=== PATIENT | female | born 1970 | race Caucasian/White ===

== ENCOUNTER 2017-01-02 14:27 | Inpatient (IN) ==
--- NOTE | 2017-01-02 15:25 | Emergency Department Note ---
Disposition Referrals: NO,PCP [Primary Care Provider] - Forms: ED Satisfaction Letter Head Injury HPI - General Chief complaint: ED Dizziness Stated complaint: Dizzy / Hands Shaking and Cramping Time Seen by Provider: 01/02/17 15:09 Source: patient, family Limitations: no limitations Nursing Notes Reviewed: Yes Vital Signs Reviewed: Yes - History of Present Illness Pt Subjective Complaint: head injury, fall Onset (ago): hour(s) (1) Mechanism of Injury: fall from height (6 ft.) Loss of Consciousness: no Location of injury: parietal Pain Severity: moderate Quality: dull Radiation: none Other Injuries: none Associated symptoms: Reports: denies other symptoms - Related Data Home Medications Medication Instructions Recorded Confirmed Albuterol Sulfate [Proair 2 puff IH PRN PRN 10/19/15 10/27/16 Respiclick] Atorvastatin [Lipitor] 10 mg PO HS 10/19/15 10/27/16 FLUoxetine HCl [Prozac] 20 mg PO DAILY 10/19/15 10/27/16 Omeprazole [PriLOSEC] 20 mg PO DAILY 10/19/15 10/27/16 Ergocalciferol (VITAMIN D2) 50,000 unit PO QWEEK 02/26/16 10/27/16 [Vitamin D2 (50,000 UNIT)] Gabapentin [Neurontin] 600 mg PO TID 02/26/16 10/27/16 Spironolactone [Aldactone] 50 mg PO DAILY 02/26/16 10/27/16 Allergies/Adverse reactions: Allergies Allergy/AdvReac Type Severity Reaction Status Date / Time Sulfa (Sulfonamide Allergy Hives Verified 10/19/15 18:15 Antibiotics) iron AdvReac Hives Verified 10/27/16 07:20 All systems ED: reviewed and negative except as stated. 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 SERVICES MANAGER history: Reports: no HUMAN SERVICES MANAGER history - Social History Smoking Status: Current some day smoker Smokeless Tobacco Status: No Alcohol use: Reports: none Drug use: Reports: none Physical Exam - General Limitations: no limitations General appearance: alert, in no apparent distress - Head Head exam: other (Some tenderness superior aspect of her occiput no hematoma or abrasion) - Eye Eye exam: Present: normal appearance, PERRL, EOMI - Expanded Eye Exam Pupils: Left: reactive - ENT ENT exam: normal exam, normal oropharynx, mucous membranes moist - Expanded ENT Exam External ear exam: Present: normal external inspection Mouth exam: Present: normal external inspection Teeth exam: Present: normal inspection Throat exam: Present: normal inspection - Neck Neck exam: Present: normal inspection, full ROM, trachea midline - Chest Chest inspection: Present: normal inspection, symmetric chest wall rise - Respiratory Respiratory exam: Present: normal lung sounds bilaterally - Cardiovascular Cardiovascular exam: Present: regular rate, normal rhythm, normal heart sounds - Abdominal Exam Abdominal exam: Present: soft, Non-Tender. Absent: tenderness, distention, guarding, rebound, rigidity - Extremities Exam Extremities exam: Present: normal inspection, full ROM. Absent: tenderness, pedal edema - Expanded Upper Extremity Exam Shoulder exam: Present: normal inspection, full ROM Arm exam: Present: normal inspection, full ROM Elbow exam: Present: normal inspection, full ROM Forearm/Wrist exam: Present: normal inspection, full ROM Hand exam: Present: normal inspection, full ROM Vascular exam: Normal: capillary refill, radial pulse - Expanded Lower Extremity Exam Hip/Pelvis exam: Present: normal inspection, full ROM Upper leg exam: Present: normal inspection, full ROM Knee exam: Present: normal inspection, full ROM Lower leg exam: Present: normal inspection, full ROM Ankle exam: Present: normal inspection, full ROM Foot/toe exam: Present: normal inspection, full ROM Neurovascular/Tendon exam: Absent: motor deficit, sensory deficit, tendon deficit - Back Exam Back exam: Present: normal inspection, full ROM. Absent: tenderness - Neurological Exam Neurological exam: Present: alert, oriented X3 - Expanded Neurological Exam Patient oriented to: Present: person, place, time Cerebellar function: normal gait (Walked back without any assistance) Coma Scale Eye Opening: Spontaneous Coma Scale Motor Response: Obeys Commands Coma Scale Verbal Response: Oriented Coma Scale Total: 15 - Psychiatric Psychiatric exam: Present: normal affect, normal mood - Skin Skin exam: Present: warm, dry, intact, normal color Course Vital Signs Temperature 97.7 F 01/02/17 14:40 Pulse Rate 71 01/02/17 14:40 Respiratory Rate 14 01/02/17 14:40 Blood Pressure 90/57 01/02/17 14:40 O2 Sat by Pulse Oximetry 92 01/02/17 14:40 Temperature 97.7 F 01/02/17 14:40 Pulse Rate 71 01/02/17 14:40 Respiratory Rate 14 01/02/17 14:40 Blood Pressure 90/57 01/02/17 14:40 O2 Sat by Pulse Oximetry 92 01/02/17 14:40 Oxygen Delivery Oxygen Delivery Room Air Head Injury - Differential Diagnosis Differential Diagnosis: Likely: concussion without loss of consciousness, epidural hematoma, closed head injury, subarachnoid hematoma, postconcussion sydrome, subdural hematoma - Medical Records Medical records reviewed: Yes I reviewed the patient's medical records. - Radiology Data Radiology results reviewed: Yes I reviewed the patient's radiology results.
[2017-01-02] MEDS ORDERED: 0.9 % Sodium Chloride 1,000 ML IVC ONE (15:32)
--- NOTE | 2017-01-02 16:03 | Emergency Department Note ---
Disposition Clinical Impression: Acute on chronic kidney failure, Dehydration, Hyperkalemia Urinary tract infection Qualifiers: Urinary tract infection type: acute cystitis Hematuria presence: with hematuria Qualified Code(s): N30.01 - Acute cystitis with hematuria Disposition: Admitted As Inpatient Condition: Critical Referrals: NO,PCP [Non-Partnered Physician] - Forms: ED Satisfaction Letter Dizziness HPI - General Chief Complaint: ED Dizziness Stated Complaint: Dizzy / Hands Shaking and Cramping Time Seen by Provider: 01/02/17 15:09 Source: patient, family Limitations: no limitations Nursing Notes Reviewed: Yes Vital Signs Reviewed: Yes - History of Present Illness Pt Subjective Complaint: dizziness, lightheadedness, weakness Onset (ago): week(s) (2) Timing: gradual onset Description: lightheadedness, difficulty walking History of similar episodes: No History of trauma: No Severity: moderate Associated symptoms: Reports: weakness, other (cramping in her hands) - Related Data Home Medications Medication Instructions Recorded Confirmed Albuterol Sulfate [Proair 2 puff IH PRN PRN 10/19/15 10/27/16 Respiclick] Atorvastatin [Lipitor] 10 mg PO HS 10/19/15 10/27/16 FLUoxetine HCl [Prozac] 20 mg PO DAILY 10/19/15 10/27/16 Omeprazole [PriLOSEC] 20 mg PO DAILY 10/19/15 10/27/16 Ergocalciferol (VITAMIN D2) 50,000 unit PO QWEEK 02/26/16 10/27/16 [Vitamin D2 (50,000 UNIT)] Gabapentin [Neurontin] 600 mg PO TID 02/26/16 10/27/16 Spironolactone [Aldactone] 50 mg PO DAILY 02/26/16 10/27/16 Allergies Allergy/AdvReac Type Severity Reaction Status Date / Time Sulfa (Sulfonamide Allergy Hives Verified 10/19/15 18:15 Antibiotics) iron AdvReac Hives Verified 10/27/16 07:20 All systems ED: reviewed and negative except as stated. 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 - Social History Smoking Status: Current some day smoker Smokeless Tobacco Status: No Alcohol use: Reports: none Drug use: Reports: none Physical Exam - General Limitations: no limitations General appearance: alert, in no apparent distress - Head Head exam: atraumatic, normocephalic, normal inspection - Eye Eye exam: Present: normal appearance, PERRL, EOMI - Expanded Eye Exam Pupils: Left: reactive - ENT ENT exam: normal exam, normal oropharynx, mucous membranes moist - Expanded ENT Exam External ear exam: Present: normal external inspection Mouth exam: Present: normal external inspection Teeth exam: Present: normal inspection Throat exam: Present: normal inspection - Neck Neck exam: Present: normal inspection, full ROM, trachea midline - Chest Chest inspection: Present: normal inspection, symmetric chest wall rise - Respiratory Respiratory exam: Present: normal lung sounds bilaterally - Cardiovascular Cardiovascular exam: Present: regular rate, normal rhythm, normal heart sounds - Abdominal Exam Abdominal exam: Present: soft, Non-Tender. Absent: tenderness, distention, guarding, rebound, rigidity - Extremities Exam Extremities exam: Present: normal inspection, full ROM. Absent: tenderness, pedal edema - Expanded Upper Extremity Exam Shoulder exam: Present: normal inspection, full ROM Arm exam: Present: normal inspection, full ROM Elbow exam: Present: normal inspection, full ROM Forearm/Wrist exam: Present: normal inspection, full ROM Hand exam: Present: normal inspection, full ROM Vascular exam: Normal: capillary refill, radial pulse - Expanded Lower Extremity Exam Hip/Pelvis exam: Present: normal inspection, full ROM Upper leg exam: Present: normal inspection, full ROM Knee exam: Present: normal inspection, full ROM Lower leg exam: Present: normal inspection, full ROM Ankle exam: Present: normal inspection, full ROM Foot/toe exam: Present: normal inspection, full ROM Neurovascular/Tendon exam: Absent: motor deficit, sensory deficit, tendon deficit - Back Exam Back exam: Present: normal inspection, full ROM. Absent: tenderness - Neurological Exam Neurological exam: Present: alert, oriented X3 - Expanded Neurological Exam Patient oriented to: Present: person, place, time Coma Scale Eye Opening: Spontaneous Coma Scale Motor Response: Obeys Commands Coma Scale Verbal Response: Oriented Coma Scale Total: 15 - Psychiatric Psychiatric exam: Present: normal affect, normal mood - Skin Skin exam: Present: warm, dry, intact, normal color Course - Consultations Consultation #1: Department better recommends 1 L of fluid and then maintenance rate repeat BMP at 3 hours if still elevated potassium repeat kayexelate, no emergent dialysis at this time ( Time: 18:11 Vital Signs Temperature 97.7 F 01/02/17 14:40 Pulse Rate 71 01/02/17 14:40 Respiratory Rate 14 01/02/17 14:40 Blood Pressure 90/57 01/02/17 14:40 O2 Sat by Pulse Oximetry 92 01/02/17 14:40 Temperature 97.7 F 01/02/17 14:40 Pulse Rate 82 01/02/17 17:25 Respiratory Rate 18 01/02/17 17:25 Blood Pressure 94/43 01/02/17 17:25 O2 Sat by Pulse Oximetry 99 01/02/17 17:25 Oxygen Delivery Oxygen Delivery Room Air Dizziness - Differential Diagnosis Likely: adverse reaction to drug, orthostatic hypotension, other occult medical condition - Medical Records Medical records reviewed: Yes I reviewed the patient's medical records. - Lab Data Lab results reviewed: Yes I reviewed the patient's lab results. Result diagrams: 01/02/17 15:55 01/02/17 15:55 Lab Results 01/02/17 01/02/17 01/02/17 Range/Units 15:55 15:55 15:55 WBC 20.4 H (4.3-11.1) K/mcL RBC 4.88 (3.82-4.97) M/mcL Hgb 11.5 (11.5-15.4) g/dL Hct 43.0 (35.3-44.9) % MCV 88.1 (83.0-100.0) fL MCH 23.6 L (28.0-33.3) pg MCHC 26.7 L (31.6-35.5) g/dL RDW 20.5 H (11.5-14.5) % Plt Count 292 (140-400) K/mcL MPV 11.0 (9.4-12.4) fL Immature Gran % 0.7 (0-4) % Seg Neutrophils % 85.6 % Lymphocytes % 6.6 % Monocytes % 6.6 % Eosinophils % 0.2 % Basophils % 0.3 % Neutrophils # 17.5 H (1.6-8.9) K/mcL Lymphocytes # 1.4 (0.6-4.6) K/mcL Monocytes # 1.4 H (0.0-1.3) K/mcL Eosinophils # 0.0 (0.0-0.6) K/mcL Basophils # 0.1 (0.0-0.2) K/mcL Nucleated RBCs/100 WBC 0.6 H (0) /100 WBC Platelet Estimate Normal (Normal) Polychromasia 1+ A (Not Present) Anisocytosis 1+ A (Not Present) PT 11.9 (9.4-12.1) Seconds INR 1.1 Sodium 136 (136-145) mEq/L Potassium 6.0 H (3.5-4.5) mEq/L Chloride 99 (98-109) mEq/L Carbon Dioxide 21 (19-29) mEq/L BUN 114 H (7-20) mg/dL Creatinine 8.06 H (0.57-1.11) mg/dL Est GFR ( Amer) 6 L (> 60) Est GFR (Non-Af Amer) 5 L (> 60) BUN/Creatinine Ratio 14 (6-26) Glucose 96 (70-99) mg/dL Calculated Osmolality 318 H (280-300) Lactic Acid (0.5-2.2) mmol/L Calcium 8.4 L (8.6-10.8) mg/dL Total Bilirubin 0.6 (0.2-1.2) mg/dL AST 27 (5-34) Units/L ALT 15 (0-55) Units/L Alkaline Phosphatase 115 (38-126) Units/L Serum Total Protein 7.0 (6.0-8.3) g/dL Albumin 3.3 L (3.5-5.0) g/dL Globulin 3.7 H (2.4-3.5) g/dL Albumin/Globulin Ratio 0.9 L (1.1-2.2) Urine Color (Yellow) Urine Clarity (Clear) Urine pH (5.0-8.0) pH Units Ur Specific [place] (1.010-1.025) Urine Protein (Neg-Trace) mg/dL Urine Glucose (UA) (Normal) mg/dL Urine Ketones (Negative) mg/dL Urine Blood (Negative) Urine Nitrite (Negative) Urine Bilirubin (Negative) Urine Urobilinogen (Normal) mg/dL Ur Leukocyte Esterase (Negative) Urine Microscopic RBC (0-3) per hpf Urine Microscopic WBC (0-3) per hpf Ur Squamous Epith Cells (None-Few) per lpf Urine Bacteria (None-Few) per hpf Hyaline Casts (None-Few) per lpf Ur Culture Indicated? (NO) 01/02/17 01/02/17 Range/Units 16:03 17:42 WBC (4.3-11.1) K/mcL RBC (3.82-4.97) M/mcL Hgb (11.5-15.4) g/dL Hct (35.3-44.9) % MCV (83.0-100.0) fL MCH (28.0-33.3) pg MCHC (31.6-35.5) g/dL RDW (11.5-14.5) % Plt Count (140-400) K/mcL MPV (9.4-12.4) fL Immature Gran % (0-4) % Seg Neutrophils % % Lymphocytes % % Monocytes % % Eosinophils % % Basophils % % Neutrophils # (1.6-8.9) K/mcL Lymphocytes # (0.6-4.6) K/mcL Monocytes # (0.0-1.3) K/mcL Eosinophils # (0.0-0.6) K/mcL Basophils # (0.0-0.2) K/mcL Nucleated RBCs/100 WBC (0) /100 WBC Platelet Estimate (Normal) Polychromasia (Not Present) Anisocytosis (Not Present) PT (9.4-12.1) Seconds INR Sodium (136-145) mEq/L Potassium (3.5-4.5) mEq/L Chloride (98-109) mEq/L Carbon Dioxide (19-29) mEq/L BUN (7-20) mg/dL Creatinine (0.57-1.11) mg/dL Est GFR ( Amer) (> 60) Est GFR (Non-Af Amer) (> 60) BUN/Creatinine Ratio (6-26) Glucose (70-99) mg/dL Calculated Osmolality (280-300) Lactic Acid 1.5 (0.5-2.2) mmol/L Calcium (8.6-10.8) mg/dL Total Bilirubin (0.2-1.2) mg/dL AST (5-34) Units/L ALT (0-55) Units/L Alkaline Phosphatase (38-126) Units/L Serum Total Protein (6.0-8.3) g/dL Albumin (3.5-5.0) g/dL Globulin (2.4-3.5) g/dL Albumin/Globulin Ratio (1.1-2.2) Urine Color Yellow (Yellow) Urine Clarity Turbid A (Clear) Urine pH 6.5 (5.0-8.0) pH Units Ur Specific [place] 1.016 (1.010-1.025) Urine Protein >=300 H (Neg-Trace) mg/dL Urine Glucose (UA) Normal (Normal) mg/dL Urine Ketones Negative (Negative) mg/dL Urine Blood Large H (Negative) Urine Nitrite Negative (Negative) Urine Bilirubin Negative (Negative) Urine Urobilinogen Normal (Normal) mg/dL Ur Leukocyte Esterase Large H (Negative) Urine Microscopic RBC TNTC H (0-3) per hpf Urine Microscopic WBC TNTC H (0-3) per hpf Ur Squamous Epith Cells Many H (None-Few) per lpf Urine Bacteria Many H (None-Few) per hpf Hyaline Casts None Seen (None-Few) per lpf Ur Culture Indicated? YES A (NO) - EKG Data EKG attestation: Yes I reviewed and interpreted this EKG. Critical Care Time Critical Care Time: Yes Total Critical Care Time: 40 Attestation: Critical care performed: Time is exclusive of separately billable procedures. Time includes: direct patient care, patient reassessment, coordination of patient care, interpretation of data (laboratory data, radiology data, and respiratory data), review of patient's medical records, medical consultation and documentation of patient care. Procedures included in critical care time: Procedures excluded from critical care time:
[2017-01-02 16:06] LABS: Basophils % 0.3 %; Hemoglobin 11.5 g/dL (11.5-15.4); Monocytes % 6.6 %
[2017-01-02 16:08] LABS: Basophils # 0.1 K/mcL (0.0-0.2); Eosinophils % 0.2 %; Immature Granulocytes % 0.7 % (0-4); Lymphocytes # 1.4 K/mcL (0.6-4.6); Lymphocytes % 6.6 %; Mean Corpuscular HGB Conc 26.7 g/dL (31.6-35.5); Mean Corpuscular Hemoglobin 23.6 pg (28.0-33.3); Mean Corpuscular Volume 88.1 fL (83.0-100.0); Monocytes # 1.4 K/mcL (0.0-1.3); Neutrophils # 17.5 K/mcL (1.6-8.9); Nucleated Red Blood Cells 0.6 /100 WBC (0); Platelet Count 292 K/mcL (140-400); Red Blood Count 4.88 M/mcL (3.82-4.97); Red Cell Distribution Width 20.5 % (11.5-14.5); Segmented Neutrophils % 85.6 %
[2017-01-02 16:10] LABS: Bilirubin,Urine Negative (Negative); Blood,Urine Large (Negative); Clarity,Urine Turbid (Clear); Color,Urine Yellow (Yellow); Glucose,Urine (UA) Normal (Normal); Ketones,Urine Negative (Negative); Leukocyte Esterase,Urine Large (Negative); Nitrite,Urine Negative (Negative); PH,Urine 6.5 pH Units (5.0-8.0); Protein,Urine >=300 mg/dL (Neg-Trace); Specific Gravity,Urine 1.016 (1.010-1.025); Urobilinogen,Urine Normal (Normal)
[2017-01-02 16:12] LABS: INR 1.1; Prothrombin Time 11.9 Seconds (9.4-12.1)
[2017-01-02 16:12] LABS: Bacteria,Urine Many per hpf (None-Few); Hyaline Casts,Urine None Seen per lpf (None-Few); Squamous Epithelial Cell,Urine Many per lpf (None-Few); WBC,Urine TNTC per hpf (0-3)
[2017-01-02 16:20] LABS: Albumin 3.3 g/dL (3.5-5.0); Albumin/Globulin Ratio 0.9 (1.1-2.2); Bilirubin,Total 0.6 mg/dL (0.2-1.2); Calcium 8.4 mg/dL (8.6-10.8); Globulin 3.7 g/dL (2.4-3.5)
[2017-01-02 16:21] LABS: RBC,Urine TNTC per hpf (0-3)
[2017-01-02 16:31] LABS: Platelet Estimate Normal (Normal)
[2017-01-02 16:32] LABS: Anisocytosis 1+ (Not Present); Polychromasia 1+ (Not Present)
[2017-01-02] MEDS ORDERED: *HR* Dextrose 50 % in Water (Syg) 50 ML SYRINGE IVP ONE (16:35)
[2017-01-02] MEDS ORDERED: Albuterol 2.5 MG/3 ML NEBULIZER IH ONE (16:35)
[2017-01-02] MEDS ORDERED: Sodium Bicarbonate 50 MEQ/50 ML VIAL IVP ONE (16:35)
[2017-01-02] MEDS ORDERED: Calcium Gluconate 1,000 MG in D5% in Water 100 ML IVPB ONE (16:45)
[2017-01-02 22:02] LABS: Calcium 8.2 mg/dL (8.6-10.8)
[2017-01-02 22:05] LABS: Potassium 4.8 mEq/L (3.5-4.5)
[2017-01-02] MEDS ORDERED: Naloxone 0.4 MG/ML INJ IVP PRN (22:16)
[2017-01-02] MEDS: 0.9 % Sodium Chloride 1,000 ML IVC SCH (22:20)
[2017-01-02] MEDS ORDERED: Albuterol 2.5 MG/3 ML NEBULIZER IH PRN (22:48)
--- NOTE | 2017-01-02 23:07 | Internal Med History&Physical ---
<Pily Abdalla - Last Filed: 01/02/17 23:54> Date of Encounter: 01/02/17 Time of Encounter: 22:00 Assessment and Plan (1) Hyperkalemia Current visit: No Status: Acute 1 patient presented with potassium of 6. She was given kayexalate albuterol calcium gluconate IV, IV fluids and recheck potassium 4.8 and continue to monitor potassium 2 continuous cardiac monitoring 3 continue with IV fluids overnight 4 consult nephrology 5 Hold spironolactone (2) Sepsis Current visit: Yes Status: Acute 1 patient presented with WBC 20 patient was hypotensive, elevated creatinine urinary source and possible pneumonia. Blood cultures urine cultures obtained. Patient given IV fluids to continue with IV fluid overnight 2 started on Rocephin we will add Zithromax-for respiratory coverage 3 monitor intake and output 4 maintain MAP greater than 60 Qualifiers: Sepsis type: sepsis due to unspecified organism Qualified Code(s): A41.9 - Sepsis, unspecified organism (3) Acute on chronic renal failure Current visit: Yes Status: Acute 1 creatinine 8.06. Baseline 2-3. Suspect prerenal rt sepsis Patient is being followed by Dr Arias nephrology- developing fistula for possible dialysis in the next 6 mos per patient report. We will continue with IV fluids nad continue to monitor creatinine 2 . Avoid nephrotoxins renal dose antibiotics 3 we will hold spirolactone, decrease Neurontin 4 monitor intake and output daily weights (4) HTN (hypertension) Current visit: No Status: Chronic 1 presently hypotensive we will continue with IV fluids. We will hold antihypertensives for now and resume once back to baseline Qualifiers: Hypertension type: essential hypertension Qualified Code(s): I10 - Essential (primary) hypertension (5) Urinary tract infection Current visit: Yes Status: Acute 1 WBC 20 afebrile urinalysis with large leuk esterase blood bacteria. Urine culture obtained blood cultures obtained. Started on Rocephin we will just a sensitivity Qualifiers: Urinary tract infection type: acute cystitis Hematuria presence: with hematuria Qualified Code(s): N30.01 - Acute cystitis with hematuria (6) DVT prophylaxis Current visit: Yes Status: Acute Heparin subcutaneous Internal Medicine - H&P: HPI Chief complaint: Shaky hands dizziness Admitted From: Emergency Dept Plans for Post Hospital Care: Home History of present illness: Ms. Saucedo is a 46 year old female past medical history of hypertension EKG stage IV COPD hyperlipidemia BAILEY. According to patient for the past 2 weeks she has been experiencing tremors and spasms in her hands bilaterally also hands are swollen painful to touch left more than right. She also has been experiencing some dizziness lightheadedness. She has recently been treated for an upper respiratory infection received antibiotic. She denies any fevers chills nausea vomiting diarrhea abdominal pain. She presented to the ER with the above complaints. According to ER records lab work was obtained and revealed patient had hyperkalemia of 6 creatinine was 8.06 CBC revealed daily C 20.4 hemoglobin 11.5 lactate was 1.5 urinalysis indicative of UTI with large amount of leuk esterase blood, bacteria. Chest x-ray revealed possible infiltrate vital signs upon arrival patient was hypertensive name D6 systolic afebrile 97.7 pulse was 71 and SPO2 is 92% placed on oxygen improved to 99%. Dr. Mccain in the ER did speak with who agreed with Mr. to oxalate IV fluids calcium albuterol continue with IV fluids maintenance and recheck potassium later on this evening. He would see patient as consult. Blood cultures were obtained patient was given IV Rocephin Patient has been admitted for further workup and evaluation presently the patient denies any chest pain shortness of breath she denies any past urinary symptoms or vaginal discharge. She denies any cough or sputum production . She continues to complain of hand pain. Left hand is slightly swollen and there is redness/ warmth around first and second metacarpal phalangeal joints. She is hemodynamically stable this time I reviewed this case with Dr. Mensah who agrees with plan Past Med Surg Social Fam HX - Past Medical History Medical history: COPD, diabetes, hyperlipidemia, hypertension, kidney stones, renal disease, other Psychiatric history: anxiety, depression - Past Surgical History Surgical History: orthopedic, other, other - Social History Smoking Status: Current some day smoker Packs per day: 1 Smokeless Tobacco Status: No Alcohol use: none Drug use: none - Family History Mother Age: 67 Living Status: Still Living Hx Family Cardiac Disorders: Yes Hx Family Neurologic Disorders: Yes (Stoke) Father Living Status: Age at : 60 Cause of : Stomach cancer Hx Family Cancer: Yes (Stomach) Internal Medicine - H&P: Meds Albuterol Sulfate [Proair Respiclick] 2 puff IH PRN PRN 10/19/15 [History] Atorvastatin [Lipitor] 10 mg PO HS 10/19/15 [History] FLUoxetine HCl [Prozac] 20 mg PO DAILY 10/19/15 [History] Omeprazole [PriLOSEC] 20 mg PO DAILY 10/19/15 [History] Ergocalciferol (VITAMIN D2) [Vitamin D2 (50,000 UNIT)] 50,000 unit PO QWEEK 10/12 [History] Gabapentin [Neurontin] 600 mg PO TID 02/26/16 [History] Spironolactone [Aldactone] 50 mg PO DAILY 02/26/16 [History] Allergies Sulfa (Sulfonamide Antibiotics) Allergy (Verified 10/19/15 18:15) Hives iron Adverse Reaction (Verified 10/27/16 07:20) Hives All Systems PM: A 10-system review of systems was performed and is negative for pertinent findings except as documented above in the HPI. - Constitutional Constitutional: no chills, no fever(s), no night sweats - EENT Eyes: no change in vision, no discharge, no pain, no photophobia - Cardiovascular Cardiovascular ROS IM: no chest pain, no diaphoresis, no dyspnea, no lightheadedness, no palpitations, no syncope - Respiratory Respiratory: wheezing, chest congestion - Gastrointestinal Gastrointestinal: no abdominal pain, no diarrhea, no hematemesis, no hematochezia, no melena, no nausea, no vomiting - Genitourinary Genitourinary: no change in urinary stream, no dysuria, no flank pain, no hematuria - Musculoskeletal Musculoskeletal ROS IM: joint swelling - Integumentary Integumentary IM: erythema - Neurological Neurological ROS: no confusion, no convulsions, no focal weakness, no numbness, no tingling, no tremor(s) - Constitutional Vitals: Temp Pulse Resp BP Pulse Ox 98.6 F 78 20 109/62 91 01/02/17 20:35 01/02/17 20:35 01/02/17 20:35 01/02/17 20:35 01/02/17 20:35 General appearance: Present: A&O X 3, morbidly obese, answers questions appropriately - Head Head exam: Present: atraumatic, normocephalic - Respiratory Respiratory exam: Present: decreased breath sounds, wheezes. Absent: accessory muscle use, rales, rhonchi Additional comments: Faint expiratory wheeze - Cardiovascular Cardiovascular exam: Present: RRR, +S1, +S2. Absent: diastolic murmur, gallop, rubs, systolic murmur - GI/Abdominal GI/Abdominal exam: Present: normal bowel sounds, soft, no peritoneal signs. Absent: distended, tenderness - Expanded Upper Extremities Exam Hand wrist exam: Present: erythema, swelling, tenderness - Neurological Exam Neurological exam: Present: CN II-XII intact, oriented X3, no focal deficits. Absent: pronater drift, facial droop, speech deficit - Skin Skin exam: Present: dry, intact Internal Med - H&P Results - Labs CBC & Chem 7: 01/02/17 15:55 01/02/17 21:29 Labs: BMP 01/02/17 21:29 Sodium 137 Potassium 4.8 H D Chloride 99 Carbon Dioxide 22 BUN 111 H Creatinine 8.41 H Glucose 114 H Calcium 8.2 L - Diagnostic Studies Other Images Additional comments: Chest X-Ray 01/02/17 16:33 IMPRESSION: Right basilar airspace opacities compatible atelectasis versus infiltrates. D/ / Landen Ojeda MD / Landen Ojeda MD Interpreting Provider: Landen Ojeda MD <Hari Mensah - Last Filed: 01/03/17 01:15> Date of Encounter: 01/03/17 - Constitutional Vitals: Temp Pulse Resp BP Pulse Ox 98.2 F 74 17 110/65 93 01/02/17 23:12 01/02/17 23:12 01/02/17 23:12 01/02/17 23:12 01/02/17 23:12 General appearance: Present: A&O X 3, morbidly obese, no acute distress - Respiratory Respiratory exam: Present: decreased breath sounds, rales (faint crackles both bases, right > left), wheezes - Cardiovascular Cardiovascular exam: Present: distant heart sounds, RRR, +S1, +S2 - GI/Abdominal GI/Abdominal exam: Present: soft. Absent: tenderness Additional comments: obese - Back Exam Back exam: Present: normal inspection. Absent: CVA tenderness (L), CVA tenderness (R) - Skin Skin exam: Present: dry, warm. Absent: rash Internal Med - H&P Results - Labs CBC & Chem 7: 01/02/17 15:55 01/02/17 21:29 Labs: BMP 01/02/17 21:29 Sodium 137 Potassium 4.8 H D Chloride 99 Carbon Dioxide 22 BUN 111 H Creatinine 8.41 H Glucose 114 H Calcium 8.2 L - EKG Data -: EKG Interpreted by Myself EKG shows normal: sinus rhythm - EKG Data EKG comments: 01/03/17 00:58 [facility] - Diagnostic Studies Other Images Status: image reviewed by me (I suspect RLL infiltrate) - Attending Attestation I discussed the patient [place], PMH, ROS, lab data, and exam findings with Pily Abdalla CNP. I then assessed patient independently as well. Patient looks intravascularly dry on my exam. She admits to cough and fevers. She also has a UTI. BP better now, and she is not tachycardic. I agree that she is septic, likely from urine and pneumonia source. She also had pain and swelling in her left hand. I agree with Pily that this may be gout. She is ordering uric acid level. She may need rheumatology consult as well. I agree with the antibiotic choices. I would not place her on Vancomycin just yet given her renal function and stabilized BP. If she decompensates, however, I would have a low threshold to initiate Vancomycin. Other than my comments above and noted exam findings, I agree with Pily's assessment and plan.
[2017-01-02 23:26] LABS: Uric Acid 14.9 mg/dL (2.6-6.0)
[2017-01-02] MEDS: Ipratropium/Albuterol Neb 3 ML IH SCH (23:30)
[2017-01-03] MEDS: Azithromycin 500 MG in D5% in Water 250 ML IVPB SCH (00:06)
[2017-01-03] MEDS: Ipratropium/Albuterol Neb 3 ML IH SCH (04:37)
[2017-01-03] MEDS: 0.9 % Sodium Chloride 1,000 ML IVC SCH (06:06)
[2017-01-03] MEDS: *HR* Heparin 5,000 UNIT/ML VIAL SQ SCH ×2 (06:06→17:50)
[2017-01-03 07:37] LABS: Basophils % 0.2 %; Eosinophils # 0.1 K/mcL (0.0-0.6); Eosinophils % 0.3 %; Hematocrit 44.9 % (35.3-44.9); Hemoglobin 11.7 g/dL (11.5-15.4); Immature Granulocytes % 0.6 % (0-4); Lymphocytes % 5.9 %; Mean Corpuscular HGB Conc 26.1 g/dL (31.6-35.5); Mean Corpuscular Hemoglobin 23.1 pg (28.0-33.3); Mean Corpuscular Volume 88.7 fL (83.0-100.0); Mean Platelet Volume 11.7 fL (9.4-12.4); Monocytes # 1.1 K/mcL (0.0-1.3); Monocytes % 6.2 %; Neutrophils # 14.9 K/mcL (1.6-8.9); Nucleated Red Blood Cells 0.3 /100 WBC (0); Platelet Count 238 K/mcL (140-400); Red Blood Count 5.06 M/mcL (3.82-4.97); Red Cell Distribution Width 20.7 % (11.5-14.5); Segmented Neutrophils % 86.8 %
[2017-01-03 07:50] LABS: Calcium 8.4 mg/dL (8.6-10.8); Magnesium 2.3 mg/dL (1.6-2.6); Phosphorous 12.1 mg/dL (2.3-4.7); Potassium 4.7 mEq/L (3.5-4.5)
[2017-01-03 08:08] LABS: Platelet Estimate Normal (Normal); Polychromasia 1+ (Not Present)
[2017-01-03 08:09] LABS: Anisocytosis 1+ (Not Present)
[2017-01-03 08:10] LABS: Hypochromasia Present (Not Present)
--- NOTE | 2017-01-03 09:34 | Internal Med Progress Note ---
Date of Encounter: 01/03/17 Time of Encounter: 09:32 - Assessment and plan (1) Hyperkalemia Current Visit: Yes Status: Acute Assessment and plan: due to worsening renal failure; improved with medical management for now; continue Telemetry and monitor electrolytes closely; Nephrology has been consulted, will f/up; (2) Urinary tract infection Current Visit: Yes Status: Acute Assessment and plan: Urinalysis suggestive of UTI; continue IV antibiotics and f/up urine culture results; Qualifiers: Urinary tract infection type: acute cystitis Hematuria presence: with hematuria Qualified Code(s): N30.01 - Acute cystitis with hematuria (3) CAP (community acquired pneumonia) Current Visit: Yes Status: Acute Assessment and plan: Patient presents with leukocytosis, hypoxia and chest XRay shows bibasilar infiltrates; continue IV antibiotics- Rocephin and Zithromax along with supplemental O2 and supportive care; f/up blood cultures and send sputum culture if possible; (4) Sepsis Current Visit: Yes Status: Acute Assessment and plan: likely due to Pneumonia and UTI; plan as above; serum lactate noted to be normal ; Qualifiers: Sepsis type: sepsis due to unspecified organism Qualified Code(s): A41.9 - Sepsis, unspecified organism (5) Acute on chronic kidney failure Current Visit: Yes Status: Acute Assessment and plan: worsening renal failure with metabolic acidosis and hyperkalemia; Nephrology has been consulted, patient has left arm AVF, may be initiated on HD; (6) Acute respiratory failure Current Visit: Yes Status: Acute Assessment and plan: likely due to volume overload and Pneumonia; continue supplemental O2 and wean down FiO2 as tolerated; Qualifiers: Respiratory failure complication: hypoxia Qualified Code(s): J96.01 - Acute respiratory failure with hypoxia (7) Metabolic acidosis Current Visit: Yes Status: Acute (8) Obstructive sleep apnea Current Visit: Yes Status: Chronic (9) Morbid obesity with BMI of 50.0-59.9, adult Current Visit: Yes Status: Chronic (10) HTN (hypertension) Current Visit: Yes Status: Chronic Qualifiers: Hypertension type: essential hypertension Qualified Code(s): I10 - Essential (primary) hypertension (11) CKD (chronic kidney disease), stage IV Current Visit: Yes Status: Chronic - Subjective Interval history: Reports severe pain and swelling in both hands, worse in left hand, unable to flex her fingers and make a fist. Also reports dizziness, generalized weakness and malaise. Reports recently finishing a course of antibiotics for upper respiratory infection and groin abscess that self resolved according to her. - Constitutional Vitals: Temp Pulse Resp BP Pulse Ox 97.6 F 69 18 86/47 96 01/03/17 07:34 01/03/17 07:34 01/03/17 07:34 01/03/17 07:34 01/03/17 07:34 General appearance: Present: A&O X 3, morbidly obese, answers questions appropriately - Respiratory Respiratory exam: Present: CTAB. Absent: accessory muscle use, rales, rhonchi, wheezes - Cardiovascular Cardiovascular exam: Present: RRR, +S1, +S2. Absent: diastolic murmur, gallop, rubs, systolic murmur - GI/Abdominal GI/Abdominal exam: Present: normal bowel sounds, soft (Very obese), no peritoneal signs. Absent: distended, tenderness - Extremities Exam Extremities exam: Present: full ROM (Restricted finger flexion in left hand), pedal edema, warm, radial pulses palpable and symetrical. Absent: calf tenderness, cyanotic Additional comments: Diffuse edema off left dorsal hand and fingers, palmar tenderness - Neurological Exam Neurological exam: Present: CN II-XII intact, oriented X3, no focal deficits. Absent: pronater drift, facial droop, speech deficit Internal Medicine: Result - Labs CBC & Chem 7: 01/07/17 06:10 01/07/17 16:08 Labs: Short CBC 01/03/17 Range/Units 06:34 WBC 17.2 H (4.3-11.1) K/mcL Hgb 11.7 (11.5-15.4) g/dL Hct 44.9 (35.3-44.9) % Plt Count 238 (140-400) K/mcL Neutrophils # 14.9 H (1.6-8.9) K/mcL BMP 01/03/17 06:34 Sodium 136 Potassium 4.7 H Chloride 97 L Carbon Dioxide 18 L BUN 123 H Creatinine 8.74 H Glucose 97 Calcium 8.4 L - ABG Interpretation ABG results: PT/INR, D-dimer PT 11.9 Seconds (9.4-12.1) 01/02/17 15:55 Consult Discharge Plan - Plan Referrals: Steven Ly MD [Primary Care Provider] - 01/12/17 2:40 pm (Please follow up as schedule....)
[2017-01-03] MEDS: Acetaminophen 325 MG TABLET PO PRN (10:15)
[2017-01-03] MEDS: Gabapentin 100 MG CAPSULE PO SCH ×3 (10:16→20:23)
[2017-01-03] MEDS: FLUoxetine 20 MG CAPSULE PO SCH (10:16)
--- NOTE | 2017-01-03 12:09 | Nephrology Consult Note ---
Date of Encounter: 01/03/17 Time of Encounter: 09:25 Assessment and Plan (1) Acute on chronic renal failure Current Visit: Yes Status: Acute JOEY on CKD stage IV with hyperkalemia. Suspect prerenal but her SCr continues to worsen despite IVF. Fortunately her degree of hyperkalemia has improved, so I will hold off on starting HD today (Wednesday). However, iIf her renal function remains so poor tomorrow and continues to fail to respond to IVF, then I would recommend starting HD. AV access: the left midarm AVF is almost too deep and has a weak thrill and bruit, so it may not be sufficient enough for dialysis. If so, then she may need a Permacth for dialysis. Follow a renal protective/support strategy. Avoid NSAIDs, Bactrim, other nephrotoxins as able. Strict I/Os and daily weights. Thank you for consulting the [facility]. (2) Dehydration Current Visit: Yes Status: Acute (3) Hyperkalemia Current Visit: Yes Status: Acute (4) Metabolic acidosis Current Visit: Yes Status: Acute (5) Morbid obesity with BMI of 50.0-59.9, adult Current Visit: Yes Status: Acute (6) Urinary tract infection Current Visit: Yes Status: Acute Qualifiers: Urinary tract infection type: acute cystitis Hematuria presence: with hematuria Qualified Code(s): N30.01 - Acute cystitis with hematuria (7) CKD (chronic kidney disease), stage IV Current Visit: No Status: Chronic (8) HTN (hypertension) Current Visit: No Status: Chronic Qualifiers: Hypertension type: essential hypertension Qualified Code(s): I10 - Essential (primary) hypertension History of Present Illness - Reason for Consult Consult date: 01/03/17 Acute Kidney Injury, Chronic Kidney Disease, hyperkalemia Requesting physician: Shaina Friedman - Chief Complaint JOEY on CKD stage IV - History of Present Illness 46 y/o morbidly obese and pleasant Caucasion female with a pmh of HTN, CKD stage IV (followed by me in the clinic) who presented with dizziness and was found to have JOEY with hyperkalemia. She was given IVF overnight and Kayexalate and though her SCr did not improve, the hyperkalemia did. She denied NSAIDs, N/ V or changes in appetite (i.e., no uremic symptoms), but did affirm chronic IBS- diarrhea predominant. No CP, ShOB, abd pain. Was found to have a UTI as well. Recent left hand swelling/pain. She did not report any anticedant injury, scratch, gardening, fish tank cleaning. 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 She is right handed. No pain in her finger tips and no palor of the finger nail beds. She said that she lives about 20 miles to [place], [place], and about 30 miles to [place], [place]. If she were to need chronic HD, she said that she would rather drive to [place], [place]. No FHx of ESRD reported. Past Med Surg Social Fam HX - Past Medical History Medical history: COPD, diabetes, hyperlipidemia, hypertension, kidney stones, renal disease, other Psychiatric history: anxiety, depression - Past Surgical History Surgical History: orthopedic, other, other - Social History Smoking Status: Current some day smoker Packs per day: 1 Smokeless Tobacco Status: No Alcohol use: none Drug use: none - Family History Mother Age: 67 Living Status: Still Living Hx Family Cardiac Disorders: Yes Hx Family Neurologic Disorders: Yes (Stoke) Father Living Status: Age at : 60 Cause of : Stomach cancer Hx Family Cancer: Yes (Stomach) Medications and Allergies RX: Albuterol Sulfate [Proair Respiclick] 2 puff IH Q4H PRN 10/19/15 [History] RX: Atorvastatin [Lipitor] 10 mg PO HS 10/19/15 [History] RX: FLUoxetine HCl [Prozac] 20 mg PO QAM 10/19/15 [History] RX: Omeprazole [PriLOSEC] 20 mg PO DAILY 10/19/15 [History] RX: Ergocalciferol (VITAMIN D2) [Vitamin D2 (50,000 UNIT)] 50,000 unit PO FR 10/12 [History] Fluticasone/Vilanterol [Breo Ellipta 100-25 Mcg INH] 1 each IH DAILY 01/03/17 [ History] Gabapentin [Neurontin] 300 mg PO TID 01/03/17 [History] Potassium Chloride [Klor-Con] 20 meq PO DAILY 01/03/17 [History] Allergies Sulfa (Sulfonamide Antibiotics) Allergy (Verified 10/19/15 18:15) Hives iron Adverse Reaction (Verified 10/27/16 07:20) Hives Review of Systems All Systems: reviewed and no additional remarkable complaints except as stated Exam - Vital Signs Vital signs: Initial Vital Signs Temp Pulse Resp BP Pulse Ox 97.7 F 71 14 90/57 92 01/02/17 14:40 01/02/17 14:40 01/02/17 14:40 01/02/17 14:40 01/02/17 14:40 Vital Signs - Last 8 Hours Temp Pulse Resp BP Pulse Ox 01/03/17 11:28 97.9 F 67 17 105/66 94 01/03/17 07:34 97.6 F 69 18 86/47 96 Intake and Output 01/02/17 01/03/17 01/03/17 23:59 07:59 15:59 Intake Total 1200 / 1200 360 / 360 Output Total 150 / 150 Balance 1050 / 1050 360 / 360 Intake: IV Fluids 1000 / 1000 0.9 % Sodium Chloride 1, 1000 / 1000 000 ML @ 150 mls/hr IVC . Q6H40M [facility] Rx#:[id number] Oral 200 / 200 360 / 360 Output: Catheter 150 / 150 Other: Meal Breakfast Percent of Meal Consumed 100% Weight 155.922 kg Blood Glucose* 119 119 Patient Weight 01/03/17 23:59 Weight 155.922 kg - General Appearance General appearance: well-developed, well-nourished, appears started age, obese EENT: ATNC, PERRL, mucous membranes moist Respiratory: rales Cardiology: edema (trace ankle edema), regular rate, regular rhythm, normal S1, normal S2 - Dialysis Access Dialysis Vascular Access: Arteriovenous Fistula (Left mid arm AVF with deep thrill and tight bruit) thrill: Yes bruit: Yes Gastrointestinal: normoactive bowel sounds, no tenderness, no guarding, no organomegaly Integumentary: rash (left hand but her finger tips were not cyanotic or pale. ) , warm and dry, chronic venous stasis Neurologic: no focal deficit, no asterixis, alert and oriented x3 Musculoskeletal: no deformities, no erythema, no cyanosis Psychiatric: mood/affect appropriate, cooperative Results - Lab Results 01/03/17 06:34 01/03/17 06:34 Most recent lab results Calcium 8.4 mg/dL (8.6-10.8) L 04/09/17 06:34 Phosphorus 12.1 mg/dL (2.3-4.7) H 01/03/17 06:34 Magnesium 2.3 mg/dL (1.6-2.6) 01/03/17 06:34 I reviewed the above autogenerated date. I reviewed medical records, labs, imaging, vitals and the patient. Consult Discharge Plan - Plan Referrals: Setven Ly MD [Primary Care Provider] -
[2017-01-04 04:54] LABS: Nucleated Red Blood Cells 0.4 /100 WBC (0)
[2017-01-04 04:56] LABS: Basophils # 0.1 K/mcL (0.0-0.2); Basophils % 0.3 %; Eosinophils # 0.1 K/mcL (0.0-0.6); Eosinophils % 0.5 %; Hematocrit 38.6 % (35.3-44.9); Hemoglobin 10.4 g/dL (11.5-15.4); Immature Granulocytes % 0.6 % (0-4); Lymphocytes # 0.9 K/mcL (0.6-4.6); Lymphocytes % 4.7 %; Mean Corpuscular HGB Conc 26.9 g/dL (31.6-35.5); Mean Corpuscular Hemoglobin 23.6 pg (28.0-33.3); Mean Corpuscular Volume 87.5 fL (83.0-100.0); Mean Platelet Volume 11.3 fL (9.4-12.4); Monocytes # 1.4 K/mcL (0.0-1.3); Monocytes % 7.2 %; Platelet Count 240 K/mcL (140-400); Red Blood Count 4.41 M/mcL (3.82-4.97); Red Cell Distribution Width 20.1 % (11.5-14.5); Segmented Neutrophils % 86.7 %
[2017-01-04 05:13] LABS: Calcium 7.9 mg/dL (8.6-10.8); Phosphorous 13.7 mg/dL (2.3-4.7); Potassium 5.6 mEq/L (3.5-4.5); Uric Acid 14.1 mg/dL (2.6-6.0)
[2017-01-04 05:34] LABS: Neutrophils # 16.5 K/mcL (1.6-8.9)
[2017-01-04] MEDS: *HR* Heparin 5,000 UNIT/ML VIAL SQ SCH ×2 (05:35→18:09)
[2017-01-04 05:36] LABS: Anisocytosis 1+ (Not Present); Platelet Estimate Normal (Normal); Poikilocytosis 1+ (Not Present); Polychromasia 1+ (Not Present)
[2017-01-04] MEDS: Azithromycin 500 MG in D5% in Water 250 ML IVPB SCH (05:58)
[2017-01-04] MEDS: Acetaminophen 325 MG TABLET PO PRN ×2 (09:00→14:24)
[2017-01-04] MEDS: Gabapentin 100 MG CAPSULE PO SCH (09:00)
[2017-01-04] MEDS: FLUoxetine 20 MG CAPSULE PO SCH (09:01)
--- NOTE | 2017-01-04 09:17 | Electrocardiograph Report ---
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
[2017-01-04] MEDS ORDERED: 0.9 % Sodium Chloride 250 ML IVC PRN (09:35)
[2017-01-04] MEDS ORDERED: 0.9 % Sodium Chloride 1,000 ML PRIME SCH (09:45)
--- NOTE | 2017-01-04 11:00 | Internal Med Progress Note ---
Date of Encounter: 01/04/17 Time of Encounter: 10:58 - Assessment and plan (1) Hyperkalemia Current Visit: Yes Status: Acute Assessment and plan: initially responded to medical management but noted to be increasing today; case d/w Nephrology and patient planned for initiation of HD today; will plan for further doses of Kayexalate if no HD today; high risk for complications; continue Telemetry monitoring; (2) Urinary tract infection Current Visit: Yes Status: Ruled-out Assessment and plan: UA was suspected UTI but urine culture shows no growth; f/up final results, on IV antibiotics for possible Pneumonia; Qualifiers: Urinary tract infection type: acute cystitis Hematuria presence: with hematuria Qualified Code(s): N30.01 - Acute cystitis with hematuria (3) CAP (community acquired pneumonia) Current Visit: Yes Status: Acute Assessment and plan: Imaging suggestive of Pneumonia; patient is noted to have worsening leukocytosis with persistent hypoxemia and elevated CK of uncertain significance , some of these changes may be due to volume overload from underlying renal failure. Will change antibiotics to IV Zosyn and Zithromax to broaden coverage; blood cultures so far negative, f/up final results; supportive care and supplemental O2; (4) Sepsis Current Visit: Yes Status: Acute Assessment and plan: due to suspected Pneumonia; plan as above; Qualifiers: Sepsis type: sepsis due to unspecified organism Qualified Code(s): A41.9 - Sepsis, unspecified organism (5) Acute on chronic kidney failure Current Visit: Yes Status: Acute Assessment and plan: worsening renal failure with metabolic acidosis, recurrent hyperkalemia, anemia ; Nephrology on board and case discussed in detail with ; left arm AVF may not be mature enough for HD; plan for placement of temporary HD catheter via IR today, to be followed by HD session; (6) Acute respiratory failure Current Visit: Yes Status: Acute Qualifiers: Respiratory failure complication: hypoxia Qualified Code(s): J96.01 - Acute respiratory failure with hypoxia (7) Metabolic acidosis Current Visit: Yes Status: Acute (8) Obstructive sleep apnea Current Visit: Yes Status: Chronic (9) Morbid obesity with BMI of 50.0-59.9, adult Current Visit: Yes Status: Chronic (10) HTN (hypertension) Current Visit: Yes Status: Chronic Qualifiers: Hypertension type: essential hypertension Qualified Code(s): I10 - Essential (primary) hypertension (11) CKD (chronic kidney disease), stage IV Current Visit: Yes Status: Chronic - Subjective Interval history: Noted to be somewhat drowsy today but still answers appropriately. Complains of numbness in both her legs after sitting for some time and requests for frequent changes in position. Improving left hand swelling and pain. Improving cough and shortness of breath, no chest pain. - Constitutional Vitals: Temp Pulse Resp BP Pulse Ox 97.8 F 65 16 92/50 94 01/04/17 08:27 01/04/17 08:27 01/04/17 08:27 01/04/17 08:27 01/04/17 09:08 General appearance: Present: A&O X 3, morbidly obese, answers questions appropriately - Respiratory Respiratory exam: Present: decreased breath sounds (At bilateral bases). Absent : accessory muscle use, rales, rhonchi, wheezes - Cardiovascular Cardiovascular exam: Present: RRR, +S1, +S2. Absent: diastolic murmur, gallop, rubs, systolic murmur - GI/Abdominal GI/Abdominal exam: Present: normal bowel sounds, soft (Very obese), no peritoneal signs. Absent: distended, tenderness - Extremities Exam Extremities exam: Present: full ROM, pedal edema, warm, radial pulses palpable and symetrical. Absent: calf tenderness, cyanotic Additional comments: Left upper extremity-significantly improved edema, improving tenderness over dorsal and palmar hand Left arm AV fistula in place, bruits/thrill not well palpable - Neurological Exam Neurological exam: Present: CN II-XII intact, oriented X3, no focal deficits. Absent: pronater drift, facial droop, speech deficit Internal Medicine: Result - Labs CBC & Chem 7: 01/10/17 04:20 01/10/17 04:20 Labs: Short CBC 01/04/17 Range/Units 04:40 WBC 19.0 H (4.3-11.1) K/mcL Hgb 10.4 L (11.5-15.4) g/dL Hct 38.6 (35.3-44.9) % Plt Count 240 (140-400) K/mcL Neutrophils # 16.5 H (1.6-8.9) K/mcL BMP 01/04/17 04:40 Sodium 133 L Potassium 5.6 H Chloride 96 L Carbon Dioxide 20 BUN 119 H Creatinine 10.56 H Glucose 134 H Calcium 7.9 L - ABG Interpretation ABG results: PT/INR, D-dimer PT 11.9 Seconds (9.4-12.1) 01/02/17 15:55 Consult Discharge Plan - Plan Referrals: Steven Ly MD [Primary Care Provider] - 01/12/17 2:40 pm (Please follow up as schedule....)
[2017-01-04 11:45] LABS: INR 1.1; Prothrombin Time 11.7 Seconds (9.4-12.1)
[2017-01-04 11:47] LABS: Activated Partial Thrombo Time 29.5 Seconds (26.0-36.0)
[2017-01-04] MEDS: Piperacillin/Tazobactam 3.375 GM in D5% in Water (Mini-Bag+) 100 ML IVPB SCH (11:50)
[2017-01-04] MEDS ORDERED: *HR* Heparin 5,000 UNIT/ML VIAL ONE (12:40)
--- NOTE | 2017-01-04 12:43 | IR Procedure Note ---
Date of procedure: 01/04/17 Consent Obtained: Verbal consent, Written consent Timeout: Correct patient and procedure verified, Correct site verified, Time out performed, Skin prep completed Local anesthetic: Lidocaine 1% Indications: ESRD Procedure Performed: temp HDC Site/Technique: KITTY Estimated blood loss (cc): 2 Complications: None; Tolerated procedure well Post Procedure Treatment Plan: CXR
[2017-01-04 14:28] LABS: Hepatitis A Antibody IgM Nonreactive (Nonreactive); Hepatitis B Core IgM Nonreactive (Nonreactive); Hepatitis B Surface Antibody 0.42 mIU/mL; Hepatitis B Surface Antigen Nonreactive (Nonreactive); Hepatitis C Virus Antibody Nonreactive (Nonreactive)
--- NOTE | 2017-01-04 17:05 | Nephrology Progress Note ---
Date of Encounter: 01/04/17 Time of Encounter: 16:57 - Assessment and Plan (1) Acute on chronic renal failure Current Visit: Yes Status: Acute Patient with CKD Stage 4 and acute worsening of her renal function. She has progressed to needing renal replacement therapy. 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 She was not initially tolerating, but seem to settle down prior to me leaving the dialysis unit. She will need a fistulogram and tunneled catheter prior to discharge. (2) Hyperkalemia Current Visit: Yes Status: Acute Dialysis today. (3) Metabolic acidosis Current Visit: Yes Status: Acute Dialysis today. (4) Morbid obesity with BMI of 50.0-59.9, adult Current Visit: Yes Status: Acute (5) Leukocytosis Current Visit: Yes Status: Acute Unclear etiology. Possible UTI vs pneumonia vs. other. With her pain in her buttocks this area may need to be imaged if unable to confirm source in other areas. Subjective Principal diagnosis: JOEY/CKD Interval history: Patient was seen this am. She was sitting in a chair complaining that her toes were numb. Dr. Friedman was in at the same time and we discussed her case. Nursing assistance was requested. Later I was called to the dialysis unit secondary to hypotension and abnormal behavior while on dialysis The patient was complaining of pain in her coccyx area. Her blood pressure came up slightly with fluid and palpation of her painful area. She was eventually able to lay in a comfortable position. Objective - Vital Signs Vital signs: Vital Signs Temp Pulse Resp BP Pulse Ox 01/04/17 16:25 95/45 01/04/17 16:10 96/36 01/04/17 15:55 94/43 01/04/17 15:40 92/43 01/04/17 15:25 90/49 01/04/17 15:10 98.8 F 18 98/51 01/04/17 11:10 97.7 F 65 18 93/61 97 01/04/17 09:08 94 01/04/17 08:27 97.8 F 65 16 92/50 94 01/04/17 04:06 97.8 F 67 18 93/57 91 01/03/17 23:57 97.8 F 67 18 95/52 93 01/03/17 20:46 97.8 F 72 20 96/61 93 Intake and Output 01/04/17 01/04/17 01/04/17 07:59 15:59 23:59 Intake Total 0 / 0 840 / 840 0 / 0 Output Total 0 / 0 0 / 0 Balance 0 / 0 840 / 840 0 / 0 Intake: Oral 0 / 0 240 / 240 0 / 0 Intake, Rinseback and 600 / 600 Flushes Output: Urine 0 / 0 0 / 0 Other: Meal Breakfast Percent of Meal Consumed 100% Hemodialysis Net Fluid 229 306 Removed (mL) - General Appearance General appearance: Present: well-developed, well-nourished EENT: Present: ATNC Neck: Present: no JVD Respiratory: Present: clear Cardiology: Present: regular rate Dialysis Vascular Access: Arteriovenous Fistula Additional Comments: left antecubital scar from operation for AV fistula. No thrill or bruit appreciated. There was a pulsation near the arterial side, but no appreciable pulsations on the venous side. Gastrointestinal: Present: obese Additional Comments: evaluation in the area she stated was painful revealed no erythema. She complained of pain in the area with palpation, but no nodules or fluctuating areas were appreciated. - Lab 01/05/17 04:26 01/05/17 04:26 Most recent lab results Calcium 7.9 mg/dL (8.6-10.8) L 01/04/17 04:40 Phosphorus 13.7 mg/dL (2.3-4.7) H 01/04/17 04:40 Magnesium 2.3 mg/dL (1.6-2.6) 01/03/17 06:34 Consult Discharge Plan - Plan Referrals: Steven Ly MD [Primary Care Provider] - 01/12/17 2:40 pm (Please follow up as schedule....)
--- NOTE | 2017-01-04 18:52 | Electrocardiograph Report ---
[place] [id number] Test Date: 2017-01-04 Pat Name: Odalys Saucedo Department: 112 Room: 2A16 Gender: F Telecommunications Facility Examiner: SANTOS : 1970 Requested By: Meg Friedman Order Number: [id number] Reading MD: Michael Vieyra MD Measurements Intervals [place] Rate: 99 P: 145 CT: 139 QRS: 146 QRSD: 92 T: -22 QT: 322 QTc: 378 Interpretive Statements SINUS RHYTHM Electronically Signed On 01-04-2017 18:51:10 EDT by Michael Vieyra MD
[2017-01-05] MEDS: Acetaminophen 325 MG TABLET PO PRN ×4 (00:53→23:03)
[2017-01-05] MEDS: Piperacillin/Tazobactam 3.375 GM in D5% in Water (Mini-Bag+) 100 ML IVPB SCH ×3 (01:01→23:03)
[2017-01-05] MEDS: Azithromycin 500 MG in D5% in Water 250 ML IVPB SCH ×2 (01:04→23:05)
[2017-01-05] MEDS: *HR* Heparin 5,000 UNIT/ML VIAL SQ SCH ×2 (04:35→18:04)
[2017-01-05 04:42] LABS: Basophils % 0.2 %; Eosinophils % 0.3 %; Hemoglobin 9.3 g/dL (11.5-15.4); Immature Granulocytes % 0.7 % (0-4); Nucleated Red Blood Cells 0.3 /100 WBC (0)
[2017-01-05 04:43] LABS: Eosinophils # 0.1 K/mcL (0.0-0.6); Hematocrit 34.5 % (35.3-44.9); Lymphocytes # 0.7 K/mcL (0.6-4.6); Lymphocytes % 3.1 %; Mean Corpuscular Hemoglobin 22.9 pg (28.0-33.3); Mean Platelet Volume 11.3 fL (9.4-12.4); Monocytes # 1.3 K/mcL (0.0-1.3); Monocytes % 6.2 %; Platelet Count 208 K/mcL (140-400); Red Blood Count 4.06 M/mcL (3.82-4.97); Red Cell Distribution Width 19.9 % (11.5-14.5); Segmented Neutrophils % 89.5 %
[2017-01-05 04:45] LABS: Neutrophils # 19.2 K/mcL (1.6-8.9)
[2017-01-05 05:08] LABS: Calcium 7.9 mg/dL (8.6-10.8)
[2017-01-05 05:26] LABS: Anisocytosis 1+ (Not Present); Macrocytosis Present (Not Present); Microcytosis Present (Not Present); Polychromasia 1+ (Not Present)
[2017-01-05 05:28] LABS: Hypochromasia Present (Not Present); Platelet Estimate Normal (Normal)
[2017-01-05] MEDS ORDERED: *HR* Heparin 10,000 UNIT/10 ML VIAL IV PRN (07:47)
[2017-01-05] MEDS ORDERED: 0.9 % Sodium Chloride 250 ML IVC PRN (07:47)
[2017-01-05] MEDS ORDERED: 0.9 % Sodium Chloride 1,000 ML PRIME SCH (08:00)
[2017-01-05] MEDS ORDERED: Heparin 1,000 UNITS/500 mL NS 500 ML ONE (08:20)
[2017-01-05] MEDS ORDERED: 0.9 % Sodium Chloride 500 ML ONE (08:20)
[2017-01-05] MEDS ORDERED: 0.9 % Sodium Chloride 2,000 ML ONE (08:38)
--- NOTE | 2017-01-05 09:39 | IR Procedure Note ---
Date of procedure: 01/05/17 Consent Obtained: Written consent Timeout: Correct patient and procedure verified, Correct site verified, Time out performed, Skin prep completed Indications: non functioning AV fistula Procedure Performed: fistulogram Site/Technique: left arm, 4F dilator Results/Findings: occluded fistula Estimated blood loss (cc): 2 Complications: None; Tolerated procedure well Post Procedure Treatment Plan: dc to floor
--- NOTE | 2017-01-05 09:59 | Nephrology Progress Note ---
Date of Encounter: 01/05/17 Time of Encounter: 09:57 - Assessment and Plan (1) Acute on chronic kidney failure Current Visit: Yes Status: Acute Fistulogram shows access no longer usable Plan for day #2 HD today, and if tolerates well, HD day #3 tomorrow Patient lives in [facility]-will consult manager social media to start making outpatient HD chair arrangements. Once infection clears will need permacath before discharge Started on renal diet and fluid restriction of 1.5 liters/day Avoid nephrotoxins if possible (2) Leukocytosis Current Visit: Yes Status: Acute WBC up to 21.4 from 19.0 yesterday C/o pain in tailbone/lower back area yesterday. Did not complain of any pain today but was upset and feeling overwhelmed at time of my exam. If etiology of leukocytosis is not found may need to CT lower back/buttocks if patient continues to c/o pain in this area. per primary team Qualifiers: Leukocytosis type: unspecified Qualified Code(s): D72.829 - Elevated white blood cell count, unspecified (3) Morbid obesity with BMI of 50.0-59.9, adult Current Visit: Yes Status: Acute per primary team On diabetic and now renal diet with fluid restriction Subjective Principal diagnosis: JOEY/CKD Interval history: Patient seen and examined. Just returned from fistulogram. Very sad and tearful, asks why all this is happening to her. Objective - Vital Signs Vital signs: Vital Signs Temp Pulse Resp BP Pulse Ox 01/05/17 09:12 71 24 108/59 92 01/05/17 09:08 69 15 85/63 97 01/05/17 04:00 98.0 F 74 18 103/57 93 01/05/17 00:08 98.4 F 73 18 95/57 93 01/04/17 20:34 98.6 F 72 17 95/51 92 01/04/17 20:30 22 95 01/04/17 17:10 98.3 F 22 103/85 01/04/17 16:55 95/43 01/04/17 16:40 96/37 01/04/17 16:25 88/39 01/04/17 16:10 96/36 01/04/17 15:55 94/43 01/04/17 15:40 92/43 01/04/17 15:25 90/49 01/04/17 15:10 98.8 F 18 98/51 01/04/17 11:10 97.7 F 65 18 93/61 97 Intake and Output 01/04/17 01/05/17 01/05/17 23:59 07:59 15:59 Intake Total 350 / 350 250 / 250 30 / 30 Output Total 0 / 0 Balance 350 / 350 250 / 250 30 / 30 Intake: IV Fluids 350 / 350 250 / 250 Zithromax 500 mg In 250 / 250 250 / 250 Dextrose 5% 250 ML @ 252 mls/hr IVPB Q24H ISABEL Rx#: [id number] Zosyn 3.375 GM In 100 / 100 Dextrose 5% (Minibag+) 100 ML 100 ML @ 25 mls/hr IVPB Q12H ISABEL Rx#: [id number] Oral 0 / 0 30 / 30 Output: Urine 0 / 0 Total Dialysis Output 0 / 0 Other: Meal Breakfast Percent of Meal Consumed 90% Weight 159.75 kg Hemodialysis Net Fluid 0 Removed (mL) Patient Weight 01/05/17 23:59 Weight 159.75 kg EENT: Present: ATNC, mucous membranes moist, hearing intact, vision intact Neck: Present: supple Cardiology: Present: edema Dialysis Vascular Access: Arteriovenous Fistula thrill: No bruit: No Gastrointestinal: Present: no tenderness, no guarding, obese Integumentary: Present: warm and dry Neurologic: Present: alert and oriented x3 Psychiatric: Present: depressed - Lab 01/05/17 04:26 01/05/17 04:26 Most recent lab results Calcium 7.9 mg/dL (8.6-10.8) L 01/05/17 04:26 Phosphorus 13.7 mg/dL (2.3-4.7) H 01/04/17 04:40 Magnesium 2.3 mg/dL (1.6-2.6) 01/03/17 06:34 Consult Discharge Plan - Plan Referrals: Steven Ly MD [Primary Care Provider] - 01/12/17 2:40 pm (Please follow up as schedule....)
[2017-01-05] MEDS: FLUoxetine 20 MG CAPSULE PO SCH (10:04)
--- NOTE | 2017-01-05 10:46 | Internal Med Progress Note ---
<AdánSwathi Quintanilla Felice - Last Filed: 01/05/17 17:24> Date of Encounter: 01/05/17 Time of Encounter: 10:44 - Assessment and plan (1) Sepsis Current Visit: Yes Status: Acute Assessment and plan: Patient had WBC 20.4 and hypotension upon admission Lactic acid 0.8 CXR demonstrated Right basilar airspace disease Patient is currently treated for suspected PNA with Zithromax and Zosyn Currently, patient is normotensive and afebrile Blood and urine cultures negative Plan: CT chest/abdomen/pelvis to identify source of infection Start vancomycin Qualifiers: Sepsis type: sepsis due to unspecified organism Qualified Code(s): A41.9 - Sepsis, unspecified organism (2) Acute on chronic renal failure Current Visit: Yes Status: Acute Assessment and plan: Cr 9.96 today, up from 3.0 at baseline Fistulogram demonstrates non-functioning fistula Right neck with right IJ in place Plan for HD#3 today Patient being followed by nephrology (3) Hyperkalemia Current Visit: No Status: Acute Assessment and plan: Plan as above (4) Hyperparathyroidism Current Visit: Yes Status: Acute (5) UTI (urinary tract infection) Current Visit: No Status: Acute Assessment and plan: Initial urine cultures negative Repeat UA and urine culture given urine appearance Suspect this may be source of leukocytosis CT abdomen/pelvis, pending Qualifiers: Urinary tract infection type: acute cystitis Hematuria presence: with hematuria Qualified Code(s): N30.01 - Acute cystitis with hematuria (6) Metabolic acidosis Current Visit: Yes Status: Acute (7) Acute respiratory failure Current Visit: Yes Status: Acute Assessment and plan: Increased need for O2 supplementation since admission Continue O2 supplementation, nebulizers, Zosyn (day#2), Zithromax (day#4) Concern for pneumonia given patient's history of recent URI and hypoxemia and worsening leukocytosis Will expand abx to include Vancomycin, dosed per pharmacy CT chest, pending Qualifiers: Respiratory failure complication: hypoxia Qualified Code(s): J96.01 - Acute respiratory failure with hypoxia (8) CAP (community acquired pneumonia) Current Visit: Yes Status: Acute Assessment and plan: Plan as above (9) Obstructive sleep apnea Current Visit: Yes Status: Acute Assessment and plan: CPAP ordered (10) Diabetes Current Visit: No Status: Acute Qualifiers: Diabetes mellitus type: type 2 Diabetes mellitus complication status: with kidney complications Diabetes mellitus complication detail: with chronic kidney disease Chronic kidney disease stage: stage 4 (severe) Qualified Code (s): E11.22 - Type 2 diabetes mellitus with diabetic chronic kidney disease; N18.4 - Chronic kidney disease, stage 4 (severe) (11) CKD (chronic kidney disease), stage IV Current Visit: No Status: Chronic (12) Morbid obesity with BMI of 50.0-59.9, adult Current Visit: Yes Status: Acute (13) DVT prophylaxis Current Visit: Yes Status: Acute - Time Spent With Patient 25 - 35 minutes (30 minutes including time with patient and coordinating care) - Subjective Interval history: Patient agitated during patient interview. Currently, patient is requiring 5L 02, which is increased from 2L upon admission. Patient does not use home oxygen. She admits continued smoking. Patient admits recent URI treated with antibiotics by her PCP. Admits cough productive of green sputum, abdominal pain , diarrhea, foul-smelling urine, fatigue. Denies fever, chills, diaphoresis, chest pain, pain upon inspiration, nausea, vomiting, frequency of urination, dysuria, hematuria, muscle aches, joint pain. Patient is very lethargic and continues to fall asleep during interview/exam. Patient states that she has not slept in 2 days. - Constitutional Vitals: Temp Pulse Resp BP Pulse Ox 98.0 F 71 24 108/59 92 01/05/17 04:00 01/05/17 09:12 01/05/17 09:12 01/05/17 09:12 01/05/17 10:09 General appearance: Present: A&O X 3, morbidly obese, answers questions appropriately (however, continues to fall asleep during exam) - Head Head exam: Present: atraumatic, normocephalic - Eye Eye exam: Present: PERRL, conjuntiva pink, sclera anicteric Pupils: Present: PERRL Additional comments: Exophthalmos bilaterally - Neck Neck exam general surgery: Present: supple, trachea midline. Absent: lymphadenopathy Additional comments: Central line to right neck - Respiratory Respiratory exam: Present: decreased breath sounds, wheezes (expiratory wheezing ). Absent: accessory muscle use, rales, rhonchi - Cardiovascular Cardiovascular exam: Present: RRR, +S2, systolic murmur. Absent: diastolic murmur, gallop, JVD, rubs - GI/Abdominal GI/Abdominal exam: Present: firm (morbidly obese abdomen), hyperactive bowel sounds, soft, tenderness (Diffuse TTP most prominent in RUQ and RLQ, possible positive tenderness to McBurney's point, negative psoas sign, negative obturator , negative Rovsing), no peritoneal signs. Absent: distended Additional comments: below pannus is an erythemtous dermatitis with white, foul-smelling discharge - Additional comments: Cao in place with brown/cloudy urine - Extremities Exam Extremities exam: Present: pedal edema (1+ pitting edema to bilateral lower extremities), warm, radial pulses palpable and symetrical. Absent: calf tenderness, cyanotic Additional comments: Fistula to left arm - Back Exam Back exam: Present: CVA tenderness (L). Absent: CVA tenderness (R) - Neurological Exam Neurological exam: Present: CN II-XII intact, oriented X3, no focal deficits. Absent: pronater drift, facial droop, speech deficit - Skin Skin exam: Present: dry, intact, rash (below pannus with erythema and white, foul-smelling discharge) Internal Medicine: Result - Labs CBC & Chem 7: 01/05/17 04:26 01/05/17 04:26 Labs: Short CBC 01/05/17 Range/Units 04:26 WBC 21.4 H (4.3-11.1) K/mcL Hgb 9.3 L (11.5-15.4) g/dL Hct 34.5 L (35.3-44.9) % Plt Count 208 (140-400) K/mcL Neutrophils # 19.2 H (1.6-8.9) K/mcL BMP 01/05/17 04:26 Sodium 133 L Potassium 5.0 H Chloride 97 L Carbon Dioxide 17 L BUN 116 H Creatinine 9.96 H Glucose 118 H Calcium 7.9 L Cardiac Enzymes 01/04/17 01/05/17 Range/Units 19:19 04:26 Troponin I 1.14 H* 1.13 H* (0-0.03) ng/mL - ABG Interpretation ABG results: PT/INR, D-dimer PT 11.7 Seconds (9.4-12.1) 01/04/17 11:18 - EKG Interpretation EKG Interpreted by Myself: Yes (anterior and lateral leads with consecutive T wave inversions) EKG shows normal: sinus rhythm Rate: normal - Impressions Impressions Guidance Ultrasound 01/04/17 00:00 IMPRESSION: Ultrasound-guided placement of a right internal jugular temporary dialysis catheter. RECOMMENDATIONS: Chest x-ray for position pending. D/ / 01/04/2017 15:58:17 Prashant Pinedo MD / nasir Interpreting Provider: Prashant Pinedo MD Insertion Non-Tunneled Catheter 01/04/17 00:00 IMPRESSION: Ultrasound-guided placement of a right internal jugular temporary dialysis catheter. RECOMMENDATIONS: Chest x-ray for position pending. D/ / 01/04/2017 15:58:17 Prashant Pinedo MD / nasir Interpreting Provider: Prashant Pinedo MD Chest X-Ray 01/04/17 12:28 IMPRESSION: Right IJ central venous catheter tip projects over the course of the superior vena cava. Worsening right basilar airspace disease. D/ / 01/04/2017 13:53:15 Leandro Chou MD / nasir Interpreting Provider: Leandro Chou MD Consult Discharge Plan - Plan Referrals: Steven Ly MD [Primary Care Provider] - 01/12/17 2:40 pm (Please follow up as schedule....) <Juan Mcnamara - Last Filed: 01/06/17 08:12> Date of Encounter: 01/06/17 - Constitutional Vitals: Temp Pulse Resp BP Pulse Ox 97.5 F L 74 18 98/45 96 01/06/17 07:04 01/06/17 07:04 01/06/17 07:04 01/06/17 07:04 01/06/17 07:04 Internal Medicine: Result - Labs CBC & Chem 7: 01/05/17 04:26 01/05/17 04:26 - ABG Interpretation ABG results: PT/INR, D-dimer PT 11.7 Seconds (9.4-12.1) 01/04/17 11:18 - Impressions Impressions AV Shunt Angiogram 01/05/17 00:00 IMPRESSION: Thrombosed arteriovenous fistula just beyond the brachiocephalic anastomosis. D/ : / 01/05/2017 15:36:02 My Castillo MD / sophia Interpreting Provider: My Castillo MD Guidance Ultrasound 01/05/17 00:00 IMPRESSION: Thrombosed arteriovenous fistula just beyond the brachiocephalic anastomosis. D/ : / 01/05/2017 15:36:02 My Castillo MD / sophia Interpreting Provider: My Castillo MD Abdomen/Pelvis CT 01/05/17 12:30 IMPRESSION: 1. Trace right pleural effusion. Minimal linear atelectasis in the posterior right lower lobe. 2. 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 3. No cause for patient's leukocytosis identified. D/ / 01/05/2017 14:22:24 iGorgi Inman MD / francisca Interpreting Provider: Giorgi Inman MD Chest CT 01/05/17 12:30 IMPRESSION: 1. Trace right pleural effusion. Minimal linear atelectasis in the posterior right lower lobe. 2. 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 3. No cause for patient's leukocytosis identified. D/ / 01/05/2017 14:22:24 Giorgi Inman MD / francisca Interpreting Provider: Giorgi Inman MD - Attending Attestation I examined this patient and my medical decision-making was reviewed with the REMOTE ENCODING OPERATIONS SUPERVISOR/PA/Advanced Practice Nurse/Resident Physician. I agree with the documented findings, disposition and treatment plan as described except to the extent set forth below. Broad spectrum antibiotics. CT reviewed.
[2017-01-05 12:45] LABS: Hemoglobin A1C 6.5 %
[2017-01-05] MEDS ORDERED: Vancomycin 1,500 MG in D5% in Water 250 ML IVPB ONE (13:30)
[2017-01-05] MEDS: Hydrocortisone Acetate 25 MG RECTAL SUPPOSITORY RC PRN (18:50)
--- NOTE | 2017-01-05 18:50 | Electrocardiograph Report ---
[place] [id number] Test Date: 2017-01-04 Pat Name: Odalys Saucedo Department: 112 Room: 2A16 Gender: F [employer] Operator: : 1970 Requested By: Meg Friedman Order Number: [id number] Reading MD: Brianda Castorena Measurements Intervals [place] Rate: 71 P: 29 ME: 171 QRS: 24 QRSD: 111 T: 211 QT: 399 QTc: 422 Interpretive Statements SINUS RHYTHM MODERATE INTRAVENTRICULAR CONDUCTION DELAY ST DEVIATION AND MODERATE T-WAVE ABNORMALITY, CONSIDER ANTEROLATERAL ISCHEMIA ST DEVIATION AND MODERATE T-WAVE ABNORMALITY, CONSIDER INFERIOR ISCHEMIA Electronically Signed On 01-05-2017 18:48:47 EDT by Brianda Castorena
[2017-01-06] MEDS: *HR* Heparin 5,000 UNIT/ML VIAL SQ SCH ×2 (07:18→18:29)
[2017-01-06] MEDS: Acetaminophen 325 MG TABLET PO PRN ×3 (07:19→22:21)
[2017-01-06] MEDS ORDERED: Vancomycin 1,500 MG in D5% in Water 250 ML IVPB ONE (08:00)
[2017-01-06 08:19] LABS: Basophils % 0.3 %; Mean Corpuscular HGB Conc 27.1 g/dL (31.6-35.5)
[2017-01-06 08:21] LABS: Eosinophils # 0.1 K/mcL (0.0-0.6); Eosinophils % 0.9 %; Hematocrit 33.9 % (35.3-44.9); Hemoglobin 9.2 g/dL (11.5-15.4); Immature Granulocytes % 0.5 % (0-4); Lymphocytes # 0.7 K/mcL (0.6-4.6); Lymphocytes % 4.9 %; Mean Corpuscular Hemoglobin 23.4 pg (28.0-33.3); Mean Platelet Volume 10.8 fL (9.4-12.4); Monocytes # 0.8 K/mcL (0.0-1.3); Monocytes % 5.6 %; Neutrophils # 12.1 K/mcL (1.6-8.9); Nucleated Red Blood Cells 0.3 /100 WBC (0); Platelet Count 183 K/mcL (140-400); Red Blood Count 3.94 M/mcL (3.82-4.97); Segmented Neutrophils % 87.8 %
[2017-01-06] MEDS: FLUoxetine 20 MG CAPSULE PO SCH (08:27)
[2017-01-06 08:32] LABS: Calcium 8.3 mg/dL (8.6-10.8); Potassium 4.2 mEq/L (3.5-4.5)
[2017-01-06 08:52] LABS: Anisocytosis 1+ (Not Present)
[2017-01-06 08:53] LABS: Basophilic Stippling 1+ (Not Present); Polychromasia 2+ (Not Present)
[2017-01-06 08:54] LABS: Platelet Estimate Normal (Normal)
--- NOTE | 2017-01-06 09:42 | Nephrology Progress Note ---
Date of Encounter: 01/06/17 Time of Encounter: 09:40 - Assessment and Plan (1) Acute on chronic renal failure Current Visit: Yes Status: Acute Patient with CKD Stage 4 and acute worsening of her renal function. She has progressed to needing renal replacement therapy. Temp line was placed and patient was started on [employer]. She is tolerating dialysis. Not certain if she is ESRD at this time. She remains dialysis dependent JOEY for now. Her left upper arm fistula is thrombosed and she will need surgical intervention. Social work has been consulted in case the patient requires outpatient dialysis. (2) Metabolic acidosis Current Visit: Yes Status: Acute Resolved with dialysis. (3) Morbid obesity with BMI of 50.0-59.9, adult Current Visit: Yes Status: Acute Outpatient management. (4) Leukocytosis Current Visit: Yes Status: Acute Etiology is not completely clear. Initial working diagnosis was UTI vs. pneumonia. Urine culture negative. CT chest without clear infiltrate. Patient responding to empiric antibiotics. CT chest abdomen and pelvis without clear source of infection. Qualifiers: Leukocytosis type: unspecified Qualified Code(s): D72.829 - Elevated white blood cell count, unspecified (5) Anemia Current Visit: No Status: Acute Hemoglobin is trending down. Will check vitamin b12 and folate. Patient with iron deficiency, but adverse reaction to iron. This will need to be clarified as the patient will need iron administration. Qualifiers: Anemia type: unspecified type Qualified Code(s): D64.9 - Anemia, unspecified (6) Hyperuricemia Current Visit: Yes Status: Acute will start allopurinol. (7) Hyperparathyroidism Current Visit: Yes Status: Acute Extremely elevated. will likely need sensipar. 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 (8) Hyperphosphatemia Current Visit: No Status: Acute Secondary to renal failure and hyperparathyroidism. (9) Elevated troponin Current Visit: No Status: Acute Elevated troponin with elevated CPK. Will check CKMB. I don't think the rhabdomyolysis is severe enough to cause the JOEY, but will follow. Recommend following troponin as it is higher than in the past. Consider and echocardiogram. Subjective Principal diagnosis: JOEY/CKD Interval history: Patient seen and evaluated. She is very lethargic, but arousable. She still complains of discomfort around her coccyx area. She claims she feels no different than upon admission. She falls asleep quickly and has to be awakened to answer questions. She denies chest pain or dyspnea. Objective - Vital Signs Vital signs: Vital Signs Temp Pulse Resp BP Pulse Ox 01/06/17 08:16 96 01/06/17 07:04 97.5 F L 74 18 98/45 96 01/06/17 04:25 97.8 F 69 18 136/62 96 01/06/17 00:26 97.6 F 71 19 105/65 98 01/05/17 20:13 98.0 F 81 18 116/71 90 01/05/17 18:13 98.3 F 18 121/51 01/05/17 17:35 121/51 01/05/17 17:30 103/63 01/05/17 17:15 109/61 01/05/17 17:00 100/61 01/05/17 16:45 105/55 01/05/17 16:30 99/57 01/05/17 16:15 110/57 01/05/17 16:00 109/49 01/05/17 15:45 103/56 01/05/17 15:30 94/59 01/05/17 15:15 95/49 01/05/17 15:00 98.3 F 20 92/46 01/05/17 12:01 97.4 F L 67 20 116/55 92 01/05/17 10:09 92 Intake and Output 01/05/17 01/06/17 01/06/17 23:59 07:59 15:59 Intake Total 0 / 0 Output Total 90 / 90 900 / 900 Balance -90 / -90 -900 / -900 Intake: Oral 0 / 0 Output: Urine 90 / 90 900 / 900 Total Dialysis Output 0 / 0 Other: Stool Size Moderate Moderate Stool Consistency soft soft Stool Color Brown Brown Bright Red Blood # Bowel Movements 1 Weight 159.7 kg Hemodialysis Net Fluid 600 Removed (mL) Patient Weight 01/06/17 23:59 Weight 159.7 kg - General Appearance General appearance: Present: well-developed, well-nourished, obese EENT: Present: ATNC Neck: Present: supple Respiratory: Present: clear (CTA anteriorly) Cardiology: Present: edema (1-2+ edema bilaterally), regular rate, regular rhythm Dialysis Vascular Access: Venous Catheter (nontunneled catheter Right IJ) Gastrointestinal: Present: tenderness (diffuse discomfort to mild palpation. No rash identified. There is some slight erythema on the inferior half of her abdomen with a few punctate areas with dried blood. ) Additional Comments: lethargic, but arousable. - Lab 01/06/17 08:10 01/06/17 08:10 Most recent lab results Calcium 8.3 mg/dL (8.6-10.8) L 01/06/17 08:10 Phosphorus 13.7 mg/dL (2.3-4.7) H 01/04/17 04:40 Magnesium 2.3 mg/dL (1.6-2.6) 01/03/17 06:34 Consult Discharge Plan - Plan Referrals: Steven Ly MD [Primary Care Provider] - 01/12/17 2:40 pm (Please follow up as schedule....)
[2017-01-06] MEDS ORDERED: 0.9 % Sodium Chloride 250 ML IVC PRN (10:30)
--- NOTE | 2017-01-06 12:17 | Internal Med Progress Note ---
<AdánSwathi Socorrofroy Viveros - Last Filed: 01/06/17 13:39> Date of Encounter: 01/06/17 Time of Encounter: 11:40 - Assessment and plan (1) Sepsis Current Visit: Yes Status: Acute Assessment and plan: 01/05/17 Patient had WBC 20.4 and hypotension upon admission Lactic acid 0.8 CXR demonstrated Right basilar airspace disease Patient is currently treated for suspected PNA with Zithromax and Zosyn Currently, patient is normotensive and afebrile Blood and urine cultures negative CT chest/abdomen/pelvis to identify source of infection Start vancomycin 01/06/17 WBC 13.8, trending down today Will continue Vancomycin (day#2) Suspect urine as source of infection CT abdomen with evidence of multiple nonobstructing bilateral renal calculi compatible with medullary nephrocalcinosis Final urine culture negative for growth Repeat urine culture, pending Qualifiers: Sepsis type: sepsis due to unspecified organism Qualified Code(s): A41.9 - Sepsis, unspecified organism (2) UTI (urinary tract infection) Current Visit: No Status: Acute Assessment and plan: Initial urine cultures negative Repeat UA and urine culture given urine appearance Suspect this may be source of leukocytosis CT abdomen/pelvis with evidence of renal calculi, which may provide opportunity for infection Repeat UA, pending Qualifiers: Urinary tract infection type: acute cystitis Hematuria presence: with hematuria Qualified Code(s): N30.01 - Acute cystitis with hematuria (3) Acute on chronic renal failure Current Visit: Yes Status: Acute Assessment and plan: 01/05/17 Cr 9.96 today, up from 3.0 at baseline Fistulogram demonstrates non-functioning fistula Right neck with right IJ in place Plan for HD#3 today Patient being followed by nephrology 01/06/17 Creatinine 8.14 today, improving on HD Tolerating dialysis well Antibiotics with renal dosing Continue to monitor (4) Hyperparathyroidism Current Visit: Yes Status: Acute Assessment and plan: Secondary to renal disease (5) Metabolic acidosis Current Visit: Yes Status: Resolved Assessment and plan: Resolved on dialysis (6) Acute respiratory failure Current Visit: Yes Status: Acute Assessment and plan: 01/05/17 Increased need for O2 supplementation since admission Continue O2 supplementation, nebulizers, Zosyn (day#2), Zithromax (day#4) Concern for pneumonia given patient's history of recent URI and hypoxemia and worsening leukocytosis Will expand abx to include Vancomycin, dosed per pharmacy CT chest, pending 01/06/17 Patient requiring O2 supplementation at 3L, improved from yesterday CT chest demonstrates no consolidation or pneumothorax Influenza negative Patient current smoker with COPD Continue O2 supplementation, scheduled nebs Qualifiers: Respiratory failure complication: hypoxia Qualified Code(s): J96.01 - Acute respiratory failure with hypoxia (7) Obstructive sleep apnea Current Visit: Yes Status: Acute Assessment and plan: CPAP ordered (8) Diabetes Current Visit: No Status: Acute Assessment and plan: Hb A1C 6.5 Patient not currently taking home diabetes medication Monitor morning fasting glucose Qualifiers: Diabetes mellitus type: type 2 Diabetes mellitus complication status: with kidney complications Diabetes mellitus complication detail: with chronic kidney disease Chronic kidney disease stage: stage 4 (severe) Qualified Code (s): E11.22 - Type 2 diabetes mellitus with diabetic chronic kidney disease; N18.4 - Chronic kidney disease, stage 4 (severe) (9) CKD (chronic kidney disease), stage IV Current Visit: No Status: Chronic (10) Morbid obesity with BMI of 50.0-59.9, adult Current Visit: Yes Status: Acute (11) DVT prophylaxis Current Visit: Yes Status: Acute Assessment and plan: Heparin SQ - Time Spent With Patient 25 - 35 minutes (30 minutes including time with patient and coordinating care) - Subjective Interval history: Patient sitting in chair at time of patient interview. Currently, patient states that she is having abdominal pain. Pain appears to be associate with sites of heparin injection. Patient admits to fatigue and weakness. I discussed at length with patient the need to quit smoking and loose weight. I mentioned that she would benefit from bariatric surgery to treat her multiple medical problems associated with morbid obesity. Patient verbalized understanding. . - Constitutional Vitals: Temp Pulse Resp BP Pulse Ox 97.6 F 67 17 94/52 96 01/06/17 11:13 01/06/17 11:13 01/06/17 11:13 01/06/17 11:13 01/06/17 11:13 General appearance: Present: A&O X 3, morbidly obese, answers questions appropriately (however, continues to fall asleep during exam) - Head Head exam: Present: atraumatic, normocephalic - Eye Eye exam: Present: PERRL, conjuntiva pink, sclera anicteric Pupils: Present: PERRL - Neck Neck exam general surgery: Present: supple, trachea midline. Absent: lymphadenopathy - Respiratory Respiratory exam: Present: decreased breath sounds, CTAB, prolonged expiratory phase. Absent: accessory muscle use, rales, rhonchi, wheezes - Cardiovascular Cardiovascular exam: Present: distant heart sounds, RRR, +S1, +S2. Absent: diastolic murmur, gallop, rubs, systolic murmur - GI/Abdominal GI/Abdominal exam: Present: normal bowel sounds, soft, tenderness (Tenderness to light palpation in all quadrants. Tenderness appears [id number] to exam), no peritoneal signs. Absent: distended - Extremities Exam Extremities exam: Present: pedal edema (1+ bilateral pitting edema to bilateral lower extremities), warm, radial pulses palpable and symetrical. Absent: calf tenderness, cyanotic - Neurological Exam Neurological exam: Present: CN II-XII intact, oriented X3, no focal deficits. Absent: pronater drift, facial droop, speech deficit - Skin Skin exam: Present: dry, intact Internal Medicine: Result - Labs CBC & Chem 7: 01/06/17 08:10 01/06/17 08:10 Labs: Short CBC 01/06/17 Range/Units 08:10 WBC 13.8 H (4.3-11.1) K/mcL Hgb 9.2 L (11.5-15.4) g/dL Hct 33.9 L (35.3-44.9) % Plt Count 183 (140-400) K/mcL Neutrophils # 12.1 H (1.6-8.9) K/mcL BMP 01/06/17 08:10 Sodium 134 L Potassium 4.2 Chloride 96 L Carbon Dioxide 24 BUN 79 H D Creatinine 8.14 H Glucose 105 H Calcium 8.3 L - ABG Interpretation ABG results: PT/INR, D-dimer PT 11.7 Seconds (9.4-12.1) 01/04/17 11:18 - Impressions Impressions AV Shunt Angiogram 01/05/17 00:00 IMPRESSION: Thrombosed arteriovenous fistula just beyond the brachiocephalic anastomosis. 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 D/ : / 01/05/2017 15:36:02 My Castillo MD / sophia Interpreting Provider: My Castillo MD Abdomen/Pelvis CT 01/05/17 12:30 IMPRESSION: 1. Trace right pleural effusion. Minimal linear atelectasis in the posterior right lower lobe. 2. 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 3. No cause for patient's leukocytosis identified. D/ / 01/05/2017 14:22:24 Giorgi Inman MD / francisca Interpreting Provider: Giorgi Inman MD Chest CT 01/05/17 12:30 IMPRESSION: 1. Trace right pleural effusion. Minimal linear atelectasis in the posterior right lower lobe. 2. 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 3. No cause for patient's leukocytosis identified. D/ / 01/05/2017 14:22:24 Giorgi Inman MD / francisca Interpreting Provider: Giorgi Inman MD Consult Discharge Plan - Plan Referrals: Steven Ly MD [Primary Care Provider] - 01/12/17 2:40 pm (Please follow up as schedule....) <Juan Mcnamara - Last Filed: 01/06/17 15:49> Date of Encounter: 01/06/17 - Constitutional Vitals: Temp Pulse Resp BP Pulse Ox 97.6 F 67 17 94/52 96 01/06/17 11:13 01/06/17 11:13 01/06/17 11:13 01/06/17 11:13 01/06/17 11:13 Internal Medicine: Result - Labs CBC & Chem 7: 01/06/17 08:10 01/06/17 08:10 Labs: Short CBC 01/06/17 Range/Units 08:10 WBC 13.8 H (4.3-11.1) K/mcL Hgb 9.2 L (11.5-15.4) g/dL Hct 33.9 L (35.3-44.9) % Plt Count 183 (140-400) K/mcL Neutrophils # 12.1 H (1.6-8.9) K/mcL BMP 01/06/17 08:10 Sodium 134 L Potassium 4.2 Chloride 96 L Carbon Dioxide 24 BUN 79 H D Creatinine 8.14 H Glucose 105 H Calcium 8.3 L - ABG Interpretation ABG results: PT/INR, D-dimer PT 11.7 Seconds (9.4-12.1) 01/04/17 11:18 - Impressions Impressions AV Shunt Angiogram 01/05/17 00:00 IMPRESSION: Thrombosed arteriovenous fistula just beyond the brachiocephalic anastomosis. D/ /05/2017 15:36:02 My Castillo MD / sophia Interpreting Provider: My Castillo MD Guidance Ultrasound 01/05/17 00:00 IMPRESSION: Thrombosed arteriovenous fistula just beyond the brachiocephalic anastomosis. D/ : / 01/05/2017 15:36:02 My Castillo MD / sophia Interpreting Provider: My Castillo MD - Attending Attestation I examined this patient and my medical decision-making was reviewed with the CHARGE AUTHORIZER/PA/Advanced Practice Nurse/Resident Physician. I agree with the documented findings, disposition and treatment plan as described except to the extent set forth below. Continue broad spectrum antibiotics. HD as per nephro. Stool testing for c diff. WBC downtrending.
[2017-01-06] MEDS: Albuterol 2.5 MG/3 ML NEBULIZER IH SCH ×5 (15:29→22:17)
[2017-01-06 16:23] LABS: Bilirubin,Urine Negative (Negative); Blood,Urine Moderate (Negative); Clarity,Urine Cloudy (Clear); Color,Urine Yellow (Yellow); Glucose,Urine (UA) Normal (Normal); Ketones,Urine Negative (Negative); Leukocyte Esterase,Urine Large (Negative); Nitrite,Urine Negative (Negative); PH,Urine 6.5 pH Units (5.0-8.0); Protein,Urine 100 mg/dL (Neg-Trace); Specific Gravity,Urine 1.013 (1.010-1.025); Urobilinogen,Urine Normal (Normal)
[2017-01-06 16:26] LABS: Bacteria,Urine None Seen per hpf (None-Few); Hyaline Casts,Urine None Seen per lpf (None-Few); RBC,Urine 15-30 per hpf (0-3); Squamous Epithelial Cell,Urine Many per lpf (None-Few); WBC,Urine TNTC per hpf (0-3)
[2017-01-06] MEDS: *HR* HYDROcodone/Acet 5/325 mg TABLET PO PRN (18:27)
[2017-01-06] MEDS: Piperacillin/Tazobactam 3.375 GM in D5% in Water (Mini-Bag+) 100 ML IVPB SCH ×2 (18:28→22:22)
[2017-01-06] MEDS: Azithromycin 500 MG in D5% in Water 250 ML IVPB SCH (22:21)
[2017-01-07] MEDS: Albuterol 2.5 MG/3 ML NEBULIZER IH SCH ×5 (00:15→10:18)
[2017-01-07] MEDS: *HR* HYDROcodone/Acet 5/325 mg TABLET PO PRN ×4 (01:24→19:49)
[2017-01-07] MEDS: Acetaminophen 325 MG TABLET PO PRN (04:43)
[2017-01-07] MEDS: Hydrocortisone Acetate 25 MG RECTAL SUPPOSITORY RC PRN (04:49)
[2017-01-07 06:17] LABS: Eosinophils % 2.2 %; Hemoglobin 8.7 g/dL (11.5-15.4)
[2017-01-07 06:19] LABS: Basophils # 0.1 K/mcL (0.0-0.2); Basophils % 0.4 %; Eosinophils # 0.3 K/mcL (0.0-0.6); Hematocrit 32.6 % (35.3-44.9); Immature Granulocytes % 0.7 % (0-4); Lymphocytes # 0.8 K/mcL (0.6-4.6); Lymphocytes % 6.6 %; Mean Corpuscular HGB Conc 26.7 g/dL (31.6-35.5); Mean Corpuscular Hemoglobin 22.8 pg (28.0-33.3); Mean Corpuscular Volume 85.6 fL (83.0-100.0); Mean Platelet Volume 10.3 fL (9.4-12.4); Monocytes # 1.2 K/mcL (0.0-1.3); Monocytes % 9.5 %; Nucleated Red Blood Cells 0.3 /100 WBC (0); Platelet Count 174 K/mcL (140-400); Red Blood Count 3.81 M/mcL (3.82-4.97); Segmented Neutrophils % 80.6 %
[2017-01-07 06:42] LABS: Neutrophils # 9.8 K/mcL (1.6-8.9)
[2017-01-07] MEDS: *HR* Heparin 5,000 UNIT/ML VIAL SQ SCH ×2 (06:52→17:14)
[2017-01-07 07:08] LABS: Anisocytosis 2+ (Not Present); Microcytosis Present (Not Present); Platelet Estimate Normal (Normal); Polychromasia 1+ (Not Present)
[2017-01-07 07:59] LABS: Folate 5.3 ng/mL (7.0-31.4)
[2017-01-07] MEDS: FLUoxetine 20 MG CAPSULE PO SCH (08:57)
--- NOTE | 2017-01-07 09:13 | Nephrology Progress Note ---
Date of Encounter: 01/07/17 Time of Encounter: 09:11 - Assessment and Plan (1) Acute on chronic kidney failure Current Visit: Yes Status: Acute 3 days of initial dialysis completed. Plan for HD tomorrow Not ESRD at this time but does remain dialysis dependent for JOEY Fistulogram shows access no longer usable; once white count is down will schedule for permacath placement. Waiting on chair at [facility] dialysis clinic Continue renal diet and fluid restriction of 1.5 liters/day Avoid nephrotoxins if possible (2) Leukocytosis Current Visit: Yes Status: Acute WBC down to 12.1 per primary team Qualifiers: Leukocytosis type: unspecified Qualified Code(s): D72.829 - Elevated white blood cell count, unspecified (3) Morbid obesity with BMI of 50.0-59.9, adult Current Visit: Yes Status: Acute per primary team (4) Hyperphosphatemia Current Visit: No Status: Acute Renvela started yesterday Continue renal diet Subjective Principal diagnosis: JOEY/CKD Interval history: Patient seen and examined. Stats she is feeling better today. Objective - Vital Signs Vital signs: Vital Signs Temp Pulse Resp BP Pulse Ox 01/07/17 06:39 97.4 F L 68 18 95/59 91 01/07/17 04:26 98.2 F 70 18 96/53 92 01/07/17 00:44 98.1 F 76 18 99/49 90 01/06/17 19:47 98.0 F 70 18 94/56 92 01/06/17 17:41 97.6 F 70 18 102/51 92 01/06/17 16:10 98.3 F 20 116/84 01/06/17 16:00 116/84 01/06/17 15:30 102/58 01/06/17 15:00 111/62 01/06/17 14:30 107/60 01/06/17 14:00 98.4 F 20 106/62 01/06/17 11:13 97.6 F 67 17 94/52 96 Intake and Output 01/06/17 01/07/17 01/07/17 23:59 07:59 15:59 Intake Total 100 / 100 Output Total 600 / 600 Balance -500 / -500 Intake: IV Fluids 100 / 100 Zosyn 3.375 GM In 100 / 100 Dextrose 5% (Minibag+) 100 ML 100 ML @ 25 mls/hr IVPB Q12H [facility] Rx#: [id number] Output: Urine 200 / 200 Total Dialysis Output 400 / 400 Other: Stool Size Small Small Stool Consistency liquid loose Stool Color Brown Brown Weight 159.69 kg Hemodialysis Net Fluid 400 Removed (mL) Patient Weight 01/07/17 23:59 Weight 159.69 kg - General Appearance General appearance: Present: obese EENT: Present: ATNC, mucous membranes moist, hearing intact, vision intact Neck: Present: supple Respiratory: Present: clear Cardiology: Present: edema, normal S1, normal S2 Dialysis Vascular Access: Arteriovenous Fistula thrill: No bruit: No Gastrointestinal: Present: no guarding, obese Integumentary: Present: ecchymotic (left arm) Neurologic: Present: alert and oriented x3 Psychiatric: Present: mood/affect appropriate, cooperative - Lab 01/07/17 06:10 01/07/17 04:27 Most recent lab results Calcium 8.0 mg/dL (8.6-10.8) L 01/07/17 04:27 Phosphorus 13.7 mg/dL (2.3-4.7) H 01/04/17 04:40 Magnesium 2.3 mg/dL (1.6-2.6) 01/03/17 06:34 Consult Discharge Plan - Plan Referrals: Steven Ly MD [Primary Care Provider] - 01/12/17 2:40 pm (Please follow up as schedule....)
[2017-01-07] MEDS ORDERED: Albuterol 2.5 MG/3 ML NEBULIZER IH PRN (10:38)
[2017-01-07 12:08] LABS: Protein/Creatinine Ratio,Urine 0.84 mg/mg (0-0.20)
[2017-01-07] MEDS: Folic Acid 1 MG TABLET PO SCH (12:56)
[2017-01-07] MEDS: Piperacillin/Tazobactam 3.375 GM in D5% in Water (Mini-Bag+) 100 ML IVPB SCH (13:04)
[2017-01-07] MEDS ORDERED: *HR* Morphine 2 MG/ML SYRINGE IVP ONE (13:26)
--- NOTE | 2017-01-07 13:51 | Internal Med Progress Note ---
<Swathi Mccain - Last Filed: 01/07/17 15:08> Date of Encounter: 01/07/17 Time of Encounter: 13:30 - Assessment and plan (1) Sepsis Current Visit: Yes Status: Acute Assessment and plan: 01/05/17 Patient had WBC 20.4 and hypotension upon admission Lactic acid 0.8 CXR demonstrated Right basilar airspace disease Patient is currently treated for suspected PNA with Zithromax and Zosyn Currently, patient is normotensive and afebrile Blood and urine cultures negative CT chest/abdomen/pelvis to identify source of infection Start vancomycin 01/06/17 WBC 13.8, trending down today Will continue Vancomycin (day#2) Suspect urine as source of infection CT abdomen with evidence of multiple nonobstructing bilateral renal calculi compatible with medullary nephrocalcinosis Final urine culture negative for growth Repeat urine culture, pending 01/07/17 WBC continues to trend down Despite negative urine cultures, I suspect that etiology is UTI Cultures may have been falsely negative due to antibiotic therapy Deescalate antibiotics today Discontinue Zosyn Continue Vanc (day#3) Start Rocephin (day#1) Qualifiers: Sepsis type: sepsis due to unspecified organism Qualified Code(s): A41.9 - Sepsis, unspecified organism (2) UTI (urinary tract infection) Current Visit: No Status: Acute Assessment and plan: Plan as above Qualifiers: Urinary tract infection type: acute cystitis Hematuria presence: with hematuria Qualified Code(s): N30.01 - Acute cystitis with hematuria (3) Acute on chronic renal failure Current Visit: Yes Status: Acute Assessment and plan: 01/05/17 Cr 9.96 today, up from 3.0 at baseline Fistulogram demonstrates non-functioning fistula Right neck with right IJ in place Plan for HD#3 today Patient being followed by nephrology 01/06/17 Creatinine 8.14 today, improving on HD Tolerating dialysis well Antibiotics with renal dosing Continue to monitor 01/07/17 Cr improving today at 6.48 Tolerating dialysis well Antibiotics with renal dosing Continue to monitor (4) Hyperparathyroidism Current Visit: Yes Status: Acute Assessment and plan: Secondary to renal disease (5) Metabolic acidosis Current Visit: Yes Status: Resolved Assessment and plan: Resolved on dialysis (6) Acute respiratory failure Current Visit: Yes Status: Acute Assessment and plan: 01/05/17 Increased need for O2 supplementation since admission Continue O2 supplementation, nebulizers, Zosyn (day#2), Zithromax (day#4) Concern for pneumonia given patient's history of recent URI and hypoxemia and worsening leukocytosis Will expand abx to include Vancomycin, dosed per pharmacy CT chest, pending 01/06/17 Patient requiring O2 supplementation at 3L, improved from yesterday CT chest demonstrates no consolidation or pneumothorax Influenza negative Patient current smoker with COPD Continue O2 supplementation, scheduled nebs 01/07/17 Patient continues to require O2 supplementation Will attempt to qualify for home O2 Patient with chronic respiratory secondary to COPD and continued smoking Continue O2 supplementation, nebs Qualifiers: Respiratory failure complication: hypoxia Qualified Code(s): J96.01 - Acute respiratory failure with hypoxia (7) Obstructive sleep apnea Current Visit: Yes Status: Acute Assessment and plan: CPAP ordered (8) Diabetes Current Visit: No Status: Acute Assessment and plan: Hb A1C 6.5 Patient not currently taking home diabetes medication Monitor morning fasting glucose Qualifiers: Diabetes mellitus type: type 2 Diabetes mellitus complication status: with kidney complications Diabetes mellitus complication detail: with chronic kidney disease Chronic kidney disease stage: stage 5, not on chronic dialysis Qualified Code(s): E11.22 - Type 2 diabetes mellitus with diabetic chronic kidney disease; N18.5 - Chronic kidney disease, stage 5 (9) CKD (chronic kidney disease), stage IV Current Visit: No Status: Chronic (10) Morbid obesity with BMI of 50.0-59.9, adult Current Visit: Yes Status: Acute (11) DVT prophylaxis Current Visit: Yes Status: Acute Assessment and plan: Heparin SQ - Time Spent With Patient 25 - 35 minutes (25 minutes including time with patient and coordinating care) - Subjective Interval history: Patient sitting on edge of bed at time of patient interview. She is very tearful today and states that her right hand is cramping. She describes this as feeling as though her hand is drawing. She also complains of weakness to the right hand. - Constitutional Vitals: Temp Pulse Resp BP Pulse Ox 98.5 F 65 18 115/60 96 01/07/17 11:36 01/07/17 11:36 01/07/17 11:36 01/07/17 11:36 01/07/17 11:36 General appearance: Present: A&O X 3, morbidly obese, answers questions appropriately (however, continues to fall asleep during exam) - Head Head exam: Present: atraumatic, normocephalic - Eye Eye exam: Present: PERRL, conjuntiva pink, sclera anicteric Pupils: Present: PERRL - Neck Neck exam general surgery: Present: full ROM, trachea midline - Respiratory Respiratory exam: Present: decreased breath sounds, CTAB, prolonged expiratory phase. Absent: accessory muscle use, rales, rhonchi, wheezes - Cardiovascular Cardiovascular exam: Present: RRR, +S1, +S2. Absent: diastolic murmur, gallop, rubs, systolic murmur - GI/Abdominal GI/Abdominal exam: Present: normal bowel sounds, soft, tenderness (to pannus at location of heparin injection sites), no peritoneal signs. Absent: distended Additional comments: ecchymosis to abdomen at sites of heparin injection unable to appreciate spleen or liver upon palpation - Extremities Exam Extremities exam: Present: pedal edema (@+ pitting edema to bilateral lower extremities, worsened from yesterday), warm, radial pulses palpable and symetrical. Absent: calf tenderness, cyanotic Additional comments: Right hand with strength 2/5 Left hand 5/5 strength Erythema to feet and lower legs with waxy appearance of skin; patient states this is chronic - Neurological Exam Neurological exam: Present: CN II-XII intact, oriented X3, no focal deficits. Absent: pronater drift, facial droop, speech deficit - Skin Skin exam: Present: dry Additional comments: area of erythema and induration to left inner thigh beneath pannus is a diffuse area of erythema with yellow crust Internal Medicine: Result - Labs CBC & Chem 7: 01/07/17 06:10 01/07/17 04:27 Labs: Short CBC 01/07/17 Range/Units 06:10 WBC 12.1 H (4.3-11.1) K/mcL Hgb 8.7 L (11.5-15.4) g/dL Hct 32.6 L (35.3-44.9) % Plt Count 174 (140-400) K/mcL Neutrophils # 9.8 H (1.6-8.9) K/mcL BMP 01/07/17 04:27 Sodium 135 L Potassium 4.0 Chloride 97 L Carbon Dioxide 22 BUN 55 H D Creatinine 6.48 H Glucose 79 Calcium 8.0 L Cardiac Enzymes 01/07/17 Range/Units 04:27 Troponin I 1.10 H* (0-0.03) ng/mL Urine 01/06/17 Range/Units 15:46 Urine Color Yellow (Yellow) Urine Clarity Cloudy A (Clear) Urine pH 6.5 (5.0-8.0) pH Units Ur Specific [place] 1.013 (1.010-1.025) Urine Protein 100 H (Neg-Trace) mg/dL Urine Glucose (UA) Normal (Normal) mg/dL - ABG Interpretation ABG results: PT/INR, D-dimer PT 11.7 Seconds (9.4-12.1) 01/04/17 11:18 - Impressions Impressions Chest X-Ray 01/04/17 12:28 IMPRESSION: Right IJ central venous catheter tip projects over the course of the superior vena cava. Worsening right basilar airspace disease. D/ 01/04/2017 13:53:15 [facility] Inter[facility]ting Provider: Leandro Chou MD Abdomen/Pelvis CT 01/05/17 12:30 IMPRESSION: 1. Trace right pleural effusion. Minimal linear atelectasis in the posterior right lower lobe. 2. 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 3. No cause for patient's leukocytosis identified. D/ / 01/05/2017 14:22:24 Giorgi Inman MD / [facility] Interpreting Provider: Giorgi Inman MD Chest CT 01/05/17 12:30 IMPRESSION: 1. Trace right pleural effusion. Minimal linear atelectasis in the posterior right lower lobe. 2. 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 3. No cause for patient's leukocytosis identified. D/ / 01/05/2017 14:22:24 Giorgi Inman MD / [facility] Interpreting Provider: Giorgi Inman MD Consult Discharge Plan - Plan Referrals: Steven Ly MD [Primary Care Provider] - 01/12/17 2:40 pm (Please follow up as schedule....) <Juan Mcnamara - Last Filed: 01/07/17 18:13> Date of Encounter: 01/07/17 - Constitutional Vitals: Temp Pulse Resp BP Pulse Ox 98.1 F 66 18 121/71 96 01/07/17 16:00 01/07/17 16:00 01/07/17 16:00 01/07/17 16:00 01/07/17 16:00 Internal Medicine: Result - Labs CBC & Chem 7: 01/07/17 06:10 01/07/17 16:08 Labs: Short CBC 01/07/17 Range/Units 06:10 WBC 12.1 H (4.3-11.1) K/mcL Hgb 8.7 L (11.5-15.4) g/dL Hct 32.6 L (35.3-44.9) % Plt Count 174 (140-400) K/mcL Neutrophils # 9.8 H (1.6-8.9) K/mcL BMP 01/07/17 01/07/17 04:27 16:08 Sodium 135 L Potassium 4.0 4.0 Chloride 97 L Carbon Dioxide 22 BUN 55 H D Creatinine 6.48 H Glucose 79 Calcium 8.0 L Cardiac Enzymes 01/07/17 Range/Units 04:27 Troponin I 1.10 H* (0-0.03) ng/mL - ABG Interpretation ABG results: PT/INR, D-dimer PT 11.7 Seconds (9.4-12.1) 01/04/17 11:18 - Impressions Impressions Chest X-Ray 01/04/17 12:28 IMPRESSION: Right IJ central venous catheter tip projects over the course of the superior vena cava. Worsening right basilar airspace disease. D/ / 01/04/2017 13:53:15 Leandro Chou MD / [facility] Interpreting Provider: Leandro Chou MD Abdomen/Pelvis CT 01/05/17 12:30 IMPRESSION: 1. Trace right pleural effusion. Minimal linear atelectasis in the posterior right lower lobe. 2. 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 3. No cause for patient's leukocytosis identified. D/ / 01/05/2017 14:22:24 Giorgi Inman MD / [facility] Interpreting Provider: Giorgi Inman MD Chest CT 01/05/17 12:30 IMPRESSION: 1. Trace right pleural effusion. Minimal linear atelectasis in the posterior right lower lobe. 2. 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 3. No cause for patient's leukocytosis identified. D/ / 01/05/2017 14:22:24 Giorgi Inman MD / [facility] Interpreting Provider: Giorgi Inman MD - Attending Attestation I examined this patient and my medical decision-making was reviewed with the PERSONAL COUNSELOR/PA/Advanced Practice Nurse/Resident Physician. I agree with the documented findings, disposition and treatment plan as described except to the extent set forth below. Agree with Dr. Mccain. Patient clinically improving. Had an abscess prior to admission. History of MRSA infection. Will continue with vanco, d/c zosyn and give rocephin for now. Continue monitoring. D/W nephro.
[2017-01-07] MEDS ORDERED: Aminoglycoside Consult 1 EACH MC ONE (14:09)
[2017-01-07 16:51] LABS: Magnesium 1.7 mg/dL (1.6-2.6)
[2017-01-07 16:53] LABS: Ionized Calcium 1.05 mmol/L (1.15-1.35)
[2017-01-07] MEDS ORDERED: Cefepime HCl 1,000 MG in D5% in Water (Mini-Bag+) 100 ML IVPB SCH (18:00)
[2017-01-08] MEDS: *HR* Heparin 5,000 UNIT/ML VIAL SQ SCH ×2 (05:33→17:02)
[2017-01-08] MEDS: *HR* HYDROcodone/Acet 5/325 mg TABLET PO PRN ×3 (05:33→20:14)
[2017-01-08 06:04] LABS: Basophils % 0.4 %; Immature Granulocytes % 0.5 % (0-4); Nucleated Red Blood Cells 0.2 /100 WBC (0)
[2017-01-08 06:06] LABS: Basophils # 0.1 K/mcL (0.0-0.2); Eosinophils # 0.3 K/mcL (0.0-0.6); Eosinophils % 2.4 %; Hematocrit 32.7 % (35.3-44.9); Hemoglobin 8.8 g/dL (11.5-15.4); Lymphocytes # 0.7 K/mcL (0.6-4.6); Lymphocytes % 5.7 %; Mean Corpuscular HGB Conc 26.9 g/dL (31.6-35.5); Mean Corpuscular Hemoglobin 23.5 pg (28.0-33.3); Mean Corpuscular Volume 87.2 fL (83.0-100.0); Mean Platelet Volume 10.6 fL (9.4-12.4); Monocytes % 8.4 %; Neutrophils # 10.3 K/mcL (1.6-8.9); Platelet Count 177 K/mcL (140-400); Red Blood Count 3.75 M/mcL (3.82-4.97); Red Cell Distribution Width 20.3 % (11.5-14.5); Segmented Neutrophils % 82.6 %
[2017-01-08] MEDS ORDERED: 0.9 % Sodium Chloride 250 ML IVC PRN (06:10)
[2017-01-08] MEDS ORDERED: *HR* Heparin 10,000 UNIT/10 ML VIAL IV PRN (06:10)
[2017-01-08 06:14] LABS: Calcium 8.1 mg/dL (8.6-10.8); Potassium 3.9 mEq/L (3.5-4.5)
[2017-01-08] MEDS ORDERED: 0.9 % Sodium Chloride 1,000 ML PRIME SCH (06:15)
[2017-01-08 06:34] LABS: Hypochromasia Present (Not Present); Monocytes # 1.1 K/mcL (0.0-1.3); Platelet Estimate Normal (Normal)
[2017-01-08] MEDS ORDERED: 0.9 % Sodium Chloride 1,000 ML ONE (06:43)
[2017-01-08] MEDS: Folic Acid 1 MG TABLET PO SCH (07:40)
[2017-01-08] MEDS: FLUoxetine 20 MG CAPSULE PO SCH (07:40)
[2017-01-08] MEDS: Acetaminophen 325 MG TABLET PO PRN (09:03)
--- NOTE | 2017-01-08 10:23 | Nephrology Progress Note ---
Date of Encounter: 01/08/17 Time of Encounter: 10:20 - Assessment and Plan (1) Acute on chronic renal failure Current Visit: Yes Status: Acute Patient with CKD Stage 4 and acute worsening of her renal function. She has progressed to needing renal replacement therapy. Temp line was placed and patient was started on [employer]. She is tolerating dialysis. Not certain if she is ESRD at this time. She remains dialysis dependent JOEY for now. Her left upper arm fistula is thrombosed and she will need surgical intervention. Social work has been consulted in case the patient requires outpatient dialysis. (2) Metabolic acidosis Current Visit: Yes Status: Acute Resolved with dialysis. (3) Morbid obesity with BMI of 50.0-59.9, adult Current Visit: Yes Status: Chronic Outpatient management. (4) Leukocytosis Current Visit: Yes Status: Acute Etiology is not completely clear. Initial working diagnosis was UTI vs. pneumonia. Urine culture negative, but patient was on antibiotics so I could be a false negative urine culture. CT chest without clear infiltrate. Patient responding to empiric antibiotics. CT chest abdomen and pelvis without clear source of infection. Qualifiers: Leukocytosis type: unspecified Qualified Code(s): D72.829 - Elevated white blood cell count, unspecified (5) Anemia Current Visit: No Status: Acute Hemoglobin is trending down. Will check vitamin b12 and folate. Patient with iron deficiency, but adverse reaction to iron. This will need to be clarified as the patient will need iron administration. Qualifiers: Anemia type: unspecified type Qualified Code(s): D64.9 - Anemia, unspecified (6) Hyperuricemia Current Visit: Yes Status: Acute will start allopurinol. (7) Hyperparathyroidism Current Visit: Yes Status: Acute Extremely elevated. will likely need sensipar. 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 (8) Hyperphosphatemia Current Visit: No Status: Acute Secondary to renal failure and hyperparathyroidism. Patient on Renvela and renal diet. (9) Elevated troponin Current Visit: No Status: Acute Elevated troponin with elevated CPK. I don't think the rhabdomyolysis is severe enough to cause the JOEY, but will follow. Troponin is stable and patient is asymptomatic. Consider an echocardiogram. Subjective Principal diagnosis: JOEY/CKD Interval history: Patient seen and evaluated. She still complains of discomfort around her coccyx area. She reports that she is feeling better. She is tolerating dialysis. She was seen while on dialysis. ROS otherwise is stable or negative. Objective - Vital Signs Vital signs: Vital Signs Temp Pulse Resp BP Pulse Ox 01/08/17 06:45 97.8 F 72 16 100/58 90 01/08/17 04:29 98.6 F 75 18 100/47 92 01/08/17 00:55 98.4 F 75 18 89/50 94 01/07/17 16:00 98.1 F 66 18 121/71 96 01/07/17 11:36 98.5 F 65 18 115/60 96 Intake and Output 01/07/17 01/08/17 01/08/17 23:59 07:59 15:59 Intake Total 120 / 120 0 / 0 Output Total 450 / 450 Balance 120 / 120 -450 / -450 0 / 0 Intake: Oral 120 / 120 0 / 0 Output: Catheter 450 / 450 Other: Meal Dinner Breakfast Percent of Meal Consumed 100% 100% Stool Size Large Smear Moderate Stool Consistency loose soft Stool Color Brown Brown Brown Bright Red Blood Bright Red Blood Blood Tinged Blood Tinged # Bowel Movements 1 1 1 Weight 167.5 kg Patient Weight 01/08/17 23:59 Weight 167.5 kg - General Appearance General appearance: Present: well-developed, well-nourished, obese EENT: Present: ATNC Neck: Present: supple Respiratory: Present: clear Cardiology: Present: regular rate, regular rhythm Gastrointestinal: Present: normoactive bowel sounds, obese Integumentary: Present: warm and dry Neurologic: Present: alert and oriented x3 Musculoskeletal: Present: no cyanosis Psychiatric: Present: mood/affect appropriate - Lab 01/08/17 05:58 01/08/17 05:58 Most recent lab results Calcium 8.1 mg/dL (8.6-10.8) L 01/08/17 05:58 Phosphorus 13.7 mg/dL (2.3-4.7) H 01/04/17 04:40 Magnesium 1.7 mg/dL (1.6-2.6) 01/07/17 16:08 Urine Creatinine 94 mg/dL 01/07/17 10:52 Urine Total Protein 79 mg/dL (1-14) H 01/07/17 10:52 Consult Discharge Plan - Plan Referrals: Steven Ly MD [Primary Care Provider] - 01/12/17 2:40 pm (Please follow up as schedule....)
--- NOTE | 2017-01-08 15:36 | Internal Med Progress Note ---
<Lacho Mccainssdavid Viveros - Last Filed: 01/08/17 16:30> Date of Encounter: 01/08/17 Time of Encounter: 15:36 - Assessment and plan (1) Sepsis Current Visit: Yes Status: Acute Assessment and plan: 01/05/17 Patient had WBC 20.4 and hypotension upon admission Lactic acid 0.8 CXR demonstrated Right basilar airspace disease Patient is currently treated for suspected PNA with Zithromax and Zosyn Currently, patient is normotensive and afebrile Blood and urine cultures negative CT chest/abdomen/pelvis to identify source of infection Start vancomycin 01/06/17 WBC 13.8, trending down today Will continue Vancomycin (day#2) Suspect urine as source of infection CT abdomen with evidence of multiple nonobstructing bilateral renal calculi compatible with medullary nephrocalcinosis Final urine culture negative for growth Repeat urine culture, pending 01/07/17 WBC continues to trend down Despite negative urine cultures, I suspect that etiology is UTI Cultures may have been falsely negative due to antibiotic therapy Deescalate antibiotics today Discontinue Zosyn Continue Vanc (day#3) Start Rocephin (day#1) 01/08/17 WBC 12.5 today, plateau from 12.1 yesterday Patient afebrile and generally feeling better Continue Vanc (day#4) Start Rocephin (day#2) Qualifiers: Sepsis type: sepsis due to unspecified organism Qualified Code(s): A41.9 - Sepsis, unspecified organism (2) UTI (urinary tract infection) Current Visit: No Status: Acute Assessment and plan: Plan as above Qualifiers: Urinary tract infection type: acute cystitis Hematuria presence: with hematuria Qualified Code(s): N30.01 - Acute cystitis with hematuria (3) Acute on chronic renal failure Current Visit: Yes Status: Acute Assessment and plan: 01/05/17 Cr 9.96 today, up from 3.0 at baseline Fistulogram demonstrates non-functioning fistula Right neck with right IJ in place Plan for HD#3 today Patient being followed by nephrology 01/06/17 Creatinine 8.14 today, improving on HD Tolerating dialysis well Antibiotics with renal dosing Continue to monitor 01/07/17 Cr improving today at 6.48 Tolerating dialysis well Antibiotics with renal dosing Continue to monitor 01/08/17 HD today Tolerating dialysis well Plan to place a permanent dialysis catheter on 01/11/17 Continue abx with renal dosing (4) Hyperparathyroidism Current Visit: Yes Status: Acute Assessment and plan: Secondary to renal disease (5) Metabolic acidosis Current Visit: Yes Status: Acute Assessment and plan: Resolved on dialysis (6) Acute respiratory failure Current Visit: Yes Status: Acute Assessment and plan: 01/05/17 Increased need for O2 supplementation since admission Continue O2 supplementation, nebulizers, Zosyn (day#2), Zithromax (day#4) Concern for pneumonia given patient's history of recent URI and hypoxemia and worsening leukocytosis Will expand abx to include Vancomycin, dosed per pharmacy CT chest, pending 01/06/17 Patient requiring O2 supplementation at 3L, improved from yesterday CT chest demonstrates no consolidation or pneumothorax Influenza negative Patient current smoker with COPD Continue O2 supplementation, scheduled nebs 01/07/17 Patient continues to require O2 supplementation Will attempt to qualify for home O2 Patient with chronic respiratory secondary to COPD and continued smoking Continue O2 supplementation, nebs 01/08/17 Patient using 2L O2 Continue O2 supplementation Continue nebs Qualifiers: Respiratory failure complication: hypoxia Qualified Code(s): J96.01 - Acute respiratory failure with hypoxia (7) Iron deficiency anemia Current Visit: Yes Status: Acute Assessment and plan: Low iron and low % saturation Normal Transferrin and ferritin She appears to have mixed anemia due to iron deficiency and folate deficiency We will attempt to find a way to replace iron with her iron allergy Qualifiers: Iron deficiency anemia type: unspecified iron deficiency Qualified Code(s) : D50.9 - Iron deficiency anemia, unspecified (8) Folate deficiency Current Visit: Yes Status: Acute Assessment and plan: Repleted. Continue to monitor (9) Obstructive sleep apnea Current Visit: Yes Status: Chronic Assessment and plan: CPAP ordered (10) Diabetes Current Visit: No Status: Acute Assessment and plan: Hb A1C 6.5 Patient not currently taking home diabetes medication Monitor morning fasting glucose Qualifiers: Diabetes mellitus type: type 2 Diabetes mellitus complication status: with kidney complications Diabetes mellitus complication detail: with chronic kidney disease Qualified Code(s): E11.22 - Type 2 diabetes mellitus with diabetic chronic kidney disease; N18.5 - Chronic kidney disease, stage 5 (11) CKD (chronic kidney disease), stage IV Current Visit: Yes Status: Chronic (12) Morbid obesity with BMI of 50.0-59.9, adult Current Visit: Yes Status: Chronic (13) DVT prophylaxis Current Visit: Yes Status: Acute Assessment and plan: Heparin SQ - Subjective Interval history: Patient sitting in chair at time of patient interview. She is present with her who is at the bedside. She is upset that she will be in the hospital during , but I explained to her that we will need to place a dialysis catheter on Wednesday. She voices understanding. - Constitutional Vitals: Temp Pulse Resp BP Pulse Ox 97.8 F 71 16 91/56 92 01/08/17 14:52 01/08/17 14:52 01/08/17 14:52 01/08/17 14:52 01/08/17 14:52 General appearance: Present: A&O X 3, morbidly obese, answers questions appropriately - Head Head exam: Present: atraumatic, normocephalic - Eye Eye exam: Present: PERRL, conjuntiva pink, sclera anicteric Pupils: Present: PERRL - Neck Neck exam general surgery: Present: supple, trachea midline. Absent: lymphadenopathy - Respiratory Respiratory exam: Present: CTAB. Absent: accessory muscle use, rales, rhonchi, wheezes - Cardiovascular Cardiovascular exam: Present: RRR, +S2, systolic murmur. Absent: diastolic murmur, gallop, rubs - GI/Abdominal GI/Abdominal exam: Present: normal bowel sounds, soft, no peritoneal signs. Absent: distended, tenderness - Extremities Exam Extremities exam: Present: pedal edema (1+ edema to bilateral lower extremities with erythema and waxy scales), warm, radial pulses palpable and symetrical. Absent: calf tenderness, cyanotic - Neurological Exam Neurological exam: Present: CN II-XII intact, oriented X3, no focal deficits. Absent: facial droop, speech deficit - Skin Skin exam: Present: dry, intact Internal Medicine: Result - Labs CBC & Chem 7: 01/08/17 05:58 01/08/17 05:58 Labs: Short CBC 01/08/17 Range/Units 05:58 WBC 12.5 H (4.3-11.1) K/mcL Hgb 8.8 L (11.5-15.4) g/dL Hct 32.7 L (35.3-44.9) % Plt Count 177 (140-400) K/mcL Neutrophils # 10.3 H (1.6-8.9) K/mcL BMP 01/07/17 01/08/17 16:08 05:58 Sodium 134 L Potassium 4.0 3.9 Chloride 97 L Carbon Dioxide 25 BUN 64 H Creatinine 6.92 H Glucose 83 Calcium 8.1 L - ABG Interpretation ABG results: PT/INR, D-dimer PT 11.7 Seconds (9.4-12.1) 01/04/17 11:18 Consult Discharge Plan - Plan Referrals: Steven Ly MD [Primary Care Provider] - 01/12/17 2:40 pm (Please follow up as schedule....) <Juan Mcnamara - Last Filed: 01/08/17 17:52> Date of Encounter: 01/08/17 - Constitutional Vitals: Temp Pulse Resp BP Pulse Ox 97.8 F 71 16 91/56 92 01/08/17 14:52 01/08/17 14:52 01/08/17 14:52 01/08/17 14:52 01/08/17 14:52 Internal Medicine: Result - Labs CBC & Chem 7: 01/08/17 05:58 01/08/17 05:58 Labs: Short CBC 01/08/17 Range/Units 05:58 WBC 12.5 H (4.3-11.1) K/mcL Hgb 8.8 L (11.5-15.4) g/dL Hct 32.7 L (35.3-44.9) % Plt Count 177 (140-400) K/mcL Neutrophils # 10.3 H (1.6-8.9) K/mcL BMP 01/08/17 05:58 Sodium 134 L Potassium 3.9 Chloride 97 L Carbon Dioxide 25 BUN 64 H Creatinine 6.92 H Glucose 83 Calcium 8.1 L Cardiac Enzymes 01/06/17 Range/Units 11:05 CK-MB (CK-2) 12.8 H (0.0-5.0) ug/L - ABG Interpretation ABG results: PT/INR, D-dimer PT 11.7 Seconds (9.4-12.1) 01/04/17 11:18 - Attending Attestation I examined this patient and my medical decision-making was reviewed with the FINANCIAL AID COUNSELOR/PA/Advanced Practice Nurse/Resident Physician. I agree with the documented findings, disposition and treatment plan as described except to the extent set forth below. IV antibiotics. Continue HD.
[2017-01-08 17:42] LABS: CKMB Percent NOT DONE (0.0-5.0)
[2017-01-08] MEDS: Nystatin Cream 15 GM TUBE TP SCH (20:13)
[2017-01-08] MEDS: Clotrimazole/Betameth Dip CRM 45 APPL/45 GM TUBE TP SCH (20:14)
[2017-01-08] MEDS: Desitin (Zinc Oxide) 56 GM TUBE TP SCH (20:17)
[2017-01-09] MEDS: *HR* HYDROcodone/Acet 5/325 mg TABLET PO PRN ×3 (02:20→22:11)
[2017-01-09 03:17] LABS: Basophils % 0.4 %; Eosinophils # 0.3 K/mcL (0.0-0.6); Eosinophils % 2.7 %; Hematocrit 33.2 % (35.3-44.9); Hemoglobin 8.7 g/dL (11.5-15.4); Immature Granulocytes % 0.3 % (0-4); Lymphocytes # 0.7 K/mcL (0.6-4.6); Lymphocytes % 7.1 %; Mean Corpuscular HGB Conc 26.2 g/dL (31.6-35.5); Mean Corpuscular Volume 87.6 fL (83.0-100.0); Monocytes # 1.1 K/mcL (0.0-1.3); Monocytes % 10.8 %; Platelet Count 160 K/mcL (140-400); Red Blood Count 3.79 M/mcL (3.82-4.97); Red Cell Distribution Width 20.2 % (11.5-14.5); Segmented Neutrophils % 78.7 %
[2017-01-09 03:19] LABS: Neutrophils # 7.9 K/mcL (1.6-8.9)
[2017-01-09 03:28] LABS: Calcium 8.7 mg/dL (8.6-10.8); Potassium 3.8 mEq/L (3.5-4.5)
[2017-01-09 04:30] LABS: Hypochromasia Present (Not Present); Platelet Estimate Normal (Normal)
[2017-01-09 04:32] LABS: Basophilic Stippling 2+ (Not Present)
[2017-01-09 04:34] LABS: Polychromasia 1+ (Not Present)
[2017-01-09] MEDS: *HR* Heparin 5,000 UNIT/ML VIAL SQ SCH ×2 (05:04→16:54)
[2017-01-09] MEDS: Folic Acid 1 MG TABLET PO SCH (09:09)
[2017-01-09] MEDS: FLUoxetine 20 MG CAPSULE PO SCH (09:10)
[2017-01-09] MEDS: Desitin (Zinc Oxide) 56 GM TUBE TP SCH ×2 (09:12→22:43)
[2017-01-09] MEDS: Clotrimazole/Betameth Dip CRM 45 APPL/45 GM TUBE TP SCH ×2 (09:13→22:43)
[2017-01-09] MEDS: Nystatin Cream 15 GM TUBE TP SCH ×2 (09:13→22:43)
--- NOTE | 2017-01-09 09:38 | Nephrology Progress Note ---
Date of Encounter: 01/09/17 Time of Encounter: 09:36 - Assessment and Plan (1) Acute on chronic renal failure Current Visit: Yes Status: Acute Patient with CKD Stage 4 and acute worsening of her renal function. She has progressed to needing renal replacement therapy. Temp line was placed and patient was started on LINEN SORTER. She is tolerating dialysis. Not certain if she is ESRD at this time. She remains dialysis dependent JOEY for now. Her left upper arm fistula is thrombosed and she will need surgical intervention. Social work has been consulted in case the patient requires outpatient dialysis. Plan to order tunneled catheter on Wednesday. (2) Metabolic acidosis Current Visit: Yes Status: Acute Resolved with dialysis. (3) Morbid obesity with BMI of 50.0-59.9, adult Current Visit: Yes Status: Chronic Outpatient management. (4) Leukocytosis Current Visit: Yes Status: Acute Etiology is not completely clear. Initial working diagnosis was UTI vs. pneumonia. Urine culture negative, but patient was on antibiotics so I could be a false negative urine culture. CT chest without clear infiltrate. Patient responding to empiric antibiotics. CT chest abdomen and pelvis without clear source of infection. Qualifiers: Leukocytosis type: unspecified Qualified Code(s): D72.829 - Elevated white blood cell count, unspecified (5) Anemia Current Visit: No Status: Acute Monitor for bleeding. Patient with iron deficiency, but adverse reaction to iron. This will need to be clarified as the patient will need iron administration. Qualifiers: Anemia type: unspecified type Qualified Code(s): D64.9 - Anemia, unspecified (6) Hyperuricemia Current Visit: Yes Status: Acute On allopurinol. (7) Hyperparathyroidism Current Visit: Yes Status: Acute Extremely elevated. will likely need sensipar. 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 (8) Hyperphosphatemia Current Visit: No Status: Acute Secondary to renal failure and hyperparathyroidism. Patient on Renvela and renal diet. (9) Elevated troponin Current Visit: No Status: Acute Elevated troponin with elevated CPK. I don't think the rhabdomyolysis is severe enough to cause the JOEY, but will follow. Troponin is stable and patient is asymptomatic. Consider an echocardiogram. Subjective Principal diagnosis: JOEY/CKD Interval history: Patient seen and evaluated. She reports that she is feeling better. ROS otherwise is stable or negative. Objective - Vital Signs Vital signs: Vital Signs Temp Pulse Resp BP Pulse Ox 01/09/17 06:42 98.1 F 75 18 112/62 93 01/09/17 04:00 98.1 F 75 16 83/44 92 01/08/17 23:43 97.9 F 79 17 104/63 94 01/08/17 20:22 98.4 F 80 18 97/48 94 01/08/17 14:52 97.8 F 71 16 91/56 92 01/08/17 13:21 98.1 F 18 109/58 01/08/17 12:50 109/58 01/08/17 12:35 101/46 01/08/17 12:20 104/54 01/08/17 12:05 96/54 01/08/17 11:50 110/49 01/08/17 11:35 101/49 01/08/17 11:20 103/54 01/08/17 11:05 110/54 01/08/17 10:50 120/57 01/08/17 10:35 120/59 01/08/17 10:20 113/57 01/08/17 10:05 114/53 01/08/17 09:50 108/49 Intake and Output 01/08/17 01/09/17 01/09/17 23:59 07:59 15:59 Intake Total 120 / 120 Output Total 0 / 0 Balance 120 / 120 0 / 0 Intake: Oral 120 / 120 Output: Urine 0 / 0 Other: Meal Dinner Percent of Meal Consumed 85% Stool Size Small Stool Consistency soft Stool Color Brown # Bowel Movements 1 Weight 167.6 kg Patient Weight 01/09/17 23:59 Weight 167.6 kg - General Appearance General appearance: Present: well-developed, well-nourished, obese EENT: Present: ATNC Neck: Present: supple Respiratory: Present: clear Cardiology: Present: edema, regular rate, regular rhythm Dialysis Vascular Access: Venous Catheter Gastrointestinal: Present: normoactive bowel sounds, obese Integumentary: Present: warm and dry Neurologic: Present: alert and oriented x3 Psychiatric: Present: mood/affect appropriate - Lab 01/09/17 03:10 01/09/17 03:10 Most recent lab results Calcium 8.7 mg/dL (8.6-10.8) 01/09/17 03:10 Phosphorus 13.7 mg/dL (2.3-4.7) H 01/04/17 04:40 Magnesium 1.7 mg/dL (1.6-2.6) 01/07/17 16:08 Urine Creatinine 94 mg/dL 01/07/17 10:52 Urine Total Protein 79 mg/dL (1-14) H 01/07/17 10:52 Consult Discharge Plan - Plan Referrals: Steven Ly MD [Primary Care Provider] - 01/12/17 2:40 pm (Please follow up as schedule....)
[2017-01-09] MEDS ORDERED: Loperamide 1 MG/5 ML UDC PO PRN (10:30)
[2017-01-09] MEDS: Lactobacillus 1 EACH CAP.SPRINK PO SCH (10:34)
--- NOTE | 2017-01-09 13:28 | Internal Med Progress Note ---
<Mao Abdi - Last Filed: 01/09/17 13:23> Date of Encounter: 01/09/17 Time of Encounter: 09:20 - Assessment and plan (1) Sepsis Current Visit: Yes Status: Acute Assessment and plan: Source of infection unclear at this time. UA indicates a UTI. however no growth from culture but this may be to antibiotics. WBC have trended down and have normalized. Afebrile. Antibiotics have been deescalated Currently on Rocephin. Would consider a prolonged course for UTI / 07-10 as she had sepsis. she is having some diarrhea but Cdif was negative. (2) Acute on chronic renal failure Current Visit: Yes Status: Acute Assessment and plan: Nephrolgy following. Will need Tunneled dialysis cather prior to Discharge. No IR on weekends so she will be here at least until Wednesday. avoid nephrotoxins I appreciate Nephrologies input. (3) UTI (urinary tract infection) Current Visit: No Status: Acute Assessment and plan: Plan as above Qualifiers: Urinary tract infection type: acute cystitis Hematuria presence: with hematuria Qualified Code(s): N30.01 - Acute cystitis with hematuria (4) Diabetes Current Visit: No Status: Acute Assessment and plan: Hb A1C 6.5 AM Glucose at goal however we do not have her on coverage throughout the day. will add low dose sliding scale. Qualifiers: Diabetes mellitus type: type 2 Diabetes mellitus complication status: with kidney complications Diabetes mellitus complication detail: with chronic kidney disease Qualified Code(s): E11.22 - Type 2 diabetes mellitus with diabetic chronic kidney disease; N18.5 - Chronic kidney disease, stage 5 (5) Elevated troponin Current Visit: No Status: Acute Assessment and plan: In the setting of renal failure and sepsis. Currently asymptomatic. However would recommend outpatient stress testing in the near future to r/o CAD. (6) Anemia Current Visit: No Status: Acute Assessment and plan: likely from a combination of iron and folate deficiency. May consider further work up as outpatient for malabsorptive disorders. Qualifiers: Anemia type: unspecified type Qualified Code(s): D64.9 - Anemia, unspecified (7) Acute respiratory failure Current Visit: Yes Status: Acute Assessment and plan: likley from a combination of OHS, sepsis, volume overload, and smoking/ possible COPD continue O2 as needed. currently on 2L and comfortable. Qualifiers: Respiratory failure complication: hypoxia Qualified Code(s): J96.01 - Acute respiratory failure with hypoxia (8) Morbid obesity with BMI of 50.0-59.9, adult Current Visit: Yes Status: Chronic Assessment and plan: strongly advise weight loss. (9) Leukocytosis Current Visit: Yes Status: Acute Assessment and plan: resolved Qualifiers: Leukocytosis type: unspecified Qualified Code(s): D72.829 - Elevated white blood cell count, unspecified (10) Hyperparathyroidism Current Visit: Yes Status: Acute Assessment and plan: Secondary to renal disease (11) Folate deficiency Current Visit: Yes Status: Acute Assessment and plan: continue supplementation. (12) Dialysis AV fistula malfunction Current Visit: Yes Status: Acute Assessment and plan: will have tunneled dialysis catheter placed before discharge and will need outpatient follow up with vascular surgery. (13) Diarrhea Current Visit: Yes Status: Acute Assessment and plan: mild. C diff was negative. Likely from antibiotics. will add culturelle. Check GI panel. If negative can start loperamide. (14) DVT prophylaxis Current Visit: Yes Status: Acute Assessment and plan: Heparin SQ - Subjective Interval history: No major events overnight. Jess dose complain of diarrhea. She states that it is starting to make " her backside raw". She denies any blood or melena. She denies any other aches or pains. She has no further complaints or concerns at this time. - Constitutional Vitals: Temp Pulse Resp BP Pulse Ox 98.3 F 77 18 118/68 93 01/09/17 11:34 01/09/17 11:34 01/09/17 11:34 01/09/17 11:34 01/09/17 11:34 General appearance: Present: A&O X 3, morbidly obese, answers questions appropriately Exam: General: This breezes a very pleasant 46-year-old female who is morbidly obese. She is sitting in a chair in the room appears to be comfortable and in no acute distress at this time. HEENT: Head is normocephalic and atraumatic. Pupils are equally round and react to light and accommodation. There is normal external appearance of the ears nose and eyes. Dentition is intact mucous membranes are moist. Neck is supple without mass or thyromegaly no cervical lymphadenopathy noted. Neck exam is somewhat limited by a right IJ catheter that is clean and well dressed the right side of the neck. No supraclavicular lymphadenopathy noted. Heart: The heart has a regular rate and rhythm without murmurs rubs or gallops. She does have somewhat muffled heart tones however the exam is somewhat limited by her habitus. No JVD. No carotid bruits on the left I could not auscultate the right because of the catheter. Radial pulses are 2 out of 4 in synchronous all 4 limbs are warm to the touch. Lungs: She has normal effort of breathing and speaks in full sentences. Clear to auscultation bilaterally. Lung sounds are diminished throughout this is secondary to her habitus. Abdomen: Obese with a large pannus: Unable to visualize under this secondary to the patient being in a chair and unwilling to lie in bed at this time. No tenderness to palpation. Bowel sounds positive. Could not assess for organomegaly at this time. Musculoskeletal: Grossly normal for age no gross deformities noted. Extremities: There is no clubbing or cyanosis she does have a 1+ pitting edema up to the level of the thigh bilaterally. Integument: Could not see any rashes or lesions on her uncovered skin at this time. Psych: She is alert, well-groomed, pleasant, she cooperates with the history and physical other than getting out of a chair however she states that she just got in a chair Internal Medicine: Result - Labs CBC & Chem 7: 01/09/17 03:10 01/09/17 03:10 Labs: Short CBC 01/09/17 Range/Units 03:10 WBC 10.0 (4.3-11.1) K/mcL Hgb 8.7 L (11.5-15.4) g/dL Hct 33.2 L (35.3-44.9) % Plt Count 160 (140-400) K/mcL Neutrophils # 7.9 (1.6-8.9) K/mcL BMP 01/09/17 03:10 Sodium 139 Potassium 3.8 Chloride 102 Carbon Dioxide 28 BUN 40 H D Creatinine 5.55 H Glucose 88 Calcium 8.7 Cardiac Enzymes 01/06/17 Range/Units 11:05 CK-MB (CK-2) 12.8 H (0.0-5.0) ug/L - ABG Interpretation ABG results: PT/INR, D-dimer PT 11.7 Seconds (9.4-12.1) 01/04/17 11:18 Consult Discharge Plan - Plan Referrals: Steven Ly MD [Primary Care Provider] - 01/12/17 2:40 pm (Please follow up as schedule....) <Juan Mcnamara - Last Filed: 01/09/17 15:00> Date of Encounter: 01/09/17 - Constitutional Vitals: Temp Pulse Resp BP Pulse Ox 98.3 F 77 18 118/68 93 01/09/17 11:34 01/09/17 11:34 01/09/17 11:34 01/09/17 11:34 01/09/17 11:34 Internal Medicine: Result - Labs CBC & Chem 7: 01/09/17 03:10 01/09/17 03:10 Labs: Short CBC 01/09/17 Range/Units 03:10 WBC 10.0 (4.3-11.1) K/mcL Hgb 8.7 L (11.5-15.4) g/dL Hct 33.2 L (35.3-44.9) % Plt Count 160 (140-400) K/mcL Neutrophils # 7.9 (1.6-8.9) K/mcL BMP 01/09/17 03:10 Sodium 139 Potassium 3.8 Chloride 102 Carbon Dioxide 28 BUN 40 H D Creatinine 5.55 H Glucose 88 Calcium 8.7 Cardiac Enzymes 01/06/17 Range/Units 11:05 CK-MB (CK-2) 12.8 H (0.0-5.0) ug/L - ABG Interpretation ABG results: PT/INR, D-dimer PT 11.7 Seconds (9.4-12.1) 01/04/17 11:18 - Attending Attestation I examined this patient and my medical decision-making was reviewed with the WEBSITE PROGRAMMER/PA/Advanced Practice Nurse/Resident Physician. I agree with the documented findings, disposition and treatment plan as described except to the extent set forth below. IV rocephin, likely UTI. Nephro following. HD as per nephrology.
[2017-01-09] MEDS ORDERED: D5% in Water 1,000 ML IVC PRN (13:41)
[2017-01-09] MEDS ORDERED: Dextrose Gel 15 GM PO PRN ×2 (13:41)
[2017-01-09] MEDS ORDERED: *HR* Dextrose 50 % in Water (Syg) 50 ML SYRINGE IVP PRN (13:41)
[2017-01-09] MEDS: Insulin LISPRO 300 UNITS/3 ML VIAL SQ SCH (16:44)
[2017-01-10] MEDS: *HR* Heparin 5,000 UNIT/ML VIAL SQ SCH ×2 (04:08→17:04)
[2017-01-10] MEDS: *HR* HYDROcodone/Acet 5/325 mg TABLET PO PRN ×3 (04:09→22:26)
[2017-01-10 04:51] LABS: Red Cell Distribution Width 19.9 % (11.5-14.5)
[2017-01-10 04:52] LABS: Basophils % 0.3 %; Eosinophils # 0.3 K/mcL (0.0-0.6); Eosinophils % 3.1 %; Hemoglobin 8.5 g/dL (11.5-15.4); Immature Granulocytes % 0.3 % (0-4); Lymphocytes # 0.7 K/mcL (0.6-4.6); Mean Corpuscular HGB Conc 26.6 g/dL (31.6-35.5); Mean Corpuscular Hemoglobin 23.7 pg (28.0-33.3); Mean Corpuscular Volume 89.1 fL (83.0-100.0); Mean Platelet Volume 10.8 fL (9.4-12.4); Monocytes # 0.9 K/mcL (0.0-1.3); Monocytes % 9.5 %; Neutrophils # 7.2 K/mcL (1.6-8.9); Platelet Count 156 K/mcL (140-400); Red Blood Count 3.59 M/mcL (3.82-4.97); Segmented Neutrophils % 78.8 %
[2017-01-10 04:55] LABS: INR 1.1; Prothrombin Time 11.5 Seconds (9.4-12.1)
[2017-01-10 05:02] LABS: Phosphorous 7.8 mg/dL (2.3-4.7)
[2017-01-10 05:16] LABS: Anisocytosis 2+ (Not Present); Platelet Estimate Normal (Normal)
[2017-01-10 05:17] LABS: Basophilic Stippling 1+ (Not Present); Macrocytosis Present (Not Present); Microcytosis Present (Not Present)
[2017-01-10 05:18] LABS: Polychromasia 1+ (Not Present)
[2017-01-10 05:27] LABS: Calcium 8.5 mg/dL (8.6-10.8); Magnesium 1.6 mg/dL (1.6-2.6); Potassium 3.7 mEq/L (3.5-4.5)
[2017-01-10] MEDS: Insulin LISPRO 300 UNITS/3 ML VIAL SQ SCH ×3 (07:33→17:14)
[2017-01-10] MEDS: Folic Acid 1 MG TABLET PO SCH (08:19)
[2017-01-10] MEDS: Lactobacillus 1 EACH CAP.SPRINK PO SCH (08:20)
[2017-01-10] MEDS: FLUoxetine 20 MG CAPSULE PO SCH (08:20)
[2017-01-10] MEDS: Desitin (Zinc Oxide) 56 GM TUBE TP SCH ×2 (08:28→21:35)
[2017-01-10] MEDS: Nystatin Cream 15 GM TUBE TP SCH ×2 (08:28→21:35)
[2017-01-10] MEDS: Clotrimazole/Betameth Dip CRM 45 APPL/45 GM TUBE TP SCH ×2 (08:28→21:35)
--- NOTE | 2017-01-10 11:07 | Internal Med Progress Note ---
<Mao Abdi - Last Filed: 01/10/17 11:11> Date of Encounter: 01/10/17 Time of Encounter: 11:04 - Assessment and plan (1) Sepsis Current Visit: Yes Status: Acute Assessment and plan: Source of infection unclear at this time. UA indicates a UTI. however no growth from culture but this may be to antibiotics. WBC have trended down and have normalized. Afebrile. Antibiotics have been deescalated Currently on Rocephin. Would consider a prolonged course for UTI / 07-10 as she had sepsis. Patient is improving possible DC after Tunneled dialysis catheter. Qualifiers: Qualified Code(s): A41.9 - Sepsis, unspecified organism (2) Acute on chronic renal failure Current Visit: Yes Status: Acute Assessment and plan: Nephrolgy following. Will need Tunneled dialysis cather prior to Discharge. No IR on weekends so she will be here at least until Wednesday. avoid nephrotoxins I appreciate Nephrologies input. (3) UTI (urinary tract infection) Current Visit: No Status: Acute Assessment and plan: Plan as above Qualifiers: Urinary tract infection type: acute cystitis Hematuria presence: with hematuria Qualified Code(s): N30.01 - Acute cystitis with hematuria (4) Diabetes Current Visit: No Status: Acute Assessment and plan: Hb A1C 6.5 on sliding scale. Qualifiers: Diabetes mellitus type: type 2 Diabetes mellitus complication status: with kidney complications Diabetes mellitus complication detail: with chronic kidney disease Qualified Code(s): E11.22 - Type 2 diabetes mellitus with diabetic chronic kidney disease; N18.1 - Chronic kidney disease, stage 1; Z79.4 - skilled nursing (current) use of insulin (5) Elevated troponin Current Visit: No Status: Acute Assessment and plan: In the setting of renal failure and sepsis. Currently asymptomatic. However would recommend outpatient stress testing in the near future to r/o CAD. (6) Anemia Current Visit: No Status: Acute Assessment and plan: likely from a combination of iron and folate deficiency. May consider further work up as outpatient for malabsorptive disorders. stable Qualifiers: Anemia type: unspecified type Qualified Code(s): D64.9 - Anemia, unspecified (7) Acute respiratory failure Current Visit: Yes Status: Acute Assessment and plan: likely from a combination of OHS, sepsis, volume overload, and smoking/ possible COPD continue O2 as needed. currently on 2L and comfortable. attempt to wean Qualifiers: Respiratory failure complication: hypoxia Qualified Code(s): J96.01 - Acute respiratory failure with hypoxia (8) Morbid obesity with BMI of 50.0-59.9, adult Current Visit: Yes Status: Chronic Assessment and plan: strongly advise weight loss. (9) Leukocytosis Current Visit: Yes Status: Resolved Assessment and plan: resolved Qualifiers: Leukocytosis type: unspecified Qualified Code(s): D72.829 - Elevated white blood cell count, unspecified (10) Hyperparathyroidism Current Visit: Yes Status: Acute Assessment and plan: Secondary to renal disease (11) Folate deficiency Current Visit: Yes Status: Acute Assessment and plan: continue supplementation. (12) Dialysis AV fistula malfunction Current Visit: Yes Status: Acute Assessment and plan: will have tunneled dialysis catheter placed before discharge and will need outpatient follow up with vascular surgery. Qualifiers: Qualified Code(s): T82.590A - Other mechanical complication of surgically created arteriovenous fistula, initial encounter (13) Diarrhea Current Visit: Yes Status: Resolved Assessment and plan: resolved Qualifiers: Qualified Code(s): R19.7 - Diarrhea, unspecified (14) DVT prophylaxis Current Visit: Yes Status: Acute Assessment and plan: Heparin SQ - Subjective Interval history: No major events overnight. Patient states that she is feeling much better. Her diarrhea has resolved. She denies any dyspnea or cough. Denies any abdominal pain or discomfort. She has no further complaints or concerns at this time. - Constitutional Vitals: Temp Pulse Resp BP Pulse Ox 97.6 F 67 18 106/57 97 01/10/17 06:58 01/10/17 06:58 01/10/17 06:58 01/10/17 06:58 01/10/17 06:58 Exam: General: This is a morbidly obese 46-year-old female who is alert and orientated to person place time and situation. She is lying in bed appears to be comfortable and in no acute distress at this time. HEENT: Head is normocephalic and atraumatic. Pupils are equally round and react to light and accommodation. Normal external appearance of ears nose and eyes. She does have a right internal jugular central venous catheter that is clean and well dressed. This is a temporary hemodialysis catheter. Neck is supple without mass or thyromegaly. No cervical lymphadenopathy on the left. Exam is limited on the right catheter. Heart: Regular rate and rhythm without murmurs rubs or gallops. Lungs: Clear to auscultation bilaterally. Abdomen: Abdomen is obese with large pannus. Bowel sounds are positive in all quadrants. No tenderness to palpation. Musculoskeletal: Grossly normal for age no gross deformities noted. Extremities: There is no clubbing or cyanosis. She does have about 1+ pitting edema at the level of the thigh bilaterally. Integument: No Rashes or lesions are noted. Psych: Pleasant, alert, well-groomed, cooperates fully with both history and physical. Normal speech pattern. Internal Medicine: Result - Labs CBC & Chem 7: 01/10/17 04:20 01/10/17 04:20 Labs: Short CBC 01/10/17 Range/Units 04:20 WBC 9.1 (4.3-11.1) K/mcL Hgb 8.5 L (11.5-15.4) g/dL Hct 32.0 L (35.3-44.9) % Plt Count 156 (140-400) K/mcL Neutrophils # 7.2 (1.6-8.9) K/mcL BMP 01/10/17 04:20 Sodium 139 Potassium 3.7 Chloride 102 Carbon Dioxide 28 BUN 48 H Creatinine 6.33 H Glucose 78 Calcium 8.5 L - ABG Interpretation ABG results: PT/INR, D-dimer PT 11.5 Seconds (9.4-12.1) 01/10/17 04:20 Consult Discharge Plan - Plan Referrals: Steven Ly MD [Primary Care Provider] - 01/12/17 2:40 pm (Please follow up as schedule....) <Juan Mcnamara - Last Filed: 01/10/17 11:49> Date of Encounter: 01/10/17 - Constitutional Vitals: Temp Pulse Resp BP Pulse Ox 97.7 F 68 16 102/64 98 01/10/17 11:15 01/10/17 11:15 01/10/17 11:15 01/10/17 11:15 01/10/17 11:15 Internal Medicine: Result - Labs CBC & Chem 7: 01/10/17 04:20 01/10/17 04:20 Labs: Short CBC 01/10/17 Range/Units 04:20 WBC 9.1 (4.3-11.1) K/mcL Hgb 8.5 L (11.5-15.4) g/dL Hct 32.0 L (35.3-44.9) % Plt Count 156 (140-400) K/mcL Neutrophils # 7.2 (1.6-8.9) K/mcL BMP 01/10/17 04:20 Sodium 139 Potassium 3.7 Chloride 102 Carbon Dioxide 28 BUN 48 H Creatinine 6.33 H Glucose 78 Calcium 8.5 L - ABG Interpretation ABG results: PT/INR, D-dimer PT 11.5 Seconds (9.4-12.1) 01/10/17 04:20 - Attending Attestation I examined this patient and my medical decision-making was reviewed with the SORTING LIVESTOCK WORKER/PA/Advanced Practice Nurse/Resident Physician. I agree with the documented findings, disposition and treatment plan as described except to the extent set forth below. IV rocephin. IR for HD placement. Agree with DR. Abdi.
--- NOTE | 2017-01-10 12:01 | Nephrology Progress Note ---
Date of Encounter: 01/10/17 Time of Encounter: 11:59 - Assessment and Plan (1) Acute on chronic renal failure Current Visit: Yes Status: Acute Patient with CKD Stage 4 and acute worsening of her renal function. She has progressed to needing renal replacement therapy. Temp line was placed and patient was started on [employer]. She is tolerating dialysis. Not certain if she is ESRD at this time ( clinically it is likely). She remains dialysis dependent JOEY for now. Her left upper arm fistula is thrombosed and she will need surgical intervention. Social work has been consulted in case the patient requires outpatient dialysis. Plan to order tunneled catheter on Wednesday. (2) Morbid obesity with BMI of 50.0-59.9, adult Current Visit: Yes Status: Chronic Outpatient management. (3) Leukocytosis Current Visit: Yes Status: Resolved Etiology is not completely clear. Initial working diagnosis was UTI vs. pneumonia. Urine culture negative, but patient was on antibiotics so I could be a false negative urine culture. CT chest without clear infiltrate. Patient responding to empiric antibiotics. CT chest abdomen and pelvis without clear source of infection. Resolved. Qualifiers: Leukocytosis type: unspecified Qualified Code(s): D72.829 - Elevated white blood cell count, unspecified (4) Anemia Current Visit: No Status: Acute Monitor for bleeding. Patient with iron deficiency, but adverse reaction to iron. This will need to be clarified as the patient will need iron administration. Qualifiers: Anemia type: unspecified type Qualified Code(s): D64.9 - Anemia, unspecified (5) Hyperuricemia Current Visit: Yes Status: Acute On allopurinol. (6) Hyperparathyroidism Current Visit: Yes Status: Acute Extremely elevated. will likely need sensipar. 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 (7) Hyperphosphatemia Current Visit: No Status: Acute Secondary to renal failure and hyperparathyroidism. Patient on Renvela and renal diet. Phosphorus levels declining. (8) Elevated troponin Current Visit: No Status: Acute Elevated troponin with elevated CPK. I don't think the rhabdomyolysis is severe enough to cause the JOEY. CPK now normal. Troponin is stable and patient is asymptomatic. Consider an echocardiogram. Defer to primary team. Subjective Principal diagnosis: JOEY/CKD Interval history: Patient seen and evaluated. She reports that she is feeling better. She is eager to be discharge. She no longer complains of pain ROS otherwise is stable or negative. Objective - Vital Signs Vital signs: Vital Signs Temp Pulse Resp BP Pulse Ox 01/10/17 11:15 97.7 F 68 16 102/64 98 01/10/17 06:58 97.6 F 67 18 106/57 97 01/10/17 03:39 98.4 F 73 16 108/63 97 01/09/17 23:59 98.2 F 75 18 95/53 95 01/09/17 20:08 97.8 F 74 18 100/55 96 01/09/17 16:46 97.8 F 72 18 115/54 98 Intake and Output 01/09/17 01/10/17 01/10/17 23:59 07:59 15:59 Intake Total 0 / 0 Output Total 0 / 0 Balance 0 / 0 0 / 0 Intake: Oral 0 / 0 Output: Urine 0 / 0 Other: Stool Size Moderate Stool Consistency loose Stool Color Brown Bright Red Blood # Voids 1 # Bowel Movements 1 Weight 167.3 kg Blood Glucose* 110 83 96 Patient Weight 01/10/17 23:59 Weight 167.3 kg - General Appearance General appearance: Present: well-developed, well-nourished EENT: Present: ATNC Neck: Present: supple Respiratory: Present: clear Cardiology: Present: edema, regular rate, regular rhythm Gastrointestinal: Present: no tenderness Integumentary: Present: warm and dry Neurologic: Present: alert and oriented x3 Musculoskeletal: Present: no cyanosis Psychiatric: Present: mood/affect appropriate - Lab 01/10/17 04:20 01/10/17 04:20 Most recent lab results Calcium 8.5 mg/dL (8.6-10.8) L 01/10/17 04:20 Phosphorus 7.8 mg/dL (2.3-4.7) H 01/10/17 04:20 Magnesium 1.6 mg/dL (1.6-2.6) 01/10/17 04:20 Urine Creatinine 94 mg/dL 01/07/17 10:52 Urine Total Protein 79 mg/dL (1-14) H 01/07/17 10:52 Consult Discharge Plan - Plan Referrals: Steven Ly MD [Primary Care Provider] - 01/12/17 2:40 pm (Please follow up as schedule....)
[2017-01-11] MEDS: *HR* Heparin 5,000 UNIT/ML VIAL SQ SCH ×2 (04:50→17:01)
[2017-01-11 05:19] LABS: Hemoglobin 8.6 g/dL (11.5-15.4); Mean Corpuscular Volume 89.7 fL (83.0-100.0)
[2017-01-11 05:21] LABS: Basophils % 0.4 %; Eosinophils # 0.3 K/mcL (0.0-0.6); Eosinophils % 2.5 %; Hematocrit 33.1 % (35.3-44.9); Immature Granulocytes % 0.5 % (0-4); Lymphocytes # 0.9 K/mcL (0.6-4.6); Lymphocytes % 8.3 %; Mean Corpuscular Hemoglobin 23.3 pg (28.0-33.3); Mean Platelet Volume 9.9 fL (9.4-12.4); Monocytes # 0.8 K/mcL (0.0-1.3); Neutrophils # 8.2 K/mcL (1.6-8.9); Platelet Count 160 K/mcL (140-400); Red Blood Count 3.69 M/mcL (3.82-4.97); Red Cell Distribution Width 20.2 % (11.5-14.5); Segmented Neutrophils % 80.3 %
[2017-01-11 05:32] LABS: Calcium 8.3 mg/dL (8.6-10.8); Potassium 3.9 mEq/L (3.5-4.5)
[2017-01-11 05:38] LABS: Anisocytosis 2+ (Not Present); Hypochromasia Present (Not Present)
[2017-01-11 05:39] LABS: Platelet Estimate Normal (Normal)
[2017-01-11] MEDS: Insulin LISPRO 300 UNITS/3 ML VIAL SQ SCH ×3 (07:21→16:56)
[2017-01-11] MEDS: Desitin (Zinc Oxide) 56 GM TUBE TP SCH (07:56)
[2017-01-11] MEDS: Clotrimazole/Betameth Dip CRM 45 APPL/45 GM TUBE TP SCH (07:56)
[2017-01-11] MEDS: Nystatin Cream 15 GM TUBE TP SCH (07:56)
[2017-01-11] MEDS ORDERED: 0.9 % Sodium Chloride 250 ML IVC PRN (07:57)
[2017-01-11] MEDS ORDERED: *HR* Heparin 10,000 UNIT/10 ML VIAL IV PRN (07:57)
[2017-01-11] MEDS ORDERED: 0.9 % Sodium Chloride 2,000 ML ONE (08:33)
[2017-01-11] MEDS ORDERED: Heparin 1,000 UNITS/500 mL NS 500 ML ONE (08:39)
[2017-01-11] MEDS ORDERED: *HR* Midazolam HCl 2 MG/2 ML VIAL IV PRN (09:16)
[2017-01-11] MEDS ORDERED: *HR* FentaNYL (PF) 100 MCG/2 ML VIAL IV PRN (09:16)
[2017-01-11] MEDS ORDERED: 0.9 % Sodium Chloride 500 ML ONE (09:31)
[2017-01-11] MEDS ORDERED: *HR* Heparin 5,000 UNIT/ML VIAL ONE (09:51)
--- NOTE | 2017-01-11 09:55 | Pre-Sedation Evaluation ---
Pre-sedation evaluation - Pre-sedation checklist Date of procedure: 01/11/17 Procedure: permacath Recent Vitals: Last Vital Signs Temp 97.9 F 01/11/17 06:28 Pulse 72 01/11/17 09:47 Resp 15 01/11/17 09:47 BP 130/66 01/11/17 09:47 Pulse Ox 100 01/11/17 09:47 H&P (including ROS) documented in medical record: Yes Previous reaction to sedatives/anesthetics: No Dietary Status: NPO after Midnight Airway Assessment: Patient can open mouth completely, TMJ function normal, Micrognathia (under-bite, receding chin) absent, Neck with adequate range of motion Dentition: No loose teeth or bridges ASA Classification *see protocol: CLASS II-Mild systemic disease Plan of Care: Pt appropriate candidate for procedure/moderate/conscious sedation , Risks/benefits of procedure/sedation discussed w/ patient/family, If not NPO; Risk of intake outweiged by necessity to perform procedure
--- NOTE | 2017-01-11 09:55 | IR Procedure Note ---
Date of procedure: 01/11/17 Consent Obtained: Verbal consent, Written consent Timeout: Correct patient and procedure verified, Correct site verified, Time out performed, Skin prep completed Local anesthetic: Lidocaine 1% Indications: ESRD Procedure Performed: permcath placement; temp HDC removal Site/Technique: KITTY Estimated blood loss (cc): 2 Complications: None; Tolerated procedure well Post Procedure Treatment Plan: bedrest x 1h
[2017-01-11] MEDS: Folic Acid 1 MG TABLET PO SCH (10:21)
[2017-01-11] MEDS: FLUoxetine 20 MG CAPSULE PO SCH (10:21)
[2017-01-11] MEDS: Lactobacillus 1 EACH CAP.SPRINK PO SCH (10:21)
--- NOTE | 2017-01-11 13:24 | Nephrology Progress Note ---
<Raghu Francisco - Last Filed: 01/11/17 13:36> Date of Encounter: 01/11/17 Time of Encounter: 10:00 - Assessment and Plan (1) Acute on chronic renal failure Status: Acute Patient with CKD Stage 4 and acute worsening of her renal function. She has progressed to needing renal replacement therapy. Temp line was placed 01/04/17 and patient started HD. Tunneled HD catheter placed this morning. Currently patient remains HD dependent JOEY, unsure if ESRD yet. Social work has been consulted in case the patient requires outpatient dialysis. (2) Leukocytosis Status: Resolved Unclear etiology currently. Initial urinalysis suggested UTI, but urine culture was negative (possibly result of antibiotic administration). Currently on Rocephin, white blood cell count has trended downward and is normal currently without other systemic signs of infection. Continue management per primary team Qualifiers: Leukocytosis type: unspecified Qualified Code(s): D72.829 - Elevated white blood cell count, unspecified (3) Anemia Status: Acute Patient hemoglobin has been trending downward since beginning hospital admission. Likely there is some degree of dilation contributing, but likely results of chronic kidney disease and iron deficiency. Patient documented to have anaphylactic reaction to iron, currently unsure what iron she was reacting to (IV/what formula, oral?) Patient will likely need additional iron Patient should be started on erythropoietin, but would achieve greater benefit with the addition of iron Qualifiers: Anemia type: unspecified type Qualified Code(s): D64.9 - Anemia, unspecified (4) Hyperuricemia Status: Acute Patient receiving allopurinol currently (5) Hyperparathyroidism Status: Acute Serum PTH 1095.9, very elevated. Will reassess parathyroid function after initiation of HD and better control of phosphorus and vitamin D as achieved. (6) Hyperphosphatemia Status: Acute Secondary to renal failure and hyperparathyroidism. Patient on Renvela and renal diet, decrease inpatient phosphorus seen Plan to initiate HD (7) Elevated troponin Status: Acute Elevated troponin with elevated CPK. Initially elevated CPK unlikely cause of JOEY. Troponin is stable and patient is asymptomatic. Continue management per primary team Subjective Principal diagnosis: JOEY/CKD Interval history: Patient reports doing well today, when seen she is sitting in chair and eating breakfast comfortably. She recently had tunneled dialysis catheter placed and had no complaints this time. No complaints of nausea, shortness of breath, or weakness. Patient reports moderate fatigue from not being able to sleep well. Also reports mild pain from uncomfortable bed and chair. Objective - Vital Signs Vital signs: Vital Signs Temp Pulse Resp BP Pulse Ox 01/11/17 11:05 98.0 F 69 20 107/66 95 01/11/17 11:03 95 01/11/17 11:00 95 01/11/17 10:24 97.6 F 68 16 116/60 95 01/11/17 09:47 72 15 130/66 100 01/11/17 09:43 73 12 121/62 98 01/11/17 09:39 72 16 130/63 100 01/11/17 09:33 70 20 130/70 01/11/17 07:45 98 01/11/17 06:28 97.9 F 65 20 104/64 98 01/11/17 04:16 97.9 F 80 18 107/51 94 01/11/17 00:11 98.9 F 80 18 158/63 95 01/10/17 19:30 99.0 F 68 18 98/50 96 01/10/17 16:20 97.8 F 72 19 102/60 96 Intake and Output 01/10/17 01/11/17 01/11/17 23:59 07:59 15:59 Intake Total 170 / 170 Output Total 0 / 0 Balance 170 / 170 0 / 0 Intake: Oral 170 / 170 Output: Urine 0 / 0 Other: Meal Snack, ham sandwich, goldfish crackers. NPO Stool Consistency soft Stool Color Brown # Bowel Movements 1 Weight 165.561 kg Blood Glucose* 135 107 178 Patient Weight 01/11/17 23:59 Weight 165.561 kg - General Appearance General appearance: Present: well-developed, well-nourished, appears started age EENT: Present: ATNC, PERRL, mucous membranes moist, hearing intact Respiratory: Present: clear. Absent: wheezing, rales, rhonchi Cardiology: Present: no murmurs, no rub, no gallops, no edema, regular rate, regular rhythm, normal S1, normal S2 Dialysis Vascular Access: Venous Catheter Gastrointestinal: Present: normoactive bowel sounds, no tenderness Integumentary: Present: no rash, warm and dry Neurologic: Present: no focal deficit, alert and oriented x3, strength 5/5 Musculoskeletal: Present: no deformities, no erythema, no cyanosis, no clubbing Psychiatric: Present: mood/affect appropriate, cooperative Additional Comments: Somewhat tearful when discussing HD catheter - Lab 01/11/17 05:00 01/11/17 05:00 Most recent lab results Calcium 8.3 mg/dL (8.6-10.8) L 01/11/17 05:00 Phosphorus 7.8 mg/dL (2.3-4.7) H 01/10/17 04:20 Magnesium 1.6 mg/dL (1.6-2.6) 01/10/17 04:20 Urine Creatinine 94 mg/dL 01/07/17 10:52 Urine Total Protein 79 mg/dL (1-14) H 01/07/17 10:52 Consult Discharge Plan - Plan Instructions: Allopurinol (By mouth), Nystatin (On the skin), Folic Acid (By mouth), Sevelamer (By mouth), Cefdinir (By mouth), Probiotic (By mouth), Zinc Oxide (On the skin), Dehydration (DC), Chronic Kidney Disease (DC), Using Oxygen at Home (DC), Hyperkalemia (DC) Referrals: Steven Ly MD [Primary Care Provider] - 01/19/17 1:40 pm (Please follow up as schedule....) Prescriptions: Allopurinol [Zyloprim 100 MG] 100 mg PO DAILY #30 tablet Cefdinir [Omnicef] 300 mg PO Q48H #1 capsule Desitin (Zinc Oxide) [Desitin] 1 appl TP BID #1 tube Folic Acid 1 mg PO DAILY #30 tablet Lactobacillus [Culturelle] 2 each PO DAILY #30 cap.sprink Nystatin Cream [Mycostatin Cream] 1 appl TP BID #1 tube Oxygen 1 each .ROUTE AD #1 each Sevelamer [Renvela] 1,600 mg PO TIDWM #90 tablet <Giovanni Tobin - Last Filed: 01/21/17 16:05> Date of Encounter: 01/11/17 Objective - Lab 01/11/17 05:00 01/11/17 05:00 Most recent lab results Calcium 8.3 mg/dL (8.6-10.8) L 01/11/17 05:00 Phosphorus 7.8 mg/dL (2.3-4.7) H 01/10/17 04:20 Magnesium 1.6 mg/dL (1.6-2.6) 01/10/17 04:20 Urine Creatinine 94 mg/dL 01/07/17 10:52 Urine Total Protein 79 mg/dL (1-14) H 01/07/17 10:52 - Attending Attestation I examined this patient and my medical decision-making was reviewed with the ELECTRIC INSTALLER/PA/Advanced Practice Nurse/Resident Physician. I agree with the documented findings, disposition and treatment plan as described except to the extent set forth below. Pt seen and examined after permacth placement which according to patient was unremarkable. She is eager to go home byt became very tearful when informed cannot take showers with new permcath for infection control. Will educate more later. HD planned toady as SCr still very elevated above 7 with no signs of renal recovery. Discharge once outpatient HD chair assigned.
[2017-01-11] MEDS: *HR* HYDROcodone/Acet 5/325 mg TABLET PO PRN ×2 (13:25→19:55)
--- NOTE | 2017-01-11 15:03 | Discharge Summary ---
<Swathi Mccain Felice - Last Filed: 01/11/17 16:04> Date of Encounter: 01/11/17 Time of Encounter: 13:20 - Discharge Diagnosis (1) Sepsis Priority: Primary Status: Resolved Qualifiers: Sepsis type: sepsis due to unspecified organism Qualified Code(s): A41.9 - Sepsis, unspecified organism (2) UTI (urinary tract infection) Priority: Primary Status: Resolved Qualifiers: Urinary tract infection type: acute cystitis Hematuria presence: with hematuria Qualified Code(s): N30.01 - Acute cystitis with hematuria (3) Acute on chronic renal failure Priority: Primary Status: Chronic (4) Hyperparathyroidism Priority: Secondary Status: Chronic (5) Metabolic acidosis Priority: Secondary Status: Resolved (6) Acute respiratory failure Priority: Secondary Status: Resolved Qualifiers: Respiratory failure complication: hypoxia Qualified Code(s): J96.01 - Acute respiratory failure with hypoxia (7) Iron deficiency anemia Priority: Secondary Status: Chronic Qualifiers: Iron deficiency anemia type: unspecified iron deficiency Qualified Code(s) : D50.9 - Iron deficiency anemia, unspecified (8) Folate deficiency Priority: Secondary Status: Acute (9) Obstructive sleep apnea Priority: Secondary Status: Chronic (10) Diabetes Priority: Secondary Status: Chronic Comments: A1c 6.5. Will require follow up by PCP Qualifiers: Diabetes mellitus type: type 2 Diabetes mellitus complication status: with kidney complications Diabetes mellitus complication detail: with chronic kidney disease Chronic kidney disease stage: unspecified stage Qualified Code(s): E11.22 - Type 2 diabetes mellitus with diabetic chronic kidney disease (11) CKD (chronic kidney disease), stage IV Priority: Secondary Status: Chronic Comments: Patient was Stage IV at admission. However, currently Stage V requiring dialysis. I am unsure if she will require chronic dialysis. (12) Morbid obesity with BMI of 50.0-59.9, adult Priority: Secondary Status: Chronic (13) Yeast dermatitis Priority: Secondary Status: Acute (14) Skin ulcer of buttock, limited to breakdown of skin Priority: Secondary Status: Acute (15) DVT prophylaxis Priority: Secondary Status: Acute - Discharge Medications Prescriptions: Allopurinol [Zyloprim 100 MG] 100 mg PO DAILY #30 tablet Cefdinir [Omnicef] 300 mg PO Q48H #1 capsule Desitin (Zinc Oxide) [Desitin] 1 appl TP BID #1 tube Folic Acid 1 mg PO DAILY #30 tablet Lactobacillus [Culturelle] 2 each PO DAILY #30 cap.sprink Nystatin Cream [Mycostatin Cream] 1 appl TP BID #1 tube Oxygen 1 each .ROUTE AD #1 each Sevelamer [Renvela] 1,600 mg PO TIDWM #90 tablet Home Medications: Albuterol Sulfate [Proair Respiclick] 2 puff IH Q4H PRN 10/19/15 [History] Atorvastatin [Lipitor] 10 mg PO HS 10/19/15 [History] FLUoxetine HCl [Prozac] 20 mg PO QAM 10/19/15 [History] Omeprazole [PriLOSEC] 20 mg PO DAILY 10/19/15 [History] Ergocalciferol (VITAMIN D2) [Vitamin D2 (50,000 UNIT)] 50,000 unit PO FR [History] Fluticasone/Vilanterol [Breo Ellipta 100-25 Mcg INH] 1 each IH DAILY 01/03/17 [ History] Gabapentin [Neurontin] 300 mg PO TID 01/03/17 [History] Potassium Chloride [Klor-Con] 20 meq PO DAILY 01/03/17 [History] Allopurinol [Zyloprim 100 MG] 100 mg PO DAILY #30 tablet 01/11/17 [Rx] Cefdinir [Omnicef] 300 mg PO Q48H #1 capsule 01/11/17 [Rx] Desitin (Zinc Oxide) [Desitin] 1 appl TP BID #1 tube 01/11/17 [Rx] Ergocalciferol (VITAMIN D2) [Drisdol (50,000 Unit)] 50,000 unit PO QWEEK capsule 01/11/17 [Rx] Folic Acid 1 mg PO DAILY #30 tablet 01/11/17 [Rx] Lactobacillus [Culturelle] 2 each PO DAILY #30 cap.sprink 01/11/17 [Rx] Nystatin Cream [Mycostatin Cream] 1 appl TP BID #1 tube 01/11/17 [Rx] Oxygen 1 each .ROUTE AD #1 each 01/11/17 [Rx] Sevelamer [Renvela] 1,600 mg PO TIDWM #90 tablet 01/11/17 [Rx] Allergies/Adverse Reactions: Allergies Sulfa (Sulfonamide Antibiotics) Allergy (Verified 10/19/15 18:15) Hives iron Adverse Reaction (Verified 10/27/16 07:20) Hives Procedures/tests Complete & Pending: Procedures Performed prior 72 hours Category Date Time Status IR cvc insrt tunnel wo prt/electrical manufacturing technician [IR] Routine IR 01/11/17 Draft IR us guide needle place [IR] Routine IR 01/11/17 Draft Date of admission: 01/02/17 22:16 Primary care physician: Steven Ly MD Consults: 01/02/17 22:46 Consult to Nephrology [CONS] Routine Consulting Provider: Kidney [place]/MICHELET/BELGICA/JEFE Reason for Consult: JOEY/CKD- hyperkalemia Time Notified: 22:47 Call Completed: No 01/04/17 09:45 Consult to Dialysis [CONS] ONCE 01/04/17 10:45 Consult to Interventional Radiology [CONS] Routine Consulting Provider: Radiology Interventional Cols Reason for Consult: Patient needs a tunneled catheter and a left arm fistulogram. Plan for dialysis today. Call Completed: No 01/05/17 08:00 Consult to Dialysis [CONS] ONCE 01/05/17 10:03 Consult to Certified Legal Secretary Specialist [CONS] Routine Reason for SW Consult: Patient will need chair time; lives in [place] so will probably want to go to [facility]. 01/06/17 10:30 Consult to Dialysis [CONS] ONCE 01/07/17 10:30 Consult to Dialysis [CONS] ONCE 01/08/17 06:15 Consult to Dialysis [CONS] ONCE 01/08/17 16:31 Consult to Occupational Therapy [CONS] Routine Comment: Evaluate, develop and implement POC Consult to Physical Therapy [CONS] Routine Comment: Evaluate, develop and implement POC 01/10/17 12:03 Consult to Interventional Radiology [CONS] Routine Consulting Provider: Radiology Interventional Cols Reason for Consult: Patient has a temp catheter. She needs tunneled catheter for outpatient HD. Call Completed: No 01/11/17 08:00 Consult to Dialysis [CONS] ONCE Discharging clinician: Juan Mcnamara Anticipated date of discharge: 01/11/17 - Patient Status Disposition: Home, Self-Care Condition: Fair Functional capacity at discharge: uses cane/walker - Discharge Instructions Instructions: Allopurinol (By mouth), Nystatin (On the skin), Folic Acid (By mouth), Sevelamer (By mouth), Cefdinir (By mouth), Probiotic (By mouth), Zinc Oxide (On the skin), Dehydration (DC), Chronic Kidney Disease (DC), Using Oxygen at Home (DC), Hyperkalemia (DC) Follow Up With: Steven Ly MD [Primary Care Provider] - 01/12/17 2:40 pm (Please follow up as schedule....) - Diet and Activity Activity: as per physical therapy, increase activity as tolerated Diet: diabetic diet Hospital course: Ms. Saucedo is a 46 year old female with past medical history significant for HTN , HLD, CKD stage IV, COPD, BAILEY, morbid obesity who presented to the hospital with complaint of bilateral hand swelling, cramping, and spasms. Patient also admitted to dizziness and lightheadedness upon presentation. Prior to ED visit , she had been treated as an outpatient for URI with antibiotic. Upon presentation to hospital, patient was found to be hypotensive and hypoxemic. Laboratory studies revealed hyperkalemia (K+ of 4.8), Acute on chronic renal disease (Cr 8.41), uremia (uric acid 14.9), leukocytosis (WBC 20.4), and UA suggestive of UTI. Patient met Sepsis criteria. She treated with kayexalate, albuterol, calcium gluconate, and was dialyzed. Patient was started on rocephin and zithromax. Rocephin was continued for 9 days. On day 9, patient received omnicef 300mg q48 hours x 2 doses for a total of 12 days of antibiotic coverage. A permanent catheter was placed for dialysis. Patient is scheduled for dialysis [facility]. The patient was qualified for home O2. The patient was evaluated for home PT, for which she qualifies. The patient was treated for yeast dermatitis under her pannus with nystatin and desitin. She also was treated for skin breakdown on buttock with clotrimazole/betamethasone. She will benefit from continuing nystatin/desitin to both infra-pannus yeast dermatitis and skin breakdown of buttock. The patient was also found to have A1c 6.5, which will require follow up by PCP as I did not begin treatment with oral therapy. Patient was discovered to have iron-deficiency anemia, which she states is chronic. She has previously had anaphylaxis to oral iron tablets, but has tolerated IV iron without problem. She will require iron replacement per PCP following discharge. Patient also will require folate replacement for folate-deficiency. Patient will be discharged on home O2, home health, home PT. She is stable for discharge at this time and will follow up with her PCP on 01/12/17. Time spent discussing smoking cessation with patient: 3 to 10 minutes (5 minutes spent discussing smoking cessation with patient) - Time Spent with Patient Total time spent providing and/or coordinating discharge services: Greater than 30 minutes (40 minutes spent including time with patient and coordinating care) - Constitutional Vitals: Temp Pulse Resp BP Pulse Ox 98.0 F 69 20 107/66 95 01/11/17 11:05 01/11/17 11:05 01/11/17 11:05 01/11/17 11:05 01/11/17 11:05 General appearance: Present: A&O X 3, morbidly obese, answers questions appropriately - Head Head exam: Present: atraumatic, normocephalic - Eye Eye exam: Present: PERRL, sclera anicteric Pupils: Present: PERRL - Neck Neck exam general surgery: Present: supple, trachea midline. Absent: lymphadenopathy - Respiratory Respiratory exam: Present: decreased breath sounds (to bilateral lung bases), CTAB. Absent: accessory muscle use, rales, rhonchi, wheezes - Cardiovascular Cardiovascular exam: Present: RRR, +S2, systolic murmur (present to right sternal border). Absent: diastolic murmur, gallop, rubs - GI/Abdominal GI/Abdominal exam: Present: normal bowel sounds, soft, no peritoneal signs. Absent: distended, tenderness Additional comments: unable to appreciate internal organs due to morbid obesity - Extremities Exam Extremities exam: Present: pedal edema (2+ pitting edema to bilateral lower extremities; erythema present to bilateral lower extremities), warm, radial pulses palpable and symetrical. Absent: calf tenderness, cyanotic - Neurological Exam Neurological exam: Present: CN II-XII intact, oriented X3, no focal deficits. Absent: facial droop, speech deficit - Skin Skin exam: Present: dry, erythema (2+ with pitting edema to bilateral lower extremities), intact - Other Additional findings: Insertion Non-Tunneled Catheter 01/04/17 00:00 IMPRESSION: Ultrasound-guided placement of a right internal jugular temporary dialysis catheter. RECOMMENDATIONS: Chest x-ray for position pending. D/ / 01/04/2017 15:58:17 Prashant Pinedo MD / nasir Interpreting Provider: Prashant Pinedo MD Chest X-Ray 01/04/17 12:28 IMPRESSION: Right IJ central venous catheter tip projects over the course of the superior vena cava. Worsening right basilar airspace disease. 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 D/ : / 01/05/2017 15:36:02 My Castillo MD / sophia Interpreting Provider: My Castillo MD Abdomen/Pelvis CT 01/05/17 12:30 IMPRESSION: 1. Trace right pleural effusion. Minimal linear atelectasis in the posterior right lower lobe. 2. 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 3. No cause for patient's leukocytosis identified. D/ / 01/05/2017 14:22:24 Giorgi Inman MD / kmmelchor Interpreting Provider: Giorgi Inman MD Chest CT 01/05/17 12:30 IMPRESSION: 1. Trace right pleural effusion. Minimal linear atelectasis in the posterior right lower lobe. 2. 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 3. No cause for patient's leukocytosis identified. D/ / 01/05/2017 14:22:24 Giorgi Inman MD / kmmelchor Interpreting Provider: Giorgi Inman MD Guidance Needle Placement Ultrasound 01/11/17 00:00 IMPRESSION: Successful ultrasound and fluoroscopy guided right internal jugular tunneled dialysis catheter placement. Non tunneled right internal jugular dialysis catheter removed. D/ / 01/11/2017 14:59:21 Prashant Pinedo MD / sophia Interpreting Provider: Prashant Pinedo MD Insertion Tunneled Catheter 01/11/17 00:00 IMPRESSION: Successful ultrasound and fluoroscopy guided right internal jugular tunneled dialysis catheter placement. Non tunneled right internal jugular dialysis catheter removed. D/ / 01/11/2017 14:59:21 Prashant Pinedo MD / sophia Interpreting Provider: Prashant Pinedo MD <McnamaraJuan tai R - Last Filed: 01/12/17 07:53> Date of Encounter: 01/12/17 Procedures/tests Complete & Pending: Procedures Performed prior 72 hours Category Date Time Status IR cvc insrt tunnel wo prt/electrical manufacturing technician [IR] Routine IR 01/11/17 Draft IR us guide needle place [IR] Routine IR 01/11/17 Draft Date of admission: 01/02/17 22:16 Primary care physician: Steven Ly MD Consults: 01/02/17 22:46 Consult to Nephrology [CONS] Routine Consulting Provider: Kidney [place]/MICHELET/BELGICA/JEFE Reason for Consult: JOEY/CKD- hyperkalemia Time Notified: 22:47 Call Completed: No 01/04/17 09:45 Consult to Dialysis [CONS] ONCE 01/04/17 10:45 Consult to Interventional Radiology [CONS] Routine Consulting Provider: Radiology Interventional Cols Reason for Consult: Patient needs a tunneled catheter and a left arm fistulogram. Plan for dialysis today. Call Completed: No 01/05/17 08:00 Consult to Dialysis [CONS] ONCE 01/05/17 10:03 Consult to Certified Legal Secretary Specialist [CONS] Routine Reason for SW Consult: Patient will need chair time; lives in [place] so will probably want to go to [facility]. 01/06/17 10:30 Consult to Dialysis [CONS] ONCE 01/07/17 10:30 Consult to Dialysis [CONS] ONCE 01/08/17 06:15 Consult to Dialysis [CONS] ONCE 01/08/17 16:31 Consult to Occupational Therapy [CONS] Routine Comment: Evaluate, develop and implement POC Consult to Physical Therapy [CONS] Routine Comment: Evaluate, develop and implement POC 01/10/17 12:03 Consult to Interventional Radiology [CONS] Routine Consulting Provider: Radiology Interventional Cols Reason for Consult: Patient has a temp catheter. She needs tunneled catheter for outpatient HD. Call Completed: No 01/11/17 08:00 Consult to Dialysis [CONS] ONCE Hospital course: Ms. Saucedo is a 46 year old female - Time Spent with Patient Total time spent providing and/or coordinating discharge services: - Constitutional Vitals: Temp Pulse Resp BP Pulse Ox 97.7 F 75 18 113/67 97 01/12/17 07:46 01/12/17 07:46 01/12/17 07:46 01/12/17 07:46 01/12/17 07:46 - Attending Attestation I examined this patient and my medical decision-making was reviewed with the SPARES SCHEDULER/PA/Advanced Practice Nurse/Resident Physician. I agree with the documented findings, disposition and treatment plan as described except to the extent set forth below. D/C today. HD as per nephro.
[2017-01-11] MEDS ORDERED: Cefdinir 300 MG CAPSULE PO SCH (16:00)
--- NOTE | 2017-01-11 17:12 | Physician Discharge Referral ---
Home Health/Hosp Referral Info Transfer to: Home Health Attending Provider: Juan Mcnamara MD Provider in Charge Post Discharge: PCP - Diagnosis (1) Sepsis Priority: Primary Status: Resolved (2) UTI (urinary tract infection) Priority: Primary Status: Resolved (3) Acute on chronic renal failure Priority: Primary Status: Chronic (4) Hyperparathyroidism Priority: Secondary Status: Chronic (5) Metabolic acidosis Priority: Secondary Status: Resolved (6) Acute respiratory failure Priority: Secondary Status: Resolved (7) Iron deficiency anemia Priority: Secondary Status: Chronic (8) Folate deficiency Priority: Secondary Status: Acute (9) Obstructive sleep apnea Priority: Secondary Status: Chronic (10) Diabetes Priority: Secondary Status: Chronic (11) CKD (chronic kidney disease), stage IV Priority: Primary Status: Chronic (12) Morbid obesity with BMI of 50.0-59.9, adult Priority: Secondary Status: Chronic (13) Yeast dermatitis Priority: Secondary Status: Acute (14) Skin ulcer of buttock, limited to breakdown of skin Priority: Secondary Status: Acute (15) DVT prophylaxis Priority: Secondary Status: Acute - Respiratory Orders Oxygen / L per min (2L/min titrate to O2 sat of 92%) Smoking Cessation: Smoking cessation has been advised. For more information, call the [place] Tobacco Quit Line at 5-847-CWVQ-NOW. - Diet/Nutrition Diet/Nutrition Orders: Renal - Activity Activity Orders: Ambulate - Services Needed Following services are medically necessary services: Nursing, Home Health Aide, Physical Therapy, Occupational Therapy - Transfer Medications Prescriptions: Allopurinol [Zyloprim 100 MG] 100 mg PO DAILY #30 tablet Cefdinir [Omnicef] 300 mg PO Q48H #1 capsule Desitin (Zinc Oxide) [Desitin] 1 appl TP BID #1 tube Folic Acid 1 mg PO DAILY #30 tablet Lactobacillus [Culturelle] 2 each PO DAILY #30 cap.sprink Nystatin Cream [Mycostatin Cream] 1 appl TP BID #1 tube Oxygen 1 each .ROUTE AD #1 each Sevelamer [Renvela] 1,600 mg PO TIDWM #90 tablet Home Medications: Albuterol Sulfate [Proair Respiclick] 2 puff IH Q4H PRN 10/19/15 [History] Atorvastatin [Lipitor] 10 mg PO HS 10/19/15 [History] FLUoxetine HCl [Prozac] 20 mg PO QAM 10/19/15 [History] Omeprazole [PriLOSEC] 20 mg PO DAILY 10/19/15 [History] Ergocalciferol (VITAMIN D2) [Vitamin D2 (50,000 UNIT)] 50,000 unit PO FR [History] Fluticasone/Vilanterol [Breo Ellipta 100-25 Mcg INH] 1 each IH DAILY 01/03/17 [ History] Gabapentin [Neurontin] 300 mg PO TID 01/03/17 [History] Potassium Chloride [Klor-Con] 20 meq PO DAILY 01/03/17 [History] Allopurinol [Zyloprim 100 MG] 100 mg PO DAILY #30 tablet 01/11/17 [Rx] Cefdinir [Omnicef] 300 mg PO Q48H #1 capsule 01/11/17 [Rx] Desitin (Zinc Oxide) [Desitin] 1 appl TP BID #1 tube 01/11/17 [Rx] Ergocalciferol (VITAMIN D2) [Drisdol (50,000 Unit)] 50,000 unit PO QWEEK capsule 01/11/17 [Rx] Folic Acid 1 mg PO DAILY #30 tablet 01/11/17 [Rx] Lactobacillus [Culturelle] 2 each PO DAILY #30 cap.sprink 01/11/17 [Rx] Nystatin Cream [Mycostatin Cream] 1 appl TP BID #1 tube 01/11/17 [Rx] Oxygen 1 each .ROUTE AD #1 each 01/11/17 [Rx] Sevelamer [Renvela] 1,600 mg PO TIDWM #90 tablet 01/11/17 [Rx] Allergies/Adverse Reactions: Allergies Sulfa (Sulfonamide Antibiotics) Allergy (Verified 10/19/15 18:15) Hives iron Adverse Reaction (Verified 10/27/16 07:20) Hives Certification: Further, I certify that my clinical findings support that this patient is homebound (i.e. absences from home require considerable and taxing effort and are for medical reasons or bahai services or infrequently or short duration when for other reasons) because: Homebound Reason: Leaving home requires considerable and taxing effort due to condition Attestation: My signature below is to certify that this patient is under my care and that I, or nurse practitioner, or a physician's laundry assistant working with me, has a face-to -face encounter with this patient.
[2017-01-12] MEDS: Nystatin Cream 15 GM TUBE TP SCH ×2 (00:18→07:54)
[2017-01-12] MEDS: Clotrimazole/Betameth Dip CRM 45 APPL/45 GM TUBE TP SCH ×2 (00:18→07:54)
[2017-01-12] MEDS: Desitin (Zinc Oxide) 56 GM TUBE TP SCH ×2 (00:18→07:51)
[2017-01-12] MEDS: *HR* HYDROcodone/Acet 5/325 mg TABLET PO PRN ×2 (00:46→07:54)
[2017-01-12] MEDS: *HR* Heparin 5,000 UNIT/ML VIAL SQ SCH (05:53)
[2017-01-12] MEDS: Insulin LISPRO 300 UNITS/3 ML VIAL SQ SCH (07:45)
[2017-01-12 07:48] VITALS: BP 113/67
[2017-01-12] MEDS: Folic Acid 1 MG TABLET PO SCH (07:48)
[2017-01-12] MEDS: Lactobacillus 1 EACH CAP.SPRINK PO SCH (07:48)
[2017-01-12] MEDS: FLUoxetine 20 MG CAPSULE PO SCH (07:48)
--- NOTE | 2017-01-12 10:01 | Internal Med Progress Note ---
Date of Encounter: 01/12/17 Time of Encounter: 09:57 - Assessment and plan (1) End stage renal disease on dialysis Status: Chronic Assessment and plan: Recently started on HD by temporary catheter continue same at discharge and follow up with nephrology (2) UTI (urinary tract infection) Status: Resolved Assessment and plan: Complete antibiotics Qualifiers: Urinary tract infection type: acute cystitis Hematuria presence: with hematuria Qualified Code(s): N30.01 - Acute cystitis with hematuria (3) HTN (hypertension) Status: Chronic Assessment and plan: Controlled Continue same meds Qualifiers: Hypertension type: essential hypertension Qualified Code(s): I10 - Essential (primary) hypertension (4) Hyperphosphatemia Status: Chronic (5) Sepsis Status: Resolved Assessment and plan: Resolved Secondary to pneumonia and UTI Complete antibiotics Qualifiers: Sepsis type: sepsis due to unspecified organism Qualified Code(s): A41.9 - Sepsis, unspecified organism (6) Acute respiratory failure Status: Resolved Assessment and plan: likely from a combination of OHS, sepsis, volume overload, and smoking/ possible COPD Continue O2 at home Qualifiers: Respiratory failure complication: hypoxia Qualified Code(s): J96.01 - Acute respiratory failure with hypoxia (7) Morbid obesity with BMI of 50.0-59.9, adult Status: Chronic Assessment and plan: strongly advise weight loss. (8) Folate deficiency Status: Acute Assessment and plan: continue supplementation. (9) Iron deficiency anemia Status: Chronic Assessment and plan: Low iron and low % saturation Normal Transferrin and ferritin She appears to have mixed anemia due to iron deficiency and folate deficiency Qualifiers: Iron deficiency anemia type: unspecified iron deficiency Qualified Code(s) : D50.9 - Iron deficiency anemia, unspecified (10) Yeast dermatitis Status: Acute (11) Skin ulcer of buttock, limited to breakdown of skin Status: Acute Assessment and plan: Continue dressing at home - Subjective Interval history: 46 Y/O F Seen at bedside, dressed and ready to go home She was admitted and managed for Sepsis secondary to UTI, JOEY on CKD, UTI, Chronic hyperparathyroidism, ROWAN, Folate deficiency, DM, ESRD, Morbid Obesity, yeast dermatitis She reports her symptoms have improved significantly She is s/p HD last night Vital signs are stable and patient is stable to be discharged home - Constitutional Vitals: Temp Pulse Resp BP Pulse Ox 97.7 F 75 18 113/67 97 01/12/17 07:46 01/12/17 07:46 01/12/17 07:46 01/12/17 07:46 01/12/17 07:46 General appearance: Present: A&O X 3, morbidly obese, pleasant, no acute distress, answers questions appropriately - Head Head exam: Present: atraumatic, normocephalic - Eye Additional comments: exophthalmos - Neck Neck exam general surgery: Present: supple, trachea midline. Absent: lymphadenopathy - Respiratory Respiratory exam: Present: CTAB. Absent: accessory muscle use, rales, rhonchi, wheezes - Cardiovascular Cardiovascular exam: Present: RRR, +S1, +S2. Absent: diastolic murmur, gallop, rubs, systolic murmur - GI/Abdominal GI/Abdominal exam: Present: normal bowel sounds, soft, no peritoneal signs. Absent: distended, tenderness - Extremities Exam Extremities exam: Present: pedal edema - Neurological Exam Neurological exam: Present: alert, CN II-XII intact, oriented X3, no focal deficits. 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 RECOMMENDATIONS: Chest x-ray for position pending. D/ / 01/04/2017 15:58:17 Prashant Pinedo MD / nasir Interpreting Provider: Prashant Pinedo MD Insertion Non-Tunneled Catheter 01/04/17 00:00 IMPRESSION: Ultrasound-guided placement of a right internal jugular temporary dialysis catheter. RECOMMENDATIONS: Chest x-ray for position pending. D/ / 01/04/2017 15:58:17 Prashant Pinedo MD / [email or web address] Interpreting Provider: Prashant Pinedo MD Guidance Needle Placement Ultrasound 01/11/17 00:00 IMPRESSION: Successful ultrasound and fluoroscopy guided right internal jugular tunneled dialysis catheter placement. Non tunneled right internal jugular dialysis catheter removed. D/ / 01/11/2017 14:59:21 Prashant Pinedo MD / sophia Interpreting Provider: Prashant Pinedo MD Insertion Tunneled Catheter 01/11/17 00:00 IMPRESSION: Successful ultrasound and fluoroscopy guided right internal jugular tunneled dialysis catheter placement. Non tunneled right internal jugular dialysis catheter removed. D/ / 01/11/2017 14:59:21 Prashant Pinedo MD / sophia Interpreting Provider: Prashant Pinedo MD Consult Discharge Plan - Plan Instructions: Allopurinol (By mouth), Nystatin (On the skin), Folic Acid (By mouth), Sevelamer (By mouth), Cefdinir (By mouth), Probiotic (By mouth), Zinc Oxide (On the skin), Dehydration (DC), Chronic Kidney Disease (DC), Using Oxygen at Home (DC), Hyperkalemia (DC) Referrals: Steven Ly MD [Primary Care Provider] - 01/19/17 1:40 pm (Please follow up as schedule....) Prescriptions: Allopurinol [Zyloprim 100 MG] 100 mg PO DAILY #30 tablet Cefdinir [Omnicef] 300 mg PO Q48H #1 capsule Desitin (Zinc Oxide) [Desitin] 1 appl TP BID #1 tube Folic Acid 1 mg PO DAILY #30 tablet Lactobacillus [Culturelle] 2 each PO DAILY #30 cap.sprink Nystatin Cream [Mycostatin Cream] 1 appl TP BID #1 tube Oxygen 1 each .ROUTE AD #1 each Sevelamer [Renvela] 1,600 mg PO TIDWM #90 tablet
== END 2017-01-12 10:08 | disposition home health service (06) | DRG 871 ==
LOC: EMEROO 14:27 → 2ANU 14:27 → SUATTDRO 22:16
PROVIDERS: ADMIT Nurse Practitioner Family; ATTEND Internal Medicine
PROC: IRPERMA (2017-01-11 13:00)

== ENCOUNTER 2017-10-16 15:03 | Inpatient (IN) ==
[2017-10-16 16:35] LABS: Basophils % 0.2 %; Eosinophils # 0.2 K/mcL (0.0-0.6); Eosinophils % 1.2 %; Hematocrit 48.2 % (35.3-44.9); Hemoglobin 15.4 g/dL (11.5-15.4); Immature Granulocytes % 0.4 % (0-4); Lymphocytes # 1.4 K/mcL (0.6-4.6); Lymphocytes % 10.1 %; Mean Corpuscular Hemoglobin 30.5 pg (28.0-33.3); Mean Corpuscular Volume 95.4 fL (83.0-100.0); Mean Platelet Volume 10.6 fL (9.4-12.4); Monocytes # 1.3 K/mcL (0.0-1.3); Monocytes % 9.1 %; Neutrophils # 10.9 K/mcL (1.6-8.9); Platelet Count 188 K/mcL (140-400); Red Blood Count 5.05 M/mcL (3.82-4.97); Red Cell Distribution Width 13.8 % (11.5-14.5)
[2017-10-16 16:53] LABS: Albumin 3.8 g/dL (3.5-5.7); Albumin/Globulin Ratio 1.2 (1.1-2.2); Bilirubin,Direct 0.1 mg/dL (0.0-0.2); Bilirubin,Indirect 0.6 mg/dL (0.0-1.2); Bilirubin,Total 0.7 mg/dL (0.3-1.0); Calcium 9.4 mg/dL (8.6-10.3); Globulin 3.3 g/dL (2.4-3.5); Potassium 3.3 mEq/L (3.5-5.1); Total Protein 7.1 g/dL (6.4-8.9)
--- NOTE | 2017-10-16 18:07 | Emergency Department Note ---
Disposition Clinical Impression: Small bowel obstruction Disposition: Admitted As Inpatient Condition: Fair Referrals: Steven Ly MD [Primary Care Provider] - Forms: ED Satisfaction Letter, Work/School Release Time of Disposition: 19:33 Abdominal Pain HPI - General Chief Complaint: ED Abdominal Pain Stated Complaint: abd pain Time Seen by Provider: 10/16/17 17:59 Source: patient Mode of arrival: wheelchair Limitations: no limitations Nursing Notes Reviewed: Yes Vital Signs Reviewed: Yes - History of Present Illness HPI Narrative: 47-year-old who comes in complaining of abdominal pain says that it hurts in her right upper quadrant also hurts diffusely. Saw her family doctor yesterday was concerned may be her gallbladder. Pt Subjective Complaint: abdominal pain Onset (ago): day(s) Consistency: intermittent Location: RUQ Pain Scale: 6 Migration to: no migration Improves with: bowel movement Worsens with: nothing Associated symptoms: Reports: diarrhea Treatments prior to arrival: none - Related Data Home Medications Medication Instructions Recorded Confirmed Albuterol Sulfate [Proair 2 puff IH Q4H PRN 10/19/15 01/03/17 Respiclick] Atorvastatin [Lipitor] 10 mg PO HS 10/19/15 01/03/17 FLUoxetine HCl [Prozac] 20 mg PO QAM 10/19/15 01/03/17 Omeprazole [PriLOSEC] 20 mg PO DAILY 10/19/15 01/03/17 Ergocalciferol (VITAMIN D2) 50,000 unit PO FR 02/26/16 01/03/17 [Vitamin D2 (50,000 UNIT)] Fluticasone/Vilanterol [Breo 1 each IH DAILY 01/03/17 01/03/17 Ellipta 100-25 Mcg INH] Gabapentin [Neurontin] 300 mg PO TID 01/03/17 01/03/17 Potassium Chloride [Klor-Con] 20 meq PO DAILY 01/03/17 01/03/17 Previous Rx's Medication Instructions Recorded Allopurinol [Zyloprim 100 MG] 100 mg PO DAILY #30 tablet 01/11/17 Cefdinir [Omnicef] 300 mg PO Q48H #1 capsule 01/11/17 Desitin (Zinc Oxide) [Desitin] 1 appl TP BID #1 tube 01/11/17 Ergocalciferol (VITAMIN D2) 50,000 unit PO QWEEK capsule 01/11/17 [Drisdol (50,000 Unit)] Folic Acid 1 mg PO DAILY #30 tablet 01/11/17 Lactobacillus [Culturelle] 2 each PO DAILY #30 cap.sprink 01/11/17 Nystatin Cream [Mycostatin Cream] 1 appl TP BID #1 tube 01/11/17 Oxygen 1 each .ROUTE AD #1 each 01/11/17 Sevelamer [Renvela] 1,600 mg PO TIDWM #90 tablet 01/11/17 Allergies Allergy/AdvReac Type Severity Reaction Status Date / Time Sulfa (Sulfonamide Allergy Hives Verified 10/16/17 15:10 Antibiotics) iron AdvReac Hives Verified 10/16/17 15:10 Constitutional: Denies: fever, chills, weakness, weight change Eyes: Denies: eye pain, eye discharge, vision change ENT ED: Denies: ear pain, throat pain, dental pain, hearing loss, epistaxis, congestion, dysphagia Cardiovascular: Denies: chest pain, palpitations, dyspnea on exertion, edema, syncope Respiratory: Denies: cough, dyspnea, wheezes, hemoptysis, stridor Gastrointestinal: Reports: abdominal pain. Denies: nausea, vomiting, diarrhea, constipation, hematemesis, melena, hematochezia Genitourinary: Denies: dysuria, frequency, hematuria, discharge Musculoskeletal: Denies: back pain, neck pain, arthralgia, myalgia Integumentary: Denies: rash, abrasion, lesions Neurological: Denies: headache, weakness, numbness, paresthesias, confusion, abnormal gait, vertigo Psychiatric: Denies: anxiety, depression, suicidal thoughts, homicidal thoughts , auditory hallucinations, visual hallucinations Endocrine: Denies: fatigue Hematological/Lymphatic: Denies: easy bleeding, easy bruising Allergic/Immunologic: Denies: facial swelling, urticaria Abdominal Pain PMH - Past Medical History Medical history: Reports: COPD, diabetes, hyperlipidemia, hypertension, kidney stones, renal disease, other Female Surgical History: Reports: other [employer] history: Reports: no [employer] history Psychiatric history: Reports: anxiety, depression - Social History Smoking status: Current some day smoker Alcohol use: Reports: none Drug use: Reports: none Physical Exam - General Limitations: no limitations General appearance: alert, in no apparent distress - Head Head exam: atraumatic, normocephalic, normal inspection - Eye Eye exam: Present: normal appearance, PERRL, EOMI - ENT ENT exam: normal exam, normal oropharynx, mucous membranes moist - Neck Neck exam: Present: normal inspection, full ROM, trachea midline - Chest Chest inspection: Present: normal inspection, symmetric chest wall rise - Respiratory Respiratory exam: Present: normal lung sounds bilaterally - Cardiovascular Cardiovascular exam: Present: regular rate, normal rhythm, normal heart sounds - Abdominal Exam Abdominal exam: Present: soft, tenderness. Absent: guarding Abdominal tenderness: Present: diffuse - Extremities Exam Extremities exam: Present: normal inspection, full ROM. Absent: tenderness, pedal edema - Expanded Lower Extremity Exam Neurovascular/Tendon exam: Absent: motor deficit, sensory deficit, tendon deficit Gait: observed and normal - Back Exam Back exam: Present: normal inspection, full ROM. Absent: tenderness - Neurological Exam Neurological exam: Present: alert, oriented X3 - Psychiatric Psychiatric exam: Present: normal affect, normal mood - Skin Skin exam: Present: warm, dry, intact, normal color Course - Reevaluation(s) Reevaluation #1: 47-year-old with abdominal pain. CT scan shows bowel obstruction. Time: 19:31 - Consultations Consultation #1: Stressed with Dr. Baum, NG tube admit to hospitalist with consult. Time: 19:31 Consultation #2: Discussed with , admit. Time: 20:57 Vital Signs Temperature 97.8 F 10/16/17 15:08 Pulse Rate 79 10/16/17 15:08 Respiratory Rate 20 10/16/17 15:08 Blood Pressure 147/73 10/16/17 15:08 O2 Sat by Pulse Oximetry 90 10/16/17 15:08 Temperature 97.8 F 10/16/17 15:08 Pulse Rate 71 10/16/17 19:50 Respiratory Rate 16 10/16/17 19:50 Blood Pressure 121/75 10/16/17 19:50 O2 Sat by Pulse Oximetry 93 10/16/17 19:50 Oxygen Delivery Oxygen Delivery Room Air Abdominal Pain - Lab Data Lab results reviewed: Yes I reviewed the patient's lab results. Result diagrams: 10/16/17 16:15 10/16/17 16:15 Lab Results 10/16/17 10/16/17 10/16/17 Range/Units 16:15 16:15 18:37 WBC 13.8 H (4.3-11.1) K/mcL RBC 5.05 H (3.82-4.97) M/mcL Hgb 15.4 (11.5-15.4) g/dL Hct 48.2 H (35.3-44.9) % MCV 95.4 (83.0-100.0) fL MCH 30.5 (28.0-33.3) pg MCHC 32.0 (31.6-35.5) g/dL RDW 13.8 (11.5-14.5) % Plt Count 188 (140-400) K/mcL MPV 10.6 (9.4-12.4) fL Immature Gran % 0.4 (0-4) % Seg Neutrophils % 79.0 % Lymphocytes % 10.1 % Monocytes % 9.1 % Eosinophils % 1.2 % Basophils % 0.2 % Neutrophils # 10.9 H (1.6-8.9) K/mcL Lymphocytes # 1.4 (0.6-4.6) K/mcL Monocytes # 1.3 (0.0-1.3) K/mcL Eosinophils # 0.2 (0.0-0.6) K/mcL Basophils # 0.0 (0.0-0.2) K/mcL Sodium 138 (136-145) mEq/L Potassium 3.3 L (3.5-5.1) mEq/L Chloride 99 (98-107) mEq/L Carbon Dioxide 30 H (23-29) mEq/L BUN 26 H (6-20) mg/dL Creatinine 3.45 H (0.60-1.20) mg/dL Est GFR ( Amer) 17 L (> 60) Est GFR (Non-Af Amer) 14 L (> 60) BUN/Creatinine Ratio 8 (6-26) Glucose 94 (70-105) mg/dL Calculated Osmolality 291 (280-300) Calcium 9.4 (8.6-10.3) mg/dL Total Bilirubin 0.7 (0.3-1.0) mg/dL Direct Bilirubin 0.1 (0.0-0.2) mg/dL Indirect Bilirubin 0.6 (0.0-1.2) mg/dL AST 17 (13-39) Units/L ALT 12 (7-52) Units/L Alkaline Phosphatase 110 H (34-104) Units/L Serum Total Protein 7.1 (6.4-8.9) g/dL Albumin 3.8 (3.5-5.7) g/dL Globulin 3.3 (2.4-3.5) g/dL Albumin/Globulin Ratio 1.2 (1.1-2.2) Lipase 11 (11-82) Units/L Urine Color Yellow (Yellow) Urine Clarity Clear (Clear) Urine pH 7.0 (5.0-8.0) pH Units Ur Specific Everly 1.010 (1.010-1.025) Urine Protein 30 H (Neg-Trace) mg/dL Urine Glucose (UA) Normal (Normal) mg/dL Urine Ketones Negative (Negative) mg/dL Urine Blood Negative (Negative) Urine Nitrite Negative (Negative) Urine Bilirubin Negative (Negative) Urine Urobilinogen Normal (Normal) mg/dL Ur Leukocyte Esterase Trace H (Negative) Urine Microscopic RBC 0-3 (0-3) per hpf Urine Microscopic WBC 15-30 H (0-3) per hpf Ur Squamous Epith Cells Many H (None-Few) per lpf Urine Bacteria None Seen (None-Few) per hpf Hyaline Casts None Seen (None-Few) per lpf Ur Culture Indicated? NO. (NO) - Radiology Data Radiology results reviewed: Yes I reviewed the patient's radiology results. Abdomen/Pelvis CT 10/16/17 18:05 IMPRESSION: 1. Mid small bowel obstruction, likely due to adhesions. The point of transition is not clearly visualized. Edematous changes within the mesentery with free fluid. No free intraperitoneal air. 2. Redemonstration of medullary nephrocalcinosis with bilateral nonobstructive calculi. No evidence of obstructive uropathy. 3. Laxity of the anterior abdominal wall musculature. Large fat containing ventral abdominal wall hernia. D/ / 10/16/2017 19:24:28 Steven Beasley MD / nasir Interpreting Provider: Steven Beasley MD
[2017-10-16 18:49] LABS: Bilirubin,Urine Negative (Negative); Blood,Urine Negative (Negative); Clarity,Urine Clear (Clear); Color,Urine Yellow (Yellow); Glucose,Urine (UA) Normal (Normal); Ketones,Urine Negative (Negative); Leukocyte Esterase,Urine Trace (Negative); Nitrite,Urine Negative (Negative); Protein,Urine 30 mg/dL (Neg-Trace); Urobilinogen,Urine Normal (Normal)
[2017-10-16 18:52] LABS: Bacteria,Urine None Seen per hpf (None-Few); Hyaline Casts,Urine None Seen per lpf (None-Few); RBC,Urine 0-3 per hpf (0-3); Squamous Epithelial Cell,Urine Many per lpf (None-Few); WBC,Urine 15-30 per hpf (0-3)
[2017-10-16] MEDS ORDERED: 0.9 % Sodium Chloride 1,000 ML IVC SCH (23:45)
[2017-10-17] MEDS: *HR* Morphine 2 MG/ML SYRINGE IVP PRN ×2 (00:11→23:12)
[2017-10-17] MEDS ORDERED: Naloxone 0.4 MG/ML INJ IVP PRN (03:29)
--- NOTE | 2017-10-17 03:39 | Internal Med History&Physical ---
Date of Encounter: 10/17/17 Time of Encounter: 02:30 Assessment and Plan (1) Small bowel obstruction Current visit: Yes Status: Acute 1. Continue NG tube to LIWS. 2. Consult surgery. 3. Will order AAS today to evaluate SBO. 4. npo for now. 5. Will hydrate with IVF and prescribe IV pain meds and anti-emetics PRN. (2) Dehydration Current visit: No Status: Acute 1. Will hydrate with IVF for now. 2. Monitor fluid balance and I/O. (3) End stage renal disease on dialysis Current visit: No Status: Chronic 1. Consult nephrology for ongoing dialysis needs. (4) DVT prophylaxis Current visit: Yes Status: Acute 1. Heparin SQ. Internal Medicine - H&P: HPI Chief complaint: abdominal pain Admitted From: Emergency Dept Plans for Post Hospital Care: Home History of present illness: Ms. Saucedo is a 47 year old female who presents to ER with about a 2 day history of intense abdominal pain, bloating, nausea, and vomiting. She was referred to the ER by her PCP for concerns of possible gallbladder disease. However, work up in the ER revealed a small bowel obstruction. She had an NG tube placed for decompression and was admitted to hospitalist service with consultation to Dr. Baum. Upon my assessment of the patient, she states she feels much better with the NG tube placement. She still has abdominal pain, but it is minimal. She has no further nausea or vomiting. She denies any diarrhea or bloody stools. She has never had a small bowel obstruction before. She denies any prior abdominal or pelvic surgery. She has had a colonoscopy about 10 years ago but none since then. Past Med Surg Social Fam HX - Past Medical History Medical history: COPD, coronary artery disease, diabetes, dialysis, hyperlipidemia, hypertension, kidney stones, renal disease Psychiatric history: anxiety, depression - Past Surgical History Surgical History: orthopedic, other - Social History Smoking Status: Current some day smoker Smokeless Tobacco Status: No Alcohol use: none Drug use: none Current living situation: Home Recent Out of Country Travel Within the Last 8 Weeks: No - Family History Mother Living Status: Still Living Hx Family Cardiac Disorders: Yes Hx Family Neurologic Disorders: Yes (Stoke) Father Living Status: Hx Family Cancer: Yes (Stomach) Internal Medicine - H&P: Meds Albuterol Sulfate [Proair Respiclick] 2 puff IH Q4H PRN 10/19/15 [History] Atorvastatin [Lipitor] 10 mg PO HS 10/19/15 [History] FLUoxetine HCl [Prozac] 20 mg PO QAM 10/19/15 [History] Omeprazole [PriLOSEC] 20 mg PO DAILY 10/19/15 [History] Ergocalciferol (VITAMIN D2) [Vitamin D2 (50,000 UNIT)] 50,000 unit PO FR [History] Fluticasone/Vilanterol [Breo Ellipta 100-25 Mcg INH] 1 each IH DAILY 01/03/17 [ History] Gabapentin [Neurontin] 300 mg PO TID 01/03/17 [History] Potassium Chloride [Klor-Con] 20 meq PO DAILY 01/03/17 [History] Allopurinol [Zyloprim 100 MG] 100 mg PO DAILY #30 tablet 01/11/17 [Rx] Cefdinir [Omnicef] 300 mg PO Q48H #1 capsule 01/11/17 [Rx] Desitin (Zinc Oxide) [Desitin] 1 appl TP BID #1 tube 01/11/17 [Rx] Ergocalciferol (VITAMIN D2) [Drisdol (50,000 Unit)] 50,000 unit PO QWEEK capsule 01/11/17 [Rx] Folic Acid 1 mg PO DAILY #30 tablet 01/11/17 [Rx] Lactobacillus [Culturelle] 2 each PO DAILY #30 cap.sprink 01/11/17 [Rx] Nystatin Cream [Mycostatin Cream] 1 appl TP BID #1 tube 01/11/17 [Rx] Oxygen 1 each .ROUTE AD #1 each 01/11/17 [Rx] Sevelamer [Renvela] 1,600 mg PO TIDWM #90 tablet 01/11/17 [Rx] 3 Allergy/AdvReac Type Severity Reaction Status Date / Time Sulfa (Sulfonamide Allergy Hives Verified 10/16/17 15:10 Antibiotics) iron AdvReac Hives Verified 10/16/17 15:10 - Constitutional Constitutional: no chills, no fever(s) - EENT Eyes: no blurry vision, no change in vision Ears: no ear pain, no tinnitus Nose, mouth and throat: no nasal congestion, no sinus pressure, no sore throat - Cardiovascular Cardiovascular ROS IM: no chest pain, no dyspnea, no dyspnea on exertion, no palpitations, no syncope - Respiratory Respiratory: no cough, no dyspnea, no hemoptysis, no dyspnea on exertion - Gastrointestinal Gastrointestinal: abdominal pain, bloating, nausea, vomiting, no diarrhea, no hematemesis, no hematochezia, no melena - Genitourinary Genitourinary: no dysuria, no flank pain, no hematuria - Musculoskeletal Musculoskeletal ROS IM: no back pain, no joint swelling, no limited range of motion - Integumentary Integumentary IM: no rash, no jaundice - Neurological Neurological ROS: no dizziness, no focal weakness, no frequent falls, no headache(s) - Psychiatric Psychiatric: no anxiety, no depression - Endocrine Endocrine IM: no polydipsia, no polyuria - Hematologic/Lymphatic Hematologic/Lymphatic: no easy bruising, no lymphadenopathy - Allergic/Immunologic Allergic/Immunologic: no wheezing, no GI upset with certain foods - Constitutional Vitals: Temp Pulse Resp BP Pulse Ox 97.8 F 78 16 129/75 92 10/16/17 15:08 10/16/17 21:39 10/16/17 22:31 10/16/17 22:31 10/16/17 21:40 General appearance: Present: cooperative, A&O X 3, pleasant, no acute distress - Head Head exam: Present: atraumatic, normal inspection - Eye Eye exam: Present: EOMI, PERRL. Absent: scleral icterus Pupils: Present: normal accommodation - ENT ENT exam: Present: mucous membranes dry, normal exam Additional comments: NG tube in place - Neck Neck exam general surgery: Present: full ROM, supple. Absent: tenderness, thyromegaly - Respiratory Respiratory exam: Present: CTAB. Absent: rales, respiratory distress, rhonchi, wheezes - Cardiovascular Cardiovascular exam: Present: RRR, +S1, +S2. Absent: diastolic murmur, systolic murmur - GI/Abdominal GI/Abdominal exam: Present: hypoactive bowel sounds, soft, tenderness (mild), no peritoneal signs. Absent: hepatomegaly, normal bowel sounds, splenomegaly - Extremities Exam Extremities exam: Present: full ROM, warm, radial pulses palpable and symmetrical. Absent: calf tenderness, pedal edema - Back Exam Back exam: Present: CVA tenderness (L), CVA tenderness (R) - Neurological Exam Neurological exam: Present: alert, CN II-XII intact, oriented X3, no focal deficits - Psychiatric Psychiatric exam: Present: normal affect, normal mood - Skin Skin exam: Present: dry, warm. Absent: rash Internal Med - H&P Results - Labs CBC & Chem 7: 10/16/17 16:15 10/16/17 16:15 - Diagnostic Studies CT scan - abdomen Status: image reviewed by me (SBO )
[2017-10-17] MEDS ORDERED: Tetracaine/Benzocaine/Butamben 200MG/SPRAY (100SPY/BOT) ONE (05:11)
[2017-10-17] MEDS: *HR* Heparin 5,000 UNIT/ML VIAL SQ SCH ×3 (05:29→21:21)
[2017-10-17] MEDS: 0.9 % Sodium Chloride w KCl 20 MEQ/1,000 ML MLS IVC SCH ×2 (05:33→14:14)
[2017-10-17 07:35] LABS: Albumin 3.7 g/dL (3.5-5.7); Albumin/Globulin Ratio 1.2 (1.1-2.2); Bilirubin,Total 0.6 mg/dL (0.3-1.0); Calcium 8.9 mg/dL (8.6-10.3); Magnesium 1.9 mg/dL (1.6-2.6); Potassium 3.2 mEq/L (3.5-5.1); Total Protein 6.7 g/dL (6.4-8.9)
[2017-10-17 07:37] LABS: Basophils % 0.4 %; Eosinophils # 0.2 K/mcL (0.0-0.6); Eosinophils % 1.4 %; Hematocrit 46.8 % (35.3-44.9); Hemoglobin 14.3 g/dL (11.5-15.4); Immature Granulocytes % 0.5 % (0-4); Lymphocytes % 9.4 %; Mean Corpuscular HGB Conc 30.6 g/dL (31.6-35.5); Mean Corpuscular Hemoglobin 29.7 pg (28.0-33.3); Mean Corpuscular Volume 97.3 fL (83.0-100.0); Mean Platelet Volume 10.7 fL (9.4-12.4); Monocytes # 1.2 K/mcL (0.0-1.3); Monocytes % 10.4 %; Neutrophils # 8.7 K/mcL (1.6-8.9); Platelet Count 173 K/mcL (140-400); Red Blood Count 4.81 M/mcL (3.82-4.97); Red Cell Distribution Width 13.6 % (11.5-14.5); Segmented Neutrophils % 77.9 %
--- NOTE | 2017-10-17 07:37 | General Surgery Consult Note ---
<Meli Glasgow - Last Filed: 10/17/17 16:36> Date of Encounter: 10/17/17 Time of Encounter: 07:35 Assessment and Plan (1) Small bowel obstruction Current Visit: Yes Status: Acute 47 y F with no past surgical history presenting with abdominal pain and obstipation, with CT findings concerning for SBO. Appears to be improving with gastric decompression with NG tube. -NPO while awaiting return of function - NG tube to LIWS - IV hydration - Replete electrolytes, per prn (2) Dehydration Current Visit: No Status: Acute Management per primary team. (3) End stage renal disease on dialysis Current Visit: No Status: Chronic Pt on dialysis on MWF. Nephrology on consult. (4) DVT prophylaxis Current Visit: Yes Status: Acute Management per primary team. History of Present Illness Consult date: 10/17/17 Requesting physician: Jimmy Armenta History of present illness: Ms. Saucedo is a 47 year old female with COPD and no surgical history who presents to ER with about a 5- day history of cramping abdominal pain. Associated symptoms: Nauseas and NBNB emesis. Anorexia following onset of abdominal pain. Pt initially had diarrhea and then endorsed obstipation. Denies hematochezia. CT Imaging concerning for a small bowel obstruction. She had an NG tube placed for decompression and was admitted to hospitalist service with consultation to Dr. Baum. Pt states abdominal pain has reduced from 10/10 on presentation to 1/10, following placement of NG tube. Passed gas, but no BM yet. She denies any prior abdominal or pelvic surgery. She has had a colonoscopy aprox. 10 years ago. Past Med Surg Social Fam HX - Past Medical History Medical history: COPD, coronary artery disease, diabetes, dialysis, hyperlipidemia, hypertension, kidney stones, renal disease Psychiatric history: anxiety, depression - Past Surgical History Surgical History: orthopedic, other - Social History Smoking Status: Current some day smoker Smokeless Tobacco Status: No Alcohol use: none Drug use: none - Family History Mother Living Status: Still Living Hx Family Cardiac Disorders: Yes Hx Family Neurologic Disorders: Yes (Stoke) Father Living Status: Hx Family Cancer: Yes (Stomach) Medications and Allergies Albuterol Sulfate [Proair Respiclick] 2 puff IH Q4H PRN 10/19/15 [History] Atorvastatin [Lipitor] 10 mg PO HS 10/19/15 [History] FLUoxetine HCl [Prozac] 20 mg PO QAM 10/19/15 [History] Omeprazole [PriLOSEC] 20 mg PO DAILY 10/19/15 [History] Fluticasone/Vilanterol [Breo Ellipta 100-25 Mcg INH] 1 puff IH DAILY 01/03/17 [ History] Gabapentin [Neurontin] 300 mg PO HS 01/03/17 [History] Oxygen 1 each .ROUTE AD #1 each 01/11/17 [Rx] Calcium Acetate [Phos-LO] 667 mg PO TIDWM 10/17/17 [History] Cinacalcet HCl [Sensipar] 60 mg PO DAILY 10/17/17 [History] Folic Acid/Vit Bcomp,C [Dialyvite Tablet] 1 tab PO DAILY 10/17/17 [History] 3 Allergy/AdvReac Type Severity Reaction Status Date / Time Sulfa (Sulfonamide Allergy Hives Verified 10/16/17 15:10 Antibiotics) iron AdvReac Hives Verified 10/16/17 15:10 Review of Systems All systems PM: As above in the HPI. General Surgery Exam Initial Vital Signs Temp Pulse Resp BP Pulse Ox 97.8 F 79 20 147/73 90 10/16/17 15:08 10/16/17 15:08 10/16/17 15:08 10/16/17 15:08 10/16/17 15:08 - General physical appearance no distress - Eyes normal ocular movement - ENT Other (NG tube in place during AM examination) - Respiratory normal expansion, normal respiratory effort (open mouthed breathing ) wheezing: bilateral (faint) - Cardiovascular Cardiovascular exam: Present: RRR - Abdomen Abdomen general surgery: Present: bowel sounds present, soft, non tender. Absent: surgical scars - Psychiatric Psychiatric general surgery: Present: appropriate, oriented to person, oriented to place, oriented to time, speech is normal Exam Initial Vital Signs Temp Pulse Resp BP Pulse Ox 97.8 F 79 20 147/73 90 10/16/17 15:08 10/16/17 15:08 10/16/17 15:08 10/16/17 15:08 10/16/17 15:08 Results - Labs 10/17/17 06:37 10/17/17 06:37 Abnormal lab results WBC 13.8 K/mcL (4.3-11.1) H 10/16/17 16:15 RBC 5.05 M/mcL (3.82-4.97) H 10/16/17 16:15 Hct 48.2 % (35.3-44.9) H 10/16/17 16:15 Neutrophils # 10.9 K/mcL (1.6-8.9) H 10/16/17 16:15 Potassium 3.2 mEq/L (3.5-5.1) L 10/17/17 06:37 Carbon Dioxide 31 mEq/L (23-29) H 10/17/17 06:37 BUN 29 mg/dL (6-20) H 10/17/17 06:37 Creatinine 3.82 mg/dL (0.60-1.20) H 10/17/17 06:37 Est GFR ( Amer) 15 (> 60) L 10/17/17 06:37 Est GFR (Non-Af Amer) 13 (> 60) L 10/17/17 06:37 Urine Protein 30 mg/dL (Neg-Trace) H 10/16/17 18:37 Ur Leukocyte Esterase Trace (Negative) H 10/16/17 18:37 Urine Microscopic WBC 15-30 per hpf (0-3) H 10/16/17 18:37 Ur Squamous Epith Cells Many per lpf (None-Few) H 10/16/17 18:37 Diabetes panel 10/17/17 Range/Units 06:37 Sodium 139 (136-145) mEq/L Potassium 3.2 L (3.5-5.1) mEq/L Chloride 101 (98-107) mEq/L Carbon Dioxide 31 H (23-29) mEq/L BUN 29 H (6-20) mg/dL Creatinine 3.82 H (0.60-1.20) mg/dL Glucose 87 (70-105) mg/dL Calcium 8.9 (8.6-10.3) mg/dL AST 18 (13-39) Units/L ALT 11 (7-52) Units/L Alkaline Phosphatase 101 (34-104) Units/L Albumin 3.7 (3.5-5.7) g/dL Calcium panel 10/17/17 Range/Units 06:37 Calcium 8.9 (8.6-10.3) mg/dL Albumin 3.7 (3.5-5.7) g/dL Pituitary panel 10/17/17 Range/Units 06:37 Sodium 139 (136-145) mEq/L Potassium 3.2 L (3.5-5.1) mEq/L Chloride 101 (98-107) mEq/L Carbon Dioxide 31 H (23-29) mEq/L BUN 29 H (6-20) mg/dL Creatinine 3.82 H (0.60-1.20) mg/dL Glucose 87 (70-105) mg/dL Calcium 8.9 (8.6-10.3) mg/dL Adrenal panel 10/17/17 Range/Units 06:37 Sodium 139 (136-145) mEq/L Potassium 3.2 L (3.5-5.1) mEq/L Chloride 101 (98-107) mEq/L Carbon Dioxide 31 H (23-29) mEq/L BUN 29 H (6-20) mg/dL Creatinine 3.82 H (0.60-1.20) mg/dL Glucose 87 (70-105) mg/dL Calcium 8.9 (8.6-10.3) mg/dL Total Bilirubin 0.6 (0.3-1.0) mg/dL AST 18 (13-39) Units/L ALT 11 (7-52) Units/L Alkaline Phosphatase 101 (34-104) Units/L Albumin 3.7 (3.5-5.7) g/dL All other labs normal. - Imaging Abdominal x-ray: report reviewed Additional studies: EXAMINATION: SUPINE VIEW(S) OF THE ABDOMEN 10/16/2017 10:27 pm COMPARISON: None. HISTORY: ORDERING SYSTEM PROVIDED HISTORY: s/p NG tube Bowel obstruction FINDINGS: An enteric tube is in place with the tip in the medial right upper quadrant. The proximal side hole is within the stomach. Dilated small bowel is partially visualized. XR/XR KUB IMPRESSION: The tip of the enteric tube is either in the distal stomach or proximal duodenum. D/ / Tre Rodrigez MD / Tre Rodrigez MD Interpreting Provider: Tre Rodrigez MD Consult Discharge Plan - Plan Referrals: Steven Ly MD [Primary Care Provider] - <Rocky Baum M - Last Filed: 10/18/17 07:15> Date of Encounter: 10/17/17 Review of Systems All systems PM: A 10-system review of systems was performed and is negative for pertinent findings except as documented above in the HPI. General Surgery Exam Initial Vital Signs Temp Pulse Resp BP Pulse Ox 97.8 F 79 20 147/73 90 10/16/17 15:08 10/16/17 15:08 10/16/17 15:08 10/16/17 15:08 10/16/17 15:08 Exam Initial Vital Signs Temp Pulse Resp BP Pulse Ox 97.8 F 79 20 147/73 90 10/16/17 15:08 10/16/17 15:08 10/16/17 15:08 10/16/17 15:08 10/16/17 15:08 Results - Labs 10/18/17 05:17 10/18/17 05:17 Abnormal lab results Hct 47.5 % (35.3-44.9) H 10/18/17 05:17 MCHC 30.5 g/dL (31.6-35.5) L 10/18/17 05:17 Potassium 3.1 mEq/L (3.5-5.1) L 10/18/17 05:17 Carbon Dioxide 30 mEq/L (23-29) H 10/18/17 05:17 BUN 37 mg/dL (6-20) H 10/18/17 05:17 Creatinine 3.96 mg/dL (0.60-1.20) H 10/18/17 05:17 Est GFR ( Amer) 15 (> 60) L 10/18/17 05:17 Est GFR (Non-Af Amer) 12 (> 60) L 10/18/17 05:17 POC Glucose 90 (58-89) H 10/18/17 00:28 Calculated Osmolality 303 (280-300) H 10/18/17 05:17 Urine Protein 30 mg/dL (Neg-Trace) H 10/16/17 18:37 Ur Leukocyte Esterase Trace (Negative) H 10/16/17 18:37 Urine Microscopic WBC 15-30 per hpf (0-3) H 10/16/17 18:37 Ur Squamous Epith Cells Many per lpf (None-Few) H 10/16/17 18:37 Diabetes panel 10/17/17 10/18/17 10/18/17 Range/Units 06:37 05:17 05:17 Sodium 139 142 (136-145) mEq/L Potassium 3.2 L 3.1 L (3.5-5.1) mEq/L Chloride 101 102 (98-107) mEq/L Carbon Dioxide 31 H 30 H (23-29) mEq/L BUN 29 H 37 H (6-20) mg/dL Creatinine 3.82 H 3.96 H (0.60-1.20) mg/dL Glucose 87 99 (70-105) mg/dL Hemoglobin A1c 4.8 ( - 5.6) % Calcium 8.9 9.3 (8.6-10.3) mg/dL AST 18 (13-39) Units/L ALT 11 (7-52) Units/L Alkaline Phosphatase 101 (34-104) Units/L Albumin 3.7 (3.5-5.7) g/dL Calcium panel 10/17/17 10/18/17 Range/Units 06:37 05:17 Calcium 8.9 9.3 (8.6-10.3) mg/dL Albumin 3.7 (3.5-5.7) g/dL Pituitary panel 10/17/17 10/18/17 Range/Units 06:37 05:17 Sodium 139 142 (136-145) mEq/L Potassium 3.2 L 3.1 L (3.5-5.1) mEq/L Chloride 101 102 (98-107) mEq/L Carbon Dioxide 31 H 30 H (23-29) mEq/L BUN 29 H 37 H (6-20) mg/dL Creatinine 3.82 H 3.96 H (0.60-1.20) mg/dL Glucose 87 99 (70-105) mg/dL Calcium 8.9 9.3 (8.6-10.3) mg/dL Adrenal panel 10/17/17 10/18/17 Range/Units 06:37 05:17 Sodium 139 142 (136-145) mEq/L Potassium 3.2 L 3.1 L (3.5-5.1) mEq/L Chloride 101 102 (98-107) mEq/L Carbon Dioxide 31 H 30 H (23-29) mEq/L BUN 29 H 37 H (6-20) mg/dL Creatinine 3.82 H 3.96 H (0.60-1.20) mg/dL Glucose 87 99 (70-105) mg/dL Calcium 8.9 9.3 (8.6-10.3) mg/dL Total Bilirubin 0.6 (0.3-1.0) mg/dL AST 18 (13-39) Units/L ALT 11 (7-52) Units/L Alkaline Phosphatase 101 (34-104) Units/L Albumin 3.7 (3.5-5.7) g/dL All other labs normal. - Attending Attestation I examined this patient and my medical decision-making was reviewed with the Resident Physician. I agree with the documented findings, disposition and treatment plan as described except to the extent set forth below. I reviewed the above assessment and evaluation with the resident and agree with the above plan. Patient has had a symptoms of some abdominal pain associated with nausea vomiting as well as diarrhea flatus. She currently states that she is no longer having any abdominal pain symptoms. She states that she has been having abdominal pain symptoms for approximately 3-4 days. The last episode of abdominal pain was yesterday evening. She currently denies any nausea. NG tube is to low intermittent wall suction with minimal output. She is positive for flatus and has positive bowel sounds. She has no abdominal pain on physical examination. I personally reviewed the CT scan images and report and it was a suggestion of a possible small bowel obstruction and may be partial in nature however I am not fully convinced that the patient has symptoms of a bowel obstruction. We will follow I's and O's overnight and if the NG tube output is minimal then consider removal and starting clears full liquids. Patient and she agrees to the above plan.
--- NOTE | 2017-10-17 11:00 | Event Note ---
Date of Encounter: 10/17/17 Time of Encounter: 10:59 Nephrology Chart Review ESRD on HD M/W/F. Last HD was on Wednesday and will plan for next HD tomorow ( Wednesday) with full consult to follow tomorrow. Thank you
[2017-10-17] MEDS ORDERED: Chloraseptic Spray 177 ML BOTTLE MM PRN (11:29)
--- NOTE | 2017-10-17 16:34 | Internal Med Progress Note ---
Date of Encounter: 10/17/17 Time of Encounter: 16:20 - Assessment and plan (1) Small bowel obstruction Current Visit: Yes Status: Acute Assessment and plan: Sudden onset mid upper abdominal pain on Wednesday, 4 days ago. Patient presented to the emergency department, CT showed mild SBO likely due to adhesions. Point of transition is not clearly visualized. Edematous changes noted within the mesentery with free fluid there is no free intraperitoneal air. There is laxity of the anterior abdominal wall musculature and a large fat -containing ventral abdominal wall hernia noted. Stable medullary nephrocalcinosis bilateral nonobstructive calculi. There is no evidence of obstructive uropathy. Abdomen is obese, difficult to ascertain if there are bowel sounds due to body habitus. Pain has improved since insertion of NG tube. Continue NG tube to low intermittent wall suction. Nothing by mouth Surgery has been consulted, Continue IV fluids (2) Diabetes Current Visit: Yes Status: Chronic Assessment and plan: Chronic. Patient is nothing by mouth, monitor blood sugars. Sliding scale insulin, Accu-Cheks every 2 hours while nothing by mouth. Hypoglycemia protocol ordered. A1c ordered for morning. Qualifiers: Diabetes mellitus type: type 2 Diabetes mellitus complication status: with kidney complications Diabetes mellitus complication detail: with chronic kidney disease Chronic kidney disease stage: unspecified stage Qualified Code(s): E11.22 - Type 2 diabetes mellitus with diabetic chronic kidney disease (3) Obstructive sleep apnea Current Visit: Yes Status: Chronic Assessment and plan: BiPAP. (4) Morbid obesity with BMI of 50.0-59.9, adult Current Visit: Yes Status: Chronic Assessment and plan: Chronic. Try to implement lifestyle modifications. (5) End stage renal disease on dialysis Current Visit: Yes Status: Chronic Assessment and plan: Dialysis Wednesday. Last dialysis [address] Shay has arranged for dialysis tomorrow. He will evaluate patient after she returns. I appreciate his consultation and recommendations. Renal function has slightly worsened since admission, however is significantly less than the patient's baseline creatinine of between 6 and 7 and GFR between 4 and 6. Continue to monitor labs Monitor vital signs Dialysis tomorrow (6) DVT prophylaxis Current Visit: Yes Status: Acute Assessment and plan: Heparin subcutaneous. - Time Spent With Patient less than 15 minutes - Subjective Interval history: Patient was seen and assessed in bed side at 1600. Nose there is at bedside. Patient reports onset of upper abdominal severe pain 3 days ago. She reports that the pain has subsided significantly and now her abdomen is just sore, there is no pain. He denies nausea, vomiting, or diarrhea since arrival. She denies need for continued pain medication. She denies headache, dizziness or neck pain. She has been evaluated by surgery, they will continue to follow. - Constitutional Vitals: Temp Pulse Resp BP Pulse Ox 98.4 F 69 17 129/79 94 10/17/17 16:09 10/17/17 16:09 10/17/17 16:09 10/17/17 16:10/17/17 16:09 General appearance: Present: cooperative, A&O X 3, morbidly obese, pleasant, no acute distress, answers questions appropriately - Head Head exam: Present: atraumatic, normal inspection, normocephalic - Eye Eye exam: Present: normal appearance, conjuntiva pink, sclera anicteric - Neck Neck exam general surgery: Present: supple, trachea midline. Absent: lymphadenopathy - Respiratory Respiratory exam: Present: CTAB. Absent: accessory muscle use, rales, respiratory distress, rhonchi, wheezes - Cardiovascular Cardiovascular exam: Present: RRR, +S1, +S2. Absent: diastolic murmur, gallop, rubs, systolic murmur - GI/Abdominal GI/Abdominal exam: Present: distended, normal bowel sounds, soft, no peritoneal signs. Absent: hepatomegaly, tenderness - Extremities Exam Extremities exam: Present: normal capillary refill, warm, radial pulses palpable and symmetrical. Absent: calf tenderness, cyanotic, pedal edema, tenderness - Neurological Exam Neurological exam: Present: CN II-XII intact, no focal deficits. Absent: facial droop, speech deficit - Skin Skin exam: Present: dry, intact, normal color, warm. Absent: rash Internal Medicine: Result - Labs CBC & Chem 7: 10/17/17 06:37 10/17/17 06:37 Labs: Short CBC 10/17/17 Range/Units 06:37 WBC 11.1 (4.3-11.1) K/mcL Hgb 14.3 (11.5-15.4) g/dL Hct 46.8 H (35.3-44.9) % Plt Count 173 (140-400) K/mcL Neutrophils # 8.7 (1.6-8.9) K/mcL BMP 10/17/17 06:37 Sodium 139 Potassium 3.2 L Chloride 101 Carbon Dioxide 31 H BUN 29 H Creatinine 3.82 H Glucose 87 Calcium 8.9 Liver Function 10/17/17 Range/Units 06:37 Total Bilirubin 0.6 (0.3-1.0) mg/dL AST 18 (13-39) Units/L ALT 11 (7-52) Units/L Alkaline Phosphatase 101 (34-104) Units/L Albumin 3.7 (3.5-5.7) g/dL Consult Discharge Plan - Plan Referrals: Steven Ly MD [Primary Care Provider] -
[2017-10-17] MEDS ORDERED: D5% in Water 1,000 ML IVC PRN (16:41)
[2017-10-17] MEDS ORDERED: Dextrose Gel 15 GM/37.5 ML TUBE PO PRN ×2 (16:41)
[2017-10-17] MEDS ORDERED: *HR* Dextrose 50 % in Water (Syg) 50 ML SYRINGE IVP PRN (16:41)
[2017-10-17] MEDS: D5% in 0.9% NACL w KCl 20 MEQ/1,000 ML MLS IVC SCH (22:22)
[2017-10-18] MEDS: *HR* Heparin 5,000 UNIT/ML VIAL SQ SCH ×3 (05:32→21:42)
[2017-10-18] MEDS: D5% in 0.9% NACL w KCl 20 MEQ/1,000 ML MLS IVC SCH ×3 (05:35→21:42)
[2017-10-18 05:52] LABS: Basophils % 0.3 %; Eosinophils # 0.2 K/mcL (0.0-0.6); Eosinophils % 1.4 %; Hematocrit 47.5 % (35.3-44.9); Hemoglobin 14.5 g/dL (11.5-15.4); Immature Granulocytes % 0.4 % (0-4); Lymphocytes # 0.8 K/mcL (0.6-4.6); Lymphocytes % 7.8 %; Mean Corpuscular HGB Conc 30.5 g/dL (31.6-35.5); Mean Corpuscular Hemoglobin 29.5 pg (28.0-33.3); Mean Corpuscular Volume 96.7 fL (83.0-100.0); Mean Platelet Volume 10.9 fL (9.4-12.4); Monocytes % 9.4 %; Neutrophils # 8.7 K/mcL (1.6-8.9); Platelet Count 171 K/mcL (140-400); Red Blood Count 4.91 M/mcL (3.82-4.97); Red Cell Distribution Width 13.5 % (11.5-14.5); Segmented Neutrophils % 80.7 %
[2017-10-18 05:54] LABS: Hemoglobin A1C 4.8 %
[2017-10-18 06:04] LABS: Calcium 9.3 mg/dL (8.6-10.3); Potassium 3.1 mEq/L (3.5-5.1)
[2017-10-18] MEDS ORDERED: 0.9 % Sodium Chloride 250 ML IVC PRN (07:02)
[2017-10-18 08:25] LABS: Hepatitis B Surface Antibody 0.43 mIU/mL; Hepatitis B Surface Antigen Nonreactive (Nonreactive)
--- NOTE | 2017-10-18 10:10 | General Surgery Progress Note ---
<Meli Glasgow - Last Filed: 10/18/17 11:42> Date of Encounter: 10/18/17 Time of Encounter: 10:09 - Assessment and Plan (1) Small bowel obstruction Current Visit: Yes Status: Acute 47 y F with no past surgical history presenting with abdominal pain and obstipation, with CT findings concerning for SBO. Appears to be improving with gastric decompression with NG tube. - NG tube to LIWS. -NPO while awaiting return of function -KUB ordered: NG tube appropriate placement - Replete electrolytes, per prn -Encourage ambulation TID with assistance, or as tolerated (2) Dehydration Current Visit: No Status: Acute Management per primary team. (3) End stage renal disease on dialysis Current Visit: Yes Status: Chronic Pt on dialysis on MWF. Nephrology on consult. (4) DVT prophylaxis Current Visit: Yes Status: Acute Management per primary team. Subjective Patient reports: feels better, pain is less, flatus, afebrile Narrative: No acute events overnight. Objective - General physical appearance no distress - Eyes normal ocular movement - ENT Other (NG tube in place ) - Respiratory normal expansion, normal respiratory effort, clear to auscultation - Cardiovascular Cardiovascular exam: Absent: irregular rhythm, murmurs Addtional Comments: +S1,S2. - Abdomen Abdomen: Present: bowel sounds present, soft, non tender - Psychiatric oriented to time, oriented to person, oriented to place, speech is normal - Labs 10/18/17 05:17 10/18/17 05:17 Consult Discharge Plan - Plan Referrals: Steven Ly MD [Primary Care Provider] - <Rocky Baum - Last Filed: 10/19/17 10:04> Date of Encounter: 10/18/17 Objective Vital Signs - Last 8 Hours Temp Pulse Resp BP Pulse Ox 10/19/17 07:20 97.9 F 67 16 120/78 95 10/19/17 03:47 98.3 F 66 16 123/77 94 Intake and Output 10/18/17 10/19/17 10/19/17 23:59 07:59 15:59 Intake Total 1000 / 1000 1000 / 1000 Output Total 600 / 600 1850 / 1850 300 / 300 Balance 400 / 400 -850 / -850 -300 / -300 Intake: IV Fluids 1000 / 1000 1000 / 1000 KCl 20mEq in D5-0.9 NaCl 20 meq 1000 / 1000 1000 / 1000 In 1,000 ml @ 125 mls/hr IVC . Q8H [facility] Rx#:[id number] Output: Urine 0 / 0 Gastric Tube Lavage Amount 1850 / 1850 300 / 300 Left Nare 1850 / 1850 300 / 300 Total Dialysis (HD) Output 600 / 600 Other: Meal NPO Blood Glucose* 88 90 87 Hemodialysis Net Fluid Removed 0 (mL) - Labs 10/19/17 04:32 10/19/17 04:32 Diabetes panel 10/19/17 Range/Units 04:32 Sodium 140 (136-145) mEq/L Potassium 3.5 (3.5-5.1) mEq/L Chloride 100 (98-107) mEq/L Carbon Dioxide 31 H (23-29) mEq/L BUN 19 (6-20) mg/dL Creatinine 2.91 H (0.60-1.20) mg/dL Glucose 111 H (70-105) mg/dL Calcium 9.3 (8.6-10.3) mg/dL Calcium panel 10/19/17 Range/Units 04:32 Calcium 9.3 (8.6-10.3) mg/dL Phosphorus 3.8 (2.7-4.5) mg/dL Pituitary panel 10/19/17 Range/Units 04:32 Sodium 140 (136-145) mEq/L Potassium 3.5 (3.5-5.1) mEq/L Chloride 100 (98-107) mEq/L Carbon Dioxide 31 H (23-29) mEq/L BUN 19 (6-20) mg/dL Creatinine 2.91 H (0.60-1.20) mg/dL Glucose 111 H (70-105) mg/dL Calcium 9.3 (8.6-10.3) mg/dL Adrenal panel 10/19/17 Range/Units 04:32 Sodium 140 (136-145) mEq/L Potassium 3.5 (3.5-5.1) mEq/L Chloride 100 (98-107) mEq/L Carbon Dioxide 31 H (23-29) mEq/L BUN 19 (6-20) mg/dL Creatinine 2.91 H (0.60-1.20) mg/dL Glucose 111 H (70-105) mg/dL Calcium 9.3 (8.6-10.3) mg/dL - Attending Attestation I examined this patient and my medical decision-making was reviewed with the Resident Physician. I agree with the documented findings, disposition and treatment plan as described except to the extent set forth below. I reviewed the above assessment and evaluation. Noted NGT output. Positive bowel sounds and flatus. No abdominal pain on exam. Will check abdominal xray for NGT placement and continue to follow NGT output.
--- NOTE | 2017-10-18 11:58 | Nephrology Consult Note ---
Date of Encounter: 10/18/17 Time of Encounter: 09:40 Assessment and Plan (1) End stage renal disease on dialysis Current Visit: Yes Status: Chronic HD today. Since she has the NGT, I agree with the IVF. She still makes urine and has no edema on exam Hypokalemia: most likely from NGT suction. Hx of anemia of CKD: will adjust for MARC and/or IV iron as needed HTN: will monitor while NPO. prn Hydralazine would be an acceptable option if needed Morbid obesity: chronic. I counseled her for >50% of the encounter on lifestyle modifications Hx of SHPT and hyperphosphatemia: NPO currently so no need for a phos binder at this time. Goal iPTH is generally <350 in the setting of ESRD Next HD after today will be Wednesday. If any renal questions, please feel free to contact me. Thank you for consulting the [facility] serve. (2) Hypokalemia Current Visit: Yes Status: Acute (3) Small bowel obstruction Current Visit: Yes Status: Acute (4) Morbid obesity with BMI of 50.0-59.9, adult Current Visit: Yes Status: Chronic History of Present Illness - Reason for Consult Consult date: 10/17/17 end stage renal disease Requesting physician: Modesto Reed - Chief Complaint ESRD - History of Present Illness Odalys Sauecdo is a very pleasant 47 y/o WF with a pmh of longstanding T2DM, morbid obesity, HTN, HLD and CKD that progressed to ESRD about 1 year ago who presented with abd pain and SBO. I am her primary forming department supervisor; she rounds at [facility] in [place], [place], thrice weekly and she completed her full treatment of HD last Wednesday. She said that her abd pain started worsening almost a week ago and was associated with most constipation. She did not affirm N/V, dysuria (she still makes lots of urine, she said), any worsening of peripheral edema. She went to her PCP's office, she said, but since the deep, dull pain in character, had continued to worsen over the weekend, she then went to the ER. She reported no new issues with dialysis of late and her Right forearm AVF has not had any problems with prolonged bleeding or infection, she affirmed. Past Med Surg Social Fam HX - Past Medical History Medical history: COPD, coronary artery disease, diabetes, dialysis, hyperlipidemia, hypertension, kidney stones, renal disease Psychiatric history: anxiety, depression - Past Surgical History Surgical History: orthopedic, other - Social History Smoking Status: Current some day smoker Smokeless Tobacco Status: No Alcohol use: none Drug use: none - Family History Mother Living Status: Still Living Hx Family Cardiac Disorders: Yes Hx Family Neurologic Disorders: Yes (Stoke) Father Living Status: Hx Family Cancer: Yes (Stomach) Medications and Allergies Albuterol Sulfate [Proair Respiclick] 2 puff IH Q4H PRN 10/19/15 [History] Atorvastatin [Lipitor] 10 mg PO HS 10/19/15 [History] FLUoxetine HCl [Prozac] 20 mg PO QAM 10/19/15 [History] Omeprazole [PriLOSEC] 20 mg PO DAILY 10/19/15 [History] Fluticasone/Vilanterol [Breo Ellipta 100-25 Mcg INH] 1 puff IH DAILY 01/03/17 [ History] Gabapentin [Neurontin] 300 mg PO HS 01/03/17 [History] Oxygen 1 each .ROUTE AD #1 each 01/11/17 [Rx] Calcium Acetate [Phos-LO] 667 mg PO TIDWM 10/17/17 [History] Cinacalcet HCl [Sensipar] 60 mg PO DAILY 10/17/17 [History] Folic Acid/Vit Bcomp,C [Dialyvite Tablet] 1 tab PO DAILY 10/17/17 [History] 3 Allergy/AdvReac Type Severity Reaction Status Date / Time Sulfa (Sulfonamide Allergy Hives Verified 10/16/17 15:10 Antibiotics) iron AdvReac Hives Verified 10/16/17 15:10 Review of Systems All Systems: reviewed and no additional remarkable complaints except as stated Exam - Vital Signs Vital signs: Initial Vital Signs Temp Pulse Resp BP Pulse Ox 97.8 F 79 20 147/73 90 10/16/17 15:08 10/16/17 15:08 10/16/17 15:08 10/16/17 15:08 10/16/17 15:08 Vital Signs - Last 8 Hours Temp Pulse Resp BP Pulse Ox 10/18/17 11:10 98.6 F 67 18 121/78 96 Intake and Output 10/17/17 10/18/17 10/18/17 23:59 07:59 15:59 Other: Meal NPO Blood Glucose* 99 - General Appearance General appearance: well-developed, well-nourished, obese EENT: ATNC, PERRL, mucous membranes moist Additional Comments: NGT in place with copious green fluids in the clear canister Neck: supple Respiratory: clear Cardiology: no edema, regular rate, regular rhythm, normal S1, normal S2 - Dialysis Access Dialysis Vascular Access: Arteriovenous Fistula (Right forearm) thrill: Yes bruit: Yes Gastrointestinal: normoactive bowel sounds, no tenderness, no guarding, obese Integumentary: no rash, warm and dry Neurologic: no focal deficit, no asterixis, alert and oriented x3 Musculoskeletal: no deformities, no erythema, no cyanosis Psychiatric: mood/affect appropriate, cooperative Results - Lab Results 10/19/17 04:32 10/19/17 04:32 Most recent lab results Calcium 9.3 mg/dL (8.6-10.3) 10/18/17 05:17 Magnesium 2.0 mg/dL (1.6-2.6) 10/18/17 05:17 I reviewed the progress notes, labs, meds, vials, imaging and records from her outpatient dialysis unit via the mobile [employer]. Consult Discharge Plan - Plan Referrals: Steven Ly MD [Primary Care Provider] -
[2017-10-18] MEDS: *HR* Morphine 2 MG/ML SYRINGE IVP PRN (17:46)
--- NOTE | 2017-10-18 18:05 | Internal Med Progress Note ---
Date of Encounter: 10/18/17 Time of Encounter: 18:00 - Assessment and plan (1) Small bowel obstruction Current Visit: Yes Status: Acute Assessment and plan: Abdomen is obese, soft, nontender with faint, hypoactive bowel sounds in the upper abdomen. She denies bowel movement. Pain has improved since insertion of NG tube. She denies need for continued pain medication. KUB was ordered and NG tube is in proper placement. Continue NG tube to low intermittent wall suction. Nothing by mouth Surgery is following. Continue IV fluids Continue to monitor labs. (2) Diabetes Current Visit: Yes Status: Chronic Assessment and plan: Chronic. Patient is nothing by mouth, monitor blood sugars. Sliding scale insulin, Accu-Cheks every 2 hours while nothing by mouth. Hypoglycemia protocol ordered. A1c 4.8. Qualifiers: Diabetes mellitus type: type 2 Diabetes mellitus complication status: with kidney complications Diabetes mellitus complication detail: with chronic kidney disease Chronic kidney disease stage: unspecified stage Qualified Code(s): E11.22 - Type 2 diabetes mellitus with diabetic chronic kidney disease (3) Obstructive sleep apnea Current Visit: Yes Status: Chronic Assessment and plan: Continue BiPAP. (4) Morbid obesity with BMI of 50.0-59.9, adult Current Visit: Yes Status: Chronic Assessment and plan: Chronic. Try to implement lifestyle modifications. (5) End stage renal disease on dialysis Current Visit: Yes Status: Chronic Assessment and plan: Dialysis today. Nephrology is consulted and following. I appreciate his consultation and recommendations. Renal function has slightly worsened since admission, however is significantly less than the patient's baseline creatinine of between 6 and 7 and GFR between 4 and 6. Continue to monitor labs Monitor vital signs Dialysis tomorrow Try to avoid nephrotoxins. (6) DVT prophylaxis Current Visit: Yes Status: Acute Assessment and plan: Heparin subcutaneous. - Time Spent With Patient less than 15 minutes - Subjective Interval history: Patient was seen and assessed at bed side at 1800 and dialysis. She denies pain or soreness today. She denies nausea, vomiting, or diarrhea since arrival. She denies need for continued pain medication. She denies headache, dizziness or neck pain. - Constitutional Vitals: Temp Pulse Resp BP Pulse Ox 97.4 F L 67 17 133/60 96 10/18/17 15:15 10/18/17 11:10 10/18/17 15:15 10/18/17 17:45 10/18/17 11:10 General appearance: Present: cooperative, A&O X 3, morbidly obese, pleasant, no acute distress, answers questions appropriately - Head Head exam: Present: atraumatic, normal inspection, normocephalic - Eye Eye exam: Present: conjuntiva pink, sclera anicteric - Neck Neck exam general surgery: Present: supple, trachea midline. Absent: lymphadenopathy, tenderness - Respiratory Respiratory exam: Present: CTAB. Absent: accessory muscle use, chest wall tenderness, rales, respiratory distress, rhonchi, wheezes - Cardiovascular Cardiovascular exam: Present: RRR, +S1, +S2. Absent: diastolic murmur, gallop, rubs, systolic murmur - GI/Abdominal GI/Abdominal exam: Present: hypoactive bowel sounds, soft. Absent: distended, hepatomegaly, tenderness - Extremities Exam Extremities exam: Present: normal capillary refill, warm, radial pulses palpable and symmetrical. Absent: calf tenderness, cyanotic, pedal edema, tenderness - Neurological Exam Neurological exam: Present: alert, oriented X3, no focal deficits. Absent: facial droop, speech deficit - Skin Skin exam: Present: dry, intact, normal color, warm. Absent: rash Internal Medicine: Result - Labs CBC & Chem 7: 10/18/17 05:17 10/18/17 05:17 - Impressions Impressions KUB X-Ray 10/18/17 10:21 IMPRESSION: Esophagogastric tube terminates over the expected location of the gastric antrum/ pylorus. D/ / Carlos Tejeda / Carlos Tejeda Interpreting Provider: Carlos Tejeda Consult Discharge Plan - Plan Referrals: Steven Ly MD [Primary Care Provider] -
[2017-10-18] MEDS ORDERED: 0.9 % Sodium Chloride 2,000 ML ONE (18:07)
[2017-10-19] MEDS: *HR* Morphine 2 MG/ML SYRINGE IVP PRN ×2 (02:36→15:22)
[2017-10-19 05:01] LABS: Hematocrit 47.1 % (35.3-44.9); Hemoglobin 14.6 g/dL (11.5-15.4); Mean Corpuscular Hemoglobin 29.9 pg (28.0-33.3); Mean Corpuscular Volume 96.5 fL (83.0-100.0); Mean Platelet Volume 10.8 fL (9.4-12.4); Platelet Count 158 K/mcL (140-400); Red Blood Count 4.88 M/mcL (3.82-4.97); Red Cell Distribution Width 13.4 % (11.5-14.5)
[2017-10-19 05:35] LABS: Calcium 9.3 mg/dL (8.6-10.3); Magnesium 1.9 mg/dL (1.6-2.6); Phosphorous 3.8 mg/dL (2.7-4.5); Potassium 3.5 mEq/L (3.5-5.1)
[2017-10-19] MEDS: *HR* Heparin 5,000 UNIT/ML VIAL SQ SCH ×3 (05:40→21:36)
[2017-10-19] MEDS: D5% in 0.9% NACL w KCl 20 MEQ/1,000 ML MLS IVC SCH (06:02)
[2017-10-19] MEDS: Ondansetron 4 MG/2 ML VIAL IVP PRN (10:19)
--- NOTE | 2017-10-19 10:25 | General Surgery Progress Note ---
<Brianda Hayes Kenny - Last Filed: 10/19/17 10:23> Date of Encounter: 10/19/17 Time of Encounter: 10:00 - Assessment and Plan (1) Small bowel obstruction Current Visit: Yes Status: Acute Continue with conservative measures: NPO with NG tube Clamp NG tube for small bowel follow through with gastrograffin IV fluids Supportive care Surgery will continue to follow and make recommendations (2) End stage renal disease on dialysis Current Visit: Yes Status: Chronic Management per hospitalist and nephrology Dialysis MWF (3) Morbid obesity with BMI of 50.0-59.9, adult Current Visit: Yes Status: Chronic (4) DVT prophylaxis Current Visit: Yes Status: Acute Heparin 5,000 units SQ twice daily for DVT prophylaxis Subjective Patient reports: no new complaints, feels better, flatus (small amount this morning), afebrile, other (Denies nausea/vomiting) Objective Vital Signs - Last 8 Hours Temp Pulse Resp BP Pulse Ox 10/19/17 07:20 97.9 F 67 16 120/78 95 10/19/17 03:47 98.3 F 66 16 123/77 94 Intake and Output 10/18/17 10/19/17 10/19/17 23:59 07:59 15:59 Intake Total 1000 / 1000 1000 / 1000 Output Total 600 / 600 1850 / 1850 300 / 300 Balance 400 / 400 -850 / -850 -300 / -300 Intake: IV Fluids 1000 / 1000 1000 / 1000 KCl 20mEq in D5-0.9 NaCl 20 meq 1000 / 1000 1000 / 1000 In 1,000 ml @ 125 mls/hr IVC . Q8H [facility] Rx#:[id number] Output: Urine 0 / 0 Gastric Tube Lavage Amount 1850 / 1850 300 / 300 Left Nare 1850 / 1850 300 / 300 Total Dialysis (HD) Output 600 / 600 Other: Meal NPO Blood Glucose* 88 90 87 Hemodialysis Net Fluid Removed 0 (mL) - General physical appearance well developed, well nourished, no distress, no pain - Eyes normal ocular movement - ENT normal mucosa, atraumatic, normocephalic - Neck Neck exam: trachea midline - Respiratory normal respiratory effort, clear to auscultation - Abdomen Abdomen: Present: soft, non tender, wound (NG tube to LIWS with bilious drainage noted) - Neurologic CN 2-12 grossly intact - Psychiatric oriented to time, oriented to person, oriented to place, speech is normal, memory intact - Labs 10/19/17 04:32 10/19/17 04:32 Diabetes panel 10/19/17 Range/Units 04:32 Sodium 140 (136-145) mEq/L Potassium 3.5 (3.5-5.1) mEq/L Chloride 100 (98-107) mEq/L Carbon Dioxide 31 H (23-29) mEq/L BUN 19 (6-20) mg/dL Creatinine 2.91 H (0.60-1.20) mg/dL Glucose 111 H (70-105) mg/dL Calcium 9.3 (8.6-10.3) mg/dL Calcium panel 10/19/17 Range/Units 04:32 Calcium 9.3 (8.6-10.3) mg/dL Phosphorus 3.8 (2.7-4.5) mg/dL Pituitary panel 10/19/17 Range/Units 04:32 Sodium 140 (136-145) mEq/L Potassium 3.5 (3.5-5.1) mEq/L Chloride 100 (98-107) mEq/L Carbon Dioxide 31 H (23-29) mEq/L BUN 19 (6-20) mg/dL Creatinine 2.91 H (0.60-1.20) mg/dL Glucose 111 H (70-105) mg/dL Calcium 9.3 (8.6-10.3) mg/dL Adrenal panel 10/19/17 Range/Units 04:32 Sodium 140 (136-145) mEq/L Potassium 3.5 (3.5-5.1) mEq/L Chloride 100 (98-107) mEq/L Carbon Dioxide 31 H (23-29) mEq/L BUN 19 (6-20) mg/dL Creatinine 2.91 H (0.60-1.20) mg/dL Glucose 111 H (70-105) mg/dL Calcium 9.3 (8.6-10.3) mg/dL Consult Discharge Plan - Plan Referrals: Steven Ly MD [Primary Care Provider] - - Attending Attestation For this encounter, I have reviewed the [employer] PA documentation, treatment plan, and medical decision making; and I have had face to face time with this patient. <Rocky Baum - Last Filed: 10/20/17 07:39> Date of Encounter: 10/19/17 Objective Vital Signs - Last 8 Hours Temp Pulse Resp BP Pulse Ox 10/20/17 03:23 97.7 F 70 16 118/77 93 Intake and Output 10/19/17 10/19/17 10/20/17 15:59 23:59 07:59 Output Total 300 / 300 Balance -300 / -300 Output: Gastric Tube Lavage Amount 300 / 300 Left Nare 300 / 300 Other: Meal NPO Blood Glucose* 90 121 - Labs 10/20/17 04:34 10/20/17 04:34 Diabetes panel 10/20/17 Range/Units 04:34 Sodium 139 (136-145) mEq/L Potassium 3.4 L (3.5-5.1) mEq/L Chloride 96 L (98-107) mEq/L Carbon Dioxide 32 H (23-29) mEq/L BUN 30 H (6-20) mg/dL Creatinine 4.66 H (0.60-1.20) mg/dL Glucose 105 (70-105) mg/dL Calcium 9.4 (8.6-10.3) mg/dL Calcium panel 10/20/17 Range/Units 04:34 Calcium 9.4 (8.6-10.3) mg/dL Pituitary panel 10/20/17 Range/Units 04:34 Sodium 139 (136-145) mEq/L Potassium 3.4 L (3.5-5.1) mEq/L Chloride 96 L (98-107) mEq/L Carbon Dioxide 32 H (23-29) mEq/L BUN 30 H (6-20) mg/dL Creatinine 4.66 H (0.60-1.20) mg/dL Glucose 105 (70-105) mg/dL Calcium 9.4 (8.6-10.3) mg/dL Adrenal panel 10/20/17 Range/Units 04:34 Sodium 139 (136-145) mEq/L Potassium 3.4 L (3.5-5.1) mEq/L Chloride 96 L (98-107) mEq/L Carbon Dioxide 32 H (23-29) mEq/L BUN 30 H (6-20) mg/dL Creatinine 4.66 H (0.60-1.20) mg/dL Glucose 105 (70-105) mg/dL Calcium 9.4 (8.6-10.3) mg/dL - Attending Attestation I reviewed the above assessment and evaluation. Small bowel follow-through showed mild dilation of the small bowel but fluid with to the colon without difficulty. NG tube has been removed and the patient admits to some mild abdominal pain symptoms. Positive flatus and she states she has been having watery stools following the small bowel follow-through. I think will be reasonable to continue to advance her diet and see how she tolerates.
--- NOTE | 2017-10-19 20:08 | Internal Med Progress Note ---
Date of Encounter: 10/19/17 Time of Encounter: 13:30 - Assessment and plan (1) Small bowel obstruction Current Visit: Yes Status: Acute Assessment and plan: presented with abdominal pain. ABD CT showed mid small bowel obstruction, likely due to adhesions, point of transition not clearly visualized. Initially managed with NG tube and NPO. Repeat KUB 10/19/17 mildly dilated small bowel loop without evidence of transition point or stricture, likely reflecting a partial small bowel obstruction. NG removed and clear liquids started per General Surgery. Monitor clinical progress. General Surgery following (2) CKD (chronic kidney disease), stage IV Current Visit: No Status: Chronic Assessment and plan: per hx. HD M/W/F. Nephrology following (3) Diabetes Current Visit: Yes Status: Chronic Assessment and plan: per hx. Hgb A1c 4.8%. Cont SSI. Monitor blood sugar and titrate PRN Qualifiers: Diabetes mellitus type: type 2 Diabetes mellitus complication status: with kidney complications Diabetes mellitus complication detail: with chronic kidney disease Chronic kidney disease stage: unspecified stage Qualified Code(s): E11.22 - Type 2 diabetes mellitus with diabetic chronic kidney disease (4) DVT prophylaxis Current Visit: No Status: Acute Assessment and plan: heparin - Constitutional Vitals: Temp Pulse Resp BP Pulse Ox 98.1 F 72 16 130/85 97 10/19/17 19:36 10/19/17 19:36 10/19/17 19:36 10/19/17 19:36 10/19/17 19:36 General appearance: Present: cooperative, A&O X 3, morbidly obese, pleasant, no acute distress, answers questions appropriately Internal Medicine: Result - Labs CBC & Chem 7: 10/19/17 04:32 10/19/17 04:32 Labs: Short CBC 10/19/17 Range/Units 04:32 WBC 8.7 (4.3-11.1) K/mcL Hgb 14.6 (11.5-15.4) g/dL Hct 47.1 H (35.3-44.9) % Plt Count 158 (140-400) K/mcL BMP 10/19/17 04:32 Sodium 140 Potassium 3.5 Chloride 100 Carbon Dioxide 31 H BUN 19 Creatinine 2.91 H Glucose 111 H Calcium 9.3 - Impressions Impressions Small Bowel X-Ray 10/19/17 10:10 IMPRESSION: Mildly dilated small bowel loop in the central abdomen without evidence of focal transition point or stricture. There is normal transit time to the terminal ileum. Findings likely reflect a partial small bowel obstruction. D/ / 10/19/2017 13:00:36 Leandro Chou MD / Geetha Hui Interpreting Provider: Leandro Chou MD Consult Discharge Plan - Plan Referrals: Steven Ly MD [Primary Care Provider] -
[2017-10-20] MEDS: *HR* Morphine 2 MG/ML SYRINGE IVP PRN ×4 (02:26→23:52)
[2017-10-20] MEDS: Ondansetron 4 MG/2 ML VIAL IVP PRN (04:37)
[2017-10-20] MEDS: *HR* Heparin 5,000 UNIT/ML VIAL SQ SCH ×3 (05:26→21:25)
[2017-10-20 05:42] LABS: Hematocrit 49.3 % (35.3-44.9); Hemoglobin 15.5 g/dL (11.5-15.4); Mean Corpuscular HGB Conc 31.4 g/dL (31.6-35.5); Mean Corpuscular Hemoglobin 30.3 pg (28.0-33.3); Mean Corpuscular Volume 96.3 fL (83.0-100.0); Mean Platelet Volume 11.1 fL (9.4-12.4); Platelet Count 187 K/mcL (140-400); Red Blood Count 5.12 M/mcL (3.82-4.97); Red Cell Distribution Width 13.5 % (11.5-14.5)
[2017-10-20 06:05] LABS: Calcium 9.4 mg/dL (8.6-10.3); Potassium 3.4 mEq/L (3.5-5.1)
[2017-10-20] MEDS ORDERED: 0.9 % Sodium Chloride 250 ML IVC PRN (06:54)
[2017-10-20] MEDS ORDERED: Acetaminophen IV 1,000 MG/100 ML INFUS..BTL IVPB ONE (08:18)
[2017-10-20] MEDS ORDERED: 0.9 % Sodium Chloride 2,000 ML ONE (09:29)
--- NOTE | 2017-10-20 10:46 | General Surgery Progress Note ---
<Brianda Hayes Kenny - Last Filed: 10/20/17 10:44> Date of Encounter: 10/20/17 Time of Encounter: 10:15 - Assessment and Plan (1) Small bowel obstruction Current Visit: Yes Status: Acute Continue with conservative measures: SBFT shows contrast into the colon in the appropriate amount of time NG tube removed and clear liquids started- patient is tolerating Diarrhea from gastrograffin Advance to full liquids and then to renal diet as tolerated Supportive care Surgery will sign off at this time. Please call with any further questions/ concerns. Thank you for allowing us to participate in the care of this patient. She may follow-up with the surgery office on an as-needed basis. (2) End stage renal disease on dialysis Current Visit: Yes Status: Chronic Management per hospitalist and nephrology Dialysis MWF (3) Morbid obesity with BMI of 50.0-59.9, adult Current Visit: Yes Status: Chronic (4) DVT prophylaxis Current Visit: Yes Status: Acute Heparin 5,000 units SQ three times daily for DVT prophylaxis Subjective Patient reports: no new complaints, feels better, tolerating liquids well, flatus, bowel movement, diarrhea, afebrile Objective Vital Signs - Last 8 Hours Temp Pulse Resp BP Pulse Ox 10/20/17 10:15 126/56 10/20/17 10:00 129/46 10/20/17 09:45 135/61 10/20/17 09:30 117/65 10/20/17 09:15 126/60 10/20/17 09:00 123/66 10/20/17 08:45 104/55 10/20/17 08:30 127/53 10/20/17 08:15 125/51 10/20/17 08:00 110/49 10/20/17 07:45 97.5 F L 15 128/61 10/20/17 03:23 97.7 F 70 16 118/77 93 Intake and Output 10/19/17 10/20/17 10/20/17 23:59 07:59 15:59 Intake Total 600 / 600 Balance 600 / 600 Intake: Oral 0 / 0 Intake, Rinseback and Flushes 600 / 600 Other: Blood Glucose* 121 Hemodialysis Net Fluid Removed 0 788 (mL) - General physical appearance well developed, well nourished, no distress, no pain, obese - Eyes normal ocular movement - ENT normal mucosa, atraumatic, normocephalic - Neck Neck exam: trachea midline - Respiratory normal respiratory effort, clear to auscultation - Cardiovascular Cardiovascular exam: Present: RRR - Abdomen Abdomen: Present: bowel sounds present, soft, non tender - Neurologic CN 2-12 grossly intact - Psychiatric oriented to time, oriented to person, oriented to place, speech is normal, memory intact - Labs 10/20/17 04:34 10/20/17 04:34 Diabetes panel 10/20/17 Range/Units 04:34 Sodium 139 (136-145) mEq/L Potassium 3.4 L (3.5-5.1) mEq/L Chloride 96 L (98-107) mEq/L Carbon Dioxide 32 H (23-29) mEq/L BUN 30 H (6-20) mg/dL Creatinine 4.66 H (0.60-1.20) mg/dL Glucose 105 (70-105) mg/dL Calcium 9.4 (8.6-10.3) mg/dL Calcium panel 10/20/17 Range/Units 04:34 Calcium 9.4 (8.6-10.3) mg/dL Pituitary panel 10/20/17 Range/Units 04:34 Sodium 139 (136-145) mEq/L Potassium 3.4 L (3.5-5.1) mEq/L Chloride 96 L (98-107) mEq/L Carbon Dioxide 32 H (23-29) mEq/L BUN 30 H (6-20) mg/dL Creatinine 4.66 H (0.60-1.20) mg/dL Glucose 105 (70-105) mg/dL Calcium 9.4 (8.6-10.3) mg/dL Adrenal panel 10/20/17 Range/Units 04:34 Sodium 139 (136-145) mEq/L Potassium 3.4 L (3.5-5.1) mEq/L Chloride 96 L (98-107) mEq/L Carbon Dioxide 32 H (23-29) mEq/L BUN 30 H (6-20) mg/dL Creatinine 4.66 H (0.60-1.20) mg/dL Glucose 105 (70-105) mg/dL Calcium 9.4 (8.6-10.3) mg/dL Consult Discharge Plan - Plan Referrals: Ly,Maximino, MD [Primary Care Provider] - - Attending Attestation For this encounter, I have reviewed the [employer] or PA documentation, treatment plan, and medical decision making; and I have had face to face time with this patient. <Rocky Baum - Last Filed: 10/21/17 07:34> Date of Encounter: 10/20/17 Objective Vital Signs - Last 8 Hours Temp Pulse Resp BP Pulse Ox 10/21/17 06:46 99.2 F 73 17 112/60 96 Intake and Output 10/20/17 10/20/17 10/21/17 15:59 23:59 07:59 Intake Total 460 / 460 Output Total 1100 / 1100 Balance -1100 / -1100 460 / 460 Intake: Oral 460 / 460 Output: Urine 0 / 0 Total Dialysis (HD) Output 1100 / 1100 Other: Meal Dinner Percent of Meal Consumed 100% Blood Glucose* 91 99 91 Hemodialysis Net Fluid Removed 500 (mL) - Labs 10/21/17 04:47 10/21/17 04:47 Diabetes panel 10/21/17 Range/Units 04:47 Sodium 138 (136-145) mEq/L Potassium 3.6 (3.5-5.1) mEq/L Chloride 100 (98-107) mEq/L Carbon Dioxide 30 H (23-29) mEq/L BUN 23 H (6-20) mg/dL Creatinine 4.31 H (0.60-1.20) mg/dL Glucose 94 (70-105) mg/dL Calcium 9.0 (8.6-10.3) mg/dL Calcium panel 10/21/17 Range/Units 04:47 Calcium 9.0 (8.6-10.3) mg/dL Pituitary panel 10/21/17 Range/Units 04:47 Sodium 138 (136-145) mEq/L Potassium 3.6 (3.5-5.1) mEq/L Chloride 100 (98-107) mEq/L Carbon Dioxide 30 H (23-29) mEq/L BUN 23 H (6-20) mg/dL Creatinine 4.31 H (0.60-1.20) mg/dL Glucose 94 (70-105) mg/dL Calcium 9.0 (8.6-10.3) mg/dL Adrenal panel 10/21/17 Range/Units 04:47 Sodium 138 (136-145) mEq/L Potassium 3.6 (3.5-5.1) mEq/L Chloride 100 (98-107) mEq/L Carbon Dioxide 30 H (23-29) mEq/L BUN 23 H (6-20) mg/dL Creatinine 4.31 H (0.60-1.20) mg/dL Glucose 94 (70-105) mg/dL Calcium 9.0 (8.6-10.3) mg/dL - Attending Attestation I reviewed the above and agree with the above plan.
--- NOTE | 2017-10-20 19:30 | Nephrology Progress Note ---
Date of Encounter: 10/20/17 Time of Encounter: 09:45 - Assessment and Plan (1) End stage renal disease on dialysis Current Visit: Yes Status: Chronic HD for today (Wednesday) was ordered and she was seen/examined while on dialysis. VSS and no dialysis complications were noted. She still makes urine, and so the IVF that she's been receiving are reasonably safe: she has no peripheral edema noted. I used a higher K+ bath in the dialysate to help correct her hypokalemia. Minimial fluid removal was arranged with dialysis. Doing well from a nephrology perspective Next dialysis will be planned for Wednesday. Please feel free to contact me with any renal questions. (2) Hypokalemia Current Visit: Yes Status: Acute See above (3) Small bowel obstruction Current Visit: Yes Status: Acute Improving. Appreciate Gen Surgery (4) Morbid obesity with BMI of 50.0-59.9, adult Current Visit: Yes Status: Chronic Chronic Subjective Principal diagnosis: ESRD Interval history: Pt was seen/examined earlier today while she was on HD. She did not affirm N/V and said that her Abd pain was improving. Her diet has recently been slowly advanced. She did not report any dialysis related complaints such as cramping or dizziness or bleeding. Objective - Vital Signs Vital signs: Vital Signs Temp Pulse Resp BP Pulse Ox 10/20/17 19:19 98 F 71 17 128/61 96 10/20/17 16:07 97.9 F 69 17 134/71 98 10/20/17 11:30 97.4 F L 16 130/56 10/20/17 11:15 127/66 10/20/17 11:00 138/69 10/20/17 10:45 135/65 10/20/17 10:30 116/44 10/20/17 10:15 126/56 10/20/17 10:00 129/46 10/20/17 09:45 135/61 10/20/17 09:30 117/65 10/20/17 09:15 126/60 10/20/17 09:00 123/66 10/20/17 08:45 104/55 10/20/17 08:30 127/53 10/20/17 08:15 125/51 10/20/17 08:00 110/49 10/20/17 07:45 97.5 F L 15 128/61 10/20/17 03:23 97.7 F 70 16 118/77 93 10/19/17 22:53 98.4 F 65 16 129/84 99 10/19/17 19:36 98.1 F 72 16 130/85 97 Intake and Output 10/20/17 10/20/17 10/20/17 07:59 15:59 23:59 Intake Total 600 / 600 Output Total 1100 / 1100 Balance 600 / 600 -1100 / -1100 Intake: Oral 0 / 0 Intake, Rinseback and Flushes 600 / 600 Output: Urine 0 / 0 Total Dialysis (HD) Output 1100 / 1100 Other: Blood Glucose* 91 88 Hemodialysis Net Fluid Removed 0 500 (mL) - General Appearance General appearance: Present: well-developed, well-nourished, appears started age , obese EENT: Present: ATNC, PERRL, mucous membranes moist Neck: Present: supple Respiratory: Present: clear Cardiology: Present: no edema, regular rate, regular rhythm, normal S1, normal S2 Dialysis Vascular Access: Arteriovenous Fistula (Right AVF) thrill: Yes bruit: Yes Gastrointestinal: Present: normoactive bowel sounds, no tenderness, no guarding , obese Integumentary: Present: no rash, warm and dry Neurologic: Present: no focal deficit, no asterixis, alert and oriented x3 Musculoskeletal: Present: no deformities, no erythema, no cyanosis, no clubbing Psychiatric: Present: mood/affect appropriate, cooperative - Lab 10/20/17 04:34 10/20/17 04:34 Most recent lab results Calcium 9.4 mg/dL (8.6-10.3) 10/20/17 04:34 Phosphorus 3.8 mg/dL (2.7-4.5) 10/19/17 04:32 Magnesium 1.9 mg/dL (1.6-2.6) 10/19/17 04:32 Consult Discharge Plan - Plan Referrals: Steven Ly MD [Primary Care Provider] -
[2017-10-20] MEDS: Acetaminophen 325 MG TABLET PO PRN (22:35)
[2017-10-21 05:18] LABS: Hematocrit 44.5 % (35.3-44.9); Mean Corpuscular HGB Conc 30.6 g/dL (31.6-35.5); Mean Corpuscular Hemoglobin 29.7 pg (28.0-33.3); Mean Corpuscular Volume 97.2 fL (83.0-100.0); Mean Platelet Volume 10.9 fL (9.4-12.4); Platelet Count 146 K/mcL (140-400); Red Blood Count 4.58 M/mcL (3.82-4.97); Red Cell Distribution Width 13.2 % (11.5-14.5)
[2017-10-21 05:30] LABS: Hemoglobin 13.6 g/dL (11.5-15.4)
[2017-10-21 05:57] LABS: Potassium 3.6 mEq/L (3.5-5.1)
[2017-10-21] MEDS: *HR* Heparin 5,000 UNIT/ML VIAL SQ SCH ×3 (05:57→21:14)
[2017-10-21] MEDS: Acetaminophen 325 MG TABLET PO PRN ×2 (14:23→21:19)
--- NOTE | 2017-10-21 15:38 | Internal Med Progress Note ---
Date of Encounter: 10/21/17 Time of Encounter: 11:00 - Assessment and plan (1) Small bowel obstruction Current Visit: Yes Status: Acute Assessment and plan: presented with abdominal pain. ABD CT showed mid small bowel obstruction, likely due to adhesions, point of transition not clearly visualized. Initially managed with NG tube and NPO. Repeat KUB 10/19/17 mildly dilated small bowel loop without evidence of transition point or stricture, likely reflecting a partial small bowel obstruction. NG removed and clear liquids started per General Surgery. Okay to advance diet per Gen. surgery. Increase to regular diet on 10/20 area anticipate discharge 10/21 if patient tolerating regular diet. General Surgery followed (2) CKD (chronic kidney disease), stage IV Current Visit: No Status: Chronic Assessment and plan: per hx. HD M/W/F. Nephrology following (3) Diabetes Current Visit: Yes Status: Chronic Assessment and plan: per hx. Hgb A1c 4.8%. Cont SSI. Monitor blood sugar and titrate PRN Qualifiers: Diabetes mellitus type: type 2 Diabetes mellitus complication status: with kidney complications Diabetes mellitus complication detail: with chronic kidney disease Chronic kidney disease stage: unspecified stage Qualified Code(s): E11.22 - Type 2 diabetes mellitus with diabetic chronic kidney disease (4) DVT prophylaxis Current Visit: No Status: Acute Assessment and plan: heparin - Subjective Interval history: Seen and examined at bedside. Patient says she feels better and tolerating full diet at this time. She would like to advance to regular diet. She has been ambulating. Still having loose stools. No abdominal pain. - Constitutional Vitals: Temp Pulse Resp BP Pulse Ox 98.8 F 67 16 120/81 94 10/21/17 10:00 10/21/17 10:10/21/17 10:00 10/21/17 10:10/21/17 10:00 General appearance: Present: cooperative, A&O X 3, morbidly obese, pleasant, no acute distress, answers questions appropriately - Head Head exam: Present: atraumatic, normocephalic - Eye Eye exam: Present: PERRL, conjuntiva pink, sclera anicteric Pupils: Present: PERRL - Neck Neck exam general surgery: Present: supple, trachea midline. Absent: lymphadenopathy - Respiratory Respiratory exam: Present: CTAB. Absent: accessory muscle use, rales, rhonchi, wheezes - Cardiovascular Cardiovascular exam: Present: RRR, +S1, +S2. Absent: diastolic murmur, gallop, rubs, systolic murmur - GI/Abdominal GI/Abdominal exam: Present: normal bowel sounds, soft, no peritoneal signs. Absent: distended, tenderness - Extremities Exam Extremities exam: Present: warm, radial pulses palpable and symmetrical. Absent : calf tenderness, cyanotic, pedal edema - Neurological Exam Neurological exam: Present: CN II-XII intact, oriented X3, no focal deficits. Absent: pronater drift, facial droop, speech deficit - Skin Skin exam: Present: dry, intact Internal Medicine: Result - Labs CBC & Chem 7: 10/21/17 04:47 10/21/17 04:47 Labs: Short CBC 10/21/17 Range/Units 04:47 WBC 10.1 (4.3-11.1) K/mcL Hgb 13.6 D (11.5-15.4) g/dL Hct 44.5 (35.3-44.9) % Plt Count 146 (140-400) K/mcL [facility] 10/21/17 04:47 Sodium 138 Potassium 3.6 Chloride 100 Carbon Dioxide 30 H BUN 23 H Creatinine 4.31 H Glucose 94 Calcium 9.0 Consult Discharge Plan - Plan Referrals: Steven Ly MD [Primary Care Provider] - 11/01/17 3:40 pm
[2017-10-21] MEDS: Gabapentin 300 MG CAPSULE PO SCH (21:14)
[2017-10-21] MEDS: Calcium Acetate 667 MG CAPSULE PO SCH (21:14)
[2017-10-21] MEDS: *HR* Morphine 2 MG/ML SYRINGE IVP PRN (23:33)
[2017-10-22 05:50] LABS: Hematocrit 44.8 % (35.3-44.9); Mean Corpuscular HGB Conc 31.3 g/dL (31.6-35.5); Mean Corpuscular Hemoglobin 30.2 pg (28.0-33.3); Mean Corpuscular Volume 96.8 fL (83.0-100.0); Mean Platelet Volume 10.9 fL (9.4-12.4); Platelet Count 150 K/mcL (140-400); Red Blood Count 4.63 M/mcL (3.82-4.97); Red Cell Distribution Width 13.3 % (11.5-14.5)
[2017-10-22 05:52] LABS: Calcium 9.1 mg/dL (8.6-10.3); Potassium 3.8 mEq/L (3.5-5.1)
[2017-10-22] MEDS: Acetaminophen 325 MG TABLET PO PRN ×2 (06:05→19:58)
[2017-10-22] MEDS: *HR* Heparin 5,000 UNIT/ML VIAL SQ SCH ×3 (06:07→22:53)
[2017-10-22] MEDS ORDERED: 0.9 % Sodium Chloride 250 ML IVC PRN (06:24)
[2017-10-22] MEDS: Multivit/Ca/Min/Fe/FA 1 TAB TABLET PO SCH (06:42)
[2017-10-22] MEDS: FLUoxetine 20 MG CAPSULE PO SCH (06:42)
[2017-10-22] MEDS: Calcium Acetate 667 MG CAPSULE PO SCH ×3 (09:01→17:43)
[2017-10-22] MEDS: *HR* Morphine 2 MG/ML SYRINGE IVP PRN (10:53)
--- NOTE | 2017-10-22 13:15 | Nephrology Progress Note ---
Date of Encounter: 10/22/17 Time of Encounter: 12:00 - Assessment and Plan (1) End stage renal disease on dialysis Current Visit: Yes Status: Chronic Continue HD with UF as tolerated Lytes WNL (2) Hypokalemia Current Visit: Yes Status: Acute Resolved (3) Small bowel obstruction Current Visit: Yes Status: Acute Resolving Subjective Principal diagnosis: ESRD Interval history: Interim events noted, pt seen and examined on HD reports feeling better with no abdominal discomfort. She reports she is now tolerating regular foods Objective - Vital Signs Vital signs: Vital Signs Temp Pulse Resp BP Pulse Ox 10/22/17 13:00 117/65 10/22/17 12:45 111/65 10/22/17 12:30 107/64 10/22/17 12:15 114/72 10/22/17 12:00 107/63 10/22/17 11:45 119/71 10/22/17 11:30 118/69 10/22/17 11:15 120/62 10/22/17 11:00 128/69 10/22/17 10:45 99/69 10/22/17 10:30 111/59 10/22/17 10:15 106/55 10/22/17 10:00 98.6 F 20 108/57 10/22/17 09:00 97 10/22/17 07:21 98.0 F 82 19 129/78 98 10/22/17 03:20 97.6 F 76 17 117/74 98 10/21/17 23:03 98.1 F 75 16 114/73 98 10/21/17 19:42 98.1 F 70 17 109/68 93 10/21/17 14:00 97.8 F 70 16 142/84 94 Intake and Output 10/21/17 10/22/17 10/22/17 23:59 07:59 15:59 Intake Total 200 / 200 Balance 200 / 200 Intake: Oral 200 / 200 Other: Weight 145.603 kg Blood Glucose* 112 102 Hemodialysis Net Fluid Removed 1490 (mL) Patient Weight 10/22/17 23:59 Weight 145.603 kg - General Appearance General appearance: Present: well-developed, well-nourished EENT: Present: ATNC, mucous membranes moist Neck: Present: no JVD, supple Respiratory: Present: clear (ant bilat) Cardiology: Present: no edema, normal S1, normal S2 Dialysis Vascular Access: Arteriovenous Fistula thrill: Yes bruit: Yes Gastrointestinal: Present: no tenderness, no guarding, obese Integumentary: Present: warm and dry Neurologic: Present: no focal deficit Musculoskeletal: Present: no deformities Psychiatric: Present: mood/affect appropriate, cooperative - Lab 10/22/17 05:21 10/22/17 05:21 Most recent lab results Calcium 9.1 mg/dL (8.6-10.3) 10/22/17 05:21 Phosphorus 3.8 mg/dL (2.7-4.5) 10/19/17 04:32 Magnesium 1.9 mg/dL (1.6-2.6) 10/19/17 04:32 Consult Discharge Plan - Plan Referrals: Steven Ly MD [Primary Care Provider] - 11/01/17 3:40 pm
--- NOTE | 2017-10-22 14:44 | Discharge Summary ---
Date of Encounter: 10/22/17 Time of Encounter: 09:30 - Discharge Diagnosis (1) Small bowel obstruction Priority: Primary Status: Acute Comments: presented with abdominal pain. ABD CT showed mid small bowel obstruction, likely due to adhesions, point of transition not clearly visualized. Initially managed with NG tube and NPO. Repeat KUB 10/19/17 mildly dilated small bowel loop without evidence of transition point or stricture, likely reflecting a partial small bowel obstruction. NG removed and diet advanced per general surgery recommendation. No abdominal pain and tolerating regular diet at time of discharge. Can follow up with general surgery on an as-needed basis. General Surgery followed (2) CKD (chronic kidney disease), stage IV Priority: Primary Status: Chronic Comments: per hx. HD M/W/. Resume hemodialysis schedule as previously scheduled. Follow- up with nephrology (3) Diabetes Priority: Primary Status: Chronic Comments: per hx. Diet controlled. Hgb A1c 4.8%. Qualifiers: Diabetes mellitus type: type 2 Diabetes mellitus complication status: with kidney complications Diabetes mellitus complication detail: with chronic kidney disease Chronic kidney disease stage: on chronic dialysis Qualified Code(s): E11.22 - Type 2 diabetes mellitus with diabetic chronic kidney disease ; N18.6 - End stage renal disease; N18.6 - End stage renal disease; N18.6 - End stage renal disease; N18.6 - End stage renal disease; Z99.2 - Dependence on renal dialysis; Z99.2 - Dependence on renal dialysis; Z99.2 - Dependence on renal dialysis; Z99.2 - Dependence on renal dialysis - Discharge Medications Home Medications: Albuterol Sulfate [Proair Respiclick] 2 puff IH Q4H PRN 10/19/15 [History] Atorvastatin [Lipitor] 10 mg PO HS 10/19/15 [History] FLUoxetine HCl [Prozac] 20 mg PO QAM 10/19/15 [History] Omeprazole [PriLOSEC] 20 mg PO DAILY 10/19/15 [History] Fluticasone/Vilanterol [Breo Ellipta 100-25 Mcg INH] 1 puff IH DAILY 01/03/17 [ History] Gabapentin [Neurontin] 300 mg PO HS 01/03/17 [History] Oxygen 1 each .ROUTE AD #1 each 01/11/17 [Rx] Calcium Acetate [Phos-LO] 667 mg PO TIDWM 10/17/17 [History] Cinacalcet HCl [Sensipar] 60 mg PO DAILY 10/17/17 [History] Folic Acid/Vit Bcomp,C [Dialyvite Tablet] 1 tab PO DAILY 10/17/17 [History] Allergies/Adverse Reactions: 3 Allergy/AdvReac Type Severity Reaction Status Date / Time Sulfa (Sulfonamide Allergy Hives Verified 10/16/17 15:10 Antibiotics) iron AdvReac Hives Verified 10/16/17 15:10 Date of admission: 10/18/17 09:45 Primary care physician: Steven Ly MD Consults: 10/20/17 07:00 Consult to Dialysis [CONS] ONCE 10/22/17 06:30 Consult to Dialysis [CONS] ONCE Discharging clinician: Kenia Schultz Anticipated date of discharge: 10/22/17 - Patient Status Disposition: Home, Self-Care Condition: Good Functional capacity at discharge: independent ambulation Overall status at discharge: patient is back to baseline - Discharge Instructions Instructions: Bowel Obstruction (DC), Ileus (DC) Follow Up With: Steven Ly MD [Primary Care Provider] - 11/01/17 3:40 pm - Diet and Activity Activity: increase activity as tolerated Diet: advance to your usual diet Interval History: Seen and examined at bedside, says she feels better on my exam and like to discharge home today if possible. She does report vaginal bleeding which is different from her menstrual cycle. Reports a cough, productive at times. Overall says she feels better. Tolerating regular diet, no abdominal pain. One loose stool this morning. Hospital course: Ms. Saucedo is a 47 year old female - Time Spent with Patient Total time spent providing and/or coordinating discharge services: - Constitutional Vitals: Temp Pulse Resp BP Pulse Ox 97.9 F 82 20 124/74 97 10/22/17 13:30 10/22/17 07:21 10/22/17 13:30 10/22/17 13:30 10/22/17 09:00 General appearance: Present: cooperative, A&O X 3, morbidly obese, pleasant, no acute distress, answers questions appropriately - Head Head exam: Present: atraumatic, normocephalic - Eye Eye exam: Present: PERRL, conjuntiva pink, sclera anicteric Pupils: Present: PERRL - Neck Neck exam general surgery: Present: supple, trachea midline. Absent: lymphadenopathy - Respiratory Respiratory exam: Present: CTAB. Absent: accessory muscle use, rales, rhonchi, wheezes - Cardiovascular Cardiovascular exam: Present: RRR, +S1, +S2. Absent: diastolic murmur, gallop, rubs, systolic murmur - GI/Abdominal GI/Abdominal exam: Present: normal bowel sounds, soft, no peritoneal signs. Absent: distended, tenderness - Extremities Exam Extremities exam: Present: warm, radial pulses palpable and symmetrical. Absent : calf tenderness, cyanotic, pedal edema - Neurological Exam Neurological exam: Present: CN II-XII intact, oriented X3, no focal deficits. Absent: pronater drift, facial droop, speech deficit - Skin Skin exam: Present: dry, intact
[2017-10-22 15:26] LABS: Basophils % 0.2 %; Eosinophils # 0.4 K/mcL (0.0-0.6); Eosinophils % 2.9 %; Hematocrit 42.6 % (35.3-44.9); Hemoglobin 13.2 g/dL (11.5-15.4); Immature Granulocytes % 0.4 % (0-4); Lymphocytes # 0.8 K/mcL (0.6-4.6); Lymphocytes % 6.9 %; Mean Corpuscular Hemoglobin 29.6 pg (28.0-33.3); Mean Corpuscular Volume 95.5 fL (83.0-100.0); Mean Platelet Volume 10.9 fL (9.4-12.4); Monocytes # 1.4 K/mcL (0.0-1.3); Monocytes % 11.4 %; Neutrophils # 9.5 K/mcL (1.6-8.9); Platelet Count 145 K/mcL (140-400); Red Blood Count 4.46 M/mcL (3.82-4.97); Red Cell Distribution Width 13.2 % (11.5-14.5); Segmented Neutrophils % 78.2 %
[2017-10-22] MEDS: Gabapentin 300 MG CAPSULE PO SCH (19:46)
[2017-10-23] MEDS: Acetaminophen 325 MG TABLET PO PRN (05:14)
[2017-10-23] MEDS: *HR* Heparin 5,000 UNIT/ML VIAL SQ SCH (05:19)
[2017-10-23 05:49] LABS: Hematocrit 41.4 % (35.3-44.9); Hemoglobin 13.2 g/dL (11.5-15.4); Mean Corpuscular HGB Conc 31.9 g/dL (31.6-35.5); Mean Corpuscular Hemoglobin 30.4 pg (28.0-33.3); Mean Corpuscular Volume 95.4 fL (83.0-100.0); Mean Platelet Volume 11.4 fL (9.4-12.4); Platelet Count 134 K/mcL (140-400); Red Blood Count 4.34 M/mcL (3.82-4.97); Red Cell Distribution Width 13.2 % (11.5-14.5)
[2017-10-23 06:14] LABS: Calcium 8.9 mg/dL (8.6-10.3); Potassium 3.7 mEq/L (3.5-5.1)
[2017-10-23 07:37] VITALS: BP 124/71
[2017-10-23] MEDS: Multivit/Ca/Min/Fe/FA 1 TAB TABLET PO SCH (10:02)
[2017-10-23] MEDS: Calcium Acetate 667 MG CAPSULE PO SCH ×2 (10:03→13:01)
[2017-10-23] MEDS: FLUoxetine 20 MG CAPSULE PO SCH (10:03)
--- NOTE | 2017-10-23 10:31 | Discharge Summary ---
Date of Encounter: 10/23/17 Time of Encounter: 09:00 - Discharge Diagnosis (1) Small bowel obstruction Priority: Primary Status: Resolved Comments: presented with abdominal pain. No prior hx abdominal or pelvic surgeries. ABD CT showed mid small bowel obstruction, likely due to adhesions, point of transition not clearly visualized. Repeat KUB 10/19/17 showed mildly dilated small bowel loop, concerning for partial small bowel obstruction. NG removed and diet advanced per general surgery recommendation. Managed conservatively with NG and NPO. Symptoms significantly improved and NG was removed, diet advanced. She was tolerating regular diet and without abdominal pain at time of discharge. Can follow up with general surgery on an as-needed basis. General Surgery followed (2) End stage renal disease on dialysis Priority: Secondary Status: Chronic Comments: per hx. HD M/W/F. resume previous dialysis schedule at discharge. Nephrology followed (3) Diabetes Priority: Secondary Status: Chronic Comments: per hx. Hgb A1c 4.8%. Cont SSI. 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 Lactic acid normal. Afebrile, no tachycardia, no hypotension. Possibly reactive. Recommend repeat CBC with PCP within one week Qualifiers: Leukocytosis type: unspecified Qualified Code(s): D72.829 - Elevated white blood cell count, unspecified - Discharge Medications Home Medications: Albuterol Sulfate [Proair Respiclick] 2 puff IH Q4H PRN 10/19/15 [History] Atorvastatin [Lipitor] 10 mg PO HS 10/19/15 [History] FLUoxetine HCl [Prozac] 20 mg PO QAM 10/19/15 [History] Omeprazole [PriLOSEC] 20 mg PO DAILY 10/19/15 [History] Fluticasone/Vilanterol [Breo Ellipta 100-25 Mcg INH] 1 puff IH DAILY 01/03/17 [ History] Gabapentin [Neurontin] 300 mg PO HS 01/03/17 [History] Oxygen 1 each .ROUTE AD #1 each 01/11/17 [Rx] Calcium Acetate [Phos-LO] 667 mg PO TIDWM 10/17/17 [History] Cinacalcet HCl [Sensipar] 60 mg PO DAILY 10/17/17 [History] Folic Acid/Vit Bcomp,C [Dialyvite Tablet] 1 tab PO DAILY 10/17/17 [History] Allergies/Adverse Reactions: 3 Allergy/AdvReac Type Severity Reaction Status Date / Time Sulfa (Sulfonamide Allergy Hives Verified 10/16/17 15:10 Antibiotics) iron AdvReac Hives Verified 10/16/17 15:10 Date of admission: 10/18/17 09:45 Primary care physician: Steven Ly MD Consults: 10/20/17 07:00 Consult to Dialysis [CONS] ONCE 10/22/17 06:30 Consult to Dialysis [CONS] ONCE Discharging clinician: Kenia Schultz Anticipated date of discharge: 10/23/17 - Patient Status Disposition: Home, Self-Care Condition: Good Functional capacity at discharge: uses cane/walker Overall status at discharge: patient is progressing back to baseline - Discharge Instructions Instructions: Bowel Obstruction (DC), Ileus (DC) Follow Up With: Steven Ly MD [Primary Care Provider] - 11/01/17 3:40 pm - Diet and Activity Activity: increase activity as tolerated Diet: advance to your usual diet Interval History: Seen and examined at bedside; sitting up in chair eating breakfast, says she feels better like to go home today. Still having loose stool but overall improved. No abdominal pain. She is tolerating regular diet. Hospital course: Ms. Saucedo is a 47 year old female - Time Spent with Patient Total time spent providing and/or coordinating discharge services: - Constitutional Vitals: Temp Pulse Resp BP Pulse Ox 97.6 F 69 16 124/71 95 10/23/17 07:36 10/23/17 07:36 10/23/17 07:36 10/23/17 07:36 10/23/17 07:36 General appearance: Present: cooperative, A&O X 3, morbidly obese, pleasant, no acute distress, answers questions appropriately - Head Head exam: Present: atraumatic, normocephalic - Eye Eye exam: Present: PERRL, conjuntiva pink, sclera anicteric Pupils: Present: PERRL - Neck Neck exam general surgery: Present: supple, trachea midline. Absent: lymphadenopathy - Respiratory Respiratory exam: Present: CTAB. Absent: accessory muscle use, rales, rhonchi, wheezes - Cardiovascular Cardiovascular exam: Present: RRR, +S1, +S2. Absent: diastolic murmur, gallop, rubs, systolic murmur - GI/Abdominal GI/Abdominal exam: Present: normal bowel sounds, soft, no peritoneal signs. Absent: distended, tenderness - Extremities Exam Extremities exam: Present: warm, radial pulses palpable and symmetrical. Absent : calf tenderness, cyanotic, pedal edema - Neurological Exam Neurological exam: Present: CN II-XII intact, oriented X3, no focal deficits. Absent: pronater drift, facial droop, speech deficit - Skin Skin exam: Present: dry, intact
== END 2017-10-23 13:20 | disposition home or self-care (01) | DRG 388 ==
LOC: 2SOUTHHOLD 15:03 → EMEROO 15:03 → 2SOUTHHOLD 22:33 → 3BNU 10-17 13:34
PROVIDERS: ADMIT Internal Medicine; ATTEND Hospitalist

== ENCOUNTER 2017-11-17 11:41 | Inpatient (IN) ==
[2017-11-17 12:39] LABS: Bilirubin,Urine Small (Negative); Blood,Urine Large (Negative); Clarity,Urine Cloudy (Clear); Color,Urine Yellow (Yellow); Glucose,Urine (UA) Normal (Normal); Ketones,Urine Negative (Negative); Leukocyte Esterase,Urine Small (Negative); Nitrite,Urine Negative (Negative); Protein,Urine 100 mg/dL (Neg-Trace); Specific Gravity,Urine 1.014 (1.010-1.025); Urobilinogen,Urine Normal (Normal)
[2017-11-17 12:40] LABS: Bacteria,Urine Moderate per hpf (None-Few); Hyaline Casts,Urine Few per lpf (None-Few); RBC,Urine 30-50 per hpf (0-3); Squamous Epithelial Cell,Urine Many per lpf (None-Few); WBC,Urine 50-100 per hpf (0-3)
[2017-11-17] MEDS ORDERED: Ondansetron 4 MG/2 ML VIAL IVP ONE (12:40)
[2017-11-17] MEDS ORDERED: 0.9 % Sodium Chloride 1,000 ML IVC ONE (12:40)
[2017-11-17] MEDS ORDERED: *HR* FentaNYL (PF) 100 MCG/2 ML VIAL IVP ONE ×2 (12:44→14:37)
--- NOTE | 2017-11-17 12:50 | Emergency Department Note ---
Disposition Clinical Impression: Enteritis, End stage renal disease Leukocytosis Qualifiers: Leukocytosis type: unspecified Qualified Code(s): D72.829 - Elevated white blood cell count, unspecified Disposition: Admitted As Inpatient Condition: Good Abdominal Pain HPI - General Chief Complaint: ED Abdominal Pain Stated Complaint: RLQ pain,V/D Time Seen by Provider: 11/17/17 12:09 Source: patient Mode of arrival: private vehicle Limitations: physical limitation Nursing Notes Reviewed: Yes Vital Signs Reviewed: Yes - History of Present Illness HPI Narrative: 47-year-old female history of morbid obesity, prior small bowel obstruction last month who presents to the ER with a chief complaint of right lower quadrant abdominal pain. Patient reports that she started having right lower quadrant abdominal pain roughly 4 days ago. States that yesterday she started having diarrhea. Believes it was a little blood in it earlier. Also states this morning she woke up with some bilious vomiting. No blood in her vomit. Reports her pain is mostly in the right mid abdomen all to the side of her umbilicus. She also states that she noticed a boil in her groin this morning. No prior history of abdominal procedures. States she has had to have an abscess drained close that area before. She denies any fevers. No dysuria or hematuria. No other complaints. Pt Subjective Complaint: abdominal pain Onset (ago): day(s) Consistency: intermittent Location: RLQ Pain Severity: moderate Pain Scale: 7 Quality: stabbing Radiation: none Migration to: no migration Improves with: nothing Worsens with: nothing Associated symptoms: Reports: nausea, vomiting, diarrhea. Denies: fever, dysuria, hematuria - Related Data Home Medications Medication Instructions Recorded Confirmed Albuterol Sulfate [Proair 2 puff IH Q4H PRN 10/19/15 11/17/17 Respiclick] Atorvastatin [Lipitor] 10 mg PO HS 10/19/15 11/17/17 FLUoxetine HCl [Prozac] 20 mg PO QAM 10/19/15 11/17/17 Omeprazole [PriLOSEC] 20 mg PO DAILY 10/19/15 11/17/17 Fluticasone/Vilanterol [Breo 1 puff IH DAILY 01/03/17 11/17/17 Ellipta 100-25 Mcg INH] Gabapentin [Neurontin] 300 mg PO HS 01/03/17 11/17/17 Calcium Acetate [Phos-LO] 667 mg PO TIDWM 10/17/17 11/17/17 Cinacalcet HCl [Sensipar] 60 mg PO DAILY 10/17/17 11/17/17 Folic Acid/Vit Bcomp,C [Dialyvite 1 tab PO DAILY 10/17/17 11/17/17 Tablet] Allergies Allergy/AdvReac Type Severity Reaction Status Date / Time Sulfa (Sulfonamide Allergy Hives Verified 10/16/17 15:10 Antibiotics) iron AdvReac Hives Verified 10/16/17 15:10 All systems ED: reviewed and negative except as stated. Constitutional: Denies: fever Cardiovascular: Denies: chest pain Respiratory: Reports: dyspnea (Chronic) Gastrointestinal: Reports: abdominal pain, nausea, vomiting, diarrhea Genitourinary: Denies: dysuria, hematuria Abdominal Pain PMH - Past Medical History Medical history: Reports: COPD, coronary artery disease, dialysis, hyperlipidemia, hypertension, kidney stones, renal disease Female Surgical History: Reports: orthopedic, other, Tonsillectomy NETWORK SUPPORT history: Reports: no NETWORK SUPPORT history Psychiatric history: Reports: anxiety, depression - Social History Smoking status: Never smoker Alcohol use: Reports: none Drug use: Reports: none Physical Exam - General Limitations: no limitations General appearance: alert, in no apparent distress - Head Head exam: atraumatic, normocephalic - Eye Eye exam: Present: normal appearance - ENT ENT exam: normal exam - Neck Neck exam: Present: normal inspection - Chest Chest inspection: Present: normal inspection, symmetric chest wall rise - Respiratory Respiratory exam: Present: normal lung sounds bilaterally - Cardiovascular Cardiovascular exam: Present: regular rate, normal rhythm, normal heart sounds - Abdominal Exam Abdominal exam: Present: soft, tenderness (Patient has mild abdominal pain adjacent to the umbilicus in the right midabdomen. No distention guarding or rigidity.). 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: Yes External Exam: Present: swelling (There is an area of induration over the left lateral labia majora without fluctuance.) - Extremities Exam Extremities exam: Present: normal inspection, full ROM - Expanded Upper Extremity Exam Shoulder exam: Present: normal inspection, full ROM Arm exam: Present: normal inspection, full ROM Elbow exam: Present: normal inspection, full ROM Forearm/Wrist exam: Present: normal inspection, full ROM Hand exam: Present: normal inspection, full ROM - Expanded Lower Extremity Exam Hip/Pelvis exam: Present: normal inspection, full ROM Upper leg exam: Present: normal inspection, full ROM Knee exam: Present: normal inspection, full ROM Lower leg exam: Present: normal inspection, full ROM Ankle exam: Present: normal inspection, full ROM Foot/toe exam: Present: normal inspection, full ROM - Skin Skin exam: Present: warm, dry Course Course Narrative: Patient seen and examined. Vital signs reviewed. Nonsurgical abdominal exam. Her pain is actually off to the side from her umbilicus on the right. She also has induration in the left labia without palpatory findings to suggest an abscess. We will get a CT scan of the abdomen and pelvis as well as labs, urinalysis. Patient given IV fluids, pain and nausea medications. - Reevaluation(s) Reevaluation #1: Reviewed CT scan with concern for possible ruptured appendicitis versus enteritis. I reviewed the scans personally. She does have a leukocytosis of 21 with a neutrophil predominance. Patient updated of findings and surgery has been paged. Patient given a dose of IV Zosyn. Time: 14:05 - Consultations Consultation #1: I spoke with the on-call surgeon Dr. Burrell. Discussed the patient's history, exam, imaging and labs today. Requested that he review the images as there was concern for acute appendicitis with the inability to exclude an abscess formation. He reviewed the imaging and recommended oral contrast for evaluation given concern for abscess. Reports that if it has been going on for 4 days she will likely need a drain placed prior to operative intervention and that this would not be an acute operative issue. Agrees with IV antibiotics, admission to the hospitalist and surgical consultation. Time: 14:25 Consultation #2: I spoke again with the on-call surgeon at the request of the hospitalist. Surgery reports that management is currently nonoperative and they will follow as a aviation consultant but will not be the primary provider. Vital Signs Temperature 99.2 F 11/17/17 12:01 Pulse Rate 90 11/17/17 12:01 Respiratory Rate 18 11/17/17 12:01 Blood Pressure 107/76 11/17/17 12:01 O2 Sat by Pulse Oximetry 97 11/17/17 12:01 Temperature 99.2 F 11/17/17 12:01 Pulse Rate 77 11/17/17 16:06 Respiratory Rate 16 11/17/17 16:06 Blood Pressure 121/90 11/17/17 16:06 O2 Sat by Pulse Oximetry 97 11/17/17 16:06 Oxygen Delivery Oxygen Delivery Room Air Abdominal Pain - MDM Narrative Medical decision making narrative: 47-year-old female history of end-stage renal disease on dialysis, morbid obesity, COPD who presents to the ER due to right lower quadrant abdominal pain for 4 days. She is well appearing and hemodynamically stable here. CT scan without contrast initially demonstrates acute appendicitis versus enteritis. Case was discussed with on-call surgeon who recommended repeat scan with oral contrast. The Immanuel continues to be appendicitis or enteritis. She is noted to have a leukocytosis here. Creatinine of 4.54 with normal potassium. She did miss dialysis today and I discussed with her clinical faculty who was also consulted. She is admitted to the hospitalist service given a dose of IV Zosyn. - Lab Data Lab results reviewed: Yes I reviewed the patient's lab results. Result diagrams: 11/17/17 13:09 11/17/17 13:09 Lab Results 11/17/17 11/17/17 11/17/17 Range/Units 12:22 12:22 13:09 WBC 21.2 H (4.3-11.1) K/mcL RBC 4.35 (3.82-4.97) M/mcL Hgb 13.2 (11.5-15.4) g/dL Hct 40.2 (35.3-44.9) % MCV 92.4 (83.0-100.0) fL MCH 30.3 (28.0-33.3) pg MCHC 32.8 (31.6-35.5) g/dL RDW 13.2 (11.5-14.5) % Plt Count 229 (140-400) K/mcL MPV 10.1 (9.4-12.4) fL Immature Gran % 0.6 (0-4) % Seg Neutrophils % 85.7 % Lymphocytes % 4.9 % Monocytes % 8.6 % Eosinophils % 0.1 % Basophils % 0.1 % Neutrophils # 18.2 H (1.6-8.9) K/mcL Lymphocytes # 1.0 (0.6-4.6) K/mcL Monocytes # 1.8 H (0.0-1.3) K/mcL Eosinophils # 0.0 (0.0-0.6) K/mcL Basophils # 0.0 (0.0-0.2) K/mcL PT (9.4-12.1) Seconds INR Sodium (136-145) mEq/L Potassium (3.5-5.1) mEq/L Chloride (98-107) mEq/L Carbon Dioxide (23-29) mEq/L BUN (6-20) mg/dL Creatinine (0.60-1.20) mg/dL Est GFR ( Amer) (> 60) Est GFR (Non-Af Amer) (> 60) BUN/Creatinine Ratio (6-26) Glucose (70-105) mg/dL Calculated Osmolality (280-300) Calcium (8.6-10.3) mg/dL Total Bilirubin (0.3-1.0) mg/dL Direct Bilirubin (0.0-0.2) mg/dL Indirect Bilirubin (0.0-1.2) mg/dL AST (13-39) Units/L ALT (7-52) Units/L Alkaline Phosphatase (34-104) Units/L Serum Total Protein (6.4-8.9) g/dL Albumin (3.5-5.7) g/dL Globulin (2.4-3.5) g/dL Albumin/Globulin Ratio (1.1-2.2) Lipase (11-82) Units/L Urine Color Yellow (Yellow) Urine Clarity Cloudy A (Clear) Urine pH 6.0 (5.0-8.0) pH Units Ur Specific [place] 1.014 (1.010-1.025) Urine Protein 100 H (Neg-Trace) mg/dL Urine Glucose (UA) Normal (Normal) mg/dL Urine Ketones Negative (Negative) mg/dL Urine Blood Large H (Negative) Urine Nitrite Negative (Negative) Urine Bilirubin Small H (Negative) Urine Urobilinogen Normal (Normal) mg/dL Ur Leukocyte Esterase Small H (Negative) Urine Microscopic RBC 30-50 H (0-3) per hpf Urine Microscopic WBC 50-100 H (0-3) per hpf Ur Squamous Epith Cells Many H (None-Few) per lpf Urine Bacteria Moderate H (None-Few) per hpf Hyaline Casts Few (None-Few) per lpf Ur Culture Indicated? NO. (NO) Urine Test Negative (Negative) 11/17/17 11/17/17 Range/Units 13:09 13:09 WBC (4.3-11.1) K/mcL RBC (3.82-4.97) M/mcL Hgb (11.5-15.4) g/dL Hct (35.3-44.9) % MCV (83.0-100.0) fL MCH (28.0-33.3) pg MCHC (31.6-35.5) g/dL RDW (11.5-14.5) % Plt Count (140-400) K/mcL MPV (9.4-12.4) fL Immature Gran % (0-4) % Seg Neutrophils % % Lymphocytes % % Monocytes % % Eosinophils % % Basophils % % Neutrophils # (1.6-8.9) K/mcL Lymphocytes # (0.6-4.6) K/mcL Monocytes # (0.0-1.3) K/mcL Eosinophils # (0.0-0.6) K/mcL Basophils # (0.0-0.2) K/mcL PT 13.7 H (9.4-12.1) Seconds INR 1.3 Sodium 135 L (136-145) mEq/L Potassium 3.3 L (3.5-5.1) mEq/L Chloride 97 L (98-107) mEq/L Carbon Dioxide 25 (23-29) mEq/L BUN 39 H (6-20) mg/dL Creatinine 4.54 H (0.60-1.20) mg/dL Est GFR ( Amer) 12 L (> 60) Est GFR (Non-Af Amer) 10 L (> 60) BUN/Creatinine Ratio 9 (6-26) Glucose 123 H (70-105) mg/dL Calculated Osmolality 291 (280-300) Calcium 9.8 (8.6-10.3) mg/dL Total Bilirubin 0.6 (0.3-1.0) mg/dL Direct Bilirubin 0.2 (0.0-0.2) mg/dL Indirect Bilirubin 0.4 (0.0-1.2) mg/dL AST 12 L (13-39) Units/L ALT 10 (7-52) Units/L Alkaline Phosphatase 111 H (34-104) Units/L Serum Total Protein 7.2 (6.4-8.9) g/dL Albumin 3.5 (3.5-5.7) g/dL Globulin 3.7 H (2.4-3.5) g/dL Albumin/Globulin Ratio 0.9 L (1.1-2.2) Lipase 7 L (11-82) Units/L Urine Color (Yellow) Urine Clarity (Clear) Urine pH (5.0-8.0) pH Units Ur Specific [place] (1.010-1.025) Urine Protein (Neg-Trace) mg/dL Urine Glucose (UA) (Normal) mg/dL Urine Ketones (Negative) mg/dL Urine Blood (Negative) Urine Nitrite (Negative) Urine Bilirubin (Negative) Urine Urobilinogen (Normal) mg/dL Ur Leukocyte Esterase (Negative) Urine Microscopic RBC (0-3) per hpf Urine Microscopic WBC (0-3) per hpf Ur Squamous Epith Cells (None-Few) per lpf Urine Bacteria (None-Few) per hpf Hyaline Casts (None-Few) per lpf Ur Culture Indicated? (NO) Urine Test (Negative) - Radiology Data Radiology results reviewed: Yes I reviewed the patient's radiology results. Abdomen/Pelvis CT 11/17/17 12:41 IMPRESSION: 1. Inflammatory changes right lower quadrant not present previously, suspicious for acute appendicitis or enteritis. I cannot exclude underlying abscess. Correlation with IV contrast-enhanced CT with oral contrast may be useful. 2. Apparent transition at this level of mildly dilated small bowel loops possibly reflecting partial small bowel obstruction. Correlation with IV contrast-enhanced CT with oral contrast may be useful. 3. Probable left uterine fibroid. This could be confirmed sonographically. 4. Midline ventral hernia lower anterior pelvis contains fat. 5. Unchanged appearance of the kidneys with bilateral nephrocalcinosis. No hydronephrosis. D/ / Edu Kraft / Edu Kraft Interpreting Provider: Edu Kraft - EKG Data EKG attestation: Yes I reviewed and interpreted this EKG. EKG results narrative: EKG demonstrates sinus rhythm with a rate of 83 bpm. Normal axis. Normal intervals. Normal R-wave progression. No gross ST elevations or depressions. No acute ischemic findings. S.[email or web address]. - S.Gisela Situation: Demographics, MOA Background: Presenting Complaint, Relevant PMH, Meds, & Allergies Assessment: Vital Signs, Course and respsone to treatment, Exam Concerns, Patient/Family Expectation, Pertinant Lab Results Recommendation: Barrier(s) to disposition, Recommendation based on pending studies, treatments, or consults [email or web address] Report Given to: Dr. Howell Attestation Statement - Attestation Attestation: I examined this patient and my medical decision-making was reviewed with the Resident Physician, Dr. Perez. I agree with the documented findings, disposition and treatment plan as described except to the extent set forth below. Patient is a 47-year-old morbidly obese white female with a history of end- stage renal disease on hemodialysis. Patient presents with gradually worsening right-sided abdominal pain for the past 4 days that been associated with bilious vomiting over the last 24 hours as well as one to 2 loose watery bowel movements. Patient denies any fevers or chills, and reports that she was just recently discharged from hospital approximately a week ago for a partial small bowel obstruction and which she required NG tube placement. Patient did not require surgery and has had no prior abdominal surgeries. Patient also mentions boil to her left labial area. I agree with the patient's physical exam findings as documented. Patient's hemodynamically stable on arrival and in no acute distress with a nonsurgical abdomen on assessment. Patient underwent lab evaluation and CT imaging without contrast secondary to her renal disease and was provided pain meds and antiemetics. Patient's labs show significant leukocytosis at 21 with a left shift, and CT scan was concerning for possible ruptured appendicitis with abscess formation versus enteritis. Serial abdominal exams remain unchanged and patient remains having a nonsurgical abdomen on assessment. We elected to contact the surgeon immediately to notify him of abnormal CT findings and if he would like to come and assess the patient versus admission to his service for surgical intervention. Dr. Petersen reviewed the CT scan and recommended repeat CT imaging with oral contrast. Patient remained hemodynamically stable in the emergency department with no significant increase in pain. Patient underwent oral contrast with subsequent bouts of diarrhea in the ED. Repeat imaging shows similar findings but radiologist now states that there is no presence of abscess. We again notified surgery who feels the patient's CT findings are nonsurgical in origin and recommend continue medical management and they will agree to consult on the patient. Patient was admitted to the hospitalist service. Nephrology was also consult it as patient missed dialysis today. Patient's abdominal exam remains unchanged, vital signs are stable. Patient remains nothing by mouth and received IV Zosyn for potential surgical issue. Patient will be admitted for further evaluation and management.
[2017-11-17 13:26] LABS: Basophils % 0.1 %; Eosinophils % 0.1 %; Hematocrit 40.2 % (35.3-44.9); Hemoglobin 13.2 g/dL (11.5-15.4); Immature Granulocytes % 0.6 % (0-4); Lymphocytes % 4.9 %; Mean Corpuscular HGB Conc 32.8 g/dL (31.6-35.5); Mean Corpuscular Hemoglobin 30.3 pg (28.0-33.3); Mean Corpuscular Volume 92.4 fL (83.0-100.0); Mean Platelet Volume 10.1 fL (9.4-12.4); Monocytes # 1.8 K/mcL (0.0-1.3); Monocytes % 8.6 %; Neutrophils # 18.2 K/mcL (1.6-8.9); Platelet Count 229 K/mcL (140-400); Red Blood Count 4.35 M/mcL (3.82-4.97); Red Cell Distribution Width 13.2 % (11.5-14.5); Segmented Neutrophils % 85.7 %
[2017-11-17] MEDS ORDERED: Piperacillin/Tazobactam 3.375 GM in Water for inj. (sterile) 20 ML IVP ONE (14:01)
[2017-11-17 14:26] LABS: Albumin 3.5 g/dL (3.5-5.7); Albumin/Globulin Ratio 0.9 (1.1-2.2); Bilirubin,Direct 0.2 mg/dL (0.0-0.2); Bilirubin,Indirect 0.4 mg/dL (0.0-1.2); Bilirubin,Total 0.6 mg/dL (0.3-1.0); Calcium 9.8 mg/dL (8.6-10.3); Globulin 3.7 g/dL (2.4-3.5); Potassium 3.3 mEq/L (3.5-5.1); Total Protein 7.2 g/dL (6.4-8.9)
[2017-11-17] MEDS ORDERED: *HR* FentaNYL (PF) 100 MCG/2 ML VIAL ONE (14:35)
[2017-11-17 14:46] LABS: INR 1.3; Prothrombin Time 13.7 Seconds (9.4-12.1)
--- NOTE | 2017-11-17 16:55 | General Surgery Consult Note ---
Date of Encounter: 11/17/17 Time of Encounter: 16:45 Assessment and Plan (1) Perforated appendicitis Current Visit: Yes Status: Acute NPO IV fluids IV antibiotics Repeat CT scan with PO contrast- ordered per ED Supportive care and pain control Serial abdominal exams Repeat am labs GI/DVT prophylaxis IS every 1 hour while awake (2) HTN (hypertension) Current Visit: No Status: Chronic Normotensive Management per medicine service Qualifiers: Hypertension type: unspecified Qualified Code(s): I10 - Essential (primary ) hypertension (3) Diabetes Current Visit: No Status: Chronic Management per medicine service Qualifiers: Diabetes mellitus type: type 2 Diabetes mellitus complication status: with kidney complications Diabetes mellitus complication detail: with chronic kidney disease Diabetes mellitus rn long term care insulin use: unspecified rn long term care insulin use status Chronic kidney disease stage: on chronic dialysis Qualified Code(s): E11.22 - Type 2 diabetes mellitus with diabetic chronic kidney disease; N18.6 - End stage renal disease; N18.6 - End stage renal disease ; N18.6 - End stage renal disease; N18.6 - End stage renal disease; Z99.2 - Dependence on renal dialysis; Z99.2 - Dependence on renal dialysis; Z99.2 - Dependence on renal dialysis; Z99.2 - Dependence on renal dialysis (4) Morbid obesity with BMI of 50.0-59.9, adult Current Visit: No Status: Chronic (5) End stage renal disease on dialysis Current Visit: No Status: Chronic Nephrology consulted- patient states that she will go for dialysis tomorrow 11/18 (6) DVT prophylaxis Current Visit: No Status: Acute Heparin SQ for DVT prophylaxis [facility] TID with assistance History of Present Illness Consult date: 11/18/17 Reason for consult: abdominal pain Requesting physician: Orlin Perez History of present illness: Ms. Saucedo is a 47 year old female who presented to the ED with complaints of a 4 day history of abdominal pain. She reports that the pain is located from the umbilicus into the RLQ. The pain waxes and waines and she cannot pinpoint any aggrevating or alleviating factors. She has never expereienced pain like this in the past. She admits to one episode of vomiting but denies any hematemesis of coffee ground emesis. She states that she has not had much of an appetite for the last 4 days. Admits to diarrhea and states that there may have been some blood mixed in her stool. Denies any constipation. Denies any fevers or chills. Denies any chest pains or shortness of breath. Denies any difficulty with urination. She does admit to having a "boil" located around her groin area. She has had a CT without contrast concerning for a perforated appendicitis. We have been asked to see and evaluate the patient for evaluation and recommendations. Past Med Surg Social Fam HX - Past Medical History Source: patient, old records reviewed Medical history: COPD, coronary artery disease, diabetes, dialysis, hyperlipidemia, hypertension, kidney stones, renal disease (ESRD on dialysis every MWF (Renal tubular acidosis)), other (Anemia, Vitamin D Deficiency, Morbid obesity) Psychiatric history: anxiety, depression - Past Surgical History Surgical History: orthopedic, other (anterior cervical decompression and fusion) , other (Tonsillectomy; drainage of groin infection) - Social History Smoking Status: Never smoker Smokeless Tobacco Status: No Alcohol use: none Drug use: none Current living situation: Home - Independent Activity Level: Independent ambulation - Family History Mother Living Status: Still Living Hx Family Cardiac Disorders: Yes (HTN) Hx Family Neurologic Disorders: Yes (Stoke) Father Living Status: Hx Family Cancer: Yes (Stomach) Hx Family Endocrine Disorder: Yes (Diabetes) Medications and Allergies Albuterol Sulfate [Proair Respiclick] 2 puff IH Q4H PRN 10/19/15 [History] Atorvastatin [Lipitor] 10 mg PO HS 10/19/15 [History] FLUoxetine HCl [Prozac] 20 mg PO QAM 10/19/15 [History] Omeprazole [PriLOSEC] 20 mg PO DAILY 10/19/15 [History] Fluticasone/Vilanterol [Breo Ellipta 100-25 Mcg INH] 1 puff IH DAILY 01/03/17 [ History] Gabapentin [Neurontin] 300 mg PO HS 01/03/17 [History] Calcium Acetate [Phos-LO] 667 mg PO TIDWM 10/17/17 [History] Cinacalcet HCl [Sensipar] 60 mg PO DAILY 10/17/17 [History] Folic Acid/Vit Bcomp,C [Dialyvite Tablet] 1 tab PO DAILY 10/17/17 [History] 3 Allergy/AdvReac Type Severity Reaction Status Date / Time Sulfa (Sulfonamide Allergy Hives Verified 10/16/17 15:10 Antibiotics) iron AdvReac Hives Verified 10/16/17 15:10 Review of Systems All systems PM: reviewed and no additional remarkable complaints except as stated (in the HPI) All systems PM: The remainder of the systems were reviewed and are negative General Surgery Exam Initial Vital Signs Temp Pulse Resp BP Pulse Ox 99.2 F 90 18 107/76 97 11/17/17 12:01 11/17/17 12:01 11/17/17 12:01 11/17/17 12:01 11/17/17 12:01 - General physical appearance well developed, well nourished, no distress, moderate pain - Eyes PERRL, normal ocular movement - ENT normal mucosa, atraumatic, normocephalic - Neck trachea midline - Respiratory normal respiratory effort, clear to auscultation - Cardiovascular Cardiovascular exam: Present: RRR - Abdomen Abdomen general surgery: Present: bowel sounds present, soft, tender Abdominal Tenderness: Present: RLQ - Integumentary Integumentary general surgery: Present: warm and dry - Neurologic Present: CN 2-12 grossly intact - Musculoskeletal Present: normal gait, normal posture - Psychiatric Psychiatric general surgery: Present: appropriate, oriented to person, oriented to place, oriented to time, speech is normal, memory intact Exam Initial Vital Signs Temp Pulse Resp BP Pulse Ox 99.2 F 90 18 107/76 97 11/17/17 12:01 11/17/17 12:01 11/17/17 12:01 11/17/17 12:01 11/17/17 12:01 Results - Labs 11/18/17 04:04 11/18/17 04:04 Abnormal lab results WBC 21.2 K/mcL (4.3-11.1) H 11/17/17 13:09 Neutrophils # 18.2 K/mcL (1.6-8.9) H 11/17/17 13:09 Monocytes # 1.8 K/mcL (0.0-1.3) H 11/17/17 13:09 PT 13.7 Seconds (9.4-12.1) H 11/17/17 13:09 Sodium 135 mEq/L (136-145) L 11/17/17 13:09 Potassium 3.3 mEq/L (3.5-5.1) L 11/17/17 13:09 Chloride 97 mEq/L (98-107) L 11/17/17 13:09 BUN 39 mg/dL (6-20) H 11/17/17 13:09 Creatinine 4.54 mg/dL (0.60-1.20) H 11/17/17 13:09 Est GFR ( Amer) 12 (> 60) L 11/17/17 13:09 Est GFR (Non-Af Amer) 10 (> 60) L 11/17/17 13:09 Glucose 123 mg/dL (70-105) H 11/17/17 13:09 AST 12 Units/L (13-39) L 11/17/17 13:09 Alkaline Phosphatase 111 Units/L (34-104) H 11/17/17 13:09 Globulin 3.7 g/dL (2.4-3.5) H 11/17/17 13:09 Albumin/Globulin Ratio 0.9 (1.1-2.2) L 11/17/17 13:09 Lipase 7 Units/L (11-82) L 11/17/17 13:09 Urine Clarity Cloudy (Clear) A 11/17/17 12:22 Urine Protein 100 mg/dL (Neg-Trace) H 11/17/17 12:22 Urine Blood Large (Negative) H 11/17/17 12:22 Urine Bilirubin Small (Negative) H 11/17/17 12:22 Ur Leukocyte Esterase Small (Negative) H 11/17/17 12:22 Urine Microscopic RBC 30-50 per hpf (0-3) H 11/17/17 12:22 Urine Microscopic WBC 50-100 per hpf (0-3) H 11/17/17 12:22 Ur Squamous Epith Cells Many per lpf (None-Few) H 11/17/17 12:22 Urine Bacteria Moderate per hpf (None-Few) H 11/17/17 12:22 Diabetes panel 11/17/17 Range/Units 13:09 Sodium 135 L (136-145) mEq/L Potassium 3.3 L (3.5-5.1) mEq/L Chloride 97 L (98-107) mEq/L Carbon Dioxide 25 (23-29) mEq/L BUN 39 H (6-20) mg/dL Creatinine 4.54 H (0.60-1.20) mg/dL Glucose 123 H (70-105) mg/dL Calcium 9.8 (8.6-10.3) mg/dL AST 12 L (13-39) Units/L ALT 10 (7-52) Units/L Alkaline Phosphatase 111 H (34-104) Units/L Albumin 3.5 (3.5-5.7) g/dL Calcium panel 11/17/17 Range/Units 13:09 Calcium 9.8 (8.6-10.3) mg/dL Albumin 3.5 (3.5-5.7) g/dL Pituitary panel 11/17/17 Range/Units 13:09 Sodium 135 L (136-145) mEq/L Potassium 3.3 L (3.5-5.1) mEq/L Chloride 97 L (98-107) mEq/L Carbon Dioxide 25 (23-29) mEq/L BUN 39 H (6-20) mg/dL Creatinine 4.54 H (0.60-1.20) mg/dL Glucose 123 H (70-105) mg/dL Calcium 9.8 (8.6-10.3) mg/dL Adrenal panel 11/17/17 Range/Units 13:09 Sodium 135 L (136-145) mEq/L Potassium 3.3 L (3.5-5.1) mEq/L Chloride 97 L (98-107) mEq/L Carbon Dioxide 25 (23-29) mEq/L BUN 39 H (6-20) mg/dL Creatinine 4.54 H (0.60-1.20) mg/dL Glucose 123 H (70-105) mg/dL Calcium 9.8 (8.6-10.3) mg/dL Total Bilirubin 0.6 (0.3-1.0) mg/dL AST 12 L (13-39) Units/L ALT 10 (7-52) Units/L Alkaline Phosphatase 111 H (34-104) Units/L Albumin 3.5 (3.5-5.7) g/dL All other labs normal. - Imaging CT scan - abdomen: report reviewed CT scan - pelvis: report reviewed Additional studies: Abdomen/Pelvis CT 11/17/17 15:50 IMPRESSION: 1. Inflammatory changes in the right lower quadrant better delineated with oral contrast enhancement, may be related to appendicitis or enteritis. No discrete abscess formation is evident. 2. Midline ventral pelvic hernia containing fat. 3. Bilateral nephrocalcinosis. 4. Other solid organs again appear unremarkable. 5. No ascites, loculated fluid collection or pneumoperitoneum evident. 6. Correlate with complete CT abdomen and pelvis dictation from 3.5 hours ago. D/ / Edu Kraft / Edu Kraft Interpreting Provider: Edu Kraft Consult Discharge Plan - Plan Referrals: Steven Ly MD [Primary Care Provider] - - Attending Attestation For this encounter, I have reviewed the RESIDENTIAL CONCIERGE or PA documentation, treatment plan, and medical decision making; and I have had face to face time with this patient.
--- NOTE | 2017-11-17 18:27 | Internal Med History&Physical ---
Date of Encounter: 11/17/17 Time of Encounter: 18:21 Assessment and Plan (1) Abdominal pain Current visit: Yes Status: Acute Differential includes appendicitis/SBO/enteritis/abscess. We will admit the patient to the hospitalist. Consult surgery. We will place on broad-spectrum antibiotics. Check stool studies. Serial abdominal examination. Nothing by mouth. Qualifiers: Abdominal location: right lower quadrant Qualified Code(s): R10.31 - Right lower quadrant pain (2) Diarrhea Current visit: No Status: Resolved Plan is as above. Possibly viral enteritis. We will check stool studies. May use Imodium if stool studies are negative Qualifiers: Diarrhea type: presumed infectious Qualified Code(s): R19.7 - Diarrhea, unspecified (3) End stage renal disease Current visit: Yes Status: Acute Consult nephrology to resume HD per schedule (4) UTI (urinary tract infection) Current visit: No Status: Resolved Follow up on cultures. Zosyn should cover. Qualifiers: Urinary tract infection type: acute cystitis Hematuria presence: with hematuria Qualified Code(s): N30.01 - Acute cystitis with hematuria (5) DVT prophylaxis Current visit: No Status: Acute heparin SQ Internal Medicine - H&P: HPI Chief complaint: Abdominal pain Admitted From: Home Plans for Post Hospital Care: Home History of present illness: Ms. Saucedo is a 47 year old female with PMH of ESRD on HD, previous SBO, morbid obesity, HLD who presents through the ED with complaints of right lower quadrant abdominal pain. This started about 4 days ago with radiation to the umbilicus.. She developed loose stools yesterday. She is not sure of those were bloody or not. This morning started having bilious vomiting. No blood in her vomit. This morning she noticed a boil in her right groin area. She reports that she has had to have an abscess drained close that area before. She denies any fever, chills, chest pain, shortness of breath, headache, urinary symptoms, or neurological symptoms. In the emergency department workup showed leukocytosis with left shift. Kidney function consistent with end-stage renal disease. Potassium 3.3. Initially underwent a CT abdomen and pelvis without contrast and there was question regarding possible appendicitis versus enteritis. An abscess could not be excluded. There was also a possible small bowel obstruction. Surgery were contacted and recommended a repeat CT with oral contrast which showed again inflammatory changes in the right lower quadrant that may be related to appendicitis or enteritis. Surgery recommended conservative management for now with an admission to the hospitalist service with a consultation to them. She does not need any acute surgical needs at the moment. Past Med Surg Social Fam HX - Past Medical History Medical history: COPD, coronary artery disease, dialysis, hyperlipidemia, hypertension, kidney stones, renal disease Psychiatric history: anxiety, depression - Past Surgical History Surgical History: orthopedic, other - Social History Smoking Status: Never smoker Smokeless Tobacco Status: No Alcohol use: none Drug use: none - Family History Mother Living Status: Still Living Hx Family Cardiac Disorders: Yes Hx Family Neurologic Disorders: Yes (Stoke) Father Living Status: Hx Family Cancer: Yes (Stomach) Internal Medicine - H&P: Meds Albuterol Sulfate [Proair Respiclick] 2 puff IH Q4H PRN 10/19/15 [History] Atorvastatin [Lipitor] 10 mg PO HS 10/19/15 [History] FLUoxetine HCl [Prozac] 20 mg PO QAM 10/19/15 [History] Omeprazole [PriLOSEC] 20 mg PO DAILY 10/19/15 [History] Fluticasone/Vilanterol [Breo Ellipta 100-25 Mcg INH] 1 puff IH DAILY 01/03/17 [ History] Gabapentin [Neurontin] 300 mg PO HS 01/03/17 [History] Calcium Acetate [Phos-LO] 667 mg PO TIDWM 10/17/17 [History] Cinacalcet HCl [Sensipar] 60 mg PO DAILY 10/17/17 [History] Folic Acid/Vit Bcomp,C [Dialyvite Tablet] 1 tab PO DAILY 10/17/17 [History] 3 Allergy/AdvReac Type Severity Reaction Status Date / Time Sulfa (Sulfonamide Allergy Hives Verified 10/16/17 15:10 Antibiotics) iron AdvReac Hives Verified 10/16/17 15:10 All Systems PM: A 10-system review of systems was performed and is negative for pertinent findings except as documented above in the HPI. Review of systems: All systems reviewed are negative except for what is mentioned above - Constitutional Vitals: Temp Pulse Resp BP Pulse Ox 99.2 F 77 16 121/90 97 11/17/17 12:01 11/17/17 16:06 11/17/17 16:06 11/17/17 16:06 11/17/17 16:06 Exam: GEN: NAD HEENT: AT, NC, No cyanosis, oral mucosa is moist, No JVD Lymphatics: No lymphadenoapthy Eyes: Extrocular muscles intact, anicteric CVS:RRR. S1, S2, No m/r/g RESP: CTAB ABD: Soft, obese, tenderness in right side of abdomen. ND, +BS EXT: No edema, No rashes, 2+ DP NEURO: Nonfocal, CN II-XII intact, No focal motor or sensory deficits Psych: Cooperative, Not anxious or depressed Internal Med - H&P Results - Labs CBC & Chem 7: 11/17/17 13:09 11/17/17 13:09 Labs: Short CBC 11/17/17 Range/Units 13:09 WBC 21.2 H (4.3-11.1) K/mcL Hgb 13.2 (11.5-15.4) g/dL Hct 40.2 (35.3-44.9) % Plt Count 229 (140-400) K/mcL Neutrophils # 18.2 H (1.6-8.9) K/mcL BMP 11/17/17 13:09 Sodium 135 L Potassium 3.3 L Chloride 97 L Carbon Dioxide 25 BUN 39 H Creatinine 4.54 H Glucose 123 H Calcium 9.8 Liver Function 11/17/17 Range/Units 13:09 Total Bilirubin 0.6 (0.3-1.0) mg/dL Direct Bilirubin 0.2 (0.0-0.2) mg/dL AST 12 L (13-39) Units/L ALT 10 (7-52) Units/L Alkaline Phosphatase 111 H (34-104) Units/L Albumin 3.5 (3.5-5.7) g/dL Urine 11/17/17 Range/Units 12:22 Urine Color Yellow (Yellow) Urine Clarity Cloudy A (Clear) Urine pH 6.0 (5.0-8.0) pH Units Ur Specific [place] 1.014 (1.010-1.025) Urine Protein 100 H (Neg-Trace) mg/dL Urine Glucose (UA) Normal (Normal) mg/dL - Impressions ITS Impressions Abdomen/Pelvis CT 11/17/17 12:41 IMPRESSION: 1. Inflammatory changes right lower quadrant not present previously, suspicious for acute appendicitis or enteritis. I cannot exclude underlying abscess. Correlation with IV contrast-enhanced CT with oral contrast may be useful. 2. Apparent transition at this level of mildly dilated small bowel loops possibly reflecting partial small bowel obstruction. Correlation with IV contrast-enhanced CT with oral contrast may be useful. 3. Probable left uterine fibroid. This could be confirmed sonographically. 4. Midline ventral hernia lower anterior pelvis contains fat. 5. Unchanged appearance of the kidneys with bilateral nephrocalcinosis. No hydronephrosis. D/ / Edu Kraft / Edu Kraft Interpreting Provider: Edu Kraft Abdomen/Pelvis CT 11/17/17 15:50 IMPRESSION: 1. Inflammatory changes in the right lower quadrant better delineated with oral contrast enhancement, may be related to appendicitis or enteritis. No discrete abscess formation is evident. 2. Midline ventral pelvic hernia containing fat. 3. Bilateral nephrocalcinosis. 4. Other solid organs again appear unremarkable. 5. No ascites, loculated fluid collection or pneumoperitoneum evident. 6. Correlate with complete CT abdomen and pelvis dictation from 3.5 hours ago. D/ / Edu Kraft / Edu Kraft Interpreting Provider: Edu Kraft
[2017-11-17] MEDS: Gabapentin 300 MG CAPSULE PO SCH (20:39)
[2017-11-17] MEDS: *HR* Heparin 5,000 UNIT/ML VIAL SQ SCH (20:39)
--- NOTE | 2017-11-17 21:17 | Nephrology Consult Note ---
Date of Encounter: 11/17/17 Time of Encounter: 16:00 Assessment and Plan (1) End stage renal disease Current Visit: Yes Status: Acute HD MWF Plan for HD on . No acute need for dialysis today. Renal dose medications. Renal diet. (2) Abdominal pain Current Visit: Yes Status: Acute Per CT scan appendicitis vs. enteritis. General surgery following. Qualifiers: Abdominal location: right lower quadrant Qualified Code(s): R10.31 - Right lower quadrant pain (3) Anemia Current Visit: No Status: Acute Hemoglobin normal. Monitor. Qualifiers: Anemia type: unspecified type Qualified Code(s): D64.9 - Anemia, unspecified (4) Morbid obesity Current Visit: Yes Status: Acute outpatient management. History of Present Illness - Reason for Consult Consult date: 11/17/17 end stage renal disease - Chief Complaint ESRD - History of Present Illness Ms. Saucedo is a 47 yo woman with a history of ESRD who presents secondary to abdominal pain. She receives dialysis MWF via a Right upper arm fistula and her last dialysis was the Wednesday prior to admission. She reports having nausea and abdominal pain that has been getting worse for the last 2-3 days. She has some chills and diarrhea, but denies sick contacts. Past Med Surg Social Fam HX - Past Medical History Medical history: COPD, coronary artery disease, dialysis, hyperlipidemia, hypertension, kidney stones, renal disease Psychiatric history: anxiety, depression - Past Surgical History Surgical History: orthopedic, other - Social History Smoking Status: Never smoker Smokeless Tobacco Status: No Alcohol use: none Drug use: none - Family History Mother Living Status: Still Living Hx Family Cardiac Disorders: Yes Hx Family Neurologic Disorders: Yes (Stoke) Father Living Status: Hx Family Cancer: Yes (Stomach) Medications and Allergies Albuterol Sulfate [Proair Respiclick] 2 puff IH Q4H PRN 10/19/15 [History] Atorvastatin [Lipitor] 10 mg PO HS 10/19/15 [History] FLUoxetine HCl [Prozac] 20 mg PO QAM 10/19/15 [History] Omeprazole [PriLOSEC] 20 mg PO DAILY 10/19/15 [History] Fluticasone/Vilanterol [Breo Ellipta 100-25 Mcg INH] 1 puff IH DAILY 01/03/17 [ History] Gabapentin [Neurontin] 300 mg PO HS 01/03/17 [History] Calcium Acetate [Phos-LO] 667 mg PO TIDWM 10/17/17 [History] Cinacalcet HCl [Sensipar] 60 mg PO DAILY 10/17/17 [History] Folic Acid/Vit Bcomp,C [Dialyvite Tablet] 1 tab PO DAILY 10/17/17 [History] 3 Allergy/AdvReac Type Severity Reaction Status Date / Time Sulfa (Sulfonamide Allergy Hives Verified 10/16/17 15:10 Antibiotics) iron AdvReac Hives Verified 10/16/17 15:10 Review of Systems All Systems: reviewed and no additional remarkable complaints except as stated ( as per the hpi.) Exam - Vital Signs Vital signs: Initial Vital Signs Temp Pulse Resp BP Pulse Ox 99.2 F 90 18 107/76 97 11/17/17 12:01 11/17/17 12:01 11/17/17 12:01 11/17/17 12:01 11/17/17 12:01 Vital Signs - Last 8 Hours Temp Pulse Resp BP Pulse Ox 11/17/17 19:27 98.9 F 85 20 93/57 95 11/17/17 19:06 18 118/73 Intake and Output 11/17/17 11/17/17 11/17/17 07:59 15:59 23:59 Other: Weight 143.517 kg Patient Weight 11/17/17 23:59 Weight 143.517 kg - General Appearance General appearance: well-developed, well-nourished, obese EENT: ATNC Neck: supple Respiratory: clear Cardiology: no edema, regular rate, regular rhythm - Dialysis Access Dialysis Vascular Access: Arteriovenous Fistula thrill: Yes bruit: Yes Gastrointestinal: obese Integumentary: warm and dry Neurologic: alert and oriented x3 Musculoskeletal: no cyanosis Psychiatric: mood/affect appropriate Results - Lab Results 11/17/17 13:09 11/17/17 13:09 Most recent lab results Calcium 9.8 mg/dL (8.6-10.3) 11/17/17 13:09 Consult Discharge Plan - Plan Referrals: Steven Ly MD [Primary Care Provider] -
[2017-11-17] MEDS: *HR* HYDROcodone/Acet 5/325 mg TABLET PO PRN (23:05)
[2017-11-18] MEDS ORDERED: Ondansetron 4 MG/2 ML VIAL IVP PRN (00:01)
[2017-11-18 04:38] LABS: Basophils # 0.1 K/mcL (0.0-0.2); Basophils % 0.3 %; Eosinophils # 0.1 K/mcL (0.0-0.6); Eosinophils % 0.3 %; Hematocrit 38.8 % (35.3-44.9); Hemoglobin 12.4 g/dL (11.5-15.4); Immature Granulocytes % 0.8 % (0-4); Lymphocytes # 1.4 K/mcL (0.6-4.6); Lymphocytes % 6.5 %; Mean Corpuscular Hemoglobin 30.1 pg (28.0-33.3); Mean Corpuscular Volume 94.2 fL (83.0-100.0); Mean Platelet Volume 10.3 fL (9.4-12.4); Monocytes # 1.9 K/mcL (0.0-1.3); Monocytes % 9.2 %; Neutrophils # 17.4 K/mcL (1.6-8.9); Platelet Count 228 K/mcL (140-400); Red Blood Count 4.12 M/mcL (3.82-4.97); Red Cell Distribution Width 13.5 % (11.5-14.5); Segmented Neutrophils % 82.9 %
[2017-11-18 04:42] LABS: Calcium 9.4 mg/dL (8.6-10.3); Potassium 3.4 mEq/L (3.5-5.1)
[2017-11-18] MEDS ORDERED: 0.9 % Sodium Chloride 250 ML IVC PRN (08:02)
[2017-11-18] MEDS: Calcium Acetate 667 MG CAPSULE PO SCH ×3 (08:19→17:09)
--- NOTE | 2017-11-18 08:23 | Internal Med Progress Note ---
Date of Encounter: 11/18/17 - Assessment and plan (1) Abdominal pain Current Visit: Yes Status: Acute Qualifiers: Abdominal location: right lower quadrant Qualified Code(s): R10.31 - Right lower quadrant pain (2) Diarrhea Current Visit: No Status: Acute Qualifiers: Diarrhea type: presumed infectious Qualified Code(s): R19.7 - Diarrhea, unspecified (3) DVT prophylaxis Current Visit: No Status: Acute (4) End stage renal disease on dialysis Current Visit: No Status: Chronic (5) Perforated appendicitis Current Visit: Yes Status: Acute (6) UTI (urinary tract infection) Current Visit: No Status: Resolved Qualifiers: Urinary tract infection type: acute cystitis Hematuria presence: with hematuria Qualified Code(s): N30.01 - Acute cystitis with hematuria - Constitutional Vitals: Temp Pulse Resp BP Pulse Ox 98.1 F 70 20 123/70 98 11/18/17 06:54 11/18/17 06:54 11/18/17 06:54 11/18/17 06:54 11/18/17 06:54 Internal Medicine: Result - Labs CBC & Chem 7: 11/18/17 04:04 11/18/17 04:04 Labs: Short CBC 11/18/17 Range/Units 04:04 WBC 21.0 H (4.3-11.1) K/mcL Hgb 12.4 (11.5-15.4) g/dL Hct 38.8 (35.3-44.9) % Plt Count 228 (140-400) K/mcL Neutrophils # 17.4 H (1.6-8.9) K/mcL BMP 11/18/17 04:04 Sodium 134 L Potassium 3.4 L Chloride 96 L Carbon Dioxide 26 BUN 48 H Creatinine 5.57 H Glucose 110 H Calcium 9.4 - ABG Interpretation ABG results: PT/INR, D-dimer PT 13.7 Seconds (9.4-12.1) H 11/17/17 13:09 Consult Discharge Plan - Plan Referrals: Steven Ly MD [Primary Care Provider] -
[2017-11-18] MEDS ORDERED: FOLIC ACID PO SCH (09:00)
[2017-11-18] MEDS ORDERED: (Fluticasone/Vilanterol [Breo Ellipta 100-25 Mcg Inh]) IH SCH (09:00)
[2017-11-18] MEDS ORDERED: Pantoprazole 40 MG VIAL IVP SCH (09:00)
[2017-11-18] MEDS ORDERED: VIT BCOMP C PO SCH (09:00)
[2017-11-18] MEDS: *HR* Heparin 5,000 UNIT/ML VIAL SQ SCH ×2 (09:01→20:00)
[2017-11-18] MEDS: FLUoxetine 20 MG CAPSULE PO SCH (09:01)
[2017-11-18] MEDS: Renal Vitamin 1 MG CAPSULE PO SCH (09:01)
--- NOTE | 2017-11-18 09:38 | Nephrology Progress Note ---
Date of Encounter: 11/18/17 Time of Encounter: 09:36 - Assessment and Plan (1) End stage renal disease on dialysis Current Visit: No Status: Chronic Plan for HD today since she did not receive her regular HD treatment yesterday Plan for HD again tomorrow Renal diet when diet advanced Avoid nephrotoxins if possible (2) Hypokalemia Current Visit: No Status: Acute K+ 3.4 Will monitor closely (3) Perforated appendicitis Current Visit: Yes Status: Acute per surgical team Subjective Principal diagnosis: ESRD on dialysis, perf appendicitis Interval history: Patient seen and examined. Lying in bed quietly. Objective - Vital Signs Vital signs: Vital Signs Temp Pulse Resp BP Pulse Ox 11/18/17 06:54 98.1 F 70 20 123/70 98 11/18/17 04:43 98.2 F 75 16 99/63 91 11/18/17 00:23 98.6 F 85 16 110/67 95 11/17/17 19:27 98.9 F 85 20 93/57 95 11/17/17 19:06 18 118/73 Intake and Output 11/17/17 11/18/17 11/18/17 23:59 07:59 15:59 Intake Total 840 / 840 30 / 30 Output Total 0 / 0 Balance 840 / 840 30 / 30 Intake: IV Fluids 600 / 600 Zosyn 3.375 GM In 0.9 % Sodium 100 / 100 Chloride 100 ML @ 25 mls/hr IVPB Q12H [facility] Rx#:[id number] Vancocin 2,000 MG In 0.9 % 500 / 500 Sodium Chloride 500 ML @ 250 mls/hr IVPB Q24H [facility] Rx#: [id number] Oral 240 / 240 30 / 30 Output: Urine 0 / 0 Other: Stool Consistency liquid Stool Color Brown # Bowel Movements 1 Weight 143.517 kg - General Appearance General appearance: Present: obese EENT: Present: ATNC, mucous membranes moist, hearing intact, vision intact Neck: Present: supple Respiratory: Present: clear Cardiology: Present: edema (mild BLL edema), normal S1, normal S2 Dialysis Vascular Access: Arteriovenous Fistula Gastrointestinal: Present: no tenderness, no guarding Integumentary: Present: warm and dry Neurologic: Present: alert and oriented x3 Psychiatric: Present: mood/affect appropriate, cooperative - Lab 11/18/17 04:04 11/18/17 04:04 Most recent lab results Calcium 9.4 mg/dL (8.6-10.3) 11/18/17 04:04 Consult Discharge Plan - Plan Referrals: Steven Ly MD [Primary Care Provider] -
--- NOTE | 2017-11-18 09:44 | General Surgery Progress Note ---
Date of Encounter: 11/18/17 Time of Encounter: 09:40 - Assessment and Plan (1) Perforated appendicitis Current Visit: Yes Status: Acute Repeat CT scan with by mouth contrast on 11/17/2017 demonstrating inflammatory changes in the right lower quadrant which may be related to appendicitis or enteritis. -Patient reports feeling better this morning. Abdominal exam with mild tenderness to the right lower quadrant. -We will begin her on a clear liquid diet. -Continue IV antibiotics (Zosyn), supportive care, and pain control. -Serial abdominal exams and morning labs. -GI and DVT prophylaxis (heparin). -Incentive spirometry every hour while awake. (2) End stage renal disease on dialysis Current Visit: No Status: Chronic Nephrology on board. (3) Diabetes Current Visit: No Status: Chronic Management per primary team. Qualifiers: Diabetes mellitus type: type 2 Diabetes mellitus complication status: with kidney complications Diabetes mellitus complication detail: with chronic kidney disease Diabetes mellitus custodial insulin use: unspecified custodial insulin use status Chronic kidney disease stage: on chronic dialysis Qualified Code(s): E11.22 - Type 2 diabetes mellitus with diabetic chronic kidney disease; N18.6 - End stage renal disease; N18.6 - End stage renal disease ; N18.6 - End stage renal disease; N18.6 - End stage renal disease; Z99.2 - Dependence on renal dialysis; Z99.2 - Dependence on renal dialysis; Z99.2 - Dependence on renal dialysis; Z99.2 - Dependence on renal dialysis (4) HTN (hypertension) Current Visit: No Status: Chronic Management per primary team. Qualifiers: Hypertension type: unspecified Qualified Code(s): I10 - Essential (primary ) hypertension Subjective Patient reports: no new complaints, feels better, pain is less, voiding w/o difficulty, flatus, bowel movement, afebrile Objective Vital Signs - Last 8 Hours Temp Pulse Resp BP Pulse Ox 11/18/17 06:54 98.1 F 70 20 123/70 98 11/18/17 04:43 98.2 F 75 16 99/63 91 Intake and Output 11/17/17 11/18/17 11/18/17 23:59 07:59 15:59 Intake Total 840 / 840 30 / 30 Output Total 0 / 0 Balance 840 / 840 30 / 30 Intake: IV Fluids 600 / 600 Zosyn 3.375 GM In 0.9 % Sodium 100 / 100 Chloride 100 ML @ 25 mls/hr IVPB Q12H [facility] Rx#:[id number] Vancocin 2,000 MG In 0.9 % 500 / 500 Sodium Chloride 500 ML @ 250 mls/hr IVPB Q24H [facility] Rx#: [id number] Oral 240 / 240 30 / 30 Output: Urine 0 / 0 Other: Stool Consistency liquid Stool Color Brown # Bowel Movements 1 Weight 143.517 kg - General physical appearance well developed, no distress - ENT no congestion - Respiratory normal expansion, normal respiratory effort, other (Diminished breath sounds bilateral bases.) - Cardiovascular Cardiovascular exam: Present: RRR, no murmurs/rubs/gallops - Abdomen Abdomen: Present: bowel sounds present, soft, tender (Tenderness in the right lower quadrant. Exam was made difficult due to patient's large pannus.). Absent: guarding, rebound, rigid - Neurologic CN 2-12 grossly intact - Musculoskeletal normal gait, normal posture - Psychiatric oriented to time, oriented to person, oriented to place, speech is normal, memory intact - Labs 11/18/17 04:04 11/18/17 04:04 Diabetes panel 11/18/17 Range/Units 04:04 Sodium 134 L (136-145) mEq/L Potassium 3.4 L (3.5-5.1) mEq/L Chloride 96 L (98-107) mEq/L Carbon Dioxide 26 (23-29) mEq/L BUN 48 H (6-20) mg/dL Creatinine 5.57 H (0.60-1.20) mg/dL Glucose 110 H (70-105) mg/dL Calcium 9.4 (8.6-10.3) mg/dL Calcium panel 11/18/17 Range/Units 04:04 Calcium 9.4 (8.6-10.3) mg/dL Pituitary panel 11/18/17 Range/Units 04:04 Sodium 134 L (136-145) mEq/L Potassium 3.4 L (3.5-5.1) mEq/L Chloride 96 L (98-107) mEq/L Carbon Dioxide 26 (23-29) mEq/L BUN 48 H (6-20) mg/dL Creatinine 5.57 H (0.60-1.20) mg/dL Glucose 110 H (70-105) mg/dL Calcium 9.4 (8.6-10.3) mg/dL Adrenal panel 11/18/17 Range/Units 04:04 Sodium 134 L (136-145) mEq/L Potassium 3.4 L (3.5-5.1) mEq/L Chloride 96 L (98-107) mEq/L Carbon Dioxide 26 (23-29) mEq/L BUN 48 H (6-20) mg/dL Creatinine 5.57 H (0.60-1.20) mg/dL Glucose 110 H (70-105) mg/dL Calcium 9.4 (8.6-10.3) mg/dL Consult Discharge Plan - Plan Referrals: Steven Ly MD [Primary Care Provider] -
[2017-11-18] MEDS: Budesonide/Formoterol 160/4.5 MDI IH SCH ×2 (10:04→23:01)
[2017-11-18] MEDS: *HR* HYDROcodone/Acet 5/325 mg TABLET PO PRN ×3 (10:52→23:05)
[2017-11-18] MEDS ORDERED: Aminoglycoside Consult 1 EACH MC ONE (11:53)
--- NOTE | 2017-11-18 13:34 | Internal Med Progress Note ---
Date of Encounter: 11/18/17 Time of Encounter: 13:32 - Assessment and plan (1) Perforated appendicitis Current Visit: Yes Status: Acute Assessment and plan: Management per surgery recommendations. On IV antibiotics. Stop vancomycin. Continue Zosyn. (2) Abdominal pain Current Visit: Yes Status: Acute Assessment and plan: Due to suspected perforated appendicitis. Improving. Continue supportive care with IV antibiotics. Antiemetics as needed. Patient has been nothing by mouth but being started on clears by surgery today.. Qualifiers: Abdominal location: right lower quadrant Qualified Code(s): R10.31 - Right lower quadrant pain (3) Diarrhea Current Visit: No Status: Resolved Assessment and plan: Appears to be improving. Stool studies ordered Qualifiers: Diarrhea type: presumed infectious Qualified Code(s): R19.7 - Diarrhea, unspecified (4) End stage renal disease on dialysis Current Visit: Yes Status: Chronic Assessment and plan: Nephrology following for dialysis management (5) UTI (urinary tract infection) Current Visit: Yes Status: Suspected Assessment and plan: Urinalysis shows multiple WBCs, red blood cells with small leukocyte esterase. Likely normal urine in this patient on hemodialysis. Cultures have not been sent. Receiving antibiotics for perforated appendicitis. Qualifiers: Urinary tract infection type: acute cystitis Hematuria presence: with hematuria Qualified Code(s): N30.01 - Acute cystitis with hematuria (6) DVT prophylaxis Current Visit: No Status: Acute Assessment and plan: Continue subcutaneous heparin - Subjective Interval history: Patient is getting dialyzed at this time. Doing well. Mild right lower quadrant abdominal pain. No nausea or vomiting. Has not had any fever overnight. - Constitutional Vitals: Temp Pulse Resp BP Pulse Ox 98.7 F 68 23 112/84 93 11/18/17 11:29 11/18/17 11:29 11/18/17 11:29 11/18/17 11:29 11/18/17 11:29 General appearance: Present: cooperative, mild distress, A&O X 3, morbidly obese , pleasant, answers questions appropriately - Respiratory Respiratory exam: Present: CTAB. Absent: accessory muscle use, rales, rhonchi, wheezes - Cardiovascular Cardiovascular exam: Present: RRR, +S1, +S2. Absent: diastolic murmur, gallop, rubs, systolic murmur - GI/Abdominal GI/Abdominal exam: Present: normal bowel sounds, soft, tenderness (Right lower quadrant), no peritoneal signs. Absent: distended - Extremities Exam Extremities exam: Present: warm, radial pulses palpable and symmetrical. Absent : calf tenderness, cyanotic, pedal edema - Neurological Exam Neurological exam: Present: CN II-XII intact, oriented X3, no focal deficits. Absent: pronater drift, facial droop, speech deficit Internal Medicine: Result - Labs CBC & Chem 7: 11/18/17 04:04 11/18/17 04:04 Labs: Short CBC 11/18/17 Range/Units 04:04 WBC 21.0 H (4.3-11.1) K/mcL Hgb 12.4 (11.5-15.4) g/dL Hct 38.8 (35.3-44.9) % Plt Count 228 (140-400) K/mcL Neutrophils # 17.4 H (1.6-8.9) K/mcL BMP 11/18/17 04:04 Sodium 134 L Potassium 3.4 L Chloride 96 L Carbon Dioxide 26 BUN 48 H Creatinine 5.57 H Glucose 110 H Calcium 9.4 - ABG Interpretation ABG results: PT/INR, D-dimer PT 13.7 Seconds (9.4-12.1) H 11/17/17 13:09 Consult Discharge Plan - Plan Referrals: Steven Ly MD [Primary Care Provider] -
[2017-11-18] MEDS ORDERED: 0.9 % Sodium Chloride 1,000 ML ONE (14:10)
--- NOTE | 2017-11-18 15:56 | Electrocardiograph Report ---
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
[2017-11-18 18:30] LABS: Adenovirus F 40/41 PCR Not detected (Not detect); Astrovirus PCR Not detected (Not detect); C.difficile Toxin A/B by PCR Not detected (Not detect); Campylobacter by PCR Not detected (Not detect); Cryptosporidium by PCR Not detected (Not detect); Cyclospora cayetanensis PCR Not detected (Not detect); E. coli O157 by PCR Not detected (Not detect); Entamoeba histolytica PCR Not detected (Not detect); Enteroaggregative E.coli(EAEC) Not detected (Not detect); Enteropathogenic E.coli(EPEC) Not detected (Not detect); Enterotoxigenic E.coli (ETEC) Not detected (Not detect); Giardia lamblia PCR Not detected (Not detect); Norovirus GI/GII PCR Not detected (Not detect); Plesiomonas shigelloides PCR Not detected (Not detect); Rotavirus A PCR Not detected (Not detect); Salmonella PCR Not detected (Not detect); Sapovirus PCR Not detected (Not detect); Shig/EnteroinvasiveE coli EIEC Not detected (Not detect); Shigalike tox-prod E coli STEC Not detected (Not detect); Vibrio PCR Not detected (Not detect); Vibrio cholerae PCR Not detected (Not detect); Yersinia enterocolitica PCR Not detected (Not detect)
[2017-11-18] MEDS: Gabapentin 300 MG CAPSULE PO SCH (20:00)
[2017-11-19 03:10] LABS: Basophils % 0.2 %; Eosinophils # 0.1 K/mcL (0.0-0.6); Eosinophils % 0.9 %; Hematocrit 35.5 % (35.3-44.9); Hemoglobin 11.4 g/dL (11.5-15.4); Immature Granulocytes % 0.8 % (0-4); Lymphocytes # 0.8 K/mcL (0.6-4.6); Mean Corpuscular HGB Conc 32.1 g/dL (31.6-35.5); Mean Corpuscular Hemoglobin 30.1 pg (28.0-33.3); Mean Corpuscular Volume 93.7 fL (83.0-100.0); Mean Platelet Volume 10.1 fL (9.4-12.4); Monocytes # 1.5 K/mcL (0.0-1.3); Monocytes % 9.3 %; Neutrophils # 13.7 K/mcL (1.6-8.9); Platelet Count 214 K/mcL (140-400); Red Blood Count 3.79 M/mcL (3.82-4.97); Red Cell Distribution Width 13.5 % (11.5-14.5); Segmented Neutrophils % 83.8 %
[2017-11-19 03:23] LABS: Calcium 9.1 mg/dL (8.6-10.3); Potassium 3.5 mEq/L (3.5-5.1)
[2017-11-19 04:27] LABS: Hepatitis B Surface Antibody 0.18 mIU/mL; Hepatitis B Surface Antigen Nonreactive (Nonreactive)
[2017-11-19] MEDS: *HR* HYDROcodone/Acet 5/325 mg TABLET PO PRN (04:48)
[2017-11-19] MEDS ORDERED: 0.9 % Sodium Chloride 2,000 ML ONE (07:19)
[2017-11-19] MEDS ORDERED: 0.9 % Sodium Chloride 250 ML IVC PRN (08:11)
[2017-11-19] MEDS: Calcium Acetate 667 MG CAPSULE PO SCH ×3 (08:14→12:19)
[2017-11-19] MEDS: Renal Vitamin 1 MG CAPSULE PO SCH (08:14)
[2017-11-19] MEDS: FLUoxetine 20 MG CAPSULE PO SCH (08:14)
[2017-11-19] MEDS ORDERED: 0.9 % Sodium Chloride 1,000 ML PRIME SCH (08:15)
[2017-11-19] MEDS: *HR* Heparin 5,000 UNIT/ML VIAL SQ SCH (08:27)
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
[2017-11-19] MEDS: Budesonide/Formoterol 160/4.5 MDI IH SCH (10:46)
--- NOTE | 2017-11-19 11:01 | Discharge Summary ---
Date of Encounter: 11/19/17 Time of Encounter: 10:15 - Discharge Diagnosis (1) Perforated appendicitis Priority: Primary Status: Acute (2) Abdominal pain Priority: Secondary Status: Acute Qualifiers: Abdominal location: right lower quadrant Qualified Code(s): R10.31 - Right lower quadrant pain (3) Diarrhea Priority: Secondary Status: Resolved Qualifiers: Diarrhea type: presumed infectious Qualified Code(s): R19.7 - Diarrhea, unspecified (4) End stage renal disease on dialysis Priority: Secondary Status: Chronic (5) UTI (urinary tract infection) Priority: Secondary Status: Suspected Qualifiers: Urinary tract infection type: acute cystitis Hematuria presence: with hematuria Qualified Code(s): N30.01 - Acute cystitis with hematuria (6) DVT prophylaxis Priority: Secondary Status: Acute Hospital course: Ms. Saucedo is a 47 year old female patient with history of incisional disease on hemodialysis who was hospitalized here after she presented to the ER with complaints of abdominal pain nausea vomiting and diarrhea. CT scan of the abdomen and pelvis showed presence of perforated appendicitis. Surgery was consulted. She was evaluated by surgery and recommended conservative medical management with IV antibiotics and symptomatic care along with serial abdominal exams. Repeat CT scan done with oral contrast did not show any perforated colon. Patient's symptoms have improved with IV antibiotics. She has received dialysis during his stay here. She is now tolerating diet and has been cleared for discharge per surgery. She will follow up with surgery in 2-3 weeks for planned laparoscopic appendectomy. Will complete antibiotic course with Augmentin per surgery recommendations. Discharge discussed with: patient, business information consultant - Time Spent with Patient Total time spent providing and/or coordinating discharge services: Less than 30 minutes (25 min) - Discharge Medications Prescriptions: Acetaminophen [8Hr Arthritis Pain Relief] 650 mg PO Q6H PRN #30 tablet.er PRN Reason: Pain Amoxicillin/Clavulanate [Augmentin] 875 mg PO BIDWM #24 tablet Lactobacillus Acidophilus [Acidophilus] 1 each PO BID #20 capsule Home Medications: Albuterol Sulfate [Proair Respiclick] 2 puff IH Q4H PRN 10/19/15 [History] Atorvastatin [Lipitor] 10 mg PO HS 10/19/15 [History] FLUoxetine HCl [Prozac] 20 mg PO QAM 10/19/15 [History] Omeprazole [PriLOSEC] 20 mg PO DAILY 10/19/15 [History] Fluticasone/Vilanterol [Breo Ellipta 100-25 Mcg INH] 1 puff IH DAILY 01/03/17 [ History] Gabapentin [Neurontin] 300 mg PO HS 01/03/17 [History] Calcium Acetate [Phos-LO] 667 mg PO TIDWM 10/17/17 [History] Cinacalcet HCl [Sensipar] 60 mg PO DAILY 10/17/17 [History] Folic Acid/Vit Bcomp,C [Dialyvite Tablet] 1 tab PO DAILY 10/17/17 [History] Acetaminophen [8Hr Arthritis Pain Relief] 650 mg PO Q6H PRN #30 tablet.er [Rx] Amoxicillin/Clavulanate [Augmentin] 875 mg PO BIDWM #24 tablet 11/19/17 [Rx] Lactobacillus Acidophilus [Acidophilus] 1 each PO BID #20 capsule 11/19/17 [Rx] Allergies/Adverse Reactions: 3 Allergy/AdvReac Type Severity Reaction Status Date / Time Sulfa (Sulfonamide Allergy Hives Verified 10/16/17 15:10 Antibiotics) iron AdvReac Hives Verified 10/16/17 15:10 Date of admission: 11/17/17 18:28 Primary care physician: Steven Ly MD Consults: 11/18/17 08:15 Consult to Dialysis [CONS] ONCE 11/19/17 08:15 Consult to Dialysis [CONS] ONCE Discharging clinician: Zaid Franco Anticipated date of discharge: 11/19/17 - Constitutional Vitals: Temp Pulse Resp BP Pulse Ox 98.2 F 68 16 104/58 98 11/19/17 07:15 11/19/17 07:15 11/19/17 07:15 11/19/17 07:15 11/19/17 07:15 General appearance: Present: cooperative, A&O X 3, morbidly obese, pleasant, no acute distress, answers questions appropriately - Respiratory Respiratory exam: Present: CTAB. Absent: accessory muscle use, rales, rhonchi, wheezes - Cardiovascular Cardiovascular exam: Present: RRR, +S1, +S2. Absent: diastolic murmur, gallop, rubs, systolic murmur - GI/Abdominal GI/Abdominal exam: Present: normal bowel sounds, soft, tenderness (mild RLQ), no peritoneal signs. Absent: distended - Extremities Exam Extremities exam: Present: warm, radial pulses palpable and symmetrical. Absent : calf tenderness, cyanotic, pedal edema - Neurological Exam Neurological exam: Present: CN II-XII intact, oriented X3, no focal deficits. Absent: facial droop, speech deficit - Patient Status Disposition: Home, Self-Care Condition: Good Functional capacity at discharge: independent ambulation Overall status at discharge: patient is progressing back to baseline - Discharge Instructions Instructions: Acetaminophen (By mouth), Amoxicillin/Clavulanate Potassium (By mouth), Probiotic (By mouth) Follow Up With: Nura Petersen DO [Partnered Physician] - 11/30/17 9:10 am (hospital follow-up) Steven Ly MD [Primary Care Provider] - 11/26/17 3:00 pm () Additional Instructions: Cardiac diet May advance activity as tolerated - Diet and Activity Activity: increase activity as tolerated Diet: low fat, low cholesterol, low salt diet
--- NOTE | 2017-11-19 12:15 | Nephrology Progress Note ---
Date of Encounter: 11/19/17 Time of Encounter: 12:11 - Assessment and Plan (1) End stage renal disease Current Visit: Yes Status: Acute HD MWF Patient seen on dialysis. Renal dose medications. Renal diet. (2) Anemia Current Visit: No Status: Acute No active bleeding. Qualifiers: Anemia type: unspecified type Qualified Code(s): D64.9 - Anemia, unspecified (3) Morbid obesity Current Visit: Yes Status: Acute Outpatient management. (4) Perforated appendicitis Current Visit: Yes Status: Acute Management per general sugery. Subjective Principal diagnosis: ESRD on dialysis, perf appendicitis Interval history: Ms. Saucedo was seen on dialysis. She has no new complaint. Her abdominal pain is decreasing. She is tolerating her increased diet. Objective - Vital Signs Vital signs: Vital Signs Temp Pulse Resp BP Pulse Ox 11/19/17 11:30 130/68 11/19/17 11:15 132/61 11/19/17 11:00 132/59 11/19/17 10:45 130/58 11/19/17 10:30 120/66 11/19/17 10:15 128/65 11/19/17 10:00 134/66 11/19/17 09:45 120/61 11/19/17 09:30 127/66 11/19/17 09:15 124/62 11/19/17 09:00 123/59 11/19/17 08:45 98.1 F 15 136/62 11/19/17 07:15 98.2 F 68 16 104/58 98 11/19/17 04:28 97.7 F 66 17 96/58 98 11/18/17 23:23 99.1 F 69 16 95/58 96 11/18/17 23:03 18 93 11/18/17 19:52 99.3 F 73 17 111/68 92 11/18/17 15:25 100.2 F H 84 20 105/56 94 11/18/17 13:50 98.1 F 18 133/74 11/18/17 13:15 127/66 11/18/17 13:00 148/71 11/18/17 12:45 141/71 11/18/17 12:30 110/71 11/18/17 12:15 109/69 Intake and Output 11/18/17 11/19/17 11/19/17 23:59 07:59 15:59 Intake Total 810 / 810 600 / 600 660 / 660 Output Total 0 / 0 0 / 0 Balance 810 / 810 600 / 600 660 / 660 Intake: IV Fluids 100 / 100 Zosyn 3.375 GM In 0.9 % Sodium 100 / 100 Chloride 100 ML @ 25 mls/hr IVPB Q12H [facility] Rx#:[id number] Oral 810 / 810 500 / 500 60 / 60 Intake, Rinseback and Flushes 600 / 600 Output: Urine 0 / 0 0 / 0 Other: # Voids 0 1 # Bowel Movements 0 Weight 143.108 kg Hemodialysis Net Fluid Removed 3310 (mL) Patient Weight 11/19/17 23:59 Weight 143.108 kg - General Appearance General appearance: Present: well-developed, well-nourished, obese EENT: Present: ATNC Neck: Present: supple Respiratory: Present: course breath sounds Cardiology: Present: regular rate Gastrointestinal: Present: obese Integumentary: Present: warm and dry Neurologic: Present: alert and oriented x3 Psychiatric: Present: mood/affect appropriate - Lab 11/19/17 02:47 11/19/17 02:47 Most recent lab results Calcium 9.1 mg/dL (8.6-10.3) 11/19/17 02:47 Consult Discharge Plan - Plan Instructions: Acetaminophen (By mouth), Amoxicillin/Clavulanate Potassium (By mouth), Probiotic (By mouth) Additional Instructions: Cardiac diet May advance activity as tolerated Referrals: Nura Petersen DO [Partnered Physician] - 11/30/17 9:10 am (hospital follow-up) Steven Ly MD [Primary Care Provider] - 11/26/17 3:00 pm () Prescriptions: Acetaminophen [8Hr Arthritis Pain Relief] 650 mg PO Q6H PRN #30 tablet.er PRN Reason: Pain Amoxicillin/Clavulanate [Augmentin] 875 mg PO BIDWM #24 tablet Lactobacillus Acidophilus [Acidophilus] 1 each PO BID #20 capsule
[2017-11-19 13:10] VITALS: BP 125/62
== END 2017-11-19 16:03 | disposition home or self-care (01) | DRG 371 ==
LOC: EMEROO 11:41 → 2ANU 18:28
PROVIDERS: ADMIT Internal Medicine; ATTEND Internal Medicine

== ENCOUNTER 2018-03-09 18:12 | Inpatient (IN) ==
--- NOTE | 2018-03-09 18:18 | Emergency Department Note ---
Disposition Clinical Impression: Lesion of ovary Cellulitis Qualifiers: Site of cellulitis: extremity Site of cellulitis of extremity: lower extremity Laterality: left Qualified Code(s): L03.116 - Cellulitis of left lower limb Disposition: Admitted As Inpatient Condition: Fair Referrals: Steven Ly MD [Primary Care Provider] - Forms: ED Satisfaction Letter General Adult HPI - General Chief complaint: ED Skin/Abscess/Foreign Body Stated complaint: Abscess left inner thigh Nursing Notes Reviewed: Yes Vital Signs Reviewed: Yes - History of Present Illness HPI Narrative: 47-year-old female presents to the emergency department with concern for left inner thigh abscess and swelling and redness. Patient was recently diagnosed with this and given clindamycin. Patient is a type II diabetic with end-stage renal disease on dialysis. Patient is reported on areas been draining more. Sent here for concern for primary care provider patient may need surgery. Pain Scale: 5 - Related Data Home Medications Medication Instructions Recorded Confirmed Albuterol Sulfate [Proair 2 puff IH Q4H PRN 10/19/15 03/09/18 Respiclick] Atorvastatin [Lipitor] 10 mg PO HS 10/19/15 03/09/18 FLUoxetine HCl [Prozac] 20 mg PO QAM 10/19/15 03/09/18 Omeprazole [PriLOSEC] 20 mg PO DAILY 10/19/15 03/09/18 Fluticasone/Vilanterol [Breo 1 puff IH DAILY 01/03/17 03/09/18 Ellipta 100-25 Mcg INH] Gabapentin [Neurontin] 300 mg PO HS 01/03/17 03/09/18 Calcium Acetate [Phos-LO] 667 mg PO TIDWM 10/17/17 03/09/18 Cinacalcet HCl [Sensipar] 60 mg PO DAILY 10/17/17 03/09/18 Folic Acid/Vit Bcomp,C [Dialyvite 1 tab PO DAILY 10/17/17 03/09/18 Tablet] Clindamycin HCl [Clindamycin HCl] 300 mg PO Q6H 03/09/18 03/09/18 Previous Rx's Medication Instructions Recorded Acetaminophen [8Hr Arthritis Pain 650 mg PO Q6H PRN #30 tablet.er 11/19/17 Relief] Allergies Allergy/AdvReac Type Severity Reaction Status Date / Time Sulfa (Sulfonamide Allergy Hives Verified 03/09/18 21:07 Antibiotics) iron AdvReac Hives Verified 03/09/18 21:07 All systems ED: reviewed and negative except as stated. Review of Systems: As Per HPI Constitutional: Denies: fever Cardiovascular: Denies: chest pain Respiratory: Denies: dyspnea Gastrointestinal: Denies: abdominal pain, nausea, vomiting Genitourinary: Denies: urgency, dysuria, frequency Musculoskeletal: Denies: back pain Integumentary: Reports: other (Abscess and swelling of left thigh) Neurological: Denies: headache Endocrine: Denies: fatigue Past Medical History - Past Medical History Medical history: Reports: COPD, coronary artery disease, diabetes, dialysis, hyperlipidemia, hypertension, kidney stones, renal disease (ESRD on dialysis every MWF (Renal tubular acidosis)), other (Anemia, Vitamin D Deficiency, Morbid obesity) Surgical history: Reports: orthopedic, other (anterior cervical decompression and fusion), other (Tonsillectomy; drainage of groin infection) Psychiatric history: Reports: anxiety, depression [employer] SUPER[employer]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 Absent: scleral icterus, conjunctival injection - ENT ENT exam: normal exam, normal oropharynx - Neck Neck exam: Present: trachea midline. Absent: tenderness, meningismus - Chest Chest inspection: Present: normal inspection, symmetric chest wall rise - Respiratory Respiratory exam: Present: normal lung sounds bilaterally. Absent: respiratory distress, accessory muscle use - Cardiovascular Cardiovascular exam: Present: regular rate, normal rhythm, normal heart sounds - Abdominal Exam Abdominal exam: Present: soft, Non-Tender. Absent: distention, guarding, rebound - Extremities Exam Extremities exam: Present: other (There is erythema and significant induration of the medial aspect of the left thigh that extends down the leg to the knee, and into the left inguinal region. Purulent drainage, malodorous. Left lower extremity neurovascularly intact) Course Vital Signs Temperature 98.7 F 03/09/18 18:13 Pulse Rate 91 03/09/18 18:13 Respiratory Rate 18 03/09/18 18:13 Blood Pressure 126/73 03/09/18 18:13 O2 Sat by Pulse Oximetry 97 03/09/18 18:13 Temperature 98.7 F 03/09/18 19:14 Pulse Rate 88 03/09/18 20:33 Respiratory Rate 20 03/09/18 20:33 Blood Pressure 138/70 03/09/18 20:33 O2 Sat by Pulse Oximetry 97 03/09/18 19:14 Oxygen Delivery Oxygen Delivery Room Air Medical Decision Making - MDM Narrative Medical decision making narrative: 47-year-old female presents to the emergency department with concern for abscess and cellulitis of the left inner thigh that migrates down to the medial aspect of the leg to the knee. Patient also has erythema and swelling and induration that extends up into the perineal area.. Patient is a type II diabetic. Do not suspect necrotizing fasciitis at this time, however, we will obtain CT scan of the left pelvis and left thigh to further delineate the abscess as this appears to be an abscess that needs and requires surgical drainage. Patient will be given vancomycin and Zosyn here in the emergency department. Patient has mild leukocytosis. CT scan of the lower extremity reveals skin thickening and subcutaneous stranding along the medial soft tissues of the proximal left thigh with underlying subcutaneous gas present. Findings were compatible with cellulitis and gas-forming infection. No well-defined drainable fluid collection was identified. We have covered for gram negatives and anaerobes as well as gram positives using vancomycin and Zosyn. No evidence of osteomyelitis. No evidence of necrotizing fasciitis on CT scan. Patient also has 3.3 cm complex left ovarian lesion. There is a recommendation for follow-up ultrasound at 6-12 weeks. I discussed this with the patient as well. I spoke with Dr. Petersen, the general surgeon as there is concern about the gas and how extensive the cellulitis is. He instructed me to slice into the most erythematous area and place a wick. [id number] Patient had an area of opening. I obtain wound cultures from that area. I placed half-inch iodoform gauze into the opening and packed the wound very deeply. Patient was given fentanyl for analgesia here in the emergency department. Patient was admitted to Dr. Mensah the hospitalist. Patient agreed to be admitted. Patient hemodynamically stable and not in acute distress. Lower Extremity CT 03/09/18 18:37 IMPRESSION: 1. Skin thickening and subcutaneous stranding along the medial soft tissues of the proximal left thigh with underlying subcutaneous gas present. Findings compatible with cellulitis and gas-forming infection. No well-defined drainable fluid collection identified. 2. No acute osseous abnormality. Specifically, no CT evidence for osteomyelitis. 3. Mildly complex 3.3 cm left ovarian lesion. Recommend ultrasound follow-up at 6-12 weeks given size greater than 3 cm. 4. Medullary nephrocalcinosis. 5. Periumbilical hernia containing loops of nonobstructed bowel. D/ / Nestor Noyola MD / Nestor Noyola MD Interpreting Provider: Nestor Noyola MD Pelvis CT 03/09/18 18:37 IMPRESSION: 1. Skin thickening and subcutaneous stranding along the medial soft tissues of the proximal left thigh with underlying subcutaneous gas present. Findings compatible with cellulitis and gas-forming infection. No well-defined drainable fluid collection identified. 2. No acute osseous abnormality. Specifically, no CT evidence for osteomyelitis. 3. Mildly complex 3.3 cm left ovarian lesion. Recommend ultrasound follow-up at 6-12 weeks given size greater than 3 cm. 4. Medullary nephrocalcinosis. 5. Periumbilical hernia containing loops of nonobstructed bowel. D/ / Nestor Noyola MD / Nestor Noyola MD Interpreting Provider: Nestor Noyola MD - Lab Data Result diagrams: 03/09/18 18:46 03/09/18 18:46 Lab Results 03/09/18 03/09/18 03/09/18 Range/Units 18:46 18:46 18:46 WBC 13.4 H (4.3-11.1) K/mcL RBC 4.29 (3.82-4.97) M/mcL Hgb 13.7 (11.5-15.4) g/dL Hct 41.3 (35.3-44.9) % MCV 96.3 (83.0-100.0) fL MCH 31.9 (28.0-33.3) pg MCHC 33.2 (31.6-35.5) g/dL RDW 12.8 (11.5-14.5) % Plt Count 265 (140-400) K/mcL MPV 9.9 (9.4-12.4) fL Immature Gran % 0.7 (0-4) % Seg Neutrophils % 81.0 % Lymphocytes % 7.7 % Monocytes % 7.5 % Eosinophils % 2.7 % Basophils % 0.4 % Neutrophils # 10.8 H (1.6-8.9) K/mcL Lymphocytes # 1.0 (0.6-4.6) K/mcL Monocytes # 1.0 (0.0-1.3) K/mcL Eosinophils # 0.4 (0.0-0.6) K/mcL Basophils # 0.1 (0.0-0.2) K/mcL ESR (0-15) mm/hr Sodium 138 (136-145) mEq/L Potassium 3.6 (3.5-5.1) mEq/L Chloride 98 (98-107) mEq/L Carbon Dioxide 27 (23-29) mEq/L BUN 45 H (6-20) mg/dL Creatinine 5.56 H (0.60-1.20) mg/dL Est GFR ( Amer) 10 L (> 60) Est GFR (Non-Af Amer) 8 L (> 60) BUN/Creatinine Ratio 8 (6-26) Glucose 178 H (70-105) mg/dL Calculated Osmolality 302 H (280-300) Lactic Acid 2.0 (0.5-2.2) mmol/L Calcium 9.1 (8.6-10.3) mg/dL C-Reactive Protein 124 H (Less than 10) mg/L 03/09/18 Range/Units 18:46 WBC (4.3-11.1) K/mcL RBC (3.82-4.97) M/mcL Hgb (11.5-15.4) g/dL Hct (35.3-44.9) % MCV (83.0-100.0) fL MCH (28.0-33.3) pg MCHC (31.6-35.5) g/dL RDW (11.5-14.5) % Plt Count (140-400) K/mcL MPV (9.4-12.4) fL Immature Gran % (0-4) % Seg Neutrophils % % Lymphocytes % % Monocytes % % Eosinophils % % Basophils % % Neutrophils # (1.6-8.9) K/mcL Lymphocytes # (0.6-4.6) K/mcL Monocytes # (0.0-1.3) K/mcL Eosinophils # (0.0-0.6) K/mcL Basophils # (0.0-0.2) K/mcL ESR 105 H (0-15) mm/hr Sodium (136-145) mEq/L Potassium (3.5-5.1) mEq/L Chloride (98-107) mEq/L Carbon Dioxide (23-29) mEq/L BUN (6-20) mg/dL Creatinine (0.60-1.20) mg/dL Est GFR ( Amer) (> 60) Est GFR (Non-Af Amer) (> 60) BUN/Creatinine Ratio (6-26) Glucose (70-105) mg/dL Calculated Osmolality (280-300) Lactic Acid (0.5-2.2) mmol/L Calcium (8.6-10.3) mg/dL C-Reactive Protein (Less than 10) mg/L
[2018-03-09] MEDS ORDERED: Isovue-370 500 ML INFUS..BTL IV ONE (18:37)
[2018-03-09] MEDS ORDERED: 0.9 % Sodium Chloride 1,000 ML IVC ONE (18:38)
[2018-03-09] MEDS ORDERED: *HR* FentaNYL (PF) 100 MCG/2 ML VIAL IVP ONE ×3 (18:38→20:50)
[2018-03-09 18:56] LABS: Basophils # 0.1 K/mcL (0.0-0.2); Basophils % 0.4 %; Eosinophils # 0.4 K/mcL (0.0-0.6); Eosinophils % 2.7 %; Hematocrit 41.3 % (35.3-44.9); Hemoglobin 13.7 g/dL (11.5-15.4); Immature Granulocytes % 0.7 % (0-4); Lymphocytes % 7.7 %; Mean Corpuscular HGB Conc 33.2 g/dL (31.6-35.5); Mean Corpuscular Hemoglobin 31.9 pg (28.0-33.3); Mean Corpuscular Volume 96.3 fL (83.0-100.0); Mean Platelet Volume 9.9 fL (9.4-12.4); Monocytes % 7.5 %; Neutrophils # 10.8 K/mcL (1.6-8.9); Platelet Count 265 K/mcL (140-400); Red Blood Count 4.29 M/mcL (3.82-4.97); Red Cell Distribution Width 12.8 % (11.5-14.5)
[2018-03-09] MEDS ORDERED: Piperacillin/Tazobactam 3.375 GM in 0.9 % Sodium Chloride Mini Bag 100 ML IVPB ONE (19:15)
[2018-03-09 19:18] LABS: Calcium 9.1 mg/dL (8.6-10.3); Potassium 3.6 mEq/L (3.5-5.1)
--- NOTE | 2018-03-09 22:00 | Internal Med History&Physical ---
<Janelle Cee - Last Filed: 03/10/18 01:20> Date of Encounter: 03/10/18 Time of Encounter: 22:10 Internal Medicine - H&P: HPI Chief complaint: abcess Admitted From: Home Plans for Post Hospital Care: Home History of present illness: Ms. Saucedo is a 47 year old female with a past medical history of COPD, CAD, diabetes, end-stage renal disease on dialysis, and hypertension who presented to the ED for an abscess on her left inner thigh. Patient states that appeared on week ago on 03/02/18 while she was at dialysis and she was given antibiotic to start. Patient states that she did not fill the prescription and begin clindamycin until Wednesday. Abscess began to drain on Wednesday and associated fevers. Fevers stopped by 03/07/18 but pain and redness continued to spread so patient came into the ED today. Upon arrival to the ED, patient's vitals were wnl. WBCs= 13.4, Creatinine 5.56, and CRP 124. CT scan of the lower extremity and pelvis revealed skin thickening and subcutaneous stranding along the medial soft tissues of the proximal left thigh with underlying subcutaneous gas present. Findings were compatible with cellulitis and gas-forming infection. Dr. Petersen was notified. ED physician obtained cultures and packed the wound with 1/2 in iodoform gauze. Patient was admitted to the hospitalist. Past Med Surg Social Fam HX - Past Medical History Medical history: COPD, coronary artery disease, diabetes, dialysis, hyperlipidemia, hypertension, kidney stones, renal disease (ESRD on dialysis every MWF (Renal tubular acidosis)), other (Anemia, Vitamin D Deficiency, Morbid obesity) Additional medical history: crvical stenosis of spinal cord. cervical myelopathy. left sided weakness Psychiatric history: anxiety, depression - Past Surgical History Surgical History: orthopedic, other (anterior cervical decompression and fusion) , other (Tonsillectomy; drainage of groin infection) Additional surgical history: Tonsilectomy. Cervical fusion. Fistula -- right upper arm - Social History Smoking Status: Never smoker Smokeless Tobacco Status: No Alcohol use: none Drug use: none - Family History Mother Living Status: Still Living Hx Family Cardiac Disorders: Yes (HTN) Hx Family Neurologic Disorders: Yes (Stoke) Father Living Status: Hx Family Cancer: Yes (Stomach) Hx Family Endocrine Disorder: Yes (Diabetes) Internal Medicine - H&P: Meds Albuterol Sulfate [Proair Respiclick] 2 puff IH Q4H PRN 10/19/15 [History] Atorvastatin [Lipitor] 10 mg PO HS 10/19/15 [History] FLUoxetine HCl [Prozac] 20 mg PO QAM 10/19/15 [History] Omeprazole [PriLOSEC] 20 mg PO DAILY 10/19/15 [History] Fluticasone/Vilanterol [Breo Ellipta 100-25 Mcg INH] 1 puff IH DAILY 01/03/17 [ History] Gabapentin [Neurontin] 300 mg PO HS 01/03/17 [History] Calcium Acetate [Phos-LO] 667 mg PO TIDWM 10/17/17 [History] Cinacalcet HCl [Sensipar] 60 mg PO DAILY 10/17/17 [History] Folic Acid/Vit Bcomp,C [Dialyvite Tablet] 1 tab PO DAILY 10/17/17 [History] Acetaminophen [8Hr Arthritis Pain Relief] 650 mg PO Q6H PRN #30 tablet.er [Rx] Clindamycin HCl [Clindamycin HCl] 300 mg PO Q6H 03/09/18 [History] 3 Allergy/AdvReac Type Severity Reaction Status Date / Time Sulfa (Sulfonamide Allergy Hives Verified 03/09/18 21:07 Antibiotics) iron AdvReac Hives Verified 03/09/18 21:07 All Systems PM: A 10-system review of systems was performed and is negative for pertinent findings except as documented above in the HPI. - Constitutional Vitals: Temp Pulse Resp BP Pulse Ox 98.7 F 88 20 138/70 97 03/09/18 19:14 03/09/18 20:33 03/09/18 20:33 03/09/18 20:33 03/09/18 19:14 Exam: Constitutional: Alert, in no acute distress, obese Head: Normocephalic, atraumatic Heart: Normal, regular rate and rhythm, no murmurs Lungs: Clear to auscultation, no wheezes, rales, or rhonchi Abdomen: Soft, nondistended, nontender, bowel sounds present and normal, no guarding or rigidity. Extremities: left inguinal region redness and swelling with an incision with packing, scabbed area about 2.5cm by 1cm near incision, redness extending down medial aspect of thigh stopping at the level of the knee, knee joint without swelling, redness or tenderness. radial pulse +2/4, capillary refill <2sec. Skin: Skin warm and dry,no jaundice Neurologic: Cranial nerves II through XII grossly intact, strength 5/5 in all extremitites Psych: Cooperative with exam, good eye contact, cognitive function intact, speech clear, thought process logical, and goal directed Internal Med - H&P Results - Labs CBC & Chem 7: 03/10/18 00:08 03/10/18 00:08 - Assessment and plan (1) Cellulitis and abscess of left lower extremity Current Visit: Yes Status: Acute Assessment and plan: Abscess present in the left inguinal region with subcutaneous gas present with cellulitis of the surrouding skin. Does not meet sepsis criteria. WBC 13.4. Vitals wnl. I&D in the ED with packing placed. Surgery consulted. Plan: - continue Vanco, Flagyl, and Zosyn - wound culture pending - blood cultures pending - surgery consulted by ED - Diet: NPO after midnight (2) HTN (hypertension) Current Visit: No Status: Chronic Assessment and plan: continue home meds. Hydralzine 10mg Q6H prn. Qualifiers: Hypertension type: unspecified Qualified Code(s): I10 - Essential (primary ) hypertension (3) DVT prophylaxis Current Visit: Yes Status: Acute Assessment and plan: Heparin SQ (4) End stage renal disease on dialysis Current Visit: Yes Status: Acute Assessment and plan: On Dialysis M, W, F. Ballistics Tester: Dr. Shay. Will consult nephro for dialysis management. - Time Spent With Patient Total time spent is greater than 50% in coordination of care (as documented) at patient's floor/unit and/or counseling patient: <Hari Mensah - Last Filed: 03/10/18 05:26> Date of Encounter: 03/10/18 Time of Encounter: 01:00 - Constitutional Constitutional: fever(s) (subjective), no chills, no night sweats - EENT Eyes: no change in vision Ears: no ear pain, no tinnitus Nose, mouth and throat: no nasal congestion, no sinus pain, no sinus pressure - Cardiovascular Cardiovascular ROS IM: no chest pain, no dyspnea - Respiratory Respiratory: no cough, no dyspnea, no chest congestion, no excessive phlegm production - Gastrointestinal Gastrointestinal: no abdominal pain, no diarrhea, no hematemesis, no hematochezia, no melena, no nausea, no vomiting - Genitourinary Genitourinary: no dysuria, no flank pain, no hematuria - Musculoskeletal Musculoskeletal ROS IM: no arthralgias, no back pain - Integumentary Integumentary IM: erythema, rash Additional comments: left inner thigh with redness, draining lesion, and pain - Neurological Neurological ROS: no dizziness, no focal weakness, no frequent falls, no headache(s) - Psychiatric Psychiatric: no anxiety, no depression - Endocrine Endocrine IM: no polydipsia, no polyuria - Constitutional Vitals: Temp Pulse Resp BP Pulse Ox 97.9 F 66 18 95/62 92 03/10/18 03:33 03/10/18 03:33 03/10/18 03:33 03/10/18 03:33 03/10/18 03:33 General appearance: Present: cooperative, A&O X 3, pleasant, no acute distress - Head Head exam: Present: normal inspection - Eye Eye exam: Present: EOMI, PERRL. Absent: scleral icterus - ENT ENT exam: Present: mucous membranes dry, normal exam - Neck Neck exam general surgery: Present: supple - Respiratory Respiratory exam: Present: CTAB. Absent: rales, rhonchi, wheezes - Cardiovascular Cardiovascular exam: Present: RRR, +S1, +S2. Absent: diastolic murmur, systolic murmur - GI/Abdominal GI/Abdominal exam: Present: soft. Absent: hepatomegaly, mass, splenomegaly, tenderness - Extremities Exam Extremities exam: Present: tenderness (left inner with redness, warmth, and tendernss and foul-smelling drainage form I&D wound), warm. Absent: calf tenderness, joint swelling - Back Exam Back exam: Absent: CVA tenderness (L), CVA tenderness (R) - Neurological Exam Neurological exam: Present: altered, oriented X3, no focal deficits - Skin Additional comments: left inner thigh as above Internal Med - H&P Results - Labs CBC & Chem 7: 03/10/18 00:08 03/10/18 00:08 - Diagnostic Studies Other Images Status: image reviewed by me (with ER physician; report reviewed) - Attending Attestation I discussed the patient MILLE LACS, past medical history, review of systems, lab data , imaging studies, and exam findings with Dr. Cee. I then saw and assessed patient myself independently. I personally reviewed CAT scan imaging with the ER physician in the ER. The CT images were also reviewed with Dr. Burrell. I&D and packing was performed in ER prior to admission to the floor. Upon my assessment of the patient on the floor, patient was alert, appropriate, and in no acute distress. There was a foul smell emanating from her drainage from the wound. Her left thigh cellulitis is erythematous but not significantly tender on my exam. Patient denies diabetes history. Nonetheless , we will keep her on broad-spectrum antibiotics and ongoing supportive measures as above. Dr. Petersen will see her in consultation and likely proceed with further surgical debridement as deemed necessary. Other than my comments above and noted physical exam findings, I agree with Dr. Cee's assessment and plan. - Assessment and plan (1) HTN (hypertension) Current Visit: No Status: Chronic Qualifiers: Hypertension type: unspecified Qualified Code(s): I10 - Essential (primary ) hypertension (2) Cellulitis and abscess of left lower extremity Current Visit: Yes Status: Acute (3) DVT prophylaxis Current Visit: Yes Status: Acute (4) End stage renal disease on dialysis Current Visit: Yes Status: Acute - Time Spent With Patient Total time spent is greater than 50% in coordination of care (as documented) at patient's floor/unit and/or counseling patient:
--- NOTE | 2018-03-09 22:51 | Emergency Department Note ---
Disposition Clinical Impression: Cellulitis, Lesion of ovary Disposition: Admitted As Inpatient Condition: Fair General Adult HPI - General Chief complaint: ED Skin/Abscess/Foreign Body Stated complaint: Abscess left inner thigh Time Seen by Provider: 03/09/18 18:20 Source: patient - History of Present Illness Pain Scale: 0 - Related Data Home Medications Medication Instructions Recorded Confirmed Albuterol Sulfate [Proair 2 puff IH Q4H PRN 10/19/15 03/09/18 Respiclick] Atorvastatin [Lipitor] 10 mg PO HS 10/19/15 03/09/18 FLUoxetine HCl [Prozac] 20 mg PO QAM 10/19/15 03/09/18 Omeprazole [PriLOSEC] 20 mg PO DAILY 10/19/15 03/09/18 Fluticasone/Vilanterol [Breo 1 puff IH DAILY 01/03/17 03/09/18 Ellipta 100-25 Mcg INH] Gabapentin [Neurontin] 300 mg PO HS 01/03/17 03/09/18 Calcium Acetate [Phos-LO] 667 mg PO TIDWM 10/17/17 03/09/18 Cinacalcet HCl [Sensipar] 60 mg PO DAILY 10/17/17 03/09/18 Folic Acid/Vit Bcomp,C [Dialyvite 1 tab PO DAILY 10/17/17 03/09/18 Tablet] Clindamycin HCl [Clindamycin HCl] 300 mg PO Q6H 03/09/18 03/09/18 Previous Rx's Medication Instructions Recorded Acetaminophen [8Hr Arthritis Pain 650 mg PO Q6H PRN #30 tablet.er 11/19/17 Relief] Allergies Allergy/AdvReac Type Severity Reaction Status Date / Time Sulfa (Sulfonamide Allergy Hives Verified 03/09/18 21:07 Antibiotics) iron AdvReac Hives Verified 03/09/18 21:07 Constitutional: Denies: fever Cardiovascular: Denies: chest pain Respiratory: Denies: dyspnea Gastrointestinal: Denies: abdominal pain, nausea, vomiting Genitourinary: Denies: urgency, dysuria, frequency Musculoskeletal: Denies: back pain Integumentary: Reports: other (Abscess and swelling of left thigh) Neurological: Denies: headache Endocrine: Denies: fatigue Past Medical History - Past Medical History Medical history: Reports: COPD, coronary artery disease, diabetes, dialysis, hyperlipidemia, hypertension, kidney stones, renal disease (ESRD on dialysis every MWF (Renal tubular acidosis)), other (Anemia, Vitamin D Deficiency, Morbid obesity) Surgical history: Reports: orthopedic, other (anterior cervical decompression and fusion), other (Tonsillectomy; drainage of groin infection) Psychiatric history: Reports: anxiety, depression FISH TRAPPER history: Reports: no FISH TRAPPER history - Social History Smoking Status: Never smoker Smokeless Tobacco Status: No Alcohol use: Reports: none Drug use: Reports: none Physical Exam - General General appearance: alert, in no apparent distress, other Course Vital Signs Temperature 98.7 F 03/09/18 18:13 Pulse Rate 91 03/09/18 18:13 Respiratory Rate 18 03/09/18 18:13 Blood Pressure 126/73 03/09/18 18:13 O2 Sat by Pulse Oximetry 97 03/09/18 18:13 Temperature 98.6 F 03/09/18 22:45 Pulse Rate 67 03/09/18 22:45 Respiratory Rate 18 03/09/18 22:45 Blood Pressure 107/47 03/09/18 22:45 O2 Sat by Pulse Oximetry 90 03/09/18 22:45 Oxygen Delivery Oxygen Delivery Room Air Medical Decision Making - Lab Data Result diagrams: 03/09/18 18:46 03/09/18 18:46 Lab Results 03/09/18 03/09/18 03/09/18 Range/Units 18:46 18:46 18:46 WBC 13.4 H (4.3-11.1) K/mcL RBC 4.29 (3.82-4.97) M/mcL Hgb 13.7 (11.5-15.4) g/dL Hct 41.3 (35.3-44.9) % MCV 96.3 (83.0-100.0) fL MCH 31.9 (28.0-33.3) pg MCHC 33.2 (31.6-35.5) g/dL RDW 12.8 (11.5-14.5) % Plt Count 265 (140-400) K/mcL MPV 9.9 (9.4-12.4) fL Immature Gran % 0.7 (0-4) % Seg Neutrophils % 81.0 % Lymphocytes % 7.7 % Monocytes % 7.5 % Eosinophils % 2.7 % Basophils % 0.4 % Neutrophils # 10.8 H (1.6-8.9) K/mcL Lymphocytes # 1.0 (0.6-4.6) K/mcL Monocytes # 1.0 (0.0-1.3) K/mcL Eosinophils # 0.4 (0.0-0.6) K/mcL Basophils # 0.1 (0.0-0.2) K/mcL ESR (0-15) mm/hr Sodium 138 (136-145) mEq/L Potassium 3.6 (3.5-5.1) mEq/L Chloride 98 (98-107) mEq/L Carbon Dioxide 27 (23-29) mEq/L BUN 45 H (6-20) mg/dL Creatinine 5.56 H (0.60-1.20) mg/dL Est GFR ( Amer) 10 L (> 60) Est GFR (Non-Af Amer) 8 L (> 60) BUN/Creatinine Ratio 8 (6-26) Glucose 178 H (70-105) mg/dL Calculated Osmolality 302 H (280-300) Lactic Acid 2.0 (0.5-2.2) mmol/L Calcium 9.1 (8.6-10.3) mg/dL C-Reactive Protein 124 H (Less than 10) mg/L 03/09/18 Range/Units 18:46 WBC (4.3-11.1) K/mcL RBC (3.82-4.97) M/mcL Hgb (11.5-15.4) g/dL Hct (35.3-44.9) % MCV (83.0-100.0) fL MCH (28.0-33.3) pg MCHC (31.6-35.5) g/dL RDW (11.5-14.5) % Plt Count (140-400) K/mcL MPV (9.4-12.4) fL Immature Gran % (0-4) % Seg Neutrophils % % Lymphocytes % % Monocytes % % Eosinophils % % Basophils % % Neutrophils # (1.6-8.9) K/mcL Lymphocytes # (0.6-4.6) K/mcL Monocytes # (0.0-1.3) K/mcL Eosinophils # (0.0-0.6) K/mcL Basophils # (0.0-0.2) K/mcL ESR 105 H (0-15) mm/hr Sodium (136-145) mEq/L Potassium (3.5-5.1) mEq/L Chloride (98-107) mEq/L Carbon Dioxide (23-29) mEq/L BUN (6-20) mg/dL Creatinine (0.60-1.20) mg/dL Est GFR ( Amer) (> 60) Est GFR (Non-Af Amer) (> 60) BUN/Creatinine Ratio (6-26) Glucose (70-105) mg/dL Calculated Osmolality (280-300) Lactic Acid (0.5-2.2) mmol/L Calcium (8.6-10.3) mg/dL C-Reactive Protein (Less than 10) mg/L Attestation Statement - Attestation Attestation: I examined this patient and my medical decision-making was reviewed with the Resident Physician, Dr. Carlton. I agree with the documented findings, disposition and treatment plan as described except to the extent set forth below. Patient is a 47-year-old white female history of diabetes who presents to the emergency department with a left medial thigh abscess with surrounding cellulitis. The cellulitis extends from the inguinal crease proximally down to the upper lower leg medially. Patient with a large spontaneously draining abscess on the medial upper thigh. Patient states she has had this for about 5 days and has been taking clindamycin with gradually worsening of her symptoms. Patient is an end-stage renal patient on hemodialysis and states that her nurses on dialysis recommended she come for further evaluation. I agree with patient's physical exam findings as documented. Vital signs are stable. Patient had an IV established placed on cardiac monitoring laboratory evaluation was performed including blood and wound cultures, and CT imaging of the pelvis and left thigh were performed. Patient received coverage for cellulitis and antibiotics were initiated in the ED. She is remained hemodynamically stable. Patient has a mild elevation in her white count and chronic renal insufficiency. Patient's CT scan shows evidence for cellulitis but no discrete abscess is seen. There is also gas in the soft tissues concerning for gas-forming bacteria. Both anaerobic and aerobic cultures were obtained. Dr. Petersen was consulate from the ED to follow the patient and patient was admitted to the hospitalist service. Patient is hemodynamically stable at time of admission
[2018-03-09] MEDS ORDERED: Naloxone 0.4 MG/ML INJ IVP PRN (23:22)
[2018-03-09] MEDS ORDERED: Piperacillin/Tazobactam 3.375 GM in 0.9 % Sodium Chloride Mini Bag 100 ML IVPB SCH (23:45)
[2018-03-10] MEDS: *HR* HYDROcodone/Acet 5/325 mg TABLET PO PRN ×3 (00:01→18:41)
[2018-03-10] MEDS: MetroNIDAZOLE 500 MG/100 ML 500 MG/100 ML BAG IVPB SCH ×2 (00:02→08:48)
[2018-03-10 00:39] LABS: Hemoglobin 11.5 g/dL (11.5-15.4); Mean Corpuscular HGB Conc 31.9 g/dL (31.6-35.5); Mean Corpuscular Hemoglobin 31.3 pg (28.0-33.3); Mean Corpuscular Volume 98.1 fL (83.0-100.0); Platelet Count 216 K/mcL (140-400); Red Blood Count 3.67 M/mcL (3.82-4.97)
[2018-03-10 00:52] LABS: Calcium 8.4 mg/dL (8.6-10.3); Magnesium 1.9 mg/dL (1.6-2.6); Phosphorous 4.9 mg/dL (2.7-4.5); Potassium 3.9 mEq/L (3.5-5.1)
[2018-03-10] MEDS: Acetaminophen 325 MG TABLET PO PRN (04:53)
[2018-03-10] MEDS: *HR* Heparin 5,000 UNIT/ML VIAL SQ SCH ×2 (06:18→17:07)
[2018-03-10] MEDS: Piperacillin/Tazobactam 3.375 GM in 0.9 % Sodium Chloride Mini Bag 100 ML IVPB SCH ×3 (08:39→17:07)
[2018-03-10] MEDS ORDERED: Lidocaine -MPF 1% 5 ML AMPUL INFILT STA (08:44)
[2018-03-10] MEDS: FLUoxetine 20 MG CAPSULE PO SCH (08:49)
--- NOTE | 2018-03-10 09:10 | Nephrology Consult Note ---
Date of Encounter: 03/10/18 Time of Encounter: 09:06 Assessment and Plan (1) End stage renal disease on dialysis Current Visit: Yes Status: Acute Plan for HD tomorrow Currently NPO-will need renal diet when diet advanced Will need binders ordered when diet resumed-Phoslo 667mg one tab p.o. with each meal TID Avoid nephrotoxins if possible Vanco to be dosed by pharmacy (2) Cellulitis and abscess of left lower extremity Current Visit: Yes Status: Acute per surgery team vanco to be dose by pharmacy (3) Morbid obesity Current Visit: No Status: Acute per primary team History of Present Illness - Reason for Consult Consult date: 03/10/18 - Chief Complaint abscess left lower extremity, ESRD on dialysis - History of Present Illness Ms Saucedo is a 47 year old woman well known to our practice who has a PMH of COPD, CAD, DM, ESRD on dialysis at the [facility], HTN, and morbid obesity who was admitted for an absess on upper left thigh. I had seen patient on Sunday 03/04 at the [facility] dialysis unit and she c/o a sore on her upper leg that had started draining; she said she had a history of MRSA and her temp that morning was 101. She is allergic to Bactrim so I started her on clindamycin and ordered blood cultures. As of Friday 04/06 blood cultures were negative. She was instructed to see her PCP or go to ED if wound worsened. Apparently she did not fill my Rx until Wednesday, then seen her PCP several days later who advised her to come into the ED. Patient did have a full dialysis treatment yesterday Past Med Surg Social Fam HX - Past Medical History Medical history: COPD, coronary artery disease, diabetes, dialysis, hyperlipidemia, hypertension, kidney stones, renal disease (ESRD on dialysis every MWF (Renal tubular acidosis)), other (Anemia, Vitamin D Deficiency, Morbid obesity) Additional medical history: crvical stenosis of spinal cord. cervical myelopathy. left sided weakness Psychiatric history: anxiety, depression - Past Surgical History Surgical History: orthopedic, other (anterior cervical decompression and fusion) , other (Tonsillectomy; drainage of groin infection) Additional surgical history: Tonsilectomy. Cervical fusion. Fistula -- right upper arm - Social History Smoking Status: Never smoker Smokeless Tobacco Status: No Alcohol use: none Drug use: none - Family History Mother Living Status: Still Living Hx Family Cardiac Disorders: Yes (HTN) Hx Family Neurologic Disorders: Yes (Stoke) Father Living Status: Hx Family Cancer: Yes (Stomach) Hx Family Endocrine Disorder: Yes (Diabetes) Medications and Allergies Albuterol Sulfate [Proair Respiclick] 2 puff IH Q4H PRN 10/19/15 [History] Atorvastatin [Lipitor] 10 mg PO HS 10/19/15 [History] FLUoxetine HCl [Prozac] 20 mg PO QAM 10/19/15 [History] Omeprazole [PriLOSEC] 20 mg PO DAILY 10/19/15 [History] Fluticasone/Vilanterol [Breo Ellipta 100-25 Mcg INH] 1 puff IH DAILY 01/03/17 [ History] Gabapentin [Neurontin] 300 mg PO HS 01/03/17 [History] Calcium Acetate [Phos-LO] 667 mg PO TIDWM 10/17/17 [History] Cinacalcet HCl [Sensipar] 60 mg PO DAILY 10/17/17 [History] Folic Acid/Vit Bcomp,C [Dialyvite Tablet] 1 tab PO DAILY 10/17/17 [History] Acetaminophen [8Hr Arthritis Pain Relief] 650 mg PO Q6H PRN #30 tablet.er [Rx] Clindamycin HCl [Clindamycin HCl] 300 mg PO Q6H 03/09/18 [History] 3 Allergy/AdvReac Type Severity Reaction Status Date / Time Sulfa (Sulfonamide Allergy Hives Verified 03/09/18 21:07 Antibiotics) iron AdvReac Hives Verified 03/09/18 21:07 Review of Systems All Systems: reviewed and no additional remarkable complaints except as stated Constitutional: fever(s), malaise Cardiovascular: no dyspnea, no leg edema, no rapid heart rate Respiratory: no dyspnea Gastrointestinal: no vomiting Integumentary: lesions, skin ulcer, sores Neurological: no behavioral changes Exam - Vital Signs Vital signs: Initial Vital Signs Temp Pulse Resp BP Pulse Ox 98.7 F 91 18 126/73 97 03/09/18 18:13 03/09/18 18:13 03/09/18 18:13 03/09/18 18:13 03/09/18 18:13 Vital Signs - Last 8 Hours Temp Pulse Resp BP Pulse Ox 03/10/18 07:02 97.6 F 62 18 90/53 95 03/10/18 03:33 97.9 F 66 18 95/62 92 Intake and Output 03/09/18 03/10/18 03/10/18 23:59 07:59 15:59 Intake Total 0 / 0 Balance 0 / 0 Intake: Oral 0 / 0 Other: Meal NPO Percent of Meal Consumed 0% Weight 149.9 kg Blood Glucose* 109 Patient Weight 03/10/18 23:59 Weight 149.9 kg - General Appearance General appearance: obese EENT: ATNC, mucous membranes moist, hearing intact, vision intact Neck: supple Respiratory: clear Cardiology: no edema, normal S1, normal S2 - Dialysis Access Dialysis Vascular Access: Arteriovenous Fistula Gastrointestinal: no tenderness, no guarding, obese Integumentary: warm and dry, ulcer (open wound left upper thigh) Neurologic: alert and oriented x3 Psychiatric: mood/affect appropriate, cooperative Results - Lab Results 03/10/18 00:08 03/10/18 00:08 Most recent lab results Calcium 8.4 mg/dL (8.6-10.3) L 03/10/18 00:08 Phosphorus 4.9 mg/dL (2.7-4.5) H 03/10/18 00:08 Magnesium 1.9 mg/dL (1.6-2.6) 03/10/18 00:08 Consult Discharge Plan - Plan Referrals: Steven Ly MD [Primary Care Provider] -
[2018-03-10 09:26] LABS: Hepatitis B Surface Antigen Nonreactive (Nonreactive)
--- NOTE | 2018-03-10 09:52 | General Surgery Consult Note ---
Date of Encounter: 03/10/18 Time of Encounter: 09:52 Assessment and Plan (1) Cellulitis and abscess of left lower extremity Current Visit: Yes Status: Acute CT of the left lower extremity on 03/09/2013 with contrast notes thickening and subcutaneous stranding along the medial soft tissues of the proximal left by with underlying subcutaneous gas present. Findings compatible with cellulitis and gas forming infection. There was no well defined a drinkable fluid collection identified. Patient states that when she got up to the floor, the area on her left entered by "busted open and started draining a bunch of stinky stuff." The area of cellulitis measures approximately 8 x 8 cm and the area of induration measured approximately 6 cm. Notably in area measuring approximately 10 cm long by 4 cm wide by 6 cm depth was independently opened per the patient's report above. There is notably necrotic tissue on the lateral , and inferior margins. There remains to other areas of fluctuance at approximately 11 o'clock(from the open area) and 2 o'clock. These areas were localized, incised and drained. Moderate amount of bloody drainage returned. Cultures were obtained. The lateral most area of necrosis was able to be debrided at the bedside however the inferior margins were not. Plan: IND complete, see procedure note. Antibiotics per primary team diet per primary team (no indication per surgery to keep patient NPO at this time). Discomfort management and supportive care per primary team surgery will change packing on 03/11/2018 may reinforce or change outer dressing History of Present Illness Consult date: 03/09/18 (Dr. Nura Salguero) Reason for consult: other Requesting physician: David Carlton History of present illness: Odalys is a 47-year-old female with a significant past medical history of COPD, diabetes, end-stage renal disease on dialysis, hypertension, and morbid obesity. She was admitted for an abscess on the left upper thigh. Surgery has been consultative for recommendations regarding abscess. Per patient interview on record review, the patient states a few days ago she began having pain on the left upper thigh. The store kept getting bigger and then started draining. She reported fevers with it Tmax of 101. She denies any other areas of abscess. She was given a prescription for clindamycin however she did not get this filled. 03/09/[address] of the lower extremity which revealed subcutaneous gas. Surgery was consult it for treatment but patient states that last night or early this morning the area opened up in drained a large amount of foul-smelling material. She states it feels somewhat better since then. Past Med Surg Social Fam HX - Past Medical History Medical history: COPD, coronary artery disease, diabetes, dialysis, hyperlipidemia, hypertension, kidney stones, renal disease (ESRD on dialysis every MWF (Renal tubular acidosis)), other (Anemia, Vitamin D Deficiency, Morbid obesity) Additional medical history: crvical stenosis of spinal cord. cervical myelopathy. left sided weakness Psychiatric history: anxiety, depression - Past Surgical History Surgical History: orthopedic, other (anterior cervical decompression and fusion) , other (Tonsillectomy; drainage of groin infection) Additional surgical history: Tonsilectomy. Cervical fusion. Fistula -- right upper arm - Social History Smoking Status: Never smoker Smokeless Tobacco Status: No Alcohol use: none Drug use: none - Family History Mother Living Status: Still Living Hx Family Cardiac Disorders: Yes (HTN) Hx Family Neurologic Disorders: Yes (Stoke) Father Living Status: Hx Family Cancer: Yes (Stomach) Hx Family Endocrine Disorder: Yes (Diabetes) Medications and Allergies Albuterol Sulfate [Proair Respiclick] 2 puff IH Q4H PRN 10/19/15 [History] Atorvastatin [Lipitor] 10 mg PO HS 10/19/15 [History] FLUoxetine HCl [Prozac] 20 mg PO QAM 10/19/15 [History] Omeprazole [PriLOSEC] 20 mg PO DAILY 10/19/15 [History] Fluticasone/Vilanterol [Breo Ellipta 100-25 Mcg INH] 1 puff IH DAILY 01/03/17 [ History] Gabapentin [Neurontin] 300 mg PO HS 01/03/17 [History] Calcium Acetate [Phos-LO] 667 mg PO TIDWM 10/17/17 [History] Cinacalcet HCl [Sensipar] 60 mg PO DAILY 10/17/17 [History] Folic Acid/Vit Bcomp,C [Dialyvite Tablet] 1 tab PO DAILY 10/17/17 [History] Acetaminophen [8Hr Arthritis Pain Relief] 650 mg PO Q6H PRN #30 tablet.er [Rx] Clindamycin HCl [Clindamycin HCl] 300 mg PO Q6H 03/09/18 [History] 3 Allergy/AdvReac Type Severity Reaction Status Date / Time Sulfa (Sulfonamide Allergy Hives Verified 03/09/18 21:07 Antibiotics) iron AdvReac Hives Verified 03/09/18 21:07 Review of Systems All systems PM: reviewed and no additional remarkable complaints except as stated All systems PM: The remainder of the systems were reviewed and are negative General Surgery Exam Initial Vital Signs Temp Pulse Resp BP Pulse Ox 98.7 F 91 18 126/73 97 03/09/18 18:13 03/09/18 18:13 03/09/18 18:13 03/09/18 18:13 03/09/18 18:13 - General physical appearance chronically ill, obese - Respiratory other (Decreased in course) - Cardiovascular Cardiovascular exam: Present: RRR, 15, 16 - Abdomen Abdomen general surgery: Present: bowel sounds present, soft, non tender - Integumentary Integumentary general surgery: Present: warm and dry, other (Large area of induration to the left medial upper thigh. There is an area that spontaneously opened and packing is in place. There are 2 other small areas that are fluctuant. See procedure note for details.) - Psychiatric Psychiatric general surgery: Present: appropriate, oriented to person, oriented to place, oriented to time, speech is normal, memory intact Exam Initial Vital Signs Temp Pulse Resp BP Pulse Ox 98.7 F 91 18 126/73 97 03/09/18 18:13 03/09/18 18:13 03/09/18 18:13 03/09/18 18:13 03/09/18 18:13 Results - Labs 03/10/18 00:08 03/10/18 00:08 Abnormal lab results RBC 3.67 M/mcL (3.82-4.97) L 03/10/18 00:08 Neutrophils # 10.8 K/mcL (1.6-8.9) H 03/09/18 18:46 ESR 105 mm/hr (0-15) H 03/09/18 18:46 BUN 50 mg/dL (6-20) H 03/10/18 00:08 Creatinine 5.89 mg/dL (0.60-1.20) H 03/10/18 00:08 Est GFR ( Amer) 9 (> 60) L 03/10/18 00:08 Est GFR (Non-Af Amer) 8 (> 60) L 03/10/18 00:08 Glucose 129 mg/dL (70-105) H 03/10/18 00:08 Calculated Osmolality 305 (280-300) H 03/10/18 00:08 Calcium 8.4 mg/dL (8.6-10.3) L 03/10/18 00:08 Phosphorus 4.9 mg/dL (2.7-4.5) H 03/10/18 00:08 C-Reactive Protein 124 mg/L (Less than 10) H 03/09/18 18:46 All other labs normal. - Imaging CT scan - abdomen: report reviewed CT scan - pelvis: report reviewed Procedures: General Surgery - Abscess I/D Additional comments: ABSCESS INCISION AND DRAINAGE NOTE INDICATION: Abscess manifested as a tender, swollen fluctuant mass in the superficial subcutaneous tissue. INFORMED CONSENT: The risks and benefits of the procedure including incomplete drainage, scarring, infection and bleeding was explained and the patient verbalized their understanding and wished to proceed with the procedure. PROCEDURE: The area(s) of greatest fluctuance was identified, prepped, and draped in a sterile fashion. Local anesthetic (10 MLs of 2% lidocaine) was introduced subcutaneously over the area of greatest fluctuance. A linear incision was then made over the area of greatest fluctuance, with immediate return of a large amount of purulent material. Cultures were obtained. They margins with eschar were debrided The wound was explored with a hemostat to break up loculations and irrigated with 40MLs saline solution. Once the wound was explored, cleaned, and irrigated, 1 inch and 1/4 inch iodoform gauze packing in the respective areas was placed loosely in the wound. A dressing was then applied. FINDINGS: Purulent drainage. EBL: <5 mL COMPLICATIONS: None. Signature: Nicci Goins APRN, WARRANTY ADMINISTRATOR-C Consult Discharge Plan - Plan Referrals: Steven Ly MD [Primary Care Provider] -
[2018-03-10] MEDS ORDERED: Vancomycin 500 MG in 0.9 % Sodium Chloride Mini Bag 100 ML IVPB ONE (10:34)
[2018-03-10] MEDS ORDERED: Albuterol 2.5 MG/3 ML NEBULIZER IH PRN (11:09)
[2018-03-10] MEDS: Calcium Acetate 667 MG CAPSULE PO SCH ×2 (12:10→17:07)
[2018-03-10] MEDS ORDERED: Tdap (ADACEL) Vaccine 0.5 ML IM ONE (12:52)
[2018-03-10] MEDS: Clindamycin 600 MG/50 ML 600 MG/50 ML IV.SOLN IVPB SCH ×2 (15:39→23:34)
[2018-03-10] MEDS: Budesonide/Formoterol 160/4.5 MDI IH SCH (19:32)
[2018-03-10] MEDS ORDERED: Gabapentin 300 MG CAPSULE PO ONE (21:00)
--- NOTE | 2018-03-10 21:08 | Internal Med Progress Note ---
Date of Encounter: 03/10/18 Time of Encounter: 17:55 - Assessment and plan (1) HTN (hypertension) Current Visit: No Status: Chronic Assessment and plan: Controlled continue current medication Qualifiers: Hypertension type: unspecified Qualified Code(s): I10 - Essential (primary ) hypertension (2) Cellulitis and abscess of left lower extremity Current Visit: Yes Status: Acute Assessment and plan: Is status post incision and drainage awaiting surgery inpu tomorrow for any farther intervention, if no further intervention needed may consider discharge tomorrow on oral antibiotic if okay with surgery team (3) DVT prophylaxis Current Visit: Yes Status: Acute (4) End stage renal disease on dialysis Current Visit: Yes Status: Acute Assessment and plan: Hemodialysis tomorrow morning - Time Spent With Patient Total time spent is greater than 50% in coordination of care (as documented) at patient's floor/unit and/or counseling patient: 25 - 35 minutes - Subjective Interval history: Patient denies any fever or chills. Patient had incision and drainage done today. Tolerating her meals. Continue to have pain at abscess site but better than yesterday - Constitutional Vitals: Temp Pulse Resp BP Pulse Ox 97.9 F 67 18 125/79 92 03/10/18 19:20 03/10/18 19:20 03/10/18 19:33 03/10/18 19:20 03/10/18 19:33 General appearance: Present: cooperative, A&O X 3, pleasant, no acute distress - Head Head exam: Present: atraumatic, normocephalic - Neck Neck exam general surgery: Present: supple, trachea midline. Absent: lymphadenopathy - Respiratory Respiratory exam: Present: CTAB. Absent: accessory muscle use, rales, rhonchi, wheezes - GI/Abdominal GI/Abdominal exam: Present: normal bowel sounds, soft, no peritoneal signs. Absent: distended, tenderness - Skin Skin exam: Present: dry (Abscess exam is deferred status post incision and drainage and dressing is applied) Internal Medicine: Result - Labs CBC & Chem 7: 03/10/18 00:08 03/10/18 00:08 Consult Discharge Plan - Plan Referrals: Steven Ly MD [Primary Care Provider] -
[2018-03-11 03:34] LABS: Basophils % 0.5 %; Eosinophils # 0.4 K/mcL (0.0-0.6); Eosinophils % 5.4 %; Hematocrit 36.1 % (35.3-44.9); Hemoglobin 11.2 g/dL (11.5-15.4); Immature Granulocytes % 1.4 % (0-4); Lymphocytes # 0.7 K/mcL (0.6-4.6); Lymphocytes % 8.9 %; Mean Corpuscular Hemoglobin 30.8 pg (28.0-33.3); Mean Corpuscular Volume 99.2 fL (83.0-100.0); Mean Platelet Volume 9.9 fL (9.4-12.4); Monocytes # 0.9 K/mcL (0.0-1.3); Monocytes % 12.5 %; Neutrophils # 5.2 K/mcL (1.6-8.9); Platelet Count 208 K/mcL (140-400); Red Blood Count 3.64 M/mcL (3.82-4.97); Segmented Neutrophils % 71.3 %
[2018-03-11 03:46] LABS: Potassium 4.5 mEq/L (3.5-5.1)
[2018-03-11] MEDS: Piperacillin/Tazobactam 3.375 GM in 0.9 % Sodium Chloride Mini Bag 100 ML IVPB SCH ×2 (05:18→16:23)
[2018-03-11] MEDS: *HR* Heparin 5,000 UNIT/ML VIAL SQ SCH ×2 (05:18→16:23)
[2018-03-11] MEDS: Acetaminophen 325 MG TABLET PO PRN (05:24)
[2018-03-11] MEDS ORDERED: 0.9 % Sodium Chloride 250 ML IVC PRN (06:37)
[2018-03-11] MEDS: Budesonide/Formoterol 160/4.5 MDI IH SCH ×2 (07:32→23:25)
[2018-03-11] MEDS ORDERED: 0.9 % Sodium Chloride 1,000 ML ONE (08:02)
[2018-03-11] MEDS: Calcium Acetate 667 MG CAPSULE PO SCH ×3 (08:32→16:24)
[2018-03-11] MEDS: FLUoxetine 20 MG CAPSULE PO SCH (08:40)
[2018-03-11] MEDS ORDERED: *HR* Heparin 5,000 UNIT/ML VIAL ONE (08:58)
--- NOTE | 2018-03-11 12:18 | General Surgery Progress Note ---
Date of Encounter: 03/11/18 Time of Encounter: 12:17 - Assessment and Plan (1) Cellulitis and abscess of left lower extremity Current Visit: Yes Status: Acute CT of the left lower extremity on 03/09/2013 with contrast notes thickening and subcutaneous stranding along the medial soft tissues of the proximal left by with underlying subcutaneous gas present. Findings compatible with cellulitis and gas forming infection. There was no well defined a drinkable fluid collection identified. Patient states that when she got up to the floor, the area on her left entered by "busted open and started draining a bunch of stinky stuff." S/p I&D 03/14/2018 11 o'clock(from the previously independently open area) and 2 o'clock. Plan: Continue local wound care per bedside RN Antibiotics per primary team Discomfort management and supportive care per primary team Wound Care: Remove dressing and packing. Wash with antibacterial soap. Repack with 1/2 inch plain gauze. Cover with a dry dressing. Tape to secure. Will need HHC vs ECF in place for daily dressing changes. SW consult has been placed. Follow-up with surgery on 03/18/2018 10:00 am Surgery will sign off at this time. Please call or reconsult if questions or needs arise. Subjective Patient reports: no new complaints, feels better, still having pain, pain is less, afebrile Narrative: Odalys states he discomfort is significantly improved. She denies increased drainage. Objective Vital Signs - Last 8 Hours Temp Pulse Resp BP Pulse Ox 03/11/18 11:30 119/69 03/11/18 11:15 105/74 03/11/18 11:00 105/74 03/11/18 10:45 111/66 03/11/18 10:30 121/71 03/11/18 10:15 110/64 03/11/18 10:00 118/75 03/11/18 09:45 113/67 03/11/18 09:30 104/65 03/11/18 09:15 103/62 03/11/18 09:00 102/58 03/11/18 08:45 105/65 03/11/18 08:30 106/69 03/11/18 08:15 97.3 F L 17 100/68 03/11/18 07:34 18 93 03/11/18 07:02 97.7 F 66 18 119/84 95 Intake and Output 03/10/18 03/11/18 03/11/18 23:59 07:59 15:59 Intake Total 150 / 150 240 / 240 600 / 600 Balance 150 / 150 240 / 240 600 / 600 Intake: IV Fluids 150 / 150 Cleocin Premix 600 MG/50 ML 600 50 / 50 mg In 50 ml @ 50 mls/hr IVPB Q8HR [facility] Rx#:[id number] Zosyn 3.375 GM In 0.9 % Sodium 100 / 100 Chloride (Mini-Bag +) 100 ML @ 25 mls/hr IVPB Q12HR [facility] Rx#: [id number] Oral 0 / 0 240 / 240 0 / 0 Intake, Rinseback and Flushes 600 / 600 Other: # Voids 1 Weight 148.1 kg Blood Glucose* 155 89 94 Hemodialysis Net Fluid Removed 2421 (mL) Patient Weight 03/11/18 23:59 Weight 148.1 kg - General physical appearance no distress (Sitting upright in chair at bedside), obese - ENT atraumatic, normocephalic - Neck Neck exam: trachea midline - Respiratory normal expansion, normal respiratory effort, clear to auscultation - Cardiovascular Cardiovascular exam: Present: RRR, murmurs - Abdomen Abdomen: Present: bowel sounds present, soft, non tender - Integumentary other (Left groin site with dressing and packing in place and moderate amount of SS drainage noted.) - Neurologic normal sensation - Musculoskeletal normal posture - Psychiatric oriented to time, oriented to person, oriented to place, speech is normal, memory intact - Labs 03/11/18 03:02 03/11/18 03:02 Diabetes panel 03/11/18 Range/Units 03:02 Sodium 138 (136-145) mEq/L Potassium 4.5 (3.5-5.1) mEq/L Chloride 102 (98-107) mEq/L Carbon Dioxide 26 (23-29) mEq/L BUN 61 H (6-20) mg/dL Creatinine 6.93 H (0.60-1.20) mg/dL Glucose 82 (70-105) mg/dL Calcium 8.0 L (8.6-10.3) mg/dL Calcium panel 03/11/18 Range/Units 03:02 Calcium 8.0 L (8.6-10.3) mg/dL Pituitary panel 03/11/18 Range/Units 03:02 Sodium 138 (136-145) mEq/L Potassium 4.5 (3.5-5.1) mEq/L Chloride 102 (98-107) mEq/L Carbon Dioxide 26 (23-29) mEq/L BUN 61 H (6-20) mg/dL Creatinine 6.93 H (0.60-1.20) mg/dL Glucose 82 (70-105) mg/dL Calcium 8.0 L (8.6-10.3) mg/dL Adrenal panel 03/11/18 Range/Units 03:02 Sodium 138 (136-145) mEq/L Potassium 4.5 (3.5-5.1) mEq/L Chloride 102 (98-107) mEq/L Carbon Dioxide 26 (23-29) mEq/L BUN 61 H (6-20) mg/dL Creatinine 6.93 H (0.60-1.20) mg/dL Glucose 82 (70-105) mg/dL Calcium 8.0 L (8.6-10.3) mg/dL Consult Discharge Plan - Plan Instructions: Abscess (GEN) Additional Instructions: Wound Care: Remove dressing and packing. Wash with antibacterial soap. Repack with 1/2 inch plain gauze. Cover with a dry dressing. Tape to secure. Referrals: Steven Ly MD [Primary Care Provider] - Nicci Goins CNP [Advanced Practice Nurse] - 03/18/18 10:00 am
[2018-03-11 13:34] LABS: Hepatitis B Surface Antibody 0.13 mIU/mL
[2018-03-11] MEDS: *HR* HYDROcodone/Acet 5/325 mg TABLET PO PRN ×2 (14:31→22:04)
--- NOTE | 2018-03-11 14:37 | Nephrology Progress Note ---
Date of Encounter: 03/11/18 Time of Encounter: 12:00 - Assessment and Plan (1) End stage renal disease Current Visit: No Status: Acute Continue HD with UF as tolerated Lytes WNL (2) Cellulitis and abscess of left lower extremity Current Visit: Yes Status: Acute Per primary team and surgery Subjective Interval history: Pt seen and examined on HD doing well. Interim events noted Objective - Vital Signs Vital signs: Vital Signs Temp Pulse Resp BP Pulse Ox 03/11/18 12:38 98.0 F 75 18 116/69 94 03/11/18 12:00 98.2 F 16 134/73 03/11/18 11:45 127/71 03/11/18 11:30 119/69 03/11/18 11:15 105/74 03/11/18 11:00 105/74 03/11/18 10:45 111/66 03/11/18 10:30 121/71 03/11/18 10:15 110/64 03/11/18 10:00 118/75 03/11/18 09:45 113/67 03/11/18 09:30 104/65 03/11/18 09:15 103/62 03/11/18 09:00 102/58 03/11/18 08:45 105/65 03/11/18 08:30 106/69 03/11/18 08:15 97.3 F L 17 100/68 03/11/18 07:34 18 93 03/11/18 07:02 97.7 F 66 18 119/84 95 03/11/18 01:09 102/70 03/11/18 00:48 97.7 F 84 18 83/53 91 03/10/18 19:33 18 92 03/10/18 19:20 97.9 F 67 18 125/79 92 03/10/18 18:40 108/66 03/10/18 15:31 97.6 F 66 17 99/63 93 Intake and Output 03/10/18 03/11/18 03/11/18 23:59 07:59 15:59 Intake Total 150 / 150 240 / 240 600 / 600 Output Total 2600 / 2600 Balance 150 / 150 240 / 240 -1999 / Intake: IV Fluids 150 / 150 Cleocin Premix 600 MG/50 ML 600 50 / 50 mg In 50 ml @ 50 mls/hr IVPB Q8HR [facility] Rx#:[id number] Zosyn 3.375 GM In 0.9 % Sodium 100 / 100 Chloride (Mini-Bag +) 100 ML @ 25 mls/hr IVPB Q12HR [facility] Rx#: [id number] Oral 0 / 0 240 / 240 0 / 0 Intake, Rinseback and Flushes 600 / 600 Output: Urine 0 / 0 Total Dialysis (HD) Output 2600 / 2600 Other: Stool Size Large Stool Consistency liquid Stool Color Brown # Voids 1 # Bowel Movements 1 Weight 148.1 kg Blood Glucose* 155 89 94 Hemodialysis Net Fluid Removed 2000 (mL) Patient Weight 03/11/18 23:59 Weight 148.1 kg - General Appearance General appearance: Present: well-developed, well-nourished EENT: Present: ATNC, mucous membranes moist Neck: Present: no JVD, supple Respiratory: Present: clear Cardiology: Present: no edema, normal S1, normal S2 Dialysis Vascular Access: Arteriovenous Fistula thrill: Yes bruit: Yes Gastrointestinal: Present: no tenderness, no guarding, obese Integumentary: Present: warm and dry Neurologic: Present: no focal deficit Musculoskeletal: Present: no deformities Psychiatric: Present: mood/affect appropriate, cooperative - Lab 03/11/18 03:02 03/11/18 03:02 Most recent lab results Calcium 8.0 mg/dL (8.6-10.3) L 03/11/18 03:02 Phosphorus 4.9 mg/dL (2.7-4.5) H 03/10/18 00:08 Magnesium 1.9 mg/dL (1.6-2.6) 03/10/18 00:08 Consult Discharge Plan - Plan Instructions: Abscess (GEN) Additional Instructions: Wound Care: Remove dressing and packing. Wash with antibacterial soap. Repack with 1/2 inch plain gauze. Cover with a dry dressing. Tape to secure. Referrals: Steven Ly MD [Primary Care Provider] - Nicci Goins CNP [Advanced Practice Nurse] - 03/18/18 10:00 am
[2018-03-11] MEDS ORDERED: Vancomycin 500 MG in 0.9 % Sodium Chloride Mini Bag 100 ML IVPB ONE (16:00)
--- NOTE | 2018-03-11 17:50 | Internal Med Progress Note ---
Date of Encounter: 03/11/18 Time of Encounter: 15:25 - Assessment and plan (1) HTN (hypertension) Current Visit: No Status: Chronic Qualifiers: Hypertension type: unspecified Qualified Code(s): I10 - Essential (primary ) hypertension (2) Cellulitis and abscess of left lower extremity Current Visit: Yes Status: Acute (3) DVT prophylaxis Current Visit: Yes Status: Acute (4) End stage renal disease on dialysis Current Visit: Yes Status: Acute - Time Spent With Patient Plan Continue monitoring the patient overnight, awaiting final results for culture, possible discharge next a.m. on oral antibiotic she need home health care for dressing change .Monitor vital sign overnight . Total time spent is greater than 50% in coordination of care (as documented) at patient's floor/unit and/or counseling patient: - Subjective Interval history: Patient denies any fever or chills. She tolerated dressing changes , no fever or chills , She had dialysis today - Constitutional Vitals: Temp Pulse Resp BP Pulse Ox 98.1 F 69 19 90/52 92 03/11/18 15:46 03/11/18 15:46 03/11/18 15:46 03/11/18 15:46 03/11/18 15:46 General appearance: Present: cooperative, A&O X 3, pleasant, no acute distress - Head Head exam: Present: atraumatic, normocephalic - Neck Neck exam general surgery: Present: supple, trachea midline. Absent: lymphadenopathy - Respiratory Respiratory exam: Present: decreased breath sounds. Absent: accessory muscle use, rales, rhonchi, wheezes - Cardiovascular Cardiovascular exam: Present: RRR, +S1, +S2. Absent: diastolic murmur, gallop, rubs, systolic murmur - GI/Abdominal GI/Abdominal exam: Present: distended, normal bowel sounds, soft, no peritoneal signs. Absent: tenderness Internal Medicine: Result - Labs CBC & Chem 7: 03/11/18 03:02 03/11/18 03:02 Labs: Short CBC 03/11/18 Range/Units 03:02 WBC 7.3 (4.3-11.1) K/mcL Hgb 11.2 L (11.5-15.4) g/dL Hct 36.1 (35.3-44.9) % Plt Count 208 (140-400) K/mcL Neutrophils # 5.2 (1.6-8.9) K/mcL BMP 03/11/18 03:02 Sodium 138 Potassium 4.5 Chloride 102 Carbon Dioxide 26 BUN 61 H Creatinine 6.93 H Glucose 82 Calcium 8.0 L Consult Discharge Plan - Plan Instructions: Abscess (GEN) Additional Instructions: Wound Care: Remove dressing and packing. Wash with antibacterial soap. Repack with 1/2 inch plain gauze. Cover with a dry dressing. Tape to secure. Referrals: Steven Ly MD [Primary Care Provider] - Nicci Goins CNP [Advanced Practice Nurse] - 03/18/18 10:00 am
[2018-03-11 18:46] LABS: Albumin 3.1 g/dL (3.5-5.7); Bilirubin,Total 0.3 mg/dL (0.3-1.0); Calcium 8.2 mg/dL (8.6-10.3); Globulin 3.2 g/dL (2.4-3.5); Potassium 3.5 mEq/L (3.5-5.1); Total Protein 6.3 g/dL (6.4-8.9)
[2018-03-12] MEDS: Acetaminophen 325 MG TABLET PO PRN (02:19)
[2018-03-12] MEDS: *HR* HYDROcodone/Acet 5/325 mg TABLET PO PRN (05:35)
[2018-03-12] MEDS: *HR* Heparin 5,000 UNIT/ML VIAL SQ SCH (05:36)
[2018-03-12] MEDS: Piperacillin/Tazobactam 3.375 GM in 0.9 % Sodium Chloride Mini Bag 100 ML IVPB SCH (05:36)
[2018-03-12] MEDS: Budesonide/Formoterol 160/4.5 MDI IH SCH (07:49)
[2018-03-12 07:50] LABS: Hematocrit 33.7 % (35.3-44.9); Hemoglobin 10.9 g/dL (11.5-15.4); Mean Corpuscular HGB Conc 32.3 g/dL (31.6-35.5); Mean Corpuscular Hemoglobin 31.2 pg (28.0-33.3); Mean Corpuscular Volume 96.6 fL (83.0-100.0); Mean Platelet Volume 9.7 fL (9.4-12.4); Platelet Count 219 K/mcL (140-400); Red Blood Count 3.49 M/mcL (3.82-4.97)
[2018-03-12 07:54] LABS: Calcium 8.3 mg/dL (8.6-10.3); Potassium 3.9 mEq/L (3.5-5.1)
[2018-03-12] MEDS: FLUoxetine 20 MG CAPSULE PO SCH (10:15)
[2018-03-12] MEDS: Calcium Acetate 667 MG CAPSULE PO SCH ×2 (10:16→12:05)
[2018-03-12 11:13] VITALS: BP 116/72
--- NOTE | 2018-03-12 11:29 | Nephrology Progress Note ---
Date of Encounter: 03/12/18 Time of Encounter: 12:00 - Assessment and Plan (1) End stage renal disease Current Visit: No Status: Acute s/p HD yesterday with next planned on wednesday [facility]in [facility] (2) Cellulitis and abscess of left lower extremity Current Visit: Yes Status: Acute Per primary team and surgery Subjective Interval history: Pt seen and examined Objective - Vital Signs Vital signs: Vital Signs Temp Pulse Resp BP Pulse Ox 03/12/18 11:12 98.3 F 66 16 116/72 96 03/12/18 07:50 16 94 03/12/18 07:08 98.0 F 65 16 96/62 94 03/12/18 03:47 98.2 F 64 18 97/61 96 03/12/18 00:46 97.9 F 75 16 115/73 92 03/11/18 23:25 18 92 03/11/18 19:22 98.2 F 70 18 105/68 92 03/11/18 15:46 98.1 F 69 19 90/52 92 03/11/18 12:38 98.0 F 75 18 116/69 94 03/11/18 12:00 98.2 F 16 134/73 03/11/18 11:45 127/71 03/11/18 11:30 119/69 Intake and Output 03/11/18 03/12/18 03/12/18 23:59 07:59 15:59 Intake Total 720 / 720 20 / 20 480 / 480 Balance 720 / 720 / 20 480 / 480 Intake: IV Fluids 100 / 100 Zosyn 3.375 GM In 0.9 % Sodium 100 / 100 Chloride (Mini-Bag +) 100 ML @ 25 mls/hr IVPB Q12HR [facility] Rx#: [id number] Oral 600 / 600 480 / 480 Other 20 / 20 20 / 20 Other: Meal Dinner Breakfast Percent of Meal Consumed 100% 100% Stool Size Large Stool Consistency liquid Stool Color Brown # Bowel Movements 1 Weight 146.51 kg Blood Glucose* 103 92 110 Patient Weight 03/12/18 23:59 Weight 146.51 kg - Lab 03/12/18 06:48 03/12/18 06:48 Most recent lab results Calcium 8.3 mg/dL (8.6-10.3) L 03/12/18 06:48 Phosphorus 4.9 mg/dL (2.7-4.5) H 03/10/18 00:08 Magnesium 1.9 mg/dL (1.6-2.6) 03/10/18 00:08 Consult Discharge Plan - Plan Instructions: Abscess (GEN) Additional Instructions: Wound Care: Remove dressing and packing. Wash with antibacterial soap. Repack with 1/2 inch plain gauze. Cover with a dry dressing. Tape to secure. Referrals: Steven Ly MD [Primary Care Provider] - Nicci Goins CNP [Advanced Practice Nurse] - 03/18/18 10:00 am
--- NOTE | 2018-03-12 13:36 | Discharge Summary ---
- NOTES TO OUTPATIENT PROVIDER Notes to Outpatient Provider: Follow-up with surgery in 1 week Orders not resulted at time of discharge: Pending orders 03/10/18 10:03 Culture,Anaerobic [RM] Stat 03/13/18 04:00 BMP [Basic Metabolic Panel] AM 0400 CBC no Diff [Complete Blood Count w/o Diff] [HEME] AM 04003/14/18 04:00 BMP [Basic Metabolic Panel] AM 0400 CBC no Diff [Complete Blood Count w/o Diff] [HEME] AM 0400 Vancomycin,Random AM 0400 03/15/18 04:00 BMP [Basic Metabolic Panel] AM 0400 CBC no Diff [Complete Blood Count w/o Diff] [HEME] AM 04003/16/18 04:00 BMP [Basic Metabolic Panel] AM 0400 CBC no Diff [Complete Blood Count w/o Diff] [HEME] AM 040 Date of Encounter: 03/12/18 Time of Encounter: 13:31 - Discharge Diagnosis (1) HTN (hypertension) Priority: Secondary Status: Chronic Qualifiers: Hypertension type: unspecified Qualified Code(s): I10 - Essential (primary ) hypertension (2) Cellulitis and abscess of left lower extremity Priority: Primary Status: Acute (3) DVT prophylaxis Priority: Secondary Status: Acute (4) End stage renal disease on dialysis Priority: Secondary Status: Acute Hospital course: 47 year old female with past medical history of COPD, CAD, diabetes, end-stage renal disease on dialysis, and hypertension who presented to the ED for an abscess on her left inner thigh. Patient states that appeared one week ago on 03/02/18 while she was at dialysis and she was given antibiotic to start. Patient states that she did not fill the prescription and begin clindamycin until Wednesday. Abscess began to drain on Wednesday associated with fevers. Fevers stopped by 03/07/18 but pain and redness continued to spread so patient came into the ED .upon arrival to the ED, patient's vitals were wnl. WBCs= 13.4 , Creatinine 5.56, and CRP 124. CT scan of the lower extremity and pelvis revealed skin thickening and subcutaneous stranding along the medial soft tissues of the proximal left thigh with underlying subcutaneous gas present. Findings were compatible with cellulitis and gas-forming infection. Dr. Petersen was notified. ED physician obtained cultures and packed the wound with 1/2 in iodoform gauze. Patient was admitted to the hospitalist. Patient had incision and drainage done by surgery team, breast surgery team recommendation .Remove dressing and packing. Wash with antibacterial soap. Repack with 1/2 inch plain gauze. Cover with a dry dressing. Tape to secure. Patient discharged home with home health care for dressing changes and wound care, patient had dialysis during hospitalization, monitor patient overnight after her procedure and dialysis patient was in stable condition pain controlled after Obi condition discharged home on clindamycin. Discharge discussed with: patient - Time Spent with Patient Total time spent providing and/or coordinating discharge services: Greater than 30 minutes - Discharge Medications Prescriptions: Acetaminophen [Tylenol] 650 mg PO Q6HR PRN #60 tablet PRN Reason: Mild Pain/Fever Clindamycin HCl 300 mg PO TID #20 capsule Lactobacillus [Culturelle] 1 each PO BID #30 cap.sprink Home Medications: Albuterol Sulfate [Proair Respiclick] 2 puff IH Q4H PRN 10/19/15 [History] Atorvastatin [Lipitor] 10 mg PO HS 10/19/15 [History] FLUoxetine HCl [Prozac] 20 mg PO QAM 10/19/15 [History] Omeprazole [PriLOSEC] 20 mg PO DAILY 10/19/15 [History] Fluticasone/Vilanterol [Breo Ellipta 100-25 Mcg INH] 1 puff IH DAILY 01/03/17 [ History] Gabapentin [Neurontin] 300 mg PO HS 01/03/17 [History] Calcium Acetate [Phos-LO] 667 mg PO TIDWM 10/17/17 [History] Cinacalcet HCl [Sensipar] 60 mg PO DAILY 10/17/17 [History] Folic Acid/Vit Bcomp,C [Dialyvite Tablet] 1 tab PO DAILY 10/17/17 [History] Acetaminophen [8Hr Arthritis Pain Relief] 650 mg PO Q6H PRN #30 tablet.er [Rx] Acetaminophen [Tylenol] 650 mg PO Q6HR PRN #60 tablet 03/12/18 [Rx] Clindamycin HCl 300 mg PO TID #20 capsule 03/12/18 [Rx] Lactobacillus [Culturelle] 1 each PO BID #30 cap.sprink 03/12/18 [Rx] Allergies/Adverse Reactions: 3 Allergy/AdvReac Type Severity Reaction Status Date / Time Sulfa (Sulfonamide Allergy Hives Verified 03/09/18 21:07 Antibiotics) iron AdvReac Hives Verified 03/09/18 21:07 Date of admission: 03/10/18 02:58 Primary care physician: Steven Ly MD Consults: 03/11/18 06:45 Consult to Dialysis [CONS] ONCE 03/11/18 08:34 Consult to [employer] [CONS] Routine Reason for SW Consult: Patient will need Home Health for wound care and packing Discharging clinician: Kali Vela Anticipated date of discharge: 03/12/18 - Constitutional Vitals: Temp Pulse Resp BP Pulse Ox 98.3 F 66 16 116/72 96 03/12/18 11:12 03/12/18 11:12 03/12/18 11:12 03/12/18 11:12 03/12/18 11:12 General appearance: Present: cooperative, A&O X 3, pleasant, no acute distress - Head Head exam: Present: atraumatic, normocephalic - Respiratory Respiratory exam: Present: CTAB. Absent: accessory muscle use, rales, rhonchi, wheezes - Cardiovascular Cardiovascular exam: Present: RRR, +S1, +S2. Absent: diastolic murmur, gallop, rubs, systolic murmur - GI/Abdominal GI/Abdominal exam: Present: normal bowel sounds, soft, no peritoneal signs. Absent: distended, tenderness - Patient Status Disposition: Home Health Service Condition: Good Functional capacity at discharge: independent ambulation Overall status at discharge: patient is progressing back to baseline - Discharge Instructions Instructions: Cellulitis (DC), Abscess (GEN) Follow Up With: Steven Ly MD [Primary Care Provider] - (Please call and schedule a PCP hospital follow up in 7-10 days. ) Nicci Goins CNP [Advanced Practice Nurse] - 03/18/18 10:00 am Additional Instructions: Wound Care: Remove dressing and packing. Wash with antibacterial soap. Repack with 1/2 inch plain gauze. Cover with a dry dressing. Tape to secure. - Diet and Activity Activity: increase activity as tolerated Diet: other (Renal diet)
--- NOTE | 2018-03-12 15:07 | Physician Discharge Referral ---
Home Health/Hosp Referral Info Transfer to: Home Health Provider in Charge Post Discharge: PCP - Diagnosis (1) HTN (hypertension) Priority: Secondary Status: Chronic (2) Cellulitis and abscess of left lower extremity Priority: Primary Status: Acute (3) DVT prophylaxis Priority: Secondary Status: Acute (4) End stage renal disease on dialysis Priority: Secondary Status: Acute - Respiratory Orders Smoking Cessation: Smoking cessation has been advised. For more information, call the [place] Tobacco Quit Line at 5-944-THYA-NOW. - Diet/Nutrition Diet/Nutrition Orders: Renal - Activity Activity Orders: Up ad carmine - Services Needed Following services are medically necessary services: [facility] Care Orders: Dressing changes daily as directed by surgery team - Transfer Medications Prescriptions: Acetaminophen [Tylenol] 650 mg PO Q6HR PRN #60 tablet PRN Reason: Mild Pain/Fever Clindamycin HCl 300 mg PO TID #20 capsule Lactobacillus [Culturelle] 1 each PO BID #30 cap.sprink Home Medications: Albuterol Sulfate [Proair Respiclick] 2 puff IH Q4H PRN 10/19/15 [History] Atorvastatin [Lipitor] 10 mg PO HS 10/19/15 [History] FLUoxetine HCl [Prozac] 20 mg PO QAM 10/19/15 [History] Omeprazole [PriLOSEC] 20 mg PO DAILY 10/19/15 [History] Fluticasone/Vilanterol [Breo Ellipta 100-25 Mcg INH] 1 puff IH DAILY 01/03/17 [ History] Gabapentin [Neurontin] 300 mg PO HS 01/03/17 [History] Calcium Acetate [Phos-LO] 667 mg PO TIDWM 10/17/17 [History] Cinacalcet HCl [Sensipar] 60 mg PO DAILY 10/17/17 [History] Folic Acid/Vit Bcomp,C [Dialyvite Tablet] 1 tab PO DAILY 10/17/17 [History] Acetaminophen [8Hr Arthritis Pain Relief] 650 mg PO Q6H PRN #30 tablet.er [Rx] Acetaminophen [Tylenol] 650 mg PO Q6HR PRN #60 tablet 03/12/18 [Rx] Clindamycin HCl 300 mg PO TID #20 capsule 03/12/18 [Rx] Lactobacillus [Culturelle] 1 each PO BID #30 cap.sprink 03/12/18 [Rx] Allergies/Adverse Reactions: 3 Allergy/AdvReac Type Severity Reaction Status Date / Time Sulfa (Sulfonamide Allergy Hives Verified 03/09/18 21:07 Antibiotics) iron AdvReac Hives Verified 03/09/18 21:07 Certification: Further, I certify that my clinical findings support that this patient is homebound (i.e. absences from home require considerable and taxing effort and are for medical reasons or [employer] services or infrequently or short duration when for other reasons) because: Homebound Reason: Patient requires assistance of a person or device to safely leave home (Patient needs help with wound care dressing changes patient is unable to do her wound or dressing) Attestation: My signature below is to certify that this patient is under my care and that I, or nurse practitioner, or a physician's payroll administrative assistant working with me, has a face-to -face encounter with this patient.
[2018-03-12] MEDS ORDERED: Aminoglycoside Consult 1 EACH MC ONE (15:36)
== END 2018-03-12 15:37 | disposition home health service (06) | DRG 579 ==
LOC: EMEROO 18:12 → 2ANU 18:12
PROVIDERS: ADMIT Family Medicine; ATTEND Family Medicine

== ENCOUNTER 2018-04-27 18:35 | Inpatient (IN) ==
[2018-04-27] MEDS ORDERED: *HR* Morphine 2 MG/ML SYRINGE IVP ONE (18:38)
[2018-04-27] MEDS ORDERED: Ondansetron 4 MG/2 ML VIAL IVP ONE (18:38)
[2018-04-27 18:59] LABS: Basophils % 0.3 %; Eosinophils # 0.2 K/mcL (0.0-0.6); Eosinophils % 2.1 %; Hematocrit 36.4 % (35.3-44.9); Hemoglobin 12.4 g/dL (11.5-15.4); Immature Granulocytes % 0.3 % (0-4); Lymphocytes # 0.8 K/mcL (0.6-4.6); Lymphocytes % 8.8 %; Mean Corpuscular HGB Conc 34.1 g/dL (31.6-35.5); Mean Corpuscular Volume 96.8 fL (83.0-100.0); Mean Platelet Volume 9.7 fL (9.4-12.4); Monocytes # 0.8 K/mcL (0.0-1.3); Monocytes % 8.8 %; Neutrophils # 7.3 K/mcL (1.6-8.9); Platelet Count 188 K/mcL (140-400); Red Blood Count 3.76 M/mcL (3.82-4.97); Red Cell Distribution Width 14.2 % (11.5-14.5); Segmented Neutrophils % 79.7 %
[2018-04-27 19:26] LABS: Albumin/Globulin Ratio 1.3 (1.1-2.2); Bilirubin,Direct 0.1 mg/dL (0.0-0.2); Bilirubin,Indirect 0.3 mg/dL (0.0-1.2); Bilirubin,Total 0.4 mg/dL (0.3-1.0); Calcium 9.1 mg/dL (8.6-10.3); Globulin 3.1 g/dL (2.4-3.5); Potassium 3.2 mEq/L (3.5-5.1); Total Protein 7.1 g/dL (6.4-8.9)
--- NOTE | 2018-04-27 19:47 | Emergency Department Note ---
Disposition Clinical Impression: Incarcerated hernia CKD (chronic kidney disease) Qualifiers: Chronic kidney disease stage: on chronic dialysis Qualified Code(s): N18.6 - End stage renal disease Disposition: Admitted As Inpatient Condition: Good Referrals: Steven Ly MD [Primary Care Provider] - Forms: ED Satisfaction Letter, Work/School Release Time of Disposition: 22:41 Abdominal Pain HPI - General Chief Complaint: ED Abdominal Pain Stated Complaint: ABD pain Time Seen by Provider: 04/27/18 18:37 Source: patient Mode of arrival: private vehicle Limitations: no limitations Nursing Notes Reviewed: Yes Vital Signs Reviewed: Yes - History of Present Illness HPI Narrative: 47-year-old female dialysis-dependent presents to the ER with a complaint of right lower quadrant abdominal pain. Symptoms began this morning. She was on dialysis and finish her treatment. States she has had right lower quadrant pain that radiates to her belly button. She has also had associated nausea with one episode of nonbilious nonbloody emesis. No fevers. No dysuria or hematuria. She does produce urine. She was seen here in October where she was admitted with potential perforated appendicitis and treated medically. She reports symptoms are similar to what they were previously. No other complaints. Pt Subjective Complaint: abdominal pain Onset (ago): hour(s) Consistency: constant Location: RLQ Pain Severity: severe Pain Scale: 10 Radiation: none Migration to: no migration Improves with: nothing Worsens with: nothing Context: history of similar episodes Associated symptoms: Reports: nausea, vomiting. Denies: diarrhea, fever, dysuria, hematuria Treatments prior to arrival: none - Related Data Home Medications Medication Instructions Recorded Confirmed Albuterol Sulfate [Proair 2 puff IH Q4H PRN 10/19/15 04/27/18 Respiclick] Atorvastatin [Lipitor] 10 mg PO HS 10/19/15 04/27/18 FLUoxetine HCl [Prozac] 20 mg PO QAM 10/19/15 04/27/18 Omeprazole [PriLOSEC] 20 mg PO DAILY 10/19/15 04/27/18 Fluticasone/Vilanterol [Breo 1 puff IH DAILY 01/03/17 04/27/18 Ellipta 100-25 Mcg INH] Gabapentin [Neurontin] 300 mg PO HS 01/03/17 04/27/18 Calcium Acetate [Phos-LO] 1,334 mg PO TIDWM 10/17/17 04/27/18 Cinacalcet HCl [Sensipar] 60 mg PO DAILY 10/17/17 04/27/18 Folic Acid/Vit Bcomp,C [Dialyvite 1 tab PO DAILY 10/17/17 04/27/18 Tablet] Previous Rx's Medication Instructions Recorded Acetaminophen [Tylenol] 650 mg PO Q6HR PRN #60 tablet 03/12/18 Lactobacillus [Culturelle] 1 each PO BID #30 cap.[email or web address] 03/12/18 Allergies Allergy/AdvReac Type Severity Reaction Status Date / Time Sulfa (Sulfonamide Allergy Hives Verified 03/09/18 21:07 Antibiotics) iron AdvReac Hives Verified 03/09/18 21:07 All systems ED: reviewed and negative except as stated. Constitutional: Denies: fever Gastrointestinal: Reports: abdominal pain, nausea, vomiting. Denies: diarrhea Genitourinary: Denies: dysuria, hematuria Abdominal Pain PMH - Past Medical History Medical history: Reports: COPD, coronary artery disease, diabetes, dialysis, hyperlipidemia, hypertension, kidney stones, renal disease, other Female Surgical History: Reports: orthopedic, other, Tonsillectomy VALVE MAKER history: Reports: no VALVE MAKER history Psychiatric history: Reports: anxiety, depression - Social History Smoking status: Former smoker Alcohol use: Reports: none Drug use: Reports: none Physical Exam - General Limitations: no limitations General appearance: alert, in no apparent distress - Head Head exam: atraumatic, normocephalic - Eye Eye exam: Present: normal appearance - ENT ENT exam: normal exam - Neck Neck exam: Present: normal inspection - Chest Chest inspection: Present: normal inspection, symmetric chest wall rise - Respiratory Respiratory exam: Present: normal lung sounds bilaterally - Cardiovascular Cardiovascular exam: Present: regular rate, normal rhythm, normal heart sounds - Abdominal Exam Abdominal exam: Present: soft, tenderness (Moderate right lower quadrant abdominal pain without distention guarding or rigidity.). Absent: distention, guarding, rigidity - Extremities Exam Extremities exam: Present: normal inspection, full ROM - Expanded Upper Extremity Exam Shoulder exam: Present: normal inspection, full ROM Arm exam: Present: normal inspection, full ROM Elbow exam: Present: normal inspection, full ROM Forearm/Wrist exam: Present: normal inspection, full ROM Hand exam: Present: normal inspection, full ROM - Expanded Lower Extremity Exam Hip/Pelvis exam: Present: normal inspection, full ROM Upper leg exam: Present: normal inspection, full ROM Knee exam: Present: normal inspection, full ROM Lower leg exam: Present: normal inspection, full ROM Ankle exam: Present: normal inspection, full ROM Foot/toe exam: Present: normal inspection, full ROM - Skin Skin exam: Present: warm, dry Course Course Narrative: Patient seen and examined. Vital signs reviewed. Plan for CT imaging, labs, urinalysis. - Consultations Consultation #1: I spoke with the on-call surgeon Dr. Rivera. Discussed patient's history exam imaging labs and current concerns. Agrees with plan to admit to the hospitalist with surgical consultation. Vital Signs Temperature 98.1 F 04/27/18 18:37 Pulse Rate 72 04/27/18 18:37 Respiratory Rate 18 04/27/18 18:37 Blood Pressure 133/82 04/27/18 18:37 O2 Sat by Pulse Oximetry 95 04/27/18 18:37 Temperature 98.1 F 04/27/18 18:37 Pulse Rate 60 04/27/18 21:40 Respiratory Rate 11 04/27/18 21:40 Blood Pressure 113/49 04/27/18 21:40 O2 Sat by Pulse Oximetry 95 04/27/18 21:40 Oxygen Delivery Oxygen Delivery Room Air Abdominal Pain - MDM Narrative Medical decision making narrative: 47-year-old female presents with abdominal pain since this morning. She was able to finish her dialysis treatment. Her pain is around the umbilicus. CT imaging with concern for entrapped hernia. Labs reviewed in relatively unremarkable with the exception of her baseline chronic kidney disease. This case was discussed with the on-call surgeon. The patient is admitted to the hospitalist service with surgical consultation in the morning. - Lab Data Lab results reviewed: Yes I reviewed the patient's lab results. Result diagrams: 04/27/18 18:46 04/27/18 18:46 Lab Results 04/27/18 04/27/18 04/27/18 Range/Units 18:46 18:46 19:15 WBC 9.1 (4.3-11.1) K/mcL RBC 3.76 L (3.82-4.97) M/mcL Hgb 12.4 (11.5-15.4) g/dL Hct 36.4 (35.3-44.9) % MCV 96.8 (83.0-100.0) fL MCH 33.0 (28.0-33.3) pg MCHC 34.1 (31.6-35.5) g/dL RDW 14.2 (11.5-14.5) % Plt Count 188 (140-400) K/mcL MPV 9.7 (9.4-12.4) fL Immature Gran % 0.3 (0-4) % Seg Neutrophils % 79.7 % Lymphocytes % 8.8 % Monocytes % 8.8 % Eosinophils % 2.1 % Basophils % 0.3 % Neutrophils # 7.3 (1.6-8.9) K/mcL Lymphocytes # 0.8 (0.6-4.6) K/mcL Monocytes # 0.8 (0.0-1.3) K/mcL Eosinophils # 0.2 (0.0-0.6) K/mcL Basophils # 0.0 (0.0-0.2) K/mcL Sodium 139 (136-145) mEq/L Potassium 3.2 L (3.5-5.1) mEq/L Chloride 99 (98-107) mEq/L Carbon Dioxide 32 H (23-29) mEq/L BUN 15 (6-20) mg/dL Creatinine 2.76 H (0.60-1.20) mg/dL Est GFR ( Amer) 22 L (> 60) Est GFR (Non-Af Amer) 18 L (> 60) BUN/Creatinine Ratio 5 L (6-26) Glucose 103 (70-105) mg/dL Calculated Osmolality 289 (280-300) Lactic Acid (0.5-2.2) mmol/L Calcium 9.1 (8.6-10.3) mg/dL Total Bilirubin 0.4 (0.3-1.0) mg/dL Direct Bilirubin 0.1 (0.0-0.2) mg/dL Indirect Bilirubin 0.3 (0.0-1.2) mg/dL AST 19 (13-39) Units/L ALT 13 (7-52) Units/L Alkaline Phosphatase 95 (34-104) Units/L Serum Total Protein 7.1 (6.4-8.9) g/dL Albumin 4.0 (3.5-5.7) g/dL Globulin 3.1 (2.4-3.5) g/dL Albumin/Globulin Ratio 1.3 (1.1-2.2) Lipase 15 (11-82) Units/L Serum , Qual Negative (Negative) Urine Color (Yellow) Urine Clarity (Clear) Urine pH (5.0-8.0) pH Units Ur Specific [place] (1.010-1.025) Urine Protein (Neg-Trace) mg/dL Urine Glucose (UA) (Normal) mg/dL Urine Ketones (Negative) mg/dL Urine Blood (Negative) Urine Nitrite (Negative) Urine Bilirubin (Negative) Urine Urobilinogen (Normal) mg/dL Ur Leukocyte Esterase (Negative) Urine Microscopic RBC (0-3) per hpf Urine Microscopic WBC (0-3) per hpf Ur Squamous Epith Cells (None-Few) per lpf Urine Bacteria (None-Few) per hpf Hyaline Casts (None-Few) per lpf Ur Culture Indicated? (NO) 04/27/18 04/27/18 Range/Units 20:54 20:59 WBC (4.3-11.1) K/mcL RBC (3.82-4.97) M/mcL Hgb (11.5-15.4) g/dL Hct (35.3-44.9) % MCV (83.0-100.0) fL MCH (28.0-33.3) pg MCHC (31.6-35.5) g/dL RDW (11.5-14.5) % Plt Count (140-400) K/mcL MPV (9.4-12.4) fL Immature Gran % (0-4) % Seg Neutrophils % % Lymphocytes % % Monocytes % % Eosinophils % % Basophils % % Neutrophils # (1.6-8.9) K/mcL Lymphocytes # (0.6-4.6) K/mcL Monocytes # (0.0-1.3) K/mcL Eosinophils # (0.0-0.6) K/mcL Basophils # (0.0-0.2) K/mcL Sodium (136-145) mEq/L Potassium (3.5-5.1) mEq/L Chloride (98-107) mEq/L Carbon Dioxide (23-29) mEq/L BUN (6-20) mg/dL Creatinine (0.60-1.20) mg/dL Est GFR ( Amer) (> 60) Est GFR (Non-Af Amer) (> 60) BUN/Creatinine Ratio (6-26) Glucose (70-105) mg/dL Calculated Osmolality (280-300) Lactic Acid 1.5 (0.5-2.2) mmol/L Calcium (8.6-10.3) mg/dL Total Bilirubin (0.3-1.0) mg/dL Direct Bilirubin (0.0-0.2) mg/dL Indirect Bilirubin (0.0-1.2) mg/dL AST (13-39) Units/L ALT (7-52) Units/L Alkaline Phosphatase (34-104) Units/L Serum Total Protein (6.4-8.9) g/dL Albumin (3.5-5.7) g/dL Globulin (2.4-3.5) g/dL Albumin/Globulin Ratio (1.1-2.2) Lipase (11-82) Units/L Serum , Qual (Negative) Urine Color Yellow (Yellow) Urine Clarity Cloudy A (Clear) Urine pH 8.0 (5.0-8.0) pH Units Ur Specific [place] 1.005 L (1.010-1.025) Urine Protein 100 H (Neg-Trace) mg/dL Urine Glucose (UA) Normal (Normal) mg/dL Urine Ketones Negative (Negative) mg/dL Urine Blood Large H (Negative) Urine Nitrite Negative (Negative) Urine Bilirubin Negative (Negative) Urine Urobilinogen Normal (Normal) mg/dL Ur Leukocyte Esterase Small H (Negative) Urine Microscopic RBC TNTC H (0-3) per hpf Urine Microscopic WBC 5-15 H (0-3) per hpf Ur Squamous Epith Cells Many H (None-Few) per lpf Urine Bacteria None Seen (None-Few) per hpf Hyaline Casts None Seen (None-Few) per lpf Ur Culture Indicated? NO. A (NO) - Radiology Data Radiology results reviewed: Yes I reviewed the patient's radiology results. Abdomen/Pelvis CT 04/27/18 18:38 IMPRESSION: Moderate umbilical hernia containing a short segment of transverse colon with relative transition of caliber at the level of the hernia; fluid is present within the hernia sac as well as stranding associated with the transverse colon. Findings are worrisome for entrapment. D/ / Rhona Motta Cha, MD / Rhona Motta Cha, MD Interpreting Provider: Rhona Motta Cha, MD Hannah - Hannah Situation: Demographics, MOA Background: Presenting Complaint, Relevant PMH, Meds, & Allergies Assessment: Course and respsone to treatment, Exam Concerns, Patient/Family Expectation, Pertinant Lab Results Recommendation: Barrier(s) to disposition, Recommendation based on pending studies, treatments, or consults Hannah Report Given to: Dr. Chip Young Repor Time: 22:41
[2018-04-27 21:11] LABS: Bilirubin,Urine Negative (Negative); Blood,Urine Large (Negative); Clarity,Urine Cloudy (Clear); Color,Urine Yellow (Yellow); Glucose,Urine (UA) Normal (Normal); Ketones,Urine Negative (Negative); Leukocyte Esterase,Urine Small (Negative); Nitrite,Urine Negative (Negative); Protein,Urine 100 mg/dL (Neg-Trace); Specific Gravity,Urine 1.005 (1.010-1.025); Urobilinogen,Urine Normal (Normal)
[2018-04-27 21:13] LABS: Bacteria,Urine None Seen per hpf (None-Few); Hyaline Casts,Urine None Seen per lpf (None-Few); RBC,Urine TNTC per hpf (0-3); Squamous Epithelial Cell,Urine Many per lpf (None-Few)
[2018-04-27] MEDS ORDERED: *HR* FentaNYL (PF) 100 MCG/2 ML VIAL IVP ONE (21:31)
--- NOTE | 2018-04-27 23:12 | Emergency Department Note ---
Disposition Clinical Impression: Incarcerated hernia CKD (chronic kidney disease) Qualifiers: Chronic kidney disease stage: on chronic dialysis Qualified Code(s): N18.6 - End stage renal disease Disposition: Admitted As Inpatient Condition: Good Time of Disposition: 22:41 General Adult HPI - General Chief complaint: ED Abdominal Pain Stated complaint: ABD pain Time Seen by Provider: 04/27/18 18:37 Source: patient Mode of arrival: private vehicle Limitations: no limitations Nursing Notes Reviewed: Yes Vital Signs Reviewed: Yes - History of Present Illness Pain Scale: 10 - Related Data Home Medications Medication Instructions Recorded Confirmed Albuterol Sulfate [Proair 2 puff IH Q4H PRN 10/19/15 04/27/18 Respiclick] Atorvastatin [Lipitor] 10 mg PO HS 10/19/15 04/27/18 FLUoxetine HCl [Prozac] 20 mg PO QAM 10/19/15 04/27/18 Omeprazole [PriLOSEC] 20 mg PO DAILY 10/19/15 04/27/18 Fluticasone/Vilanterol [Breo 1 puff IH DAILY 01/03/17 04/27/18 Ellipta 100-25 Mcg INH] Gabapentin [Neurontin] 300 mg PO HS 01/03/17 04/27/18 Calcium Acetate [Phos-LO] 1,334 mg PO TIDWM 10/17/17 04/27/18 Cinacalcet HCl [Sensipar] 60 mg PO DAILY 10/17/17 04/27/18 Folic Acid/Vit Bcomp,C [Dialyvite 1 tab PO DAILY 10/17/17 04/27/18 Tablet] Previous Rx's Medication Instructions Recorded Acetaminophen [Tylenol] 650 mg PO Q6HR PRN #60 tablet 03/12/18 Lactobacillus [Culturelle] 1 each PO BID #30 cap.[email or web address] 03/12/18 Allergies Allergy/AdvReac Type Severity Reaction Status Date / Time Sulfa (Sulfonamide Allergy Hives Verified 03/09/18 21:07 Antibiotics) iron AdvReac Hives Verified 03/09/18 21:07 Constitutional: Denies: fever Gastrointestinal: Reports: abdominal pain, nausea, vomiting. Denies: diarrhea Genitourinary: Denies: dysuria, hematuria Past Medical History - Past Medical History Medical history: Reports: COPD, coronary artery disease, diabetes, dialysis, hyperlipidemia, hypertension, kidney stones, renal disease, other Surgical history: Reports: orthopedic, other (anterior cervical decompression and fusion), other (Tonsillectomy; drainage of groin infection) Psychiatric history: Reports: anxiety, depression PYROTECHNIC MIXER history: Reports: no PYROTECHNIC MIXER history - Social History Smoking Status: Former smoker Smokeless Tobacco Status: No Alcohol use: Reports: none Drug use: Reports: none Physical Exam - General Limitations: no limitations General appearance: alert, in no apparent distress Course Vital Signs Temperature 98.1 F 04/27/18 18:37 Pulse Rate 72 04/27/18 18:37 Respiratory Rate 18 04/27/18 18:37 Blood Pressure 133/82 04/27/18 18:37 O2 Sat by Pulse Oximetry 95 04/27/18 18:37 Temperature 98.1 F 04/27/18 18:37 Pulse Rate 60 04/27/18 21:40 Respiratory Rate 17 04/27/18 23:23 Blood Pressure 100/51 04/27/18 23:23 O2 Sat by Pulse Oximetry 95 04/27/18 21:40 Oxygen Delivery Oxygen Delivery Nasal Cannula Medical Decision Making - Medical Records Medical records reviewed: Yes I reviewed the patient's medical records. - Lab Data Lab results reviewed: Yes I reviewed the patient's lab results. Result diagrams: 04/27/18 18:46 04/27/18 18:46 Lab Results 04/27/18 04/27/18 04/27/18 Range/Units 18:46 18:46 19:15 WBC 9.1 (4.3-11.1) K/mcL RBC 3.76 L (3.82-4.97) M/mcL Hgb 12.4 (11.5-15.4) g/dL Hct 36.4 (35.3-44.9) % MCV 96.8 (83.0-100.0) fL MCH 33.0 (28.0-33.3) pg MCHC 34.1 (31.6-35.5) g/dL RDW 14.2 (11.5-14.5) % Plt Count 188 (140-400) K/mcL MPV 9.7 (9.4-12.4) fL Immature Gran % 0.3 (0-4) % Seg Neutrophils % 79.7 % Lymphocytes % 8.8 % Monocytes % 8.8 % Eosinophils % 2.1 % Basophils % 0.3 % Neutrophils # 7.3 (1.6-8.9) K/mcL Lymphocytes # 0.8 (0.6-4.6) K/mcL Monocytes # 0.8 (0.0-1.3) K/mcL Eosinophils # 0.2 (0.0-0.6) K/mcL Basophils # 0.0 (0.0-0.2) K/mcL Sodium 139 (136-145) mEq/L Potassium 3.2 L (3.5-5.1) mEq/L Chloride 99 (98-107) mEq/L Carbon Dioxide 32 H (23-29) mEq/L BUN 15 (6-20) mg/dL Creatinine 2.76 H (0.60-1.20) mg/dL Est GFR ( Amer) 22 L (> 60) Est GFR (Non-Af Amer) 18 L (> 60) BUN/Creatinine Ratio 5 L (6-26) Glucose 103 (70-105) mg/dL Calculated Osmolality 289 (280-300) Lactic Acid (0.5-2.2) mmol/L Calcium 9.1 (8.6-10.3) mg/dL Total Bilirubin 0.4 (0.3-1.0) mg/dL Direct Bilirubin 0.1 (0.0-0.2) mg/dL Indirect Bilirubin 0.3 (0.0-1.2) mg/dL AST 19 (13-39) Units/L ALT 13 (7-52) Units/L Alkaline Phosphatase 95 (34-104) Units/L Serum Total Protein 7.1 (6.4-8.9) g/dL Albumin 4.0 (3.5-5.7) g/dL Globulin 3.1 (2.4-3.5) g/dL Albumin/Globulin Ratio 1.3 (1.1-2.2) Lipase 15 (11-82) Units/L Serum , Qual Negative (Negative) Urine Color (Yellow) Urine Clarity (Clear) Urine pH (5.0-8.0) pH Units Ur Specific [place] (1.010-1.025) Urine Protein (Neg-Trace) mg/dL Urine Glucose (UA) (Normal) mg/dL Urine Ketones (Negative) mg/dL Urine Blood (Negative) Urine Nitrite (Negative) Urine Bilirubin (Negative) Urine Urobilinogen (Normal) mg/dL Ur Leukocyte Esterase (Negative) Urine Microscopic RBC (0-3) per hpf Urine Microscopic WBC (0-3) per hpf Ur Squamous Epith Cells (None-Few) per lpf Urine Bacteria (None-Few) per hpf Hyaline Casts (None-Few) per lpf Ur Culture Indicated? (NO) 04/27/18 04/27/18 Range/Units 20:54 20:59 WBC (4.3-11.1) K/mcL RBC (3.82-4.97) M/mcL Hgb (11.5-15.4) g/dL Hct (35.3-44.9) % MCV (83.0-100.0) fL MCH (28.0-33.3) pg MCHC (31.6-35.5) g/dL RDW (11.5-14.5) % Plt Count (140-400) K/mcL MPV (9.4-12.4) fL Immature Gran % (0-4) % Seg Neutrophils % % Lymphocytes % % Monocytes % % Eosinophils % % Basophils % % Neutrophils # (1.6-8.9) K/mcL Lymphocytes # (0.6-4.6) K/mcL Monocytes # (0.0-1.3) K/mcL Eosinophils # (0.0-0.6) K/mcL Basophils # (0.0-0.2) K/mcL Sodium (136-145) mEq/L Potassium (3.5-5.1) mEq/L Chloride (98-107) mEq/L Carbon Dioxide (23-29) mEq/L BUN (6-20) mg/dL Creatinine (0.60-1.20) mg/dL Est GFR ( Amer) (> 60) Est GFR (Non-Af Amer) (> 60) BUN/Creatinine Ratio (6-26) Glucose (70-105) mg/dL Calculated Osmolality (280-300) Lactic Acid 1.5 (0.5-2.2) mmol/L Calcium (8.6-10.3) mg/dL Total Bilirubin (0.3-1.0) mg/dL Direct Bilirubin (0.0-0.2) mg/dL Indirect Bilirubin (0.0-1.2) mg/dL AST (13-39) Units/L ALT (7-52) Units/L Alkaline Phosphatase (34-104) Units/L Serum Total Protein (6.4-8.9) g/dL Albumin (3.5-5.7) g/dL Globulin (2.4-3.5) g/dL Albumin/Globulin Ratio (1.1-2.2) Lipase (11-82) Units/L Serum , Qual (Negative) Urine Color Yellow (Yellow) Urine Clarity Cloudy A (Clear) Urine pH 8.0 (5.0-8.0) pH Units Ur Specific [place] 1.005 L (1.010-1.025) Urine Protein 100 H (Neg-Trace) mg/dL Urine Glucose (UA) Normal (Normal) mg/dL Urine Ketones Negative (Negative) mg/dL Urine Blood Large H (Negative) Urine Nitrite Negative (Negative) Urine Bilirubin Negative (Negative) Urine Urobilinogen Normal (Normal) mg/dL Ur Leukocyte Esterase Small H (Negative) Urine Microscopic RBC TNTC H (0-3) per hpf Urine Microscopic WBC 5-15 H (0-3) per hpf Ur Squamous Epith Cells Many H (None-Few) per lpf Urine Bacteria None Seen (None-Few) per hpf Hyaline Casts None Seen (None-Few) per lpf Ur Culture Indicated? NO. A (NO) - Radiology Data Radiology results reviewed: Yes I reviewed the patient's radiology results. Abdomen/Pelvis CT 04/27/18 18:38 IMPRESSION: Moderate umbilical hernia containing a short segment of transverse colon with relative transition of caliber at the level of the hernia; fluid is present within the hernia sac as well as stranding associated with the transverse colon. Findings are worrisome for entrapment. D/ / Rhona Motta Cha, MD / Rhona Motta Cha, MD Interpreting Provider: Rhona Motta Cha, MD Attestation Statement - Attestation Attestation: I, Lc Clayton MD, personally evaluated this patient and discussed their management with the resident physician. I reviewed the resident's note and agree with the documented findings, medical decision making, and plan of care. 47-year-old female presents to the emergency department with a complaint of acute onset of the left colon right mid abdominal pain about 11:30 AM today while she was at her hemodialysis. Patient has end-stage renal disease and is on hemodialysis Wednesday was seen Wednesday. She complains of anorexia. She has not had anything to eat since about 8 PM yesterday. She is only had coffee to drink today and that was early this morning. She states that she has no appetite. She has nausea but no vomiting. No fever. She has had a normal bowel movement this afternoon. No diarrhea. No melena, hematemesis, or hematochezia. On examination patient is a morbidly obese female in no acute distress. She is alert and oriented 3. There is no cyanosis or diaphoresis. Breath sounds are clear and equal bilaterally. Heart regular rate and rhythm. Abdomen is soft with present bowel sounds. Mild to moderate periumbilical tenderness with a palpable umbilical hernia which is tender on palpation. Mild right mid and lower abdominal tenderness. No guarding or rebound tenderness. Labs and CT reviewed. Dr. Perez discussed the case with the surgeon contract mail carrier, Dr. Rivera. He recommended admission by the hospitalist with consultation by surgery. The hospitalist, Dr. Morris, was consulted and accepted admission of the patient.
--- NOTE | 2018-04-28 00:47 | Internal Med History&Physical ---
Date of Encounter: 04/27/18 Time of Encounter: 23:50 Internal Medicine - H&P: HPI Admitted From: Home Plans for Post Hospital Care: Home History of present illness: Ms. Saucedo is a 47 year old obese female with end-stage renal disease due to recurring nephrolithiasis was been on hemodialysis via right AV fistula for the past 18 months, COPD due to long-standing smoking history (now quit) and chronic lumbago who presents to emergency room with a complaint of right lower quadrant abdominal pain. She states that the symptoms began this morning while finishing up her dialysis session. It was sharp and radiated upwards to her mid abdomen accompanied by nausea and 1 episode of nonbilious nonbloody emesis. She denies associated fever, chills. She still produces urine and denies dysuria. Last admission here was about a month ago at which time she was treated for a left thigh abscess with oral antibiotics after incision and drainage. Urgency room she was seen to have normal vital signs and lab work however her CT scan showed an umbilical hernia with signs of entrapment. Surgery was consulted and will see her in the morning for evaluation. In the meantime she has received opiate analgesics and has obtained modest pain control. At this time she has no active complaints. Past Med Surg Social Fam HX - Past Medical History Medical history: COPD, coronary artery disease, diabetes, dialysis, hyperlipidemia, hypertension, kidney stones, renal disease, other Additional medical history: crvical stenosis of spinal cord. cervical myelopathy. left sided weakness Psychiatric history: anxiety, depression - Past Surgical History Surgical History: orthopedic, other (anterior cervical decompression and fusion) , other (Tonsillectomy; drainage of groin infection) Additional surgical history: Tonsilectomy. Cervical fusion. Fistula -- right upper arm - Social History Smoking Status: Former smoker Smokeless Tobacco Status: No Alcohol use: none Drug use: none - Family History Mother Living Status: Still Living Hx Family Cardiac Disorders: Yes (HTN) Hx Family Neurologic Disorders: Yes Father History Unknown: Yes Adopted: No Living Status: Hx Family Cancer: Yes (stomach cancer) Hx Family Endocrine Disorder: Yes (Diabetes) Internal Medicine - H&P: Meds Albuterol Sulfate [Proair Respiclick] 2 puff IH Q4H PRN 10/19/15 [History] Atorvastatin [Lipitor] 10 mg PO HS 10/19/15 [History] FLUoxetine HCl [Prozac] 20 mg PO QAM 10/19/15 [History] Omeprazole [PriLOSEC] 20 mg PO DAILY 10/19/15 [History] Fluticasone/Vilanterol [Breo Ellipta 100-25 Mcg INH] 1 puff IH DAILY 01/03/17 [ History] Gabapentin [Neurontin] 300 mg PO HS 01/03/17 [History] Calcium Acetate [Phos-LO] 1,334 mg PO TIDWM 10/17/17 [History] Cinacalcet HCl [Sensipar] 60 mg PO DAILY 10/17/17 [History] Folic Acid/Vit Bcomp,C [Dialyvite Tablet] 1 tab PO DAILY 10/17/17 [History] Acetaminophen [Tylenol] 650 mg PO Q6HR PRN #60 tablet 03/12/18 [Rx] Lactobacillus [Culturelle] 1 each PO BID #30 cap.sprink 03/12/18 [Rx] 3 Allergy/AdvReac Type Severity Reaction Status Date / Time Sulfa (Sulfonamide Allergy Hives Verified 03/09/18 21:07 Antibiotics) iron AdvReac Hives Verified 03/09/18 21:07 All Systems PM: A 10-system review of systems was performed and is negative for pertinent findings except as documented above in the HPI. - Constitutional Vitals: Temp Pulse Resp BP Pulse Ox 98.3 F 62 16 113/75 98 04/27/18 23:40 04/27/18 23:40 04/27/18 23:40 04/27/18 23:40 04/27/18 23:40 Exam: Vitals: Reviewed and seemed to be within normal limits with no fever detected. General: Obese white female lying comfortably in bed in no acute distress. Skin: Warm and supple. HEENT: Slightly dry mucous membranes. Positive conjunctivae pallor. Neck: No lymphadenopathy. No JVD. Chest: Normal thoracic expansion. Normal breath sounds. Clear to auscultation. Heart: Normal S1 & S2; rhythmic. No rubs or murmurs. Abdomen: Obese but soft to palpation and mild tenderness on deep palpation of the right lower quadrant with no peritoneal reaction obtained. Extremities: No clubbing, cyanosis or edema. No calf tenderness. Normal distal pulses. Neurological: Awake, alert and oriented to person, place and time. Psych: Appropriate affect. Internal Med - H&P Results - Labs CBC & Chem 7: 04/27/18 18:46 04/27/18 18:46 - Assessment and plan (1) Abdominal pain Current Visit: Yes Status: Acute Assessment and plan: The patient is seen to have on CT: Moderate umbilical hernia containing a short segment of transverse colon with relative transition of caliber at the level of the hernia; fluid is present within the hernia sac as well as stranding associated with the transverse colon. Findings are worrisome for entrapment. Surgery was contacted on phone and will see her in the morning. At this time she does not have signs of sepsis or viscus perforation that warrants empiric antibiotics. -We will keep her nothing by mouth for now pending surgical evaluation -Pain medications as needed. -Holding off on fluids unless needed given her ESRD state. Qualifiers: Abdominal location: right lower quadrant Qualified Code(s): R10.31 - Right lower quadrant pain (2) Hypokalemia Current Visit: Yes Status: Acute Assessment and plan: Likely related to her recent dialysis session from today. -We will not supplement as it should gradually increase on its own given her ESRD state. (3) End stage renal disease on dialysis Current Visit: Yes Status: Chronic Assessment and plan: We will contact nephrology to place on dialysis schedule if she remains hospitalized still Wednesday. Continue her home medications for homeostasis. (4) Morbid obesity Current Visit: Yes Status: Chronic Assessment and plan: The patient uses a walker for ambulation and lives at home with her fiance who assists her with her activities of daily living which are impeded by her obesity. She was educated on lifestyle measures to decrease her weight. (5) COPD (chronic obstructive pulmonary disease) Current Visit: Yes Status: Chronic Assessment and plan: No signs of acute exacerbation for now. Albuterol when necessary and continue LABA/ICS daily. Qualifiers: COPD type: unspecified COPD Qualified Code(s): J44.9 - Chronic obstructive pulmonary disease, unspecified (6) DVT prophylaxis Current Visit: Yes Status: Acute Assessment and plan: Subcutaneous heparin indicated. - Time Spent With Patient Total time spent is greater than 50% in coordination of care (as documented) at patient's floor/unit and/or counseling patient: 25 - 35 minutes
[2018-04-28] MEDS: *HR* Heparin 5,000 UNIT/ML VIAL SQ SCH ×3 (05:13→23:22)
[2018-04-28] MEDS: Acetaminophen 325 MG TABLET PO PRN ×2 (05:14→12:52)
[2018-04-28] MEDS ORDERED: Dextrose Gel 15 GM/37.5 ML TUBE PO PRN ×2 (06:33)
[2018-04-28] MEDS: Calcium Acetate 667 MG CAPSULE PO SCH ×3 (09:03→17:37)
[2018-04-28] MEDS: Vitamin B Complex/Vit C/Vit E 1 EACH TABLET PO SCH (09:05)
[2018-04-28] MEDS: FLUoxetine 20 MG CAPSULE PO SCH (09:16)
[2018-04-28] MEDS: Lactobacillus 1 EACH CAP.SPRINK PO SCH ×2 (09:16→20:28)
--- NOTE | 2018-04-28 09:49 | Nephrology Consult Note ---
Date of Encounter: 04/28/18 Time of Encounter: 09:45 Assessment and Plan (1) End stage renal disease on dialysis Current Visit: Yes Status: Chronic Current regimen is Wednesday Almaz Tavares. Last treatment was Wednesday without complication. Continue renal binders and renal diet when able to eat. Avoid nephrotoxins and renal dose all medications Order additional UF and HD as needed. We will plan for HD tomorrow. (2) Abdominal pain Current Visit: Yes Status: Acute Per primary. Qualifiers: Abdominal location: right lower quadrant Qualified Code(s): R10.31 - Right lower quadrant pain (3) Incarcerated hernia Current Visit: Yes Status: Acute Per surgery. History of Present Illness - Reason for Consult Consult date: 04/28/18 end stage renal disease - Chief Complaint abdominal pain - History of Present Illness Ms Sauceod is a 47 year old woman well known to our practice who has a PMH of COPD, CAD, DM, ESRD on dialysis at the [facility], HTN, and morbid obesity who was admitted for abdominal pain. She states the abdominal pain started on Wednesday after dialysis. The pain does not radiate anywhere and is constant. Admits to decreased appetite nausea and one episode of clear emesis on Wednesday. Admits to chills but denies fever. Surgery has been consulted. Ms. Saucedo is on dialysis Wednesday. Last treatment was Wednesday without complication. Will plan for HD on Wednesday. Recommend renal diet when able to eat. Recommend continuing renal binders when able to eat as well. She lives at home with her fiance. She denies any use of tobacco, alcohol, and/or illicit drugs. Past Med Surg Social Fam HX - Past Medical History Medical history: COPD, coronary artery disease, diabetes, dialysis, hyperlipidemia, hypertension, kidney stones, renal disease, other Additional medical history: crvical stenosis of spinal cord. cervical myelopathy. left sided weakness Psychiatric history: anxiety, depression - Past Surgical History Surgical History: orthopedic, other (anterior cervical decompression and fusion) , other (Tonsillectomy; drainage of groin infection) Additional surgical history: Tonsilectomy. Cervical fusion. Fistula -- right upper arm - Social History Smoking Status: Former smoker Smokeless Tobacco Status: No Alcohol use: none Drug use: none - Family History Mother Living Status: Still Living Hx Family Cardiac Disorders: Yes (HTN) Hx Family Neurologic Disorders: Yes Father History Unknown: Yes Adopted: No Living Status: Hx Family Cancer: Yes (stomach cancer) Hx Family Endocrine Disorder: Yes (Diabetes) Medications and Allergies Albuterol Sulfate [Proair Respiclick] 2 puff IH Q4H PRN 10/19/15 [History] Atorvastatin [Lipitor] 10 mg PO HS 10/19/15 [History] FLUoxetine HCl [Prozac] 20 mg PO QAM 10/19/15 [History] Omeprazole [PriLOSEC] 20 mg PO DAILY 10/19/15 [History] Fluticasone/Vilanterol [Breo Ellipta 100-25 Mcg INH] 1 puff IH DAILY 01/03/17 [ History] Gabapentin [Neurontin] 300 mg PO HS 01/03/17 [History] Calcium Acetate [Phos-LO] 1,334 mg PO TIDWM 10/17/17 [History] Cinacalcet HCl [Sensipar] 60 mg PO DAILY 10/17/17 [History] Folic Acid/Vit Bcomp,C [Dialyvite Tablet] 1 tab PO DAILY 10/17/17 [History] Acetaminophen [Tylenol] 650 mg PO Q6HR PRN #60 tablet 03/12/18 [Rx] Lactobacillus [Culturelle] 1 each PO BID #30 cap.sprink 03/12/18 [Rx] 3 Allergy/AdvReac Type Severity Reaction Status Date / Time Sulfa (Sulfonamide Allergy Hives Verified 03/09/18 21:07 Antibiotics) iron AdvReac Hives Verified 03/09/18 21:07 Review of Systems Constitutional: anorexia, chills, no fatigue, no fever(s) Respiratory: no cough Gastrointestinal: abdominal pain, nausea, vomiting, no diarrhea Exam - Vital Signs Vital signs: Initial Vital Signs Temp Pulse Resp BP Pulse Ox 98.1 F 72 18 133/82 95 04/27/18 18:37 04/27/18 18:37 04/27/18 18:37 04/27/18 18:37 04/27/18 18:37 Vital Signs - Last 8 Hours Temp Pulse Resp BP Pulse Ox 04/28/18 07:31 97.8 F 64 19 112/71 95 04/28/18 04:29 97.6 F 59 16 108/66 100 Intake and Output 04/27/18 04/28/18 04/28/18 23:59 07:59 15:59 Other: Blood Glucose* 97 - General Appearance General appearance: well-developed, well-nourished, obese EENT: ATNC, hearing intact, vision intact Neck: supple Respiratory: clear Cardiology: no edema, normal S1, normal S2 - Dialysis Access Dialysis Vascular Access: Arteriovenous Fistula thrill: Yes bruit: Yes Gastrointestinal: normoactive bowel sounds, no tenderness, no guarding Integumentary: no rash, warm and dry Neurologic: alert and oriented x3 Psychiatric: mood/affect appropriate, cooperative Results - Lab Results 04/27/18 18:46 04/27/18 18:46 Most recent lab results Calcium 9.1 mg/dL (8.6-10.3) 04/27/18 18:46 Consult Discharge Plan - Plan Referrals: Steven Ly MD [Primary Care Provider] -
[2018-04-28] MEDS ORDERED: (Breo Ellipta 100-25 Mcg Inh) IH SCH (10:00)
[2018-04-28] MEDS: Budesonide/Formoterol 160/4.5 1 PUFF INH IH SCH ×2 (10:53→20:21)
[2018-04-28 11:47] LABS: Hepatitis B Surface Antigen Nonreactive (Nonreactive)
[2018-04-28] MEDS: Insulin LISPRO 300 UNITS/3 ML VIAL SQ SCH ×2 (12:35→17:29)
--- NOTE | 2018-04-28 12:37 | General Surgery Consult Note ---
Date of Encounter: 04/28/18 Time of Encounter: 12:15 Assessment and Plan (1) Incarcerated umbilical hernia Current Visit: Yes Status: Acute Patient states that her symptoms have significantly improved since admission Will check 2V abdominal films to evaluate bowel gas pattern Pending x-ray results, may consider advancing diet Serial abdominal exams Supportive care Surgery will continue to follow and assess progress Patient will need repair or umbilical hernia- urgent vs. interval repair pending x-ray and patient symptoms History of Present Illness Consult date: 04/28/18 Reason for consult: other (Umbilical hernia) Requesting physician: Melvin Mckeon History of present illness: Ms. Saucedo is a 47 year old female with a history of end stage renal disease on dialysis. She reported to the ED yesterday after dialysis with complaints of RLQ discomfort. She states that the pain was sharp/stabbing and constant. She denies ever having pain like this in the past. Onset was at the end of her dialysis session. She did experience an epidode of nausea/vomiting. She is passing flatus today and states that she had 2 normal bowel movements yesterday. She states that she does have an appetite. She reports that her pain is resolving today and is more of a tenderness. She no longer has sharp and constant pain. Denies any fever/chills. Surgery has been asked to see and evaluate the patient and her abnormal CT scan for further recommendations. Past Med Surg Social Fam HX - Past Medical History Source: patient Medical history: COPD, coronary artery disease, diabetes, dialysis, hyperlipidemia, hypertension, kidney stones, renal disease (ESRD), other Additional medical history: crvical stenosis of spinal cord. cervical myelopathy. left sided weakness Psychiatric history: anxiety, depression - Past Surgical History Surgical History: orthopedic, other (anterior cervical decompression and fusion) , other (Tonsillectomy; drainage of groin infection) Additional surgical history: Tonsilectomy. Cervical fusion. Fistula -- right upper arm - Social History Smoking Status: Former smoker Smokeless Tobacco Status: No Alcohol use: none Drug use: none Current living situation: Home - Independent Activity Level: Independent ambulation - Family History Mother Living Status: Still Living Hx Family Cardiac Disorders: Yes (HTN) Hx Family Neurologic Disorders: Yes Father History Unknown: Yes Adopted: No Living Status: Hx Family Cancer: Yes (stomach cancer) Hx Family Endocrine Disorder: Yes (Diabetes) Medications and Allergies Albuterol Sulfate [Proair Respiclick] 2 puff IH Q4H PRN 10/19/15 [History] Atorvastatin [Lipitor] 10 mg PO HS 10/19/15 [History] FLUoxetine HCl [Prozac] 20 mg PO QAM 10/19/15 [History] Omeprazole [PriLOSEC] 20 mg PO DAILY 10/19/15 [History] Fluticasone/Vilanterol [Breo Ellipta 100-25 Mcg INH] 1 puff IH DAILY 01/03/17 [ History] Gabapentin [Neurontin] 300 mg PO HS 01/03/17 [History] Calcium Acetate [Phos-LO] 1,334 mg PO TIDWM 10/17/17 [History] Cinacalcet HCl [Sensipar] 60 mg PO DAILY 10/17/17 [History] Folic Acid/Vit Bcomp,C [Dialyvite Tablet] 1 tab PO DAILY 10/17/17 [History] Acetaminophen [Tylenol] 650 mg PO Q6HR PRN #60 tablet 03/12/18 [Rx] Lactobacillus [Culturelle] 1 each PO BID #30 cap.sprink 03/12/18 [Rx] 3 Allergy/AdvReac Type Severity Reaction Status Date / Time Sulfa (Sulfonamide Allergy Hives Verified 03/09/18 21:07 Antibiotics) iron AdvReac Hives Verified 03/09/18 21:07 Review of Systems All systems PM: reviewed and no additional remarkable complaints except as stated (in the HPI) All systems PM: The remainder of the systems were reviewed and are negative General Surgery Exam Initial Vital Signs Temp Pulse Resp BP Pulse Ox 98.1 F 72 18 133/82 95 04/27/18 18:37 04/27/18 18:37 04/27/18 18:37 04/27/18 18:37 04/27/18 18:37 - General physical appearance well developed, well nourished, no distress, chronically ill, obese - Eyes normal ocular movement - ENT normal mucosa, atraumatic, normocephalic - Neck trachea midline - Respiratory normal respiratory effort, clear to auscultation - Cardiovascular Cardiovascular exam: Present: bradycardia - Abdomen Abdomen general surgery: Present: bowel sounds present, soft, tender (mildly periumbilical (right sided)) Hernia: Present: incarcerated, umbilical - Integumentary Integumentary general surgery: Present: warm and dry - Neurologic Present: CN 2-12 grossly intact - Musculoskeletal Present: normal gait, normal posture - Psychiatric Psychiatric general surgery: Present: appropriate, oriented to person, oriented to place, oriented to time, speech is normal, memory intact Exam Initial Vital Signs Temp Pulse Resp BP Pulse Ox 98.1 F 72 18 133/82 95 04/27/18 18:37 04/27/18 18:37 04/27/18 18:37 04/27/18 18:37 04/27/18 18:37 Results - Labs 04/27/18 18:46 04/27/18 18:46 Abnormal lab results RBC 3.76 M/mcL (3.82-4.97) L 04/27/18 18:46 Potassium 3.2 mEq/L (3.5-5.1) L 04/27/18 18:46 Carbon Dioxide 32 mEq/L (23-29) H 04/27/18 18:46 Creatinine 2.76 mg/dL (0.60-1.20) H 04/27/18 18:46 Est GFR ( Amer) 22 (> 60) L 04/27/18 18:46 Est GFR (Non-Af Amer) 18 (> 60) L 04/27/18 18:46 BUN/Creatinine Ratio 5 (6-26) L 04/27/18 18:46 Urine Clarity Cloudy (Clear) A 04/27/18 20:59 Ur Specific Yale 1.005 (1.010-1.025) L 04/27/18 20:59 Urine Protein 100 mg/dL (Neg-Trace) H 04/27/18 20:59 Urine Blood Large (Negative) H 04/27/18 20:59 Ur Leukocyte Esterase Small (Negative) H 04/27/18 20:59 Urine Microscopic RBC TNTC per hpf (0-3) H 04/27/18 20:59 Urine Microscopic WBC 5-15 per hpf (0-3) H 04/27/18 20:59 Ur Squamous Epith Cells Many per lpf (None-Few) H 04/27/18 20:59 Ur Culture Indicated? NO. (NO) A 04/27/18 20:59 All other labs normal. - Imaging CT scan - abdomen: report reviewed CT scan - pelvis: report reviewed Additional studies: Abdomen/Pelvis CT 04/27/18 18:38 IMPRESSION: Moderate umbilical hernia containing a short segment of transverse colon with relative transition of caliber at the level of the hernia; fluid is present within the hernia sac as well as stranding associated with the transverse colon. Findings are worrisome for entrapment. D/ / Rhona Motta Cha, MD / Rhona Motta Cha, MD Interpreting Provider: Rhona Motta Cha, MD Consult Discharge Plan - Plan Referrals: Steven Ly MD [Primary Care Provider] -
--- NOTE | 2018-04-28 14:30 | Internal Med Progress Note ---
Hospitalist Progress Note - Encounter Date of Encounter: 04/28/18 Time of Encounter: 12:00 - Subjective Interval History: 47-year-old female with end-stage renal disease on hemodialysis on Wednesday admitted and being managed for abdominal pain secondary to incarcerated umbilical hernia. Awaiting surgery evaluation at my time of review Denies any new complaints, and his abdominal pain is actually improved. - Exam Vitals: Temp Pulse Resp BP Pulse Ox 98.2 F 54 19 92/57 100 04/28/18 11:32 04/28/18 11:32 04/28/18 11:32 04/28/18 11:32 04/28/18 11:32 Exam: Vitals: Reviewed and seemed to be within normal limits with no fever detected. General: Obese white female lying comfortably in bed in no acute distress. Skin: Warm and supple. HEENT: Slightly dry mucous membranes. Positive conjunctivae pallor. Neck: No lymphadenopathy. No JVD. Chest: Normal thoracic expansion. Normal breath sounds. Clear to auscultation. Heart: Normal S1 & S2; rhythmic. No rubs or murmurs. Abdomen: Obese but soft to palpation and mild tenderness on deep palpation of the right lower quadrant with no peritoneal reaction obtained. Extremities: No clubbing, cyanosis or edema. No calf tenderness. Normal distal pulses. Neurological: Awake, alert and oriented to person, place and time. Psych: Appropriate affect. - Assessment and Plan (1) Abdominal pain Current Visit: Yes Status: Acute Assessment and Plan: See incarcerated umbilical hernia Patient does not have an acute abdomen and is not septic at this time (2) COPD (chronic obstructive pulmonary disease) Current Visit: Yes Status: Chronic Assessment and Plan: not in exaverbation duoneb prn (3) Diabetes Current Visit: Yes Status: Chronic Assessment and Plan: FS ACHS SSI (4) DVT prophylaxis Current Visit: Yes Status: Acute Assessment and Plan: SQ heparin (5) End stage renal disease on dialysis Current Visit: Yes Status: Chronic (6) HTN (hypertension) Current Visit: Yes Status: Chronic Assessment and Plan: controlled, continue home meds (7) Incarcerated umbilical hernia Current Visit: Yes Status: Acute Assessment and Plan: Abdomen is soft and mildly tender. Diagnosis per CAT scan. Surgery evaluation pending. Continue pain control. Not septic and no current indication for antibiotics. (8) Iron deficiency anemia Current Visit: Yes Status: Chronic Assessment and Plan: Continue home meds. (9) Obstructive sleep apnea Current Visit: Yes Status: Chronic Assessment and Plan: CPAP at bedtime. (10) Morbid obesity Current Visit: Yes Status: Chronic - Time Spent with Patient Total time spent is greater than 50% in coordination of care (as documented) at patient's floor/unit and/or counseling patient: Plan of Care Discussed with: patient Internal Medicine: Result - Labs CBC & Chem 7: 04/27/18 18:46 04/27/18 18:46 - Impressions Impressions Abdomen X-Ray 04/28/18 12:16 IMPRESSION: No evidence of bowel obstruction or pneumoperitoneum. Umbilical hernia seen on prior CT examination is not radiographically appreciated. Bilateral medullary nephrocalcinosis. 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 Diabetes mellitus complication status : with kidney complications Diabetes mellitus complication detail: with chronic kidney disease Chronic kidney disease stage: on chronic dialysis Qualified Code(s): E11.22 - Type 2 diabetes mellitus with diabetic chronic kidney disease; N18.6 - End stage renal disease; Z99.2 - Dependence on renal dialysis (6) HTN (hypertension) Qualifiers: Hypertension type: unspecified Qualified Code(s): I10 - Essential (primary) hypertension (8) Iron deficiency anemia Qualifiers: Iron deficiency anemia type: unspecified iron deficiency Qualified Code(s): D50.9 - Iron deficiency anemia, unspecified
[2018-04-28] MEDS ORDERED: Gabapentin 300 MG CAPSULE PO SCH (21:00)
[2018-04-29] MEDS: Insulin LISPRO 300 UNITS/3 ML VIAL SQ SCH ×3 (02:30→11:35)
[2018-04-29] MEDS: Acetaminophen 325 MG TABLET PO PRN (04:24)
[2018-04-29 04:48] LABS: Basophils % 0.6 %; Eosinophils # 0.2 K/mcL (0.0-0.6); Eosinophils % 3.3 %; Immature Granulocytes % 0.2 % (0-4); Lymphocytes # 1.1 K/mcL (0.6-4.6); Lymphocytes % 17.9 %; Mean Corpuscular HGB Conc 32.4 g/dL (31.6-35.5); Mean Corpuscular Hemoglobin 32.5 pg (28.0-33.3); Mean Corpuscular Volume 100.3 fL (83.0-100.0); Mean Platelet Volume 10.2 fL (9.4-12.4); Monocytes # 0.7 K/mcL (0.0-1.3); Monocytes % 10.8 %; Neutrophils # 4.2 K/mcL (1.6-8.9); Platelet Count 174 K/mcL (140-400); Red Blood Count 3.69 M/mcL (3.82-4.97); Red Cell Distribution Width 13.8 % (11.5-14.5); Segmented Neutrophils % 67.2 %
[2018-04-29 05:05] LABS: Calcium 8.5 mg/dL (8.6-10.3)
[2018-04-29] MEDS: *HR* Heparin 5,000 UNIT/ML VIAL SQ SCH ×2 (06:11→15:09)
[2018-04-29] MEDS ORDERED: 0.9 % Sodium Chloride 250 ML IVC PRN (06:59)
[2018-04-29] MEDS ORDERED: 0.9 % Sodium Chloride 1,000 ML PRIME SCH (07:00)
[2018-04-29] MEDS ORDERED: 0.9 % Sodium Chloride 1,000 ML ONE (07:32)
[2018-04-29] MEDS: FLUoxetine 20 MG CAPSULE PO SCH (08:36)
[2018-04-29] MEDS: Calcium Acetate 667 MG CAPSULE PO SCH ×2 (08:36→11:35)
[2018-04-29] MEDS: Vitamin B Complex/Vit C/Vit E 1 EACH TABLET PO SCH (08:36)
[2018-04-29] MEDS: Lactobacillus 1 EACH CAP.SPRINK PO SCH (08:36)
[2018-04-29] MEDS: Budesonide/Formoterol 160/4.5 1 PUFF INH IH SCH (10:33)
--- NOTE | 2018-04-29 10:43 | Nephrology Progress Note ---
Date of Encounter: 04/29/18 Time of Encounter: 10:40 - Assessment and Plan (1) Abdominal pain Current Visit: Yes Status: Acute Appears to be improving. Surgery following. Qualifiers: Abdominal location: right lower quadrant Qualified Code(s): R10.31 - Right lower quadrant pain (2) Incarcerated hernia Current Visit: Yes Status: Acute Per surgery. (3) End stage renal disease on dialysis Current Visit: Yes Status: Chronic Current regimen is Wednesday Almaz Chaitanya. Last treatment was Wednesday without complication. Continue renal binders and renal diet when able to eat. Avoid nephrotoxins and renal dose all medications Order additional UF and HD as needed. HD today. Subjective Principal diagnosis: abdominal pain Interval history: Pt seen and examined during HD, tolerating well. Denies nausea/vomiting or abdominal pain. Objective - Vital Signs Vital signs: Vital Signs Temp Pulse Resp BP Pulse Ox 04/29/18 10:10 124/58 04/29/18 09:55 134/58 04/29/18 09:40 98.4 F 18 127/65 04/29/18 07:16 97.8 F 56 19 118/54 96 04/29/18 04:47 97.8 F 60 18 94/52 97 04/28/18 23:42 98.0 F 62 18 111/69 97 04/28/18 20:21 17 97 04/28/18 18:56 98.2 F 58 16 94/58 99 04/28/18 16:43 98.2 F 59 18 80/37 97 04/28/18 11:32 98.2 F 54 19 92/57 100 04/28/18 10:54 19 95 Intake and Output 04/28/18 04/29/18 04/29/18 23:59 07:59 15:59 Intake Total 600 / 600 1080 / 1080 Balance 600 / 600 1080 / 1080 Intake: Oral 600 / 600 480 / 480 Intake, Rinseback and Flushes 600 / 600 Other: Meal Dinner Breakfast Percent of Meal Consumed 100% 100% Weight 143.5 kg Blood Glucose* 112 95 Hemodialysis Net Fluid Removed 370 (mL) Patient Weight 04/29/18 23:59 Weight 143.5 kg - General Appearance General appearance: Present: well-developed, well-nourished, obese EENT: Present: ATNC, hearing intact, vision intact Neck: Present: supple Respiratory: Present: clear Cardiology: Present: no edema, normal S1, normal S2 Dialysis Vascular Access: Arteriovenous Fistula thrill: Yes bruit: Yes Gastrointestinal: Present: normoactive bowel sounds, no tenderness, no guarding Integumentary: Present: no rash, warm and dry Neurologic: Present: alert and oriented x3 Psychiatric: Present: mood/affect appropriate, cooperative - Lab 04/29/18 04:24 04/29/18 04:24 Most recent lab results Calcium 8.5 mg/dL (8.6-10.3) L 04/29/18 04:24 Consult Discharge Plan - Plan Referrals: Steven Ly MD [Primary Care Provider] -
--- NOTE | 2018-04-29 11:00 | General Surgery Progress Note ---
Date of Encounter: 04/29/18 Time of Encounter: 10:00 - Assessment and Plan (1) Incarcerated umbilical hernia Current Visit: Yes Status: Acute Patient states that her symptoms have resolved She is tolerating a renal diet Will plan for elective, outpatient repair of umbilical hernia on 05/13/[address] Petersen Discussed with Nephrology and will plan to complete dialysis first thing in the morning on 05/13/18 and then transport up for surgery in the afternoon senior web services developer to arrange for dialysis the morning of 05/13/18 [facility] Risks, benefits, alternatives and expected outcomes reviewed with the patient and she is in agreement to proceed with surgical intervention as discussed General surgery office will contact patient with details of surgery early next week May discharge to home from a surgery standpoint Subjective Patient reports: no new complaints, feels better, tolerating a regular diet, flatus, afebrile Objective Vital Signs - Last 8 Hours Temp Pulse Resp BP Pulse Ox 04/29/18 10:10 124/58 04/29/18 09:55 134/58 04/29/18 09:40 98.4 F 18 127/65 04/29/18 07:16 97.8 F 56 19 118/54 96 04/29/18 04:47 97.8 F 60 18 94/52 97 Intake and Output 04/28/18 04/29/18 04/29/18 23:59 07:59 15:59 Intake Total 600 / 600 1080 / 1080 Balance 600 / 600 1080 / 1080 Intake: Oral 600 / 600 480 / 480 Intake, Rinseback and Flushes 600 / 600 Other: Meal Dinner Breakfast Percent of Meal Consumed 100% 100% Weight 143.5 kg Blood Glucose* 112 95 Hemodialysis Net Fluid Removed 370 (mL) Patient Weight 04/29/18 23:59 Weight 143.5 kg - General physical appearance well developed, well nourished, no distress, no pain, chronically ill, obese - Eyes normal ocular movement - ENT normal mucosa, atraumatic, normocephalic - Neck Neck exam: trachea midline - Respiratory normal respiratory effort, clear to auscultation - Cardiovascular Cardiovascular exam: Present: RRR - Abdomen Abdomen: Present: bowel sounds present, soft, non tender Hernia: incarcerated, umbilical - Neurologic CN 2-12 grossly intact - Psychiatric oriented to time, oriented to person, oriented to place, speech is normal, memory intact - Labs 04/29/18 04:24 04/29/18 04:24 Diabetes panel 04/29/18 Range/Units 04:24 Sodium 138 (136-145) mEq/L Potassium 4.0 (3.5-5.1) mEq/L Chloride 101 (98-107) mEq/L Carbon Dioxide 30 H (23-29) mEq/L BUN 31 H (6-20) mg/dL Creatinine 4.62 H (0.60-1.20) mg/dL Glucose 96 (70-105) mg/dL Calcium 8.5 L (8.6-10.3) mg/dL Calcium panel 04/29/18 Range/Units 04:24 Calcium 8.5 L (8.6-10.3) mg/dL Pituitary panel 04/29/18 Range/Units 04:24 Sodium 138 (136-145) mEq/L Potassium 4.0 (3.5-5.1) mEq/L Chloride 101 (98-107) mEq/L Carbon Dioxide 30 H (23-29) mEq/L BUN 31 H (6-20) mg/dL Creatinine 4.62 H (0.60-1.20) mg/dL Glucose 96 (70-105) mg/dL Calcium 8.5 L (8.6-10.3) mg/dL Adrenal panel 04/29/18 Range/Units 04:24 Sodium 138 (136-145) mEq/L Potassium 4.0 (3.5-5.1) mEq/L Chloride 101 (98-107) mEq/L Carbon Dioxide 30 H (23-29) mEq/L BUN 31 H (6-20) mg/dL Creatinine 4.62 H (0.60-1.20) mg/dL Glucose 96 (70-105) mg/dL Calcium 8.5 L (8.6-10.3) mg/dL Consult Discharge Plan - Plan Referrals: Steven Ly MD [Primary Care Provider] - - Attending Attestation For this encounter, I have reviewed the [employer] or PA documentation, treatment plan, and medical decision making; and I have had face to face time with this patient.
--- NOTE | 2018-04-29 14:21 | Discharge Summary ---
- NOTES TO OUTPATIENT PROVIDER Notes to Outpatient Provider: Follow up with surgery on 05/13 for out-patient umbilical hernia repair Date of Encounter: 04/29/18 Time of Encounter: 14:20 - Discharge Diagnosis (1) Abdominal pain Priority: Primary Status: Resolved Qualifiers: Abdominal location: right lower quadrant Qualified Code(s): R10.31 - Right lower quadrant pain (2) COPD (chronic obstructive pulmonary disease) Priority: Secondary Status: Chronic Qualifiers: COPD type: unspecified COPD Qualified Code(s): J44.9 - Chronic obstructive pulmonary disease, unspecified (3) Diabetes Priority: Secondary Status: Chronic Qualifiers: Diabetes mellitus type: type 2 Diabetes mellitus fci insulin use: unspecified distribution specialist insulin use status Diabetes mellitus complication status : with kidney complications Diabetes mellitus complication detail: with chronic kidney disease Chronic kidney disease stage: on chronic dialysis Qualified Code(s): E11.22 - Type 2 diabetes mellitus with diabetic chronic kidney disease; N18.6 - End stage renal disease; Z99.2 - Dependence on renal dialysis (4) DVT prophylaxis Priority: Primary Status: Resolved (5) End stage renal disease on dialysis Priority: Secondary Status: Chronic (6) HTN (hypertension) Priority: Secondary Status: Chronic Qualifiers: Hypertension type: unspecified Qualified Code(s): I10 - Essential (primary ) hypertension (7) Incarcerated umbilical hernia Priority: Primary Status: Acute (8) Iron deficiency anemia Priority: Secondary Status: Chronic Qualifiers: Iron deficiency anemia type: unspecified iron deficiency Qualified Code(s) : D50.9 - Iron deficiency anemia, unspecified (9) Obstructive sleep apnea Priority: Secondary Status: Chronic (10) Morbid obesity Priority: Secondary Status: Chronic Hospital course: 47-year-old female with end-stage renal disease on hemodialysis on Wednesday admitted and being managed for abdominal pain secondary to incarcerated umbilical hernia. She has an additional hx of COPD, HTN, ROWAN, BAILEY She had presented with abdominal pain and CT scan in the emergency room showed moderate umbilical hernia containing a short segment of transverse colon with relative transition of caliber at the level of the hernia; fluid is present within the hernia sac as well as stranding associated with the transverse colon. Findings are worrisome for entrapment. Her abdominal symptoms resolved and surgery repeated a 2V Abdominal Xray which showed a normal bowel gas pattern without eidence of the prior umbilical hernia incarceration Per surgery, patient will be called and arrangement made for out-patient umbilical hernia repair on 05/13/18 Patient is aware of this plan and agrees Other chronic medical conditions are stable Discharge discussed with: patient, nurse - Time Spent with Patient Total time spent providing and/or coordinating discharge services: Less than 30 minutes - Discharge Medications Home Medications: Albuterol Sulfate [Proair Respiclick] 2 puff IH Q4H PRN 10/19/15 [History] Atorvastatin [Lipitor] 10 mg PO HS 10/19/15 [History] FLUoxetine HCl [Prozac] 20 mg PO QAM 10/19/15 [History] Omeprazole [PriLOSEC] 20 mg PO DAILY 10/19/15 [History] Fluticasone/Vilanterol [Breo Ellipta 100-25 Mcg INH] 1 puff IH DAILY 01/03/17 [ History] Gabapentin [Neurontin] 300 mg PO HS 01/03/17 [History] Calcium Acetate [Phos-LO] 1,334 mg PO TIDWM 10/17/17 [History] Cinacalcet HCl [Sensipar] 60 mg PO DAILY 10/17/17 [History] Folic Acid/Vit Bcomp,C [Dialyvite Tablet] 1 tab PO DAILY 10/17/17 [History] Acetaminophen [Tylenol] 650 mg PO Q6HR PRN #60 tablet 03/12/18 [Rx] Lactobacillus [Culturelle] 1 each PO BID #30 cap.sprink 03/12/18 [Rx] Allergies/Adverse Reactions: 3 Allergy/AdvReac Type Severity Reaction Status Date / Time Sulfa (Sulfonamide Allergy Hives Verified 03/09/18 21:07 Antibiotics) iron AdvReac Hives Verified 03/09/18 21:07 Date of admission: 04/28/18 00:56 Primary care physician: Steven Ly MD Consults: 04/29/18 07:00 Consult to Dialysis [CONS] ONCE Discharging clinician: Melvin Mckeon Anticipated date of discharge: 04/29/18 - Constitutional Vitals: Temp Pulse Resp BP Pulse Ox 97.1 F L 56 18 126/60 96 04/29/18 13:30 04/29/18 07:16 04/29/18 13:30 04/29/18 13:30 04/29/18 07:16 General appearance: Present: A&O X 3, morbidly obese, pleasant, no acute distress - Head Head exam: Present: atraumatic, normocephalic - Eye Eye exam: Present: PERRL, conjuntiva pink, sclera anicteric Pupils: Present: PERRL - Neck Neck exam general surgery: Present: supple, trachea midline. Absent: lymphadenopathy - Respiratory Respiratory exam: Present: CTAB. Absent: accessory muscle use, rales, rhonchi, wheezes - Cardiovascular Cardiovascular exam: Present: RRR, +S1, +S2. Absent: diastolic murmur, gallop, rubs, systolic murmur - GI/Abdominal GI/Abdominal exam: Present: normal bowel sounds, soft, no peritoneal signs. Absent: distended, tenderness - Extremities Exam Extremities exam: Present: warm, radial pulses palpable and symmetrical. Absent : calf tenderness, cyanotic, pedal edema - Neurological Exam Neurological exam: Present: CN II-XII intact, oriented X3, no focal deficits. Absent: pronater drift, facial droop, speech deficit - Skin Skin exam: Present: dry, intact - Patient Status Disposition: Home, Self-Care Condition: Good Functional capacity at discharge: independent ambulation Overall status at discharge: patient is progressing back to baseline - Discharge Instructions Follow Up With: Steven Ly MD [Primary Care Provider] - Additional Instructions: Follow up with Dr. Petersen 05/13 for umbilical hernia repair - Diet and Activity Activity: resume usual activities as tolerated Diet: low fat, low cholesterol, low salt diet
[2018-04-29 16:24] VITALS: BP 99/63
== END 2018-04-29 16:37 | disposition home or self-care (01) | DRG 393 ==
LOC: 2ANU 18:35 → EMEROO 18:35 → 2ANU 23:40 → SUATTDRO 04-28 00:56
PROVIDERS: ADMIT Student in an Organized Health Care Education/Training Program; ATTEND Internal Medicine

== ENCOUNTER 2019-09-21 16:59 | Observation (INO) ==
[2019-09-21 19:45] LABS: Bilirubin,Urine Negative (Negative); Blood,Urine Small (Negative); Clarity,Urine Cloudy (Clear); Color,Urine Yellow (Yellow); Glucose,Urine (UA) Normal (Normal); Ketones,Urine Negative (Negative); Leukocyte Esterase,Urine Moderate (Negative); Nitrite,Urine Negative (Negative); PH,Urine 6.5 pH Units (5.0-8.0); Protein,Urine 100 mg/dL (Neg-Trace); Specific Gravity,Urine 1.014 (1.010-1.025); Urobilinogen,Urine Normal (Normal)
[2019-09-21 19:46] LABS: Basophils # 0.1 K/mcL (0.0-0.2); Basophils % 0.4 %; Eosinophils # 0.3 K/mcL (0.0-0.6); Eosinophils % 1.9 %; Hematocrit 44.1 % (35.3-44.9); Hemoglobin 13.5 g/dL (11.5-15.4); Immature Granulocytes % 0.4 % (0-4); Lymphocytes # 1.3 K/mcL (0.6-4.6); Lymphocytes % 8.3 %; Mean Corpuscular HGB Conc 30.6 g/dL (31.6-35.5); Mean Corpuscular Hemoglobin 32.3 pg (28.0-33.3); Mean Corpuscular Volume 105.5 fL (83.0-100.0); Mean Platelet Volume 10.1 fL (9.4-12.4); Monocytes # 1.3 K/mcL (0.0-1.3); Monocytes % 8.3 %; Neutrophils # 12.9 K/mcL (1.6-8.9); Platelet Count 219 K/mcL (140-400); Red Blood Count 4.18 M/mcL (3.82-4.97); Red Cell Distribution Width 13.9 % (11.5-14.5); Segmented Neutrophils % 80.7 %
[2019-09-21 19:48] LABS: Bacteria,Urine None Seen per hpf (None-Few); Hyaline Casts,Urine None Seen per lpf (None-Few); Squamous Epithelial Cell,Urine Many per lpf (None-Few); WBC,Urine 30-50 per hpf (0-3)
[2019-09-21] MEDS ORDERED: Isovue-370 500 ML BOTTLE IVP ONE (20:00)
[2019-09-21 20:06] LABS: Albumin 4.2 g/dL (3.5-5.7); Albumin/Globulin Ratio 1.2 (1.1-2.2); Bilirubin,Indirect 0.3 mg/dL (0.0-1.0); Bilirubin,Total 0.3 mg/dL (0.3-1.0); Calcium 9.9 mg/dL (8.6-10.3); Globulin 3.5 g/dL (2.4-3.5); Potassium 4.3 mEq/L (3.5-5.1); Total Protein 7.7 g/dL (6.4-8.9)
[2019-09-21] MEDS ORDERED: Morphine Sulfate 2 MG/ML SYRINGE IVP ONE (22:49)
[2019-09-22] MEDS ORDERED: Naloxone 0.4 MG/ML INJ IVP PRN (01:48)
[2019-09-22] MEDS ORDERED: Acetaminophen 325 MG TABLET PO PRN (04:41)
[2019-09-22] MEDS ORDERED: Nicotine 7 MG PATCH.TD24 TD PRN (06:17)
[2019-09-22 06:57] LABS: Basophils % 0.4 %; Eosinophils # 0.2 K/mcL (0.0-0.6); Eosinophils % 2.5 %; Hematocrit 41.9 % (35.3-44.9); Hemoglobin 13.1 g/dL (11.5-15.4); Immature Granulocytes % 0.4 % (0-4); Lymphocytes % 10.5 %; Mean Corpuscular HGB Conc 31.3 g/dL (31.6-35.5); Mean Corpuscular Hemoglobin 31.9 pg (28.0-33.3); Mean Corpuscular Volume 101.9 fL (83.0-100.0); Mean Platelet Volume 10.1 fL (9.4-12.4); Monocytes # 0.8 K/mcL (0.0-1.3); Monocytes % 8.4 %; Neutrophils # 7.5 K/mcL (1.6-8.9); Platelet Count 170 K/mcL (140-400); Red Blood Count 4.11 M/mcL (3.82-4.97); Red Cell Distribution Width 13.9 % (11.5-14.5); Segmented Neutrophils % 77.8 %; White Blood Count 9.7 K/mcL (4.3-11.1)
[2019-09-22 07:11] LABS: Calcium 9.9 mg/dL (8.6-10.3); Potassium 4.3 mEq/L (3.5-5.1)
[2019-09-22 07:17] LABS: ABG Base Excess 7 mEq/L (-2 to 3); ABG HCO3 37 mEq/L (21-27); ABG Oxygen Saturation 92 % (95-98); ABG PCO2 81 mmHg (35-45); ABG PH 7.27 pH Units (7.32-7.45); ABG PO2 75 mmHg (85-104); ABG TCO2 40 mEq/L (20-26)
[2019-09-22] MEDS ORDERED: 0.9 % Sodium Chloride 1,000 ML ONE (07:23)
[2019-09-22] MEDS: (Fluticasone/Vilanterol [Breo Ellipta 100-25 Mcg Inh] IH SCH (08:23)
[2019-09-22] MEDS: Furosemide 40 MG TABLET PO SCH (08:23)
[2019-09-22] MEDS: FLUoxetine 20 MG CAPSULE PO SCH (08:23)
[2019-09-22] MEDS: *HR* Heparin 5,000 UNIT/ML VIAL SQ SCH ×3 (08:23→20:51)
[2019-09-22] MEDS ORDERED: 0.9 % Sodium Chloride 250 ML IVC PRN (08:32)
[2019-09-22] MEDS ORDERED: *HR* Heparin 10,000 UNIT/10 ML VIAL IV PRN (08:32)
[2019-09-22 08:35] LABS: Hepatitis B Surface Antibody < 3.10 mIU/mL
[2019-09-22] MEDS ORDERED: 0.9 % Sodium Chloride 1,000 ML PRIME SCH (08:45)
[2019-09-22 08:46] LABS: Hepatitis B Surface Antigen Nonreactive (Nonreactive)
[2019-09-22] MEDS ORDERED: Gabapentin 300 MG CAPSULE PO SCH (21:00)
[2019-09-23] MEDS: *HR* Heparin 5,000 UNIT/ML VIAL SQ SCH (05:26)
[2019-09-23] MEDS: Furosemide 40 MG TABLET PO SCH (07:52)
[2019-09-23] MEDS: (Fluticasone/Vilanterol [Breo Ellipta 100-25 Mcg Inh] IH SCH (07:52)
[2019-09-23] MEDS: FLUoxetine 20 MG CAPSULE PO SCH (07:52)
[2019-09-23 10:16] LABS: VBG HCO3 31 mEq/L (21-27); VBG PCO2 56 mmHg (41-51); VBG PH 7.35 pH Units (7.32-7.42); VBG PO2 123 mmHg (25-50)
[2019-09-23 10:17] LABS: Basophils # 0.1 K/mcL (0.0-0.2); Basophils % 0.5 %; Eosinophils # 0.2 K/mcL (0.0-0.6); Eosinophils % 2.2 %; Hematocrit 41.6 % (35.3-44.9); Hemoglobin 13.2 g/dL (11.5-15.4); Immature Granulocytes % 0.4 % (0-4); Lymphocytes # 0.7 K/mcL (0.6-4.6); Lymphocytes % 7.4 %; Mean Corpuscular HGB Conc 31.7 g/dL (31.6-35.5); Mean Corpuscular Hemoglobin 31.8 pg (28.0-33.3); Mean Corpuscular Volume 100.2 fL (83.0-100.0); Mean Platelet Volume 10.1 fL (9.4-12.4); Monocytes # 0.9 K/mcL (0.0-1.3); Neutrophils # 7.7 K/mcL (1.6-8.9); Platelet Count 159 K/mcL (140-400); Red Blood Count 4.15 M/mcL (3.82-4.97); Red Cell Distribution Width 13.8 % (11.5-14.5); Segmented Neutrophils % 80.5 %; White Blood Count 9.6 K/mcL (4.3-11.1)
[2019-09-23 10:33] LABS: Calcium 9.7 mg/dL (8.6-10.3); Potassium 4.7 mEq/L (3.5-5.1)
[2019-09-23 11:19] VITALS: BP 108/61
== END 2019-09-23 11:53 | disposition home or self-care (01) ==
LOC: EMEROOARM 16:59 → 2ANU 16:59 → SUATTDRO 23:30 → 2ANU 09-22 00:39
PROVIDERS: ADMIT Internal Medicine; ATTEND Internal Medicine

== ENCOUNTER 2019-11-02 17:15 | Inpatient (IN) ==
[2019-11-02] MEDS ORDERED: Albuterol 2.5 MG/3 ML NEBULIZER IH ONE (17:29)
[2019-11-02] MEDS ORDERED: Ipratropium/Albuterol Neb 3 ML IH ONE (17:29)
[2019-11-02] MEDS ORDERED: methylPREDNISolone 125 MG/2 ML VIAL IVP ONE (17:29)
[2019-11-02 17:58] LABS: Basophils % 0.4 %; Eosinophils # 0.2 K/mcL (0.0-0.6); Hematocrit 39.6 % (35.3-44.9); Hemoglobin 12.7 g/dL (11.5-15.4); Immature Granulocytes % 0.4 % (0-4); Lymphocytes # 0.6 K/mcL (0.6-4.6); Lymphocytes % 7.3 %; Mean Corpuscular HGB Conc 32.1 g/dL (31.6-35.5); Mean Corpuscular Hemoglobin 32.6 pg (28.0-33.3); Mean Corpuscular Volume 101.5 fL (83.0-100.0); Mean Platelet Volume 9.9 fL (9.4-12.4); Monocytes # 0.9 K/mcL (0.0-1.3); Monocytes % 10.5 %; Neutrophils # 6.7 K/mcL (1.6-8.9); Platelet Count 202 K/mcL (140-400); Red Cell Distribution Width 14.6 % (11.5-14.5); Segmented Neutrophils % 79.4 %; White Blood Count 8.5 K/mcL (4.3-11.1)
[2019-11-02 18:02] LABS: Prothrombin Time 11.9 Seconds (9.4-12.1)
[2019-11-02 18:05] LABS: Activated Partial Thrombo Time 30.5 Seconds (26.0-36.0)
[2019-11-02 18:19] LABS: Alanine Aminotransferase 7 Units/L (7-52); Albumin 3.8 g/dL (3.5-5.7); Albumin/Globulin Ratio 1.2 (1.1-2.2); Alkaline Phosphatase 77 Units/L (34-104); Aspartate Amino Transferase 14 Units/L (13-39); BUN/Creatinine Ratio 7 (6-26); Bilirubin,Direct 0.1 mg/dL (0.0-0.2); Bilirubin,Indirect 0.3 mg/dL (0.0-1.0); Bilirubin,Total 0.4 mg/dL (0.3-1.0); Blood Urea Nitrogen 39 mg/dL (6-20); Carbon Dioxide 29 mEq/L (23-29); Chloride 91 mEq/L (98-107); Globulin 3.2 g/dL (2.4-3.5); Glucose 111 mg/dL (70-105); Osmolality,Calculated 288 (280-300); Potassium 4.1 mEq/L (3.5-5.1); Sodium 134 mEq/L (136-145); Troponin I < 0.03 ng/mL (< 0.04); eGFR For African Americans 9 (> 60); eGFR For Non-African Americans 7 (> 60)
[2019-11-02] MEDS ORDERED: cefTRIAXone 1,000 MG in Water for inj. (sterile) 10 ML IVP ONE (19:28)
[2019-11-02] MEDS ORDERED: Azithromycin 500 MG in 0.9 % Sodium Chloride 250 ML IVPB ONE (19:28)
[2019-11-03] MEDS ORDERED: Naloxone 0.4 MG/ML INJ IVP PRN (00:57)
[2019-11-03] MEDS ORDERED: Albuterol 2.5 MG/3 ML NEBULIZER IH PRN (00:59)
[2019-11-03 02:23] LABS: Hematocrit 38.7 % (35.3-44.9); Hemoglobin 11.9 g/dL (11.5-15.4); Mean Corpuscular HGB Conc 30.7 g/dL (31.6-35.5); Mean Corpuscular Hemoglobin 32.3 pg (28.0-33.3); Mean Corpuscular Volume 105.2 fL (83.0-100.0); Mean Platelet Volume 10.3 fL (9.4-12.4); Platelet Count 179 K/mcL (140-400); Red Blood Count 3.68 M/mcL (3.82-4.97); Red Cell Distribution Width 14.5 % (11.5-14.5); White Blood Count 7.8 K/mcL (4.3-11.1)
[2019-11-03 02:47] LABS: Alanine Aminotransferase 8 Units/L (7-52); Albumin 3.8 g/dL (3.5-5.7); Albumin/Globulin Ratio 1.2 (1.1-2.2); Alkaline Phosphatase 81 Units/L (34-104); Aspartate Amino Transferase 13 Units/L (13-39); BUN/Creatinine Ratio 7 (6-26); Bilirubin,Total 0.4 mg/dL (0.3-1.0); Blood Urea Nitrogen 43 mg/dL (6-20); Calcium 8.9 mg/dL (8.6-10.3); Carbon Dioxide 29 mEq/L (23-29); Chloride 93 mEq/L (98-107); Globulin 3.2 g/dL (2.4-3.5); Glucose 178 mg/dL (70-105); Magnesium 2.1 mg/dL (1.6-2.6); Osmolality,Calculated 293 (280-300); Phosphorous 7.8 mg/dL (2.7-4.5); Potassium 4.7 mEq/L (3.5-5.1); Sodium 134 mEq/L (136-145); Troponin I < 0.03 ng/mL (< 0.04); eGFR For African Americans 8 (> 60); eGFR For Non-African Americans 7 (> 60)
[2019-11-03] MEDS: *HR* OxyCODONE/APAP 5/325 TABLET PO PRN ×2 (03:12→15:37)
[2019-11-03] MEDS: Ipratropium/Albuterol Neb 3 ML IH SCH ×4 (04:08→22:11)
[2019-11-03] MEDS ORDERED: *HR* Heparin 10,000 UNIT/10 ML VIAL IV PRN (08:19)
[2019-11-03] MEDS ORDERED: 0.9 % Sodium Chloride 250 ML IVC PRN (08:19)
[2019-11-03] MEDS: cefTRIAXone 1,000 MG in 0.9 % Sodium Chloride Mini Bag 100 ML IVPB SCH (08:29)
[2019-11-03] MEDS ORDERED: 0.9 % Sodium Chloride 1,000 ML PRIME SCH (08:30)
[2019-11-03] MEDS: predniSONE 20 MG TABLET PO SCH (08:46)
[2019-11-03] MEDS: FLUoxetine 20 MG CAPSULE PO SCH (08:46)
[2019-11-03] MEDS: Azithromycin 250 MG TABLET PO SCH (08:46)
[2019-11-03] MEDS ORDERED: cefTRIAXone 1,000 MG in Water for inj. (sterile) 10 ML IVP SCH (09:00)
[2019-11-03] MEDS ORDERED: NON-FORMULARY MEDICATION 1 EACH EACH (Fluticasone/Vilanterol [Breo Ellipta 100-25 Mcg Inh] IH SCH (09:00)
[2019-11-03 09:40] LABS: Hepatitis B Surface Antibody < 3.10 mIU/mL
[2019-11-03 09:50] LABS: Hepatitis B Surface Antigen Nonreactive (Nonreactive)
[2019-11-03] MEDS: Budesonide/Formoterol 160/4.5 1 PUFF INH IH SCH ×2 (10:38→22:11)
[2019-11-03] MEDS ORDERED: Azithromycin 500 MG in 0.9 % Sodium Chloride 250 ML IVPB SCH (21:00)
[2019-11-03] MEDS ORDERED: Gabapentin 300 MG CAPSULE PO SCH (21:00)
[2019-11-04] MEDS: Ipratropium/Albuterol Neb 3 ML IH SCH ×2 (03:33→11:37)
[2019-11-04 05:28] LABS: Hematocrit 37.8 % (35.3-44.9); Hemoglobin 11.7 g/dL (11.5-15.4); Mean Corpuscular Hemoglobin 31.9 pg (28.0-33.3); Mean Platelet Volume 10.1 fL (9.4-12.4); Platelet Count 186 K/mcL (140-400); Red Blood Count 3.67 M/mcL (3.82-4.97); Red Cell Distribution Width 14.4 % (11.5-14.5); White Blood Count 7.5 K/mcL (4.3-11.1)
[2019-11-04 05:47] LABS: Calcium 8.8 mg/dL (8.6-10.3)
[2019-11-04 07:10] VITALS: BP 161/82
[2019-11-04] MEDS: cefTRIAXone 1,000 MG in 0.9 % Sodium Chloride Mini Bag 100 ML IVPB SCH (09:12)
[2019-11-04] MEDS: FLUoxetine 20 MG CAPSULE PO SCH (09:13)
[2019-11-04] MEDS: Azithromycin 250 MG TABLET PO SCH (09:13)
[2019-11-04] MEDS: predniSONE 20 MG TABLET PO SCH (09:13)
[2019-11-04] MEDS: *HR* OxyCODONE/APAP 5/325 TABLET PO PRN (09:47)
[2019-11-04] MEDS: Budesonide/Formoterol 160/4.5 1 PUFF INH IH SCH (11:37)
== END 2019-11-04 12:42 | disposition home or self-care (01) | DRG 193 ==
LOC: 2ANU 17:15 → EMEROOARM 17:15 → SUATTDRO 20:28 → 2ANU 21:44
PROVIDERS: ADMIT Internal Medicine; ATTEND Internal Medicine

== ENCOUNTER 2020-04-01 16:21 | Inpatient (IN) ==
[2020-04-01] MEDS ORDERED: Isovue-370 500 ML BOTTLE IVP ONE (16:36)
[2020-04-01] MEDS ORDERED: Dexamethasone 4 MG/ML VIAL IVP ONE (16:38)
[2020-04-01] MEDS ORDERED: Ipratropium/Albuterol Neb 3 ML IH ONE (16:39)
[2020-04-01 17:20] LABS: Basophils % 0.3 %; Eosinophils # 0.1 K/mcL (0.0-0.6); Eosinophils % 0.7 %; Hematocrit 36.6 % (35.3-44.9); Hemoglobin 10.4 g/dL (11.5-15.4); Lymphocytes # 0.5 K/mcL (0.6-4.6); Lymphocytes % 5.3 %; Mean Corpuscular HGB Conc 28.4 g/dL (31.6-35.5); Mean Corpuscular Hemoglobin 30.3 pg (28.0-33.3); Mean Corpuscular Volume 106.7 fL (83.0-100.0); Mean Platelet Volume 9.8 fL (9.4-12.4); Monocytes # 1.1 K/mcL (0.0-1.3); Monocytes % 11.9 %; Neutrophils # 7.8 K/mcL (1.6-8.9); Nucleated Red Blood Cells 0.2 /100 WBC (0); Platelet Count 193 K/mcL (140-400); Red Blood Count 3.43 M/mcL (3.82-4.97); Segmented Neutrophils % 80.8 %; White Blood Count 9.6 K/mcL (4.3-11.1)
[2020-04-01 17:46] LABS: Troponin I 0.04 ng/mL (< 0.04)
[2020-04-01 17:48] LABS: Albumin/Globulin Ratio 1.4 (1.1-2.2); Basophilic Stippling 1+ (Not Present); Bilirubin,Indirect 0.3 mg/dL (0.0-1.0); Bilirubin,Total 0.3 mg/dL (0.3-1.0); Globulin 2.8 g/dL (2.4-3.5); Platelet Estimate Normal (Normal); Polychromasia 1+ (Not Present); Potassium 4.9 mEq/L (3.5-5.1); Stomatocytes 1+ (Not Present); Total Protein 6.8 g/dL (6.4-8.9)
[2020-04-01 17:52] LABS: Bacteria,Urine Few per hpf (None-Few); Bilirubin,Urine Negative (Negative); Blood,Urine Small (Negative); Clarity,Urine Turbid (Clear); Color,Urine Yellow (Yellow); Glucose,Urine (UA) Normal (Normal); Ketones,Urine Negative (Negative); Leukocyte Esterase,Urine Large (Negative); Mucus,Urine Few per lpf (None-Few); Nitrite,Urine Negative (Negative); PH,Urine 6.5 pH Units (5.0-8.0); Protein,Urine 50 mg/dL (Neg-Trace); RBC,Urine 15-30 per hpf (0-3); Specific Gravity,Urine 1.013 (1.010-1.025); Squamous Epithelial Cell,Urine Many per hpf (None-Few); Urobilinogen,Urine Normal (Normal); WBC,Urine 50-100 per hpf (0-3)
[2020-04-01 17:54] LABS: Transitional Epi Cells,Urine Few per hpf (None-Few)
[2020-04-01 17:58] LABS: VBG HCO3 30 mEq/L (21-27); VBG PCO2 71 mmHg (41-51); VBG PH 7.24 pH Units (7.32-7.42); VBG PO2 163 mmHg (25-50)
[2020-04-01] MEDS ORDERED: levoFLOXacin 500 MG/100 ML 500 MG/100 ML BAG IVPB ONE (19:33)
[2020-04-01] MEDS ORDERED: Naloxone 0.4 MG/ML INJ IVP PRN (20:23)
[2020-04-02 01:24] LABS: Basophils % 0.2 %; Eosinophils # 0.1 K/mcL (0.0-0.6); Eosinophils % 0.6 %; Immature Granulocytes % 0.6 % (0-4); Lymphocytes # 0.3 K/mcL (0.6-4.6); Lymphocytes % 3.2 %; Mean Corpuscular HGB Conc 28.6 g/dL (31.6-35.5); Mean Corpuscular Hemoglobin 30.7 pg (28.0-33.3); Mean Corpuscular Volume 107.4 fL (83.0-100.0); Mean Platelet Volume 9.8 fL (9.4-12.4); Monocytes # 0.2 K/mcL (0.0-1.3); Monocytes % 2.1 %; Neutrophils # 7.8 K/mcL (1.6-8.9); Nucleated Red Blood Cells 0.2 /100 WBC (0); Platelet Count 158 K/mcL (140-400); Red Blood Count 3.26 M/mcL (3.82-4.97); Red Cell Distribution Width 15.8 % (11.5-14.5); Segmented Neutrophils % 93.3 %; White Blood Count 8.4 K/mcL (4.3-11.1)
[2020-04-02 01:28] LABS: Prothrombin Time 11.4 Seconds (9.4-12.1)
[2020-04-02 01:30] LABS: Activated Partial Thrombo Time 28.1 Seconds (26.0-36.0)
[2020-04-02 01:42] LABS: Albumin 3.9 g/dL (3.5-5.7); Albumin/Globulin Ratio 1.4 (1.1-2.2); Bilirubin,Total 0.3 mg/dL (0.3-1.0); Calcium 9.1 mg/dL (8.6-10.3); Globulin 2.7 g/dL (2.4-3.5); Phosphorous 4.2 mg/dL (2.7-4.5); Potassium 5.5 mEq/L (3.5-5.1); Total Protein 6.6 g/dL (6.4-8.9)
[2020-04-02] MEDS ORDERED: MethylPREDNISolone 40 MG/ML VIAL IVP SCH (06:00)
[2020-04-02] MEDS ORDERED: Albuterol 2.5 MG/3 ML NEBULIZER IH PRN (06:33)
[2020-04-02 06:41] LABS: VBG HCO3 31 mEq/L (21-27); VBG PCO2 65 mmHg (41-51); VBG PH 7.28 pH Units (7.32-7.42); VBG PO2 192 mmHg (25-50)
[2020-04-02] MEDS ORDERED: Calcium Acetate 667 MG CAPSULE PO PRN (06:45)
[2020-04-02] MEDS: Budesonide/Formoterol 160/4.5 1 PUFF INH IH SCH ×2 (07:43→21:15)
[2020-04-02] MEDS ORDERED: Ipratropium 1 PUFF INHALER IH SCH (08:00)
[2020-04-02] MEDS: FLUoxetine 20 MG CAPSULE PO SCH (08:15)
[2020-04-02] MEDS: Furosemide 40 MG TABLET PO SCH (08:15)
[2020-04-02] MEDS: Calcium Acetate 667 MG CAPSULE PO SCH ×3 (08:15→15:39)
[2020-04-02] MEDS: Gabapentin 300 MG CAPSULE PO SCH (08:16)
[2020-04-02] MEDS ORDERED: SODIUM ZIRCONIUM CYCLOSILICATE 10 GM PO SCH (09:00)
[2020-04-02] MEDS: MethylPREDNISolone 40 MG/ML VIAL IVP SCH ×3 (09:21→23:14)
[2020-04-02] MEDS: SODIUM ZIRCONIUM CYCLOSILICATE 5 GM POWD.PACK PO SCH (12:02)
[2020-04-02] MEDS: cefTRIAXone 2,000 MG in Water for inj. (sterile) 20 ML IVP SCH (12:02)
[2020-04-02] MEDS: *HR* Heparin 5,000 UNIT/ML VIAL SQ SCH ×2 (13:52→23:14)
[2020-04-02] MEDS: *HR* OxyCODONE Immed Rel 5 MG TABLET PO PRN ×2 (15:38→23:14)
[2020-04-02] MEDS ORDERED: Simethicone 80 MG TAB.CHEW PO PRN (22:48)
[2020-04-03] MEDS: *HR* Heparin 5,000 UNIT/ML VIAL SQ SCH ×3 (07:01→20:18)
[2020-04-03] MEDS: Budesonide/Formoterol 160/4.5 1 PUFF INH IH SCH ×2 (07:38→19:41)
[2020-04-03] MEDS ORDERED: *HR* Heparin 10,000 UNIT/10 ML VIAL IV PRN (08:21)
[2020-04-03] MEDS ORDERED: 0.9 % Sodium Chloride 250 ML IVC PRN (08:21)
[2020-04-03] MEDS ORDERED: 0.9 % Sodium Chloride 1,000 ML PRIME SCH (08:30)
[2020-04-03] MEDS: Calcium Acetate 667 MG CAPSULE PO SCH ×3 (09:11→15:57)
[2020-04-03] MEDS: SODIUM ZIRCONIUM CYCLOSILICATE 5 GM POWD.PACK PO SCH (09:11)
[2020-04-03] MEDS: FLUoxetine 20 MG CAPSULE PO SCH (09:11)
[2020-04-03] MEDS: MethylPREDNISolone 40 MG/ML VIAL IVP SCH (09:12)
[2020-04-03] MEDS: Gabapentin 300 MG CAPSULE PO SCH (09:12)
[2020-04-03 09:18] LABS: Red Cell Distribution Width 15.2 % (11.5-14.5)
[2020-04-03 09:19] LABS: Hematocrit 38.1 % (35.3-44.9); Hemoglobin 10.8 g/dL (11.5-15.4); Mean Corpuscular HGB Conc 28.3 g/dL (31.6-35.5); Mean Corpuscular Hemoglobin 30.5 pg (28.0-33.3); Mean Corpuscular Volume 107.6 fL (83.0-100.0); Platelet Count 166 K/mcL (140-400); Red Blood Count 3.54 M/mcL (3.82-4.97); White Blood Count 7.9 K/mcL (4.3-11.1)
[2020-04-03 09:20] LABS: Calcium 9.9 mg/dL (8.6-10.3); Potassium 5.6 mEq/L (3.5-5.1)
[2020-04-03 11:04] LABS: Hepatitis B Surface Antibody < 3.10 mIU/mL
[2020-04-03 11:14] LABS: Hepatitis B Surface Antigen Nonreactive (Nonreactive)
[2020-04-03] MEDS: cefTRIAXone 2,000 MG in Water for inj. (sterile) 20 ML IVP SCH (11:36)
[2020-04-03] MEDS: *HR* OxyCODONE Immed Rel 5 MG TABLET PO PRN ×3 (11:36→22:29)
[2020-04-03] MEDS ORDERED: levoFLOXacin 500 MG/100 ML 500 MG/100 ML BAG IVPB SCH (21:00)
[2020-04-04 02:25] LABS: Calcium 9.8 mg/dL (8.6-10.3); Potassium 4.1 mEq/L (3.5-5.1)
[2020-04-04] MEDS: *HR* OxyCODONE Immed Rel 5 MG TABLET PO PRN ×2 (05:12→09:21)
[2020-04-04] MEDS: *HR* Heparin 5,000 UNIT/ML VIAL SQ SCH (05:12)
[2020-04-04 07:21] VITALS: BP 161/77
[2020-04-04] MEDS: Calcium Acetate 667 MG CAPSULE PO SCH ×2 (08:12→11:59)
[2020-04-04] MEDS: FLUoxetine 20 MG CAPSULE PO SCH (08:12)
[2020-04-04] MEDS: SODIUM ZIRCONIUM CYCLOSILICATE 5 GM POWD.PACK PO SCH (08:13)
[2020-04-04] MEDS: Gabapentin 300 MG CAPSULE PO SCH (08:13)
[2020-04-04] MEDS: Furosemide 40 MG TABLET PO SCH (08:17)
[2020-04-04] MEDS ORDERED: predniSONE 20 MG TABLET PO SCH (09:00)
[2020-04-04] MEDS: Budesonide/Formoterol 160/4.5 1 PUFF INH IH SCH (09:39)
[2020-04-04] MEDS: cefTRIAXone 2,000 MG in Water for inj. (sterile) 20 ML IVP SCH (11:40)
== END 2020-04-04 12:50 | disposition home health service (06) | DRG 189 ==
LOC: EMEROOARM 16:21 → 2NENU 16:21 → 2ANU 04-02 19:12 → SUATTDRO 04-02 22:06
PROVIDERS: ADMIT Student in an Organized Health Care Education/Training Program; ATTEND Internal Medicine